=== PATIENT | female | born 1990 | race Caucasian/White ===

== ENCOUNTER 2018-01-25 01:07 | Emergency (ER) | payer OTHER, MEDICAID, SELFPAY ==
[2018-01-25 01:17] VITALS: BP 126/72; PULSE 88; RESP 18; TEMP 36.3; O2SAT 98; BMI 40.7
[2018-01-25] MEDS: CYCLOBENZAPRINE 10 MG PREPACK 1 BOTTLE MISC (01:42)
[2018-01-25] MEDS: KETOROLAC 60 MG/2 ML VIAL IM (01:42)
--- NOTE | 2018-01-25 01:42 | ED.EXTPRO ---
HPI - Extremity Problem General Chief complaint: Extremity Problem,Nontraumatic Stated complaint: SHARP PAIN IN LEFT SHOULDER BLADE Time Seen by Provider: 01/25/18 01:17 Source: patient Mode of arrival: ambulatory Limitations: no limitations History of Present Illness HPI Narrative: Patient is a 27-year-old female who presents with left shoulder pain. It has been ongoing for the last 4 days she was sitting 20 year sleeping in a reclining couch. Since then it has been off and on however tonight it is quite bad. She has some numbness and tingling down her arm hurts every time she moves her arm or her neck. She took ibuprofen about 5 hr ago she gets some relief from it. She denies any trauma or injury. MD Complaint: extremity pain Onset (ago): day(s) (4) Pain Consistency: intermittent Location: left Relieving factors: nothing Exacerbating factors: range of motion Related Data Home Medications Medication Instructions Recorded Confirmed albuterol sulfate [Ventolin HFA] 2 puff INH PRN #0 04/09/17 Previous Rx's Medication Instructions Recorded cyclobenzaprine 5 mg PO TID PRN #10 tab 01/25/18 Allergies Allergy/AdvReac Type Severity Reaction Status Date / Time paroxetine [From PAXIL] Allergy Intermediate PALPITATIONS, Unverified 12/12/17 12:19 LIGHTHEADED Review of Systems Review of Systems All systems reviewed & are unremarkable except as noted in HPI and below Constitutional Denies chills, Denies fever(s), Denies lethargy and Denies weakness Cardiovascular Denies chest pain, Denies irregular heart rhythm, Denies lightheadedness, Denies palpitations, Denies dyspnea, Denies dyspnea on exertion and Denies orthopnea Respiratory Denies cough, Denies dyspnea, Denies dyspnea on exertion and Denies wheezing Musculoskeletal Reports system reviewed and no additional complaints, except as docu Integumentary/Breasts Denies pruritus, Denies erythema, Denies rash and Denies wounds Neurologic Denies weakness Endocrine Denies palpitations Allergic/Immunologic Denies wheezing FOR[facility], LATER [facility] Medical History Anxiety (Acute) Surgical History Status post appendectomy (05/25/12) Status post delivery (09/14/15) Family History Brother Age: 16 ADD (attention deficit disorder) Autism Morbidly obese Grandmother Age: 73 Seizures Hypertension Mother Age: 49 Anxiety Depression PTSD (post-traumatic stress disorder) Sister Age: 27 Anxiety Sister Age: 20 Anxiety Depression PTSD (post-traumatic stress disorder) Social History Smoking Status: Never smoker Exam Initial Vital Signs Initial Vital Signs: Vital Signs Temperature 97.4 F L 01/25/18 01:17 Pulse Rate 88 01/25/18 01:17 Respiratory Rate 18 01/25/18 01:17 Blood Pressure 126/72 H 01/25/18 01:17 Pulse Oximetry 98 01/25/18 01:17 Const General: cooperative and in distress (In pain) Neck Neck: No full ROM (Decreased rotation to the right) Resp Effort & Inspection: normal respiratory effort and able to speak in complete sentences Cardio Pulses: normal peripheral pulses Back/Spine/Pelvis Back: normal to inspection Thoracic/Lumbar Spine: thoracic and lumbar spine normal to inspection Skin General: no rashes or lesions noted, No jaundice and No petechiae Extrem Left upper extremity: shoulder/upper arm (The scapula, trapezius muscle spasm) Details: abnormal ROM Details: pain with passive ROM; ROM limited Course Orders Ordered: Discontinued Medications Cyclobenzaprine HCl (Flexeril 10 Mg Prepack) 1 bottle MISC SEEINSTR ONE Stop: 01/25/18 01:38 Last Admin: 01/25/18 01:42 Dose: 1 bottle Ketorolac Tromethamine (Toradol) 60 mg IM NOW ONE Stop: 01/25/18 01:38 Last Admin: 01/25/18 01:42 Dose: 60 mg Vital Signs - 8 hr 01/25/18 01:17 01/25/18 02:04 Temperature 97.4 F L 97.9 F Pulse Rate 88 76 Respiratory Rate 18 16 Blood Pressure 126/72 H 121/79 H Pulse Oximetry 98 99 Discharge Plan Departure Patient Disposition: Home, Self-Care Clinical Impression: Muscle spasm Discharge Date/Time: 01/25/18 02:06 Interventions: ED Discharge Assessment Last Done: 01/25/18 02:04 Instructions: DI for Muscle Spasm Activity Restrictions/Additional Instructions: *You have been diagnosed with muscle spasm of left shoulder *What to do: Light activity is encouraged, heating pad 30 min at a time, gentle massage *Take medications as directed -Motrin 800 mg every 8 hr with food for 1 week -Flexeril every 8 hr if needed for muscle spasm it does cause drowsiness *Follow up with your primary care provider in 2-3 days *Return to ER if you should have any new, worsening or concerning symptoms Prescriptions: New cyclobenzaprine 5 mg tablet 5 mg PO TID PRN (Reason: muscle spasm) Qty: 10 RF: 0 No Action albuterol sulfate [Ventolin HFA] 90 MCG/PUFF HFA aerosol inhaler 2 puff INH PRN (Reason: Shortness Of Breath) Qty: 0 RF: 0 Referrals: Lyssa Rock DO [Primary Care Provider] -
[2018-01-25 02:04] VITALS: BP 139/88; PULSE 80; RESP 16; TEMP 36.6; O2SAT 99
== END 2018-01-25 02:07 | disposition home or self-care (01) ==
PROVIDERS: Emergency Provider Emergency Medicine; Family Provider Family Medicine; PCP Family Medicine
DX: M62.838 Other muscle spasm (principal)
CPT/HCPCS: 96372; 99282; 99283; J1885

== ENCOUNTER 2018-03-01 00:57 | Emergency (ER) | payer OTHER, MEDICAID, SELFPAY ==
[2018-03-01 01:20] VITALS: BP 116/80; PULSE 109; RESP 18; TEMP 37.6; O2SAT 97; BMI 41.1
--- NOTE | 2018-03-01 01:37 | DI.RAD.S_ITS ---
PROCEDURE: XR CHEST 2V INDICATIONS: 27 year-old female with shortness of breath and cough. TECHNIQUE: 2 views of the chest were acquired. COMPARISON: None. FINDINGS: Surgical changes and devices: None. Lungs and pleura: No pleural effusions or pneumothorax. Lungs are clear. Mediastinum: Mediastinal contours are normal. Heart size is normal. Bones and chest wall: No suspicious bony abnormalities. Soft tissues appear unremarkable. IMPRESSION: No acute cardiopulmonary disease. Dictated by: Hamzah Posadas M.D. on 03/01/2018 at 8:09 Approved by: Hamzah Posadas M.D. on 03/01/2018 at 8:09
--- NOTE | 2018-03-01 01:38 | ED.URI ---
HPI - URI/Sore Throat General Chief Complaint: Upper Respiratory Symptoms Stated Complaint: COUGH, THROWING UP Time Seen by Provider: 03/01/18 01:05 Source: patient and family Mode of arrival: ambulatory Limitations: no limitations History of Present Illness HPI Narrative: Otherwise healthy 27F presents with 5 days of cough, trouble breathing, and now some post tussive emesis. She denies dizziness, weakness. MD Complaint: fever, cough and nasal congestion Onset (ago): day(s) Duration: constant Severity: moderate Relieving factors: nothing Exacerbating factors: nothing Description of mucous: yellow Able to tolerate fluids by mouth: Yes Context: sick contacts Associated symptoms: cough, nausea and vomiting Treatments prior to arrival: cold medicine Related Data Home Medications Medication Instructions Recorded Confirmed albuterol sulfate [Ventolin HFA] 2 puff INH PRN #0 04/09/17 02/27/18 Previous Rx's Medication Instructions Recorded cyclobenzaprine 5 mg PO TID PRN #10 tab 01/25/18 albuterol sulfate 2 puff INHALATION Q4H PRN #1 each 03/01/18 benzonatate [Tessalon Perles] 100 mg PO QID PRN #20 cap 03/01/18 Allergies Allergy/AdvReac Type Severity Reaction Status Date / Time paroxetine [From PAXIL] Allergy Intermediate PALPITATIONS, Verified 03/01/18 01:41 LIGHTHEADED Review of Systems Review of Systems All systems reviewed & are unremarkable except as noted in HPI and below Constitutional Denies chills, Denies fever(s), Denies lethargy and Denies weakness Eyes Denies change in vision, Denies eye discharge, Denies irritation and Denies loss of vision ENT Ears, Nose, Mouth, and Throat: Denies change in voice, Reports nasal congestion, Denies neck pain and Denies sore throat Cardiovascular Denies chest pain, Denies irregular heart rhythm, Denies lightheadedness, Denies palpitations, Denies dyspnea, Denies dyspnea on exertion and Denies orthopnea Respiratory Reports cough, Denies dyspnea, Denies dyspnea on exertion and Denies wheezing Gastrointestinal Gastrointestinal: Denies abdominal pain, Denies change in bowel habits, Denies diarrhea, Reports nausea and Reports vomiting Genitourinary Denies hematuria, Denies flank pain, Denies urinary incontinence and Denies urinary urgency Musculoskeletal Denies neck pain Integumentary/Breasts Denies pruritus, Denies erythema, Denies rash and Denies wounds Neurologic Denies confusion, Denies loss of vision and Denies weakness Psychiatric Denies anxiety, Denies confusion, Denies depression, Denies homicidal ideation and Denies suicidal ideation Endocrine Denies palpitations Hematologic/Lymphatic Denies easy bruising Allergic/Immunologic Denies wheezing PFSH Social History marital status: Smoking Status: Never smoker Exam Narrative Exam Narrative: Pleasant 27-year-old female in no significant distress, wearing a mask resting comfortably. She is admittedly anxious and requests that we start with a checks x-ray and try to let her calm down before getting too concerned about her slightly elevated heart rate Initial Vital Signs Initial Vital Signs: Vital Signs Temperature 99.6 F 03/01/18 01:20 Pulse Rate 109 H 03/01/18 01:20 Respiratory Rate 18 03/01/18 01:20 Blood Pressure 116/80 03/01/18 01:20 Pulse Oximetry 97 03/01/18 01:20 Const General: cooperative, well groomed and anxious Nutritional Appearance: overweight Orientation: alert, awake and oriented x3 HENMT Head: normocephalic and atraumatic Ears: external ears normal and TM's normal bilaterally Nose: No nasal discharge Face and sinus: sinuses nontender, face symmetric, no sinus tenderness and No dry mucous membranes Mouth: oral mucosae normal and moist mucous membranes Teeth and gingiva: dentition normal Throat: tonsils normal and uvula midline Neck Neck: normal visual inspection, trachea midline, No lymphadenopathy, No midline deformity and No JVD Lymphatic: No lymphedema Resp Effort & Inspection: normal respiratory effort, able to speak in complete sentences, no respiratory distress and no use of accessory muscles Auscultation: clear to auscultation bilaterally, no rales, no rhonchi and no wheezes Cardio Rate: tachycardic Rhythm: regular rhythm GI Inspection: non-distended Palpation: soft, no hepatosplenomegaly, No guarding, No pulsatile mass and No tender Auscultation: normal bowel sounds Skin General: no rashes or lesions noted, No jaundice and No petechiae Extrem General: full ROM, no clubbing, cyanosis or edema, no pedal edema and no calf tenderness Course Orders Ordered: ED Orders 03/01/18 01:37 XR chest 2V Stat 03/01/18 02:35 Basic Metabolic Panel Stat Complete Blood Count AUTO DIFF Stat Discontinued Medications Sodium Chloride (Normal Saline 0.9%) 1,000 mls @ 1,000 mls/hr IV BOLUS ONE Stop: 03/01/18 03:16 Last Admin: 03/01/18 02:44 Dose: 1,000 mls/hr Ondansetron HCl (Zofran Odt) 4 mg PO NOW ONE Stop: 03/01/18 01:38 Last Admin: 03/01/18 01:48 Dose: 4 mg Ondansetron HCl (Zofran Odt Prepack) 1 bottle MISC SEEINSTR ONE Stop: 03/01/18 03:38 Reevaluation(s) Reevaluation #1: Patient continues to be a bit tachycardic and is now amenable to the concept of an IV with fluids and blood work Vital Signs - 8 hr 03/01/18 01:20 03/01/18 03:35 Temperature 99.6 F Pulse Rate 109 H 88 Respiratory Rate 18 16 Blood Pressure 116/80 Pulse Oximetry 97 99 MDM - URI/Sore Throat Differential Diagnosis Differential diagnosis: Likely upper respiratory infection, viral infection and bronchitis Medical Records Attestation: I reviewed the patient's medical records. Lab Data Attestation: I reviewed the patient's lab results. Result diagrams: 03/01/18 02:35 03/01/18 02:35 Lab Results 03/01/18 03/01/18 Range/Units 02:35 02:35 WBC 10.7 (4.5-11.0) X10^3/uL RBC 4.40 (4.0-5.2) X10^6/uL Hgb 11.6 L (12.0-16.0) g/dL Hct 34.5 L (36-46) % MCV 78.4 L (80-100) fL MCH 26.4 (26-34) PG MCHC 33.7 (30-36) % RDW 14.0 (11.6-14.8) % Plt Count 307 (150-400) X10^3/uL Neut % (Auto) 60.2 (50-75) % Lymph % (Auto) 29.3 (25-40) % [place] % (Auto) 8.0 (3-14) % Eos % (Auto) 1.7 L (2-4) % Baso % (Auto) 0.8 (0-2) % Neut # (Auto) 6400 H (7318-3936) /uL Sodium 140 (137-145) mmol/L Potassium 4.0 (3.4-5.1) mmol/L Chloride 105 (98-107) mmol/L Carbon Dioxide 25 (22-32) mmol/L BUN 11 (7-17) mg/dL Creatinine 0.70 (0.52-1.04) mg/dL Estimated GFR > 60.0 (>60) mL/min BUN/Creatinine Ratio 15.7 (6-22) Glucose 101 H (70-100) mg/dL Calcium 8.8 (8.4-10.2) mg/dL Imaging Data Chest x-ray: Attestation: I personally reviewed and interpreted this imaging study as follows: My impression: No acute process MDM Narrative Medical decision making narrative: Patient feeling much better after fluids. Labs are unremarkable, no elevated white blood cells and minimally elevated temperature. Chest x-ray shows no pneumonia. Vomiting is posttussive Discharge Plan Departure Patient Disposition: Home, Self-Care Clinical Impression: Bronchitis, Vomiting Discharge Date/Time: 03/01/18 03:51 Instructions: Acute Bronchitis Activity Restrictions/Additional Instructions: 1. Drink plenty of fluids with frequent small sips. 2. For the next 24 hours a clear liquid diet is advised. After that please employ a brat diet which would include bananas, rice, apples, toast. 3. Please take medications as directed. Tessalon Perles have been electronically transmitted to your preferred pharmacy 4. Please follow-up with your doctor in the next 1-2 days. Call the office for an appointment. 5. Please return to the emergency Department for any worsening or persistent symptoms, such as increasing pain or fever. Prescriptions: New benzonatate [Tessalon Perles] 100 mg capsule 100 mg PO QID PRN (Reason: cough) Qty: 20 RF: 0 albuterol sulfate 90 mcg/actuation aerosol powdr breath activated 2 puff INHALATION Q4H PRN (Reason: shortness of breath or wheezing) Qty: 1 RF: 0 No Action albuterol sulfate [Ventolin HFA] 90 MCG/PUFF HFA aerosol inhaler 2 puff INH PRN (Reason: Shortness Of Breath) Qty: 0 RF: 0 cyclobenzaprine 5 mg tablet 5 mg PO TID PRN (Reason: muscle spasm) Qty: 10 RF: 0 Referrals: Lyssa Rock DO [Primary Care Provider] -
[2018-03-01] MEDS: ONDANSETRON 4 MG ODT PO (01:48)
[2018-03-01] MEDS: SODIUM CHLORIDE 0.9% 1,000 ML 1000 ML IV (02:44)
[2018-03-01 02:47] LABS: Add Manual Diff / Slide Review NO; Basophils Percent Auto 0.8 % (0-2); Eosinophils Percent Auto 1.7 % (2-4); Hematocrit 34.5 % (36-46); Hemoglobin 11.6 g/dL (12.0-16.0); Lymphocytes Percent Auto 29.3 % (25-40); Mean Corpuscular HGB Conc 33.7 % (30-36); Mean Corpuscular Hemoglobin 26.4 PG (26-34); Mean Corpuscular Volume 78.4 fL (80-100); Neutrophils Absolute Auto 6400 /uL (3000-5900); Neutrophils Percent Auto 60.2 % (50-75); Platelet Count 307 X10^3/uL (150-400); White Blood Cell Count 10.7 X10^3/uL (4.5-11.0)
[2018-03-01 02:56] LABS: BUN Creatinine Ratio 15.7 (6-22); Blood Urea Nitrogen 11 mg/dL (7-17); Calcium 8.8 mg/dL (8.4-10.2); Carbon Dioxide 25 mmol/L (22-32); Chloride 105 mmol/L (98-107); Estimated Glomerular Filt Rate > 60.0 mL/min (>60); Glucose 101 mg/dL (70-100); HEMOLYSIS 25 (0-50); Sodium 140 mmol/L (137-145)
[2018-03-01 03:35] VITALS: BP 121/68; PULSE 88; RESP 16; O2SAT 99
[2018-03-01 03:51] VITALS: TEMP 37.1
== END 2018-03-01 03:51 | disposition home or self-care (01) ==
PROVIDERS: Emergency Provider Emergency Medicine; Family Provider Family Medicine; PCP Family Medicine
DX: J40 Bronchitis, not specified as acute or chronic (principal); R11.10 Vomiting, unspecified
CPT/HCPCS: 36591; 71046; 80048; 85025; 96360; 99283; 99284

== ENCOUNTER 2018-03-17 22:46 | Emergency (ER) | payer OTHER, MEDICAID, SELFPAY ==
[2018-03-17 22:55] VITALS: BP 132/72; PULSE 101; RESP 18; TEMP 36.6; O2SAT 100; BMI 40.7
--- NOTE | 2018-03-17 23:00 | DI.RAD.S_ITS ---
PROCEDURE: XR HAND LT MIN 3V INDICATIONS: struck by baseball, pain swelling over 5th TECHNIQUE: 3 views of the hand(s) acquired. COMPARISON: None. FINDINGS: Bones: No fractures or dislocations. Carpal bones are normally aligned. No suspicious bony lesions. Soft tissues: No suspicious soft tissue calcifications. IMPRESSION: Negative for fracture Dictated by: Dilip Hernandez M.D. on 03/18/2018 at 7:41 Approved by: Dilip Hernandez M.D. on 03/18/2018 at 7:47
--- NOTE | 2018-03-17 23:21 | ED_ITS ---
HPI - Extremity Injury (Upper) General Chief Complaint: Extremity Injury, Upper Stated Complaint: HIT IN LEFT HAND WITH A BASEBALL PITCH Time Seen by Provider: 03/17/18 22:50 Source: patient Mode of arrival: ambulatory Limitations: no limitations History of Present Illness HPI narrative: 27-year-old female complains of left 5th finger pain after being struck in the hand by a baseball. She complains pain with motion and improvement with rest. She denies any numbness, tingling or weakness. She denies other injuries. She is able to make a fist but with pain MD complaint: injury to: left Onset (ago): minute(s) Other Extremity Injury: Left: fingers Relieving factors: none Exacerbating factors: movement of extremity Context: direct blow Associated symptoms: denies other symptoms Related Data Home Medications Medication Instructions Recorded Confirmed albuterol sulfate [Ventolin HFA] 2 puff INH PRN #0 04/09/17 02/27/18 Previous Rx's Medication Instructions Recorded cyclobenzaprine 5 mg PO TID PRN #10 tab 01/25/18 albuterol sulfate 2 puff INHALATION Q4H PRN #1 each 03/01/18 benzonatate [Tessalon Perles] 100 mg PO QID PRN #20 cap 03/01/18 Allergies Allergy/AdvReac Type Severity Reaction Status Date / Time paroxetine [From PAXIL] Allergy Intermediate PALPITATIONS, Verified 03/17/18 22: 59 LIGHTHEADED Review of Systems Review of Systems All systems reviewed & are unremarkable except as noted in HPI and below Constitutional Denies chills, Denies fever(s), Denies lethargy and Denies weakness Eyes Denies change in vision, Denies eye discharge, Denies irritation and Denies loss of vision ENT Ears, Nose, Mouth, and Throat: Denies change in voice, Denies neck pain and Denies sore throat Cardiovascular Denies chest pain, Denies irregular heart rhythm, Denies lightheadedness, Denies palpitations, Denies dyspnea, Denies dyspnea on exertion and Denies orthopnea Respiratory Denies cough, Denies dyspnea, Denies dyspnea on exertion and Denies wheezing Gastrointestinal Gastrointestinal: Denies abdominal pain, Denies change in bowel habits, Denies diarrhea, Denies nausea and Denies vomiting Genitourinary Denies hematuria, Denies flank pain, Denies urinary incontinence and Denies urinary urgency Musculoskeletal Reports limited range of motion and Denies neck pain Integumentary/Breasts Denies pruritus, Denies erythema, Denies rash and Denies wounds Neurologic Denies confusion, Denies loss of vision and Denies weakness Psychiatric Denies anxiety, Denies confusion, Denies depression, Denies homicidal ideation and Denies suicidal ideation Endocrine Denies palpitations Hematologic/Lymphatic Denies easy bruising Allergic/Immunologic Denies wheezing PFSH Social History marital status: Smoking Status: Never smoker Exam Initial Vital Signs Initial Vital Signs: Vital Signs Temperature 97.8 F 03/17/18 22:55 Pulse Rate 101 H 03/17/18 22:55 Respiratory Rate 18 03/17/18 22:55 Blood Pressure 132/72 H 03/17/18 22:55 Pulse Oximetry 100 03/17/18 22:55 Const General: cooperative and well developed Nutritional Appearance: well nourished Orientation: alert, awake, oriented x3 and not confused Resp Effort & Inspection: normal respiratory effort, able to speak in complete sentences, no respiratory distress and no use of accessory muscles Auscultation: clear to auscultation bilaterally, no rales, no rhonchi and no wheezes GI Inspection: non-distended Palpation: soft, no hepatosplenomegaly, No guarding, No pulsatile mass and No tender Auscultation: normal bowel sounds Extrem Left upper extremity: hand (Left 5th finger is tender to palpation along the proximal phalanx. Minimal swelling no obvious deformity. Cap refill intact. No pain to palpation of metacarpals, carpals, with axial loading of thumb or in snuffbox) Course Orders Ordered: ED Orders 03/17/18 23:00 XR hand LT min 3V Stat Vital Signs - 8 hr 03/17/18 22:55 Temperature 97.8 F Pulse Rate 101 H Respiratory Rate 18 Blood Pressure 132/72 H Pulse Oximetry 100 MDM - Extremity Injury (Upper) Differential Diagnosis Differential diagnosis: Likely finger sprain, dislocation of finger and fracture of hand Medical Records Attestation: I reviewed the patient's medical records. Imaging Data Finger Xray: My impression: No bony abnormality Discharge Plan Departure Patient Disposition: Home, Self-Care Clinical Impression: Contusion of finger of left hand Discharge Date/Time: 03/17/18 23:39 Interventions: ED Discharge Assessment Last Done: 03/17/18 23:39 Instructions: DI for Contusion Activity Restrictions/Additional Instructions: *You have been diagnosed with left 5th finger contusion *What to do: *Take medications as directed *Follow up with your primary care provider in 2-3 days, call for an appointment. Let them know you were seen in the Emergency Department and that we ask that you be seen in follow up *Return to ER if you should have any new, worsening or concerning symptoms , such as [increasing pain, swelling or numbness ] Prescriptions: No Action albuterol sulfate [Ventolin HFA] 90 MCG/PUFF HFA aerosol inhaler 2 puff INH PRN (Reason: Shortness Of Breath) Qty: 0 RF: 0 cyclobenzaprine 5 mg tablet 5 mg PO TID PRN (Reason: muscle spasm) Qty: 10 RF: 0 benzonatate [Tessalon Perles] 100 mg capsule 100 mg PO QID PRN (Reason: cough) Qty: 20 RF: 0 albuterol sulfate 90 mcg/actuation aerosol powdr breath activated 2 puff INHALATION Q4H PRN (Reason: shortness of breath or wheezing) Qty: 1 RF : 0
--- NOTE | 2018-03-17 23:32 | PC.NURSE ---
positive cms. denies other symptoms.
== END 2018-03-17 23:38 | disposition home or self-care (01) ==
PROVIDERS: Emergency Provider Emergency Medicine; Family Provider Family Medicine; PCP Family Medicine
DX: S60.052A Contusion of left little finger without damage to nail, initial encounter (principal); W21.03XA Struck by baseball, initial encounter
CPT/HCPCS: 73130; 99282; 99283

== ENCOUNTER 2018-04-10 21:44 | Emergency (ER) | payer OTHER, MEDICAID, SELFPAY ==
[2018-04-10 21:51] VITALS: BP 156/96; PULSE 114; RESP 20; TEMP 36.3; O2SAT 98; BMI 40.7
--- NOTE | 2018-04-10 21:51 | DI.RAD.S_ITS ---
PROCEDURE: XR KNEE RT 3V INDICATIONS: twisted R Knee TECHNIQUE: 3 views of the knee were acquired. COMPARISON: None. FINDINGS: Bones: No fractures or dislocations. No suspicious bony lesions. Soft tissues: No joint effusion. No suspicious soft tissue calcifications. IMPRESSION: No acute right knee fracture or dislocation. Dictated by: Jet Carias M.D. on 04/10/2018 22:03 Approved by: Jet Carias M.D. on 04/10/2018 at 22:03
--- NOTE | 2018-04-10 21:57 | ED_ITS ---
HPI - Extremity Injury (Lower) General Chief Complaint: Extremity Injury, Lower Stated Complaint: RT KNEE PAIN Time Seen by Provider: 04/10/18 21:50 Source: patient Mode of arrival: ambulatory Limitations: no limitations History of Present Illness HPI Narrative: 27-year-old female here for evaluation of right knee injury. Patient states that earlier today she ?twisted? and her knee ?did not follow ? since then has had pain on the outside of her knee. No prior knee injuries. No other injuries reported from the event. No swelling. Has not tried anything for it prior to arrival. Related Data Home Medications Medication Instructions Recorded Confirmed albuterol sulfate [Ventolin HFA] 2 puff INH PRN #0 04/09/17 02/27/18 Previous Rx's Medication Instructions Recorded cyclobenzaprine 5 mg PO TID PRN #10 tab 01/25/18 albuterol sulfate 2 puff INHALATION Q4H PRN #1 each 03/01/18 benzonatate [Tessalon Perles] 100 mg PO QID PRN #20 cap 03/01/18 Allergies Allergy/AdvReac Type Severity Reaction Status Date / Time paroxetine [From PAXIL] Allergy Intermediate PALPITATIONS, Verified 03/17/18 22: 59 LIGHTHEADED Review of Systems Constitutional Denies chills and Denies fever(s) Musculoskeletal Comments: Right knee pain Integumentary/Breasts Denies lesions and Denies rash Neurologic Comments: No numbness and tingling right lower extremity Hematologic/Lymphatic Denies easy bleeding and Denies easy bruising [facility] Medical History Anxiety (Acute) Surgical History Status post appendectomy (05/25/12) Status post delivery (09/14/15) Family History Brother Age: 16 ADD (attention deficit disorder) Autism Morbidly obese Grandmother Age: 73 Seizures Hypertension Mother Age: 49 Anxiety Depression PTSD (post-traumatic stress disorder) Sister Age: 27 Anxiety Sister Age: 20 Anxiety Depression PTSD (post-traumatic stress disorder) Social History marital status: Smoking Status: Never smoker Exam Initial Vital Signs Initial Vital Signs: Vital Signs Temperature 97.3 F L 04/10/18 21:51 Pulse Rate 114 H 04/10/18 21:51 Respiratory Rate 20 04/10/18 21:51 Blood Pressure 156/96 H 04/10/18 21:51 Pulse Oximetry 98 04/10/18 21:51 Const General: cooperative, healthy appearing, well developed, well groomed and No acute distress HENMT Head: normal to inspection and normocephalic Resp Effort & Inspection: normal respiratory effort Skin Lesions: no lesions Rashes: no rashes Neuro Other: Sensation intact to light touch right lower extremity Extrem Other: Patient with tenderness to palpation over the quadriceps tendon, lateral joint line. No patellar tendon tenderness. No medial joint line tenderness. Cornelia's negative. Anterior drawer negative. Posterior drawer negative. Right hip unremarkable. Right ankle unremarkable. Psych Appearance: grossly normal and well kempt Course Orders Ordered: ED Orders 04/10/18 21:51 XR knee RT 3V Stat Vital Signs - 8 hr 04/10/18 21:51 Temperature 97.3 F L Pulse Rate 114 H Respiratory Rate 20 Blood Pressure 156/96 H Pulse Oximetry 98 MDM - Extremity Injury (Lower) Imaging Data X-ray knee: Radiologist's impression: PROCEDURE: XR KNEE RT 3V INDICATIONS: twisted R Knee TECHNIQUE: 3 views of the knee were acquired. COMPARISON: None. FINDINGS: Bones: No fractures or dislocations. No suspicious bony lesions. Soft tissues: No joint effusion. No suspicious soft tissue calcifications. IMPRESSION: No acute right knee fracture or dislocation. Dictated by: Jet Carias M.D. on 04/10/2018 22:03 Approved by: Jet Carias M.D. on 04/10/2018 at 22:03 [facility] Narrative Medical decision making narrative: No fractures on the x-ray. Patient is neurovascularly intact. Has tenderness to palpation along the lateral joint line. Suspect either a LCL strain or a meniscal disruption. No indication for emergent MRI. Discussed the use of crutches however patient declined. I offered an Terry bandage for her comfort however she declined. She seemed upset that we did not have knee braces here in the emergency department. Informed her that she could purchase a knee brace from 1 of the local stores. Informed her that she could walk on her knee to the point that she was not having any symptoms. We did discuss elevation and icing. We discussed return precautions. Informed her that she needs to call her primary doctor for a follow-up. She expressed understanding and agreement with plan. Discharge Plan Departure Patient Disposition: Home, Self-Care Clinical Impression: Right knee sprain Instructions: How to Use an Elastic Bandage-Knee Sprain, DI for Knee Sprain, How To Perform RICE (Rest, Ice, Compress, Elevate) Activity Restrictions/Additional Instructions: Your only limited in your activity by the discomfort you are having. You can walk on your right knee. Recommend that you purchase a knee brace in use that as needed for comfort. Call your primary care doctor tomorrow for a follow-up. Return to the emergency department for any new symptoms. Prescriptions: No Action albuterol sulfate [Ventolin HFA] 90 MCG/PUFF HFA aerosol inhaler 2 puff INH PRN (Reason: Shortness Of Breath) Qty: 0 RF: 0 cyclobenzaprine 5 mg tablet 5 mg PO TID PRN (Reason: muscle spasm) Qty: 10 RF: 0 benzonatate [Tessalon Perles] 100 mg capsule 100 mg PO QID PRN (Reason: cough) Qty: 20 RF: 0 albuterol sulfate 90 mcg/actuation aerosol powdr breath activated 2 puff INHALATION Q4H PRN (Reason: shortness of breath or wheezing) Qty: 1 RF : 0
== END 2018-04-10 22:58 | disposition home or self-care (01) ==
PROVIDERS: Emergency Provider Emergency Medicine; Family Provider Family Medicine; PCP Family Medicine
DX: S83.91XA Sprain of unspecified site of right knee, initial encounter (principal); T73.3XXA Exhaustion due to excessive exertion, initial encounter
CPT/HCPCS: 73562; 99282; 99283

== ENCOUNTER → 2018-05-14 07:33 | Outpatient (CLI) | payer OTHER, MEDICAID, SELFPAY ==
--- NOTE | 2018-05-14 07:34 | DI.MRI.S_ITS ---
PROCEDURE: MR KNEE RT WO CON INDICATIONS: 27 year-old woman with right knee pain after stepping injury. TECHNIQUE: Noncontrast sagittal PD fast spin echo and T2 fast spin echo with fat saturation, sagittal 3-D FLASH with fat saturation; coronal T1 spin echo and PD fast spin echo with fat saturation, and axial PD fast spin echo with fat saturation through the knee. COMPARISON: [facility], CR, XR KNEE RT 3V, 04/10/2018, 21:34. FINDINGS: Image quality: Excellent. Menisci: There is a small non-displaced vertical tear in the posterior horn of the lateral meniscus peripherally (series 5 image 10). The free edge of posterior horn of the lateral meniscus is blunted, suspicious for tear. The medial meniscus demonstrates normal morphology and internal signal. The meniscal root ligaments appear intact. Cruciate ligaments: The anterior and posterior cruciate ligaments appear intact. Medial structures: The medial collateral ligament appears intact. The posterior oblique ligament, semimembranosus tendon insertions, oblique popliteal ligament, and meniscocapsular junction appear intact. Visualized portions of the pes anserinus tendons appear normal. No abnormal bursal fluid. Lateral structures: The lateral collateral ligament, long and short heads of the biceps femoris tendon appear intact. The popliteus tendon appears normal; the popliteofibular ligament appears intact. The posterosuperior and anteroinferior popliteomeniscal fascicles appear intact. The arcuate and fabellofibular ligaments appear intact, on either side of the lateral inferior geniculate artery. Iliotibial band appears normal. Anterior structures: The quadriceps and patellar tendons appear intact. Patellar alignment is normal. No femoral trochlear dysplasia or ventral trochlear prominence. No edema in the infrapatellar fat pad. Bones and cartilage: No bone marrow contusions or fractures. There is mild cartilage thinning and fibrillation of the patella. Joint space: There is small knee joint fluid. No Posadas's cyst. Normal appearing synovial plicae are incidentally noted. IMPRESSION: 1. There is a small non-displaced vertical tear in the peripheral posterior horn of the lateral meniscus. 2. The free edge of the posterior horn of the lateral meniscus appears truncated, suspicious for tear. 3. Small knee joint effusion. 4. Mild cartilage thinning and fibrillation of the patella. Dictated by: Chris Fitzgerald M.D. on 05/14/2018 at 9:23 Transcribed by: RAY on 05/14/2018 at 9:31 Approved by: Chris Fitzgerald M.D. on 05/14/2018 at 17:44
== END ==
PROVIDERS: Family Provider Family Medicine; PCP Family Medicine; Visit Provider Physician Assistant
DX: S83.91XA Sprain of unspecified site of right knee, initial encounter (principal); S83.261A Peripheral tear of lateral meniscus, current injury, right knee, initial encounter; M25.461 Effusion, right knee
CPT/HCPCS: 73721

== ENCOUNTER 2018-06-08 22:36 | Emergency (ER) | payer OTHER, MEDICAID, SELFPAY ==
--- NOTE | 2018-06-08 22:42 | ED.LOWEXIN ---
HPI - Extremity Injury (Lower) General Chief Complaint: Extremity Problem,Nontraumatic Stated Complaint: RIGHT KNEE PAIN Time Seen by Provider: 06/08/18 22:39 Source: patient Mode of arrival: ambulatory Limitations: no limitations History of Present Illness HPI Narrative: 27-year-old female with a known right lateral meniscal injuries seen on an MRI prior to this ER visit here for evaluation of right knee pain. Patient states she was at work when she twisted wrong and had pain on her knee. She states it is in the same spot that she has had pain with a known meniscal injury. She was not wearing a knee brace at the time. States that she had a lot of pain with standing and had to leave work so she came to the emergency department for evaluation Related Data Home Medications Medication Instructions Recorded Confirmed albuterol sulfate [Ventolin HFA] 2 puff INH PRN #0 04/09/17 04/24/18 Previous Rx's Medication Instructions Recorded cyclobenzaprine 5 mg PO TID PRN #10 tab 01/25/18 albuterol sulfate 2 puff INHALATION Q4H PRN #1 each 03/01/18 benzonatate [Tessalon Perles] 100 mg PO QID PRN #20 cap 03/01/18 methylprednisolone 4 mg tablets in See Label Instructions PO PER PKG 04/19/18 a dose pack DIR #21 each acetaminophen-codeine 1 tab PO Q4-6H PRN #7 tab 06/08/18 [Tylenol-Codeine #3] Allergies Allergy/AdvReac Type Severity Reaction Status Date / Time paroxetine [From PAXIL] Allergy Intermediate PALPITATIONS, Verified 04/24/18 11:07 LIGHTHEADED Review of Systems Constitutional Denies fever(s) Musculoskeletal Denies tingling Comments: right knee pain Integumentary/Breasts Denies lesions and Denies rash Neurologic Denies sensory deficit, Denies tingling and Denies paresthesias [facility] Medical History Anxiety (Chronic 2008) Asthma (Chronic 2006) Chronic back pain (Chronic 2007) Chronic headaches (Chronic 2008) Depression (Chronic 2008) Hayfever (Chronic ~1998) PTSD (post-traumatic stress disorder) (Chronic 2015) Personality disorder (Chronic 2015) Surgical History Anesthesia (Resolved) History of placement of ear tubes (Resolved ~1993) Status post appendectomy (Resolved 05/25/12) Status post delivery (Resolved 09/14/15) Family History Brother Age: 16 ADD (attention deficit disorder) Autism Morbidly obese Developmental disability Grandmother Age: 73 Seizures Hypertension Mother Age: 49 Anxiety Depression PTSD (post-traumatic stress disorder) Sister Age: 27 Anxiety Sister Age: 20 Anxiety Depression PTSD (post-traumatic stress disorder) Father Anxiety Anger Grandfather No problems noted. Sister Anxiety Depression Social History marital status: Smoking Status: Never smoker Exam Initial Vital Signs Initial Vital Signs: Vital Signs Temperature 98.7 F 06/08/18 22:44 Pulse Rate 68 06/08/18 22:44 Respiratory Rate 18 06/08/18 22:44 Blood Pressure 130/59 L 06/08/18 22:44 Pulse Oximetry 100 06/08/18 22:44 Const General: cooperative, healthy appearing, comfortable, well developed, well groomed and No acute distress Orientation: alert, awake and oriented x3 Skin Lesions: no lesions Rashes: no rashes Neuro Motor: muscle tone normal throughout Sensory Exam: no sensory deficits noted Extrem Other: tenderness to palpation along the lateral joint line of the right knee. Psych Appearance: grossly normal and well kempt Course Orders Ordered: Discontinued Medications Acetaminophen/Codeine Phosphate (Tylenol #3) 1 tab PO NOW ONE Stop: 06/08/18 23:07 Last Admin: 06/08/18 23:33 Dose: 1 tab Vital Signs - 8 hr 06/08/18 22:44 06/08/18 23:55 Temperature 98.7 F 98.2 F Pulse Rate 68 93 H Respiratory Rate 18 18 Blood Pressure 130/59 L 115/52 L Pulse Oximetry 100 100 MDM - Extremity Injury (Lower) MDM Narrative Medical decision making narrative: Patient is a known right lateral meniscus injury. Is scheduled for surgery later this month. No new injuries from the event today. I suspect a reaggravation of the meniscal injury to her right knee. No effusion noted on the knee. She is neurovascularly intact. No indication for further radiologic studies this evening. We did discuss the possibility of her using a knee brace for comfort. She is only limited in her activity by her discomfort. She is instructed to contact her orthopedic doctor on Sunday for follow-up. Discharge Plan Departure Patient Disposition: Home Clinical Impression: Knee pain, right Discharge Date/Time: 06/08/18 23:55 Interventions: ED Discharge Assessment Last Done: 06/08/18 23:55 Instructions: DI for Meniscal Tear, How To Perform RICE (Rest, Ice, Compress, Elevate) Activity Restrictions/Additional Instructions: contact your orthopedic surgeon on Sunday morning to discuss her symptoms. Recommend you keep her leg elevated as much as possible. You can ice it as much as possible. Return to the emergency department for any new or worsening symptoms Prescriptions: New acetaminophen-codeine [Tylenol-Codeine #3] 300-30 mg tablet 1 tab PO Q4-6H PRN (Reason: pain) Qty: 7 RF: 0 No Action albuterol sulfate [Ventolin HFA] 90 MCG/PUFF HFA aerosol inhaler 2 puff INH PRN (Reason: Shortness Of Breath) Qty: 0 RF: 0 methylprednisolone [Medrol (Charlie)] 4 mg tablets,dose pack See Label Instructions PO PER PKG DIR Qty: 21 RF: 0 cyclobenzaprine 5 mg tablet 5 mg PO TID PRN (Reason: muscle spasm) Qty: 10 RF: 0 benzonatate [Tessalon Perles] 100 mg capsule 100 mg PO QID PRN (Reason: cough) Qty: 20 RF: 0 albuterol sulfate 90 mcg/actuation aerosol powdr breath activated 2 puff INHALATION Q4H PRN (Reason: shortness of breath or wheezing) Qty: 1 RF: 0
[2018-06-08 22:44] VITALS: BP 130/59; PULSE 68; RESP 18; TEMP 37.1; O2SAT 100; BMI 40.1
[2018-06-08] MEDS: CODEINE/ACETAMINOPHEN 30/300 TABLET 1 TAB PO (23:33)
[2018-06-08 23:55] VITALS: BP 115/52; PULSE 93; RESP 18; TEMP 36.8; O2SAT 100
== END 2018-06-08 23:55 | disposition home or self-care (01) ==
PROVIDERS: Emergency Provider Emergency Medicine; Family Provider Family Medicine; PCP Family Medicine
DX: M25.561 Pain in right knee (principal)
CPT/HCPCS: 99282; 99283

== ENCOUNTER 2018-07-30 23:04 | Emergency (ER) | payer OTHER, MEDICAID, SELFPAY ==
[2018-07-30 23:29] VITALS: BP 130/80; PULSE 80; RESP 18; TEMP 36.6; O2SAT 99; BMI 41.5
--- NOTE | 2018-07-30 23:39 | PC.NURSE ---
approx. 1.5cm v shaped lac on 2nd proximal dorsal phalanx.she cut it at work on [employer].
--- NOTE | 2018-07-30 23:40 | PC.NURSE ---
distal cms intact on cut finger.
--- NOTE | 2018-07-30 23:57 | ED_ITS ---
HPI - Extremity Injury (Upper) General Chief Complaint: Extremity Injury, Upper Stated Complaint: right index finger laceration Time Seen by Provider: 07/30/18 23:36 Source: patient Mode of arrival: ambulatory Limitations: no limitations History of Present Illness HPI narrative: 28-year-old female here for evaluation of a cut on her right index finger. She is up-to-date on her tetanus. She states that it happened at work. Covered with a bandage prior to arrival otherwise no other interventions prior to arrival. Related Data Home Medications Medication Instructions Recorded Confirmed albuterol sulfate [Ventolin HFA] 2 puff INH PRN #0 04/09/17 04/24/18 Previous Rx's Medication Instructions Recorded cyclobenzaprine 5 mg PO TID PRN #10 tab 01/25/18 albuterol sulfate 2 puff INHALATION Q4H PRN #1 each 03/01/18 benzonatate [Tessalon Perles] 100 mg PO QID PRN #20 cap 03/01/18 methylprednisolone 4 mg tablets in See Label Instructions PO PER PKG 04/19/18 a dose pack DIR #21 each acetaminophen-codeine 1 tab PO Q4-6H PRN #7 tab 06/08/18 [Tylenol-Codeine #3] Allergies Allergy/AdvReac Type Severity Reaction Status Date / Time paroxetine [From PAXIL] Allergy Intermediate PALPITATIONS, Verified 04/24/18 11: 07 LIGHTHEADED Review of Systems Musculoskeletal Comments: No pain with movement of the right index finger Integumentary/Breasts Comments: cut to the back of the right index finger Neurologic Comments: no tingling to the right index finger Hematologic/Lymphatic Comments: not on anticoagulation [facility] Social History marital status: Smoking Status: Never smoker Exam Initial Vital Signs Initial Vital Signs: Vital Signs Temperature 97.9 F 07/30/18 23:29 Pulse Rate 80 07/30/18 23:29 Respiratory Rate 18 07/30/18 23:29 Blood Pressure 130/80 07/30/18 23:29 Pulse Oximetry 99 07/30/18 23:29 Const General: cooperative, healthy appearing, comfortable, well developed, well groomed and No acute distress Cardio Pulses: radial pulses present on the right Skin Other: patient with a 2 cm total length U shaped cut on the dorsum of the right index finger just distal to the MCP joint. No active bleeding. Neuro Other: sensation intact to light touch right upper extremity Extrem Other: Full range of motion right MCP joint and the PIP and DIP joint Of the index finger.. Psych Appearance: grossly normal and well kempt Procedures Laceration Repair Laceration 1: Site: hand Side (If applicable): right Size (cm): 2 Description: flap Depth: simple, single layer Skin layer closed with: other ( Dermabond and Steri-Strips) Course Vital Signs - 8 hr 07/30/18 23:29 Temperature 97.9 F Pulse Rate 80 Respiratory Rate 18 Blood Pressure 130/80 Pulse Oximetry 99 MDM - Extremity Injury (Upper) MDM Narrative Medical decision making narrative: Patient is neurovascular intact. He is up- to-date on tetanus. Has a U shaped cut on the back of her right index finger. I discussed with her the options that she has to include suturing versus Steri- Strips and Dermabond. The patient opted for Steri-Strips and Dermabond. Patient was given care instructions. No underlying structures were involved in the cut. She was given return precautions. She expressed understanding and agreement with plan. Discharge Plan Departure Patient Disposition: Home Clinical Impression: Finger laceration Instructions: DI for Laceration Repair With Dermabond Activity Restrictions/Additional Instructions: recommend that you use the splint for the next 24 hr just as a reminder to keep her finger as straight as possible. After that you can take it off especially to wash her hands into work. Return to the emergency department for any new or worsening symptoms Prescriptions: No Action albuterol sulfate [Ventolin HFA] 90 MCG/PUFF HFA aerosol inhaler 2 puff INH PRN (Reason: Shortness Of Breath) Qty: 0 RF: 0 methylprednisolone [Medrol (Charlie)] 4 mg tablets,dose pack See Label Instructions PO PER PKG DIR Qty: 21 RF: 0 cyclobenzaprine 5 mg tablet 5 mg PO TID PRN (Reason: muscle spasm) Qty: 10 RF: 0 benzonatate [Tessalon Perles] 100 mg capsule 100 mg PO QID PRN (Reason: cough) Qty: 20 RF: 0 albuterol sulfate 90 mcg/actuation aerosol powdr breath activated 2 puff INHALATION Q4H PRN (Reason: shortness of breath or wheezing) Qty: 1 RF : 0 acetaminophen-codeine [Tylenol-Codeine #3] 300-30 mg tablet 1 tab PO Q4-6H PRN (Reason: pain) Qty: 7 RF: 0
--- NOTE | 2018-07-31 01:02 | PC.NURSE ---
After dermabond and steri strips applied by DR Jeff,a padded metal splint was applied and held in place by 2incsravanthi pacheco.Site well approximated.no bleeding.distal cms intact.
[2018-07-31 01:04] VITALS: BP 129/78; PULSE 76; RESP 18; O2SAT 99
== END 2018-07-31 00:40 | disposition home or self-care (01) ==
PROVIDERS: Emergency Provider Emergency Medicine; Family Provider Family Medicine; PCP Family Medicine
DX: S61.210A Laceration without foreign body of right index finger without damage to nail, initial encounter (principal); Y99.0 Civilian activity done for income or pay
CPT/HCPCS: 99282

== ENCOUNTER 2018-07-31 21:07 | Emergency (ER) | payer OTHER, MEDICAID, SELFPAY ==
[2018-07-31 21:15] VITALS: BP 150/91; PULSE 96; RESP 20; TEMP 36.2; O2SAT 100; BMI 41.1
--- NOTE | 2018-07-31 22:47 | PC.NURSE ---
right 2nd finger lac noted to be well approximated with glue and steri stips applied here yesterday.slight swelling around site,no drainage.
[2018-07-31 23:05] VITALS: BP 144/88; PULSE 84; RESP 18; TEMP 36.6; O2SAT 98
--- NOTE | 2018-07-31 23:50 | ED_ITS ---
HPI - Extremity Injury (Upper) General Chief Complaint: Extremity Injury, Upper Stated Complaint: PAIN, SWELLING OF CUT FINGER Time Seen by Provider: 07/31/18 23:23 Source: patient Mode of arrival: ambulatory Limitations: no limitations History of Present Illness HPI narrative: Patient is a 28-year-old female who I evaluated here in the emergency department yesterday for a cut to the back of her index finger. This was closed with Dermabond and Steri-Strips. Patient returns today for concerns of a possible infection. Related Data Home Medications Medication Instructions Recorded Confirmed albuterol sulfate [Ventolin HFA] 2 puff INH PRN #0 04/09/17 04/24/18 Previous Rx's Medication Instructions Recorded cyclobenzaprine 5 mg PO TID PRN #10 tab 01/25/18 albuterol sulfate 2 puff INHALATION Q4H PRN #1 each 03/01/18 benzonatate [Tessalon Perles] 100 mg PO QID PRN #20 cap 03/01/18 methylprednisolone 4 mg tablets in See Label Instructions PO PER PKG 04/19/18 a dose pack DIR #21 each acetaminophen-codeine 1 tab PO Q4-6H PRN #7 tab 06/08/18 [Tylenol-Codeine #3] Allergies Allergy/AdvReac Type Severity Reaction Status Date / Time paroxetine [From PAXIL] Allergy Intermediate PALPITATIONS, Verified 04/24/18 11: 07 LIGHTHEADED Review of Systems Constitutional Denies fever(s) Musculoskeletal Comments: No joint pain Integumentary/Breasts Comments: redness around the cut Neurologic Comments: no numbness or tingling to the index finger [facility] Social History marital status: Smoking Status: Never smoker Exam Initial Vital Signs Initial Vital Signs: Vital Signs Temperature 97.1 F L 07/31/18 21:15 Pulse Rate 96 H 07/31/18 21:15 Respiratory Rate 20 07/31/18 21:15 Blood Pressure 150/91 H 07/31/18 21:15 Pulse Oximetry 100 07/31/18 21:15 Const General: cooperative, healthy appearing, comfortable, well developed, well groomed and No acute distress Orientation: alert and awake Resp Effort & Inspection: normal respiratory effort Cardio Pulses: radial pulses present on the right Skin Other: Dermabond and Steri-Strips still in place over the laceration. No redness. No drainage. Neuro Sensory Exam: no sensory deficits noted Extrem General: normal to inspection and capillary refill normal Right upper extremity: hand Details: tenderness Location: of the 2nd digit Location: at the MCP joint; no unusual warmth and no swelling Psych Appearance: grossly normal and well kempt Course Vital Signs - 8 hr 07/31/18 21:15 07/31/18 23:05 Temperature 97.1 F L 97.9 F Pulse Rate 96 H 84 Respiratory Rate 20 18 Blood Pressure 150/91 H Blood Pressure [Left Arm] 144/88 H Pulse Oximetry 100 98 MDM - Extremity Injury (Upper) MDM Narrative Medical decision making narrative: Patient's cut to the back of the right index finger appears well. No redness. No drainage. The Dermabond and Steri- Strips still in place. Physical exam is not consistent with cellulitis. No indication for antibiotics. Patient follow up with her primary care doctor. Discharge Plan Departure Patient Disposition: Home Clinical Impression: Finger laceration Discharge Date/Time: 07/31/18 23:59 Interventions: ED Discharge Assessment Last Done: 07/31/18 23:59 Instructions: DI for Laceration Repair With Dermabond Activity Restrictions/Additional Instructions: there is no signs of infection of the cut today. like we discussed I do recommend you try to keep your finger as straight as possible for the next couple days. You can wash Your hands like normal. call your primary care doctor for a follow-up. Return to the emergency department for any new or worsening symptoms Prescriptions: No Action albuterol sulfate [Ventolin HFA] 90 MCG/PUFF HFA aerosol inhaler 2 puff INH PRN (Reason: Shortness Of Breath) Qty: 0 RF: 0 methylprednisolone [Medrol (Charlie)] 4 mg tablets,dose pack See Label Instructions PO PER PKG DIR Qty: 21 RF: 0 cyclobenzaprine 5 mg tablet 5 mg PO TID PRN (Reason: muscle spasm) Qty: 10 RF: 0 benzonatate [Tessalon Perles] 100 mg capsule 100 mg PO QID PRN (Reason: cough) Qty: 20 RF: 0 albuterol sulfate 90 mcg/actuation aerosol powdr breath activated 2 puff INHALATION Q4H PRN (Reason: shortness of breath or wheezing) Qty: 1 RF : 0 acetaminophen-codeine [Tylenol-Codeine #3] 300-30 mg tablet 1 tab PO Q4-6H PRN (Reason: pain) Qty: 7 RF: 0
== END 2018-07-31 23:59 | disposition home or self-care (01) ==
PROVIDERS: Emergency Provider Emergency Medicine; Family Provider Family Medicine; PCP Family Medicine
DX: S61.211A Laceration without foreign body of left index finger without damage to nail, initial encounter (principal)
CPT/HCPCS: 99282

== ENCOUNTER 2018-08-03 02:26 | Emergency (ER) | payer OTHER, MEDICAID, SELFPAY ==
[2018-08-03 02:32] VITALS: BP 130/87; PULSE 91; RESP 22; TEMP 36.6; O2SAT 100
--- NOTE | 2018-08-03 02:48 | ED_ITS ---
HPI - Wound/Laceration General Chief Complaint: Wound/Laceration Stated Complaint: RIGHT HAND CUT 07/30 UNGLUED Time Seen by Provider: 08/03/18 02:38 Source: patient Mode of arrival: ambulatory Limitations: no limitations History of Present Illness HPI narrative: Patient presents with right index finger laceration. She initially cut on the 30 of July he was repaired with Dermabond and Steri- Strips. She returned of the following day because she thought it was infected. Today she says the Dermabond and Steri-Strips have fallen off and it is not closed. She is worried again for infection. She denies any drainage and she is very minimal erythema. She denies any decreased range of motion Related Data Home Medications Medication Instructions Recorded Confirmed albuterol sulfate [Ventolin HFA] 2 puff INH PRN #0 04/09/17 08/02/18 Previous Rx's Medication Instructions Recorded acetaminophen-codeine 1 tab PO Q4-6H PRN #7 tab 06/08/18 [Tylenol-Codeine #3] nystatin 100,000 unit/gram topical 1 applictn TOP TID #15 gram 08/02/18 cream Allergies Allergy/AdvReac Type Severity Reaction Status Date / Time paroxetine [From PAXIL] Allergy Intermediate PALPITATIONS, Verified 08/02/18 10: 13 LIGHTHEADED Review of Systems Review of Systems GENERAL: Denies chills,fever HEENT: Denies throat pain RESPIRATORY: Denies dyspnea, cough, wheezing CARDIOVASCULAR: Denies chest pain, palpitations GASTROINTESTINAL: Denies nausea, vomiting MUSCULOSKELETAL: Denies extremity pain, injury SKIN: see HPI NEUROLOGIC: Denies weakness, dizziness, headache, numbness 8 point review of systems is negative except for those stated above and HPI PFSH Surgical History Anesthesia (Resolved) History of placement of ear tubes (Resolved ~1993) Status post appendectomy (Resolved 05/25/12) Status post delivery (Resolved 09/14/15) Family History Brother Age: 16 ADD (attention deficit disorder) Autism Morbidly obese Developmental disability Grandmother Age: 73 Seizures Hypertension Mother Age: 49 Anxiety Depression PTSD (post-traumatic stress disorder) Sister Age: 27 Anxiety Sister Age: 20 Anxiety Depression PTSD (post-traumatic stress disorder) Father Anxiety Anger Grandfather No problems noted. Sister Anxiety Depression Social History marital status: Smoking Status: Never smoker Exam Initial Vital Signs Initial Vital Signs: Vital Signs Temperature 97.8 F 08/03/18 02:32 Pulse Rate 91 H 08/03/18 02:32 Respiratory Rate 22 08/03/18 02:32 Blood Pressure 130/87 08/03/18 02:32 Pulse Oximetry 100 08/03/18 02:32 GENERAL: Well-appearing, well-nourished and in no acute distress. CARDIOVASCULAR: peripheral pulses in tact, cap refill <2 sec RESPIRATORY: No respiratory distress, speaks in full sentences without difficulty EXTREMITIES: Normal range of motion, no clubbing or edema. Neurovascularly intact NEUROLOGICAL: Cranial nerves II through XII grossly intact. Normal gait and speech. SKIN: Right index finger laceration good skin approximation of a but no definite scab and Dermabond is off no erythema surrounding it no discharge Course Vital Signs - 8 hr 08/03/18 02:32 Temperature 97.8 F Pulse Rate 91 H Respiratory Rate 22 Blood Pressure [Right Arm] 130/87 Pulse Oximetry 100 MDM - Wound/Laceration MDM Narrative Medical decision making narrative: I discussed with her no infection at this time. Recommended Neosporin and a Band-Aid Discharge Plan Departure Patient Disposition: Home Clinical Impression: Finger laceration Discharge Date/Time: 08/03/18 02:56 Interventions: ED Discharge Assessment Last Done: 08/03/18 02:55 Instructions: DI for Laceration Repair -- Simple Activity Restrictions/Additional Instructions: There is no sign of infection at this time Keep finger clean with soap and water. Cover cut with Neosporin and Band-Aid. Require return to ER if you should have new or worsening symptoms, increasing redness including entire finger, inability to bend finger, gross drainage Follow-up with your primary care doctor next week to ensure proper healing Prescriptions: No Action albuterol sulfate [Ventolin HFA] 90 MCG/PUFF HFA aerosol inhaler 2 puff INH PRN (Reason: Shortness Of Breath) Qty: 0 RF: 0 nystatin 100,000 unit/gram cream 1 applictn TOP TID Qty: 15 RF: 0 acetaminophen-codeine [Tylenol-Codeine #3] 300-30 mg tablet 1 tab PO Q4-6H PRN (Reason: pain) Qty: 7 RF: 0 Referrals: Lyssa Rock DO [Primary Care Provider] -
== END 2018-08-03 02:56 | disposition home or self-care (01) ==
PROVIDERS: Emergency Provider Emergency Medicine; Family Provider Family Medicine; PCP Family Medicine
DX: S61.210A Laceration without foreign body of right index finger without damage to nail, initial encounter (principal)
CPT/HCPCS: 99282

== ENCOUNTER 2018-08-15 23:48 | Emergency (ER) | payer OTHER, MEDICAID, SELFPAY ==
--- NOTE | 2018-08-15 23:49 | ED_ITS ---
HPI - Skin/Abscess/Foreign Bdy General Chief complaint: Skin/Abscess/Foreign Body Stated complaint: bump under left armpit has hole in it Time Seen by Provider: 08/15/18 23:49 Source: patient Mode of arrival: ambulatory Limitations: no limitations History of Present Illness HPI narrative: 28-year-old female here for evaluation of lumps in the bilateral armpits and also redness. Was seen by her primary care doctor. Was placed on an antifungal cream per that note. She patient reports that her symptoms have not improved. She does have bumps under her right arm. She has not shaved since then. His using deodorant. Has had these in the past but she states the bumps go away when she shaves this time they have. Related Data Home Medications Medication Instructions Recorded Confirmed albuterol sulfate [Ventolin HFA] 2 puff INH PRN #0 04/09/17 08/02/18 Previous Rx's Medication Instructions Recorded acetaminophen-codeine 1 tab PO Q4-6H PRN #7 tab 06/08/18 [Tylenol-Codeine #3] nystatin 100,000 unit/gram topical 1 applictn TOP TID #15 gram 08/02/18 cream itraconazole 200 mg PO DAILY 7 Days #14 cap 08/16/18 sulfamethoxazole-trimethoprim 1 tab PO BID 7 Days #14 tab 08/16/18 [Bactrim DS] Allergies Allergy/AdvReac Type Severity Reaction Status Date / Time paroxetine [From PAXIL] Allergy Intermediate PALPITATIONS, Verified 08/15/18 23: 56 LIGHTHEADED Review of Systems Constitutional Denies fever(s) Eyes Denies itchy eyes ENT Ears, Nose, Mouth, and Throat: Denies throat swelling Musculoskeletal Denies myalgias and Denies arthralgias Integumentary/Breasts Reports pruritus, Reports lesions and Reports rash Allergic/Immunologic Denies urticaria, Denies itchy eyes and Denies throat swelling [facility] Social History marital status: Smoking Status: Never smoker Exam Initial Vital Signs Initial Vital Signs: Vital Signs Temperature 98.7 F 08/15/18 23:56 Pulse Rate 99 H 08/15/18 23:56 Respiratory Rate 16 08/15/18 23:56 Blood Pressure 122/65 08/15/18 23:56 Pulse Oximetry 98 08/15/18 23:56 Const General: cooperative, healthy appearing, comfortable, well developed, well groomed and No acute distress Orientation: alert, awake and oriented x3 HENMT Head: normal to inspection and normocephalic Resp Effort & Inspection: normal respiratory effort Cardio Rate: regular rate Skin Other: In the left armpit patient has what appears to be a tinea infection. There is 1 1 cm nodule in the crease of the armpit. Does appear to be draining. In her right armpit has multiple small areas of nodules. Without overlying redness. Are tender to palpation. Not draining in the right armpit. Neuro General: alert, awake and oriented x3 Extrem General: normal to inspection and capillary refill normal Psych Appearance: grossly normal and well kempt Course Vital Signs - 8 hr 08/15/18 23:56 Temperature 98.7 F Pulse Rate 99 H Respiratory Rate 16 Blood Pressure 122/65 Pulse Oximetry 98 MDM - Skin/Abscess/Foreign Bdy MDM Narrative Medical decision making narrative: I do agree that the left armpit appears to be a fungal infection. She states the topical medicines have not been helping this. Will start her on oral medications. I also feel due to the nodules in both armpits that there could potentially be the early stages of abscesses. None of these require incision and drainage today. This could be hidradenitis suppurativa however the patient has not had it prior to this. Also start her on an antibiotic to cover any potential bacterial infection. She was instructed to contact her primary care doctor for follow-up. She was given return precautions she expressed understanding and agreement with plan. Discharge Plan Departure Patient Disposition: Home Clinical Impression: Tinea corporis, Cellulitis Instructions: Hidradenitis Suppurativa, DI for Tinea Corporis Activity Restrictions/Additional Instructions: I do recommend that you start the antifungal medication and also the antibiotic like we discussed. I gave you discharge instructions for condition called Hidradenitis suppurativa. I am not given you this specific diagnosis this evening however which he was experiencing today could be this condition. If things do not improve with the antifungal antibiotics that you were given this evening I would talk with your primary doctor regarding this. Return to the emergency department for any new or worsening symptoms Prescriptions: New sulfamethoxazole-trimethoprim [Bactrim DS] 800-160 mg tablet 1 tab PO BID 7 Days Qty: 14 RF: 0 itraconazole 100 mg capsule 200 mg PO DAILY 7 Days Qty: 14 RF: 0 No Action albuterol sulfate [Ventolin HFA] 90 MCG/PUFF HFA aerosol inhaler 2 puff INH PRN (Reason: Shortness Of Breath) Qty: 0 RF: 0 nystatin 100,000 unit/gram cream 1 applictn TOP TID Qty: 15 RF: 0 acetaminophen-codeine [Tylenol-Codeine #3] 300-30 mg tablet 1 tab PO Q4-6H PRN (Reason: pain) Qty: 7 RF: 0
[2018-08-15 23:56] VITALS: BP 122/65; PULSE 99; RESP 16; TEMP 37.1; O2SAT 98; BMI 40.7
== END 2018-08-16 00:41 | disposition home or self-care (01) ==
PROVIDERS: Emergency Provider Emergency Medicine; Family Provider Family Medicine; PCP Family Medicine
DX: B35.4 Tinea corporis (principal); L03.112 Cellulitis of left axilla
CPT/HCPCS: 99282

== ENCOUNTER 2018-08-30 23:57 | Emergency (ER) | payer OTHER, MEDICAID, SELFPAY ==
[2018-08-31 00:31] VITALS: BP 119/76; PULSE 93; RESP 18; TEMP 36.3; O2SAT 100; BMI 40.7
--- NOTE | 2018-08-31 03:26 | ED_ITS ---
HPI - Skin/Abscess/Foreign Bdy General Chief complaint: Skin/Abscess/Foreign Body Stated complaint: LEFT ARMPIT FUNGAL INFECTION Time Seen by Provider: 08/31/18 00:13 Source: patient Mode of arrival: ambulatory Limitations: no limitations History of Present Illness HPI narrative: Patient is a 28-year-old female presents with left axilla redness and drainage. She was seen evaluated here 08/16/2018 diagnosed tinea corporis, started on antibiotics and itraconazole. He feels like she has noted a drastic difference since taking the medication however it was only for 1 week and she has noted return of symptoms. She is still using deodorant. She reports recurrent drainage from 1 of the bumps under her arm. Her right axilla also has bones. She has denied any fever or chills, no streaking of redness. MD complaint: rash Related Data Home Medications Medication Instructions Recorded Confirmed albuterol sulfate [Ventolin HFA] 2 puff INH PRN #0 04/09/17 08/21/18 Previous Rx's Medication Instructions Recorded acetaminophen-codeine 1 tab PO Q4-6H PRN #7 tab 06/08/18 [Tylenol-Codeine #3] fluconazole 200 mg tablet 200 mg PO DAILY #14 tab 08/23/18 itraconazole 200 mg PO DAILY #14 cap 08/31/18 sulfamethoxazole-trimethoprim 1 tab PO BID #14 tab 08/31/18 Allergies Allergy/AdvReac Type Severity Reaction Status Date / Time paroxetine [From PAXIL] Allergy Intermediate PALPITATIONS, Verified 08/21/18 10: 35 LIGHTHEADED Review of Systems Review of Systems GENERAL: Denies chills,fever HEENT: Denies throat pain RESPIRATORY: Denies dyspnea, cough, wheezing CARDIOVASCULAR: Denies chest pain, palpitations GASTROINTESTINAL: Denies nausea, vomiting MUSCULOSKELETAL: Denies extremity pain, injury SKIN: See HPI NEUROLOGIC: Denies weakness, dizziness, headache, numbness 8 point review of systems is negative except for those stated above and HPI PFSH Social History marital status: Smoking Status: Never smoker Exam Initial Vital Signs Initial Vital Signs: Vital Signs Temperature 97.4 F L 08/31/18 00:31 Pulse Rate 93 H 08/31/18 00:31 Respiratory Rate 18 08/31/18 00:31 Blood Pressure 119/76 08/31/18 00:31 Pulse Oximetry 100 08/31/18 00:31 GENERAL: Well-appearing, well-nourished and in no acute distress. CARDIOVASCULAR: peripheral pulses in tact, cap refill <2 sec RESPIRATORY: No respiratory distress, speaks in full sentences without difficulty EXTREMITIES: Normal range of motion, no clubbing or edema. Neurovascularly intact NEUROLOGICAL: Cranial nerves II through XII grossly intact. Normal gait and speech. SKIN: Left axilla does have some surrounding erythema, at the centrally located she has gross drainage but no surrounding fluctuation or induration. Course Orders Ordered: ED Orders 08/31/18 00:13 Wound Culture and Gram Stain Stat Vital Signs - 8 hr 08/31/18 00:31 Temperature 97.4 F L Pulse Rate 93 H Respiratory Rate 18 Blood Pressure 119/76 Pulse Oximetry 100 MDM - Skin/Abscess/Foreign Bdy MDM Narrative Medical decision making narrative: Wound cultures pending. Patient reports resolution of symptoms with medication refill medications. Follow up with PCP. May also consider contact dermatitis she is still using some deodorant just not previous brand she was using before. Discharge Plan Departure Patient Disposition: Home Clinical Impression: Tinea corporis Discharge Date/Time: 08/31/18 01:18 Interventions: ED Discharge Assessment Last Done: 08/31/18 01:18 Instructions: DI for Tinea Corporis Activity Restrictions/Additional Instructions: *You have been diagnosed with cellulitis, fungal infection *What to do: Do not put deodorant on, do not shave *Continue to take medications as directed: Faxed to your preferred pharmacy Itraconazole 100 mg once a day Bactrim 1 tablet twice a day for 7 days *Follow up with your primary care provider in 2-3 days *Return to ER if you should have increasing redness, pus, swelling, pain or any new, worsening or concerning symptoms Prescriptions: New sulfamethoxazole-trimethoprim 800-160 mg tablet 1 tab PO BID Qty: 14 RF: 0 itraconazole 100 mg capsule 200 mg PO DAILY Qty: 14 RF: 0 No Action albuterol sulfate [Ventolin HFA] 90 MCG/PUFF HFA aerosol inhaler 2 puff INH PRN (Reason: Shortness Of Breath) Qty: 0 RF: 0 fluconazole 200 mg tablet 200 mg PO DAILY Qty: 14 RF: 0 acetaminophen-codeine [Tylenol-Codeine #3] 300-30 mg tablet 1 tab PO Q4-6H PRN (Reason: pain) Qty: 7 RF: 0
== END 2018-08-31 01:18 | disposition home or self-care (01) ==
PROVIDERS: Emergency Provider Emergency Medicine; Family Provider Family Medicine; PCP Family Medicine
DX: B35.4 Tinea corporis (principal)
CPT/HCPCS: 87070; 87205; 99282; 99283

== ENCOUNTER 2019-03-21 13:23 | Outpatient (CLI) | payer SELFPAY ==
[2019-03-21 13:50] VITALS: BP 142/88; PULSE 102; RESP 16; TEMP 36.3; O2SAT 99; BMI 41.5
--- NOTE | 2019-03-21 16:19 | ED.NAVMDI ---
HPI - Nausea/Vomiting/Diarrhea <[facility] - Last Filed: 03/21/19 16:57> General Chief complaint: Nausea/Vomiting/Diarrhea Stated complaint: Thinks , severe nausea Time Seen by Provider: 03/21/19 15:41 Source: patient Mode of arrival: ambulatory Limitations: no limitations History of Present Illness HPI Narrative: The patient is a 28-year-old female nonsmoker with history of depression who presents for chief concern of possible . She states she had 2 positive tests home. She states her last menstrual period was earlier this month. She states she is having some nausea. She states she does not have financial ability to follow up with primary care provider or OBGYN. She denies dysuria urgency or frequency. She denies any vaginal discharge. She states that she needs paperwork filled out for WIC. She states she presents requesting test. She states that she feels exactly like she did prior to her previous . Related Data Home Medications Medication Instructions Recorded Confirmed albuterol sulfate [Ventolin HFA] 2 puff INH PRN #0 04/09/17 11/28/18 Previous Rx's Medication Instructions Recorded ondansetron 4 mg PO Q6H PRN #10 tab 03/21/19 Allergies Allergy/AdvReac Type Severity Reaction Status Date / Time paroxetine [From PAXIL] Allergy Intermediate PALPITATIONS, Verified 11/28/18 12:05 LIGHTHEADED Review of Systems <[facility] - Last Filed: 03/21/19 16:57> Review of Systems GENERAL: Denies chills, fatigue, malaise, fever, sweats. HEENT: Denies sinus pain, ear pain, sore throat, difficulty swallowing, dizziness. RESPIRATORY: Denies dyspnea, cough, wheezing, hemoptysis, sputum. CARDIOVASCULAR: Denies chest pain, palpitations, orthopnea, edema, GASTROINTESTINAL: See HPI : See HPI MUSCULOSKELETAL: denies weakness, joint pain, or bony pain SKIN: Denies rash, skin lesions, or other NEUROLOGIC: Denies weakness, headache, numbness, change in speech, confusion, seizures, incoordination. PSYCHIATRIC: No concerning psychosocial issues. 12 point review of systems is negative except for those stated above PFSH <[facility] - Last Filed: 03/21/19 16:57> Medical History Anxiety (Chronic 2008) Asthma (Chronic 2006) Chronic back pain (Chronic 2007) Chronic headaches (Chronic 2008) Depression (Chronic 2008) Hayfever (Chronic ~1998) PTSD (post-traumatic stress disorder) (Chronic 2015) Personality disorder (Chronic 2015) Surgical History Anesthesia (Resolved) History of placement of ear tubes (Resolved ~1993) Status post appendectomy (Resolved 05/25/12) Status post delivery (Resolved 09/14/15) Family History Brother Age: 17 ADD (attention deficit disorder) Autism Morbidly obese Developmental disability Grandmother Age: 74 Seizures Hypertension Mother Age: 50 Anxiety Depression PTSD (post-traumatic stress disorder) Sister Age: 28 Anxiety Sister Age: 21 Anxiety Depression PTSD (post-traumatic stress disorder) Father Anxiety Anger Grandfather No problems noted. Sister Anxiety Depression Social History marital status: Smoking Status: Never smoker Family History Brother Age: 17 ADD (attention deficit disorder) Autism Morbidly obese Developmental disability Grandmother Age: 74 Seizures Hypertension Mother Age: 50 Anxiety Depression PTSD (post-traumatic stress disorder) Sister Age: 28 Anxiety Sister Age: 21 Anxiety Depression PTSD (post-traumatic stress disorder) Father Anxiety Anger Grandfather No problems noted. Sister Anxiety Depression Social History marital status: Smoking Status: Never smoker Exam <RINA Hernández - Last Filed: 03/21/19 16:57> Narrative Exam Narrative: GENERAL: Obese female in no acute distress HEAD: Atraumatic. Normocephalic. No temporal or scalp tenderness. EYES: Pupils equal round and reactive. Extraocular motions intact. No scleral icterus. No injection or drainage. ENT: Nose without bleeding, purulent drainage or septal hematoma. Throat without erythema, tonsillar hypertrophy or exudate. Uvula midline. Airway patent. Poor dentition. NECK: Trachea midline. No JVD or lymphadenopathy. Supple, nontender, no meningeal signs. CARDIOVASCULAR: Regular rate and rhythm without murmurs, gallops, or rubs. RESPIRATORY: Clear to auscultation. Breath sounds equal bilaterally. No wheezes, rales, or rhonchi. No cough. No increased respiratory effort. No accessory muscle use. GASTROINTESTINAL: Abdomen soft, non-tender, nondistended. No hepato-splenomegaly, or palpable masses. No guarding. Active bowel sounds all 4 quadrants. Soft to palpation. EXTREMITIES: No clubbing, cyanosis, or edema. No joint tenderness, effusion, or edema noted. BACK: Nontender without deformity or crepitance. No flank tenderness. NEURO: AOx3. SKIN: No rash or erythema. Initial Vital Signs Initial Vital Signs: Vital Signs Temperature 97.3 F L 03/21/19 13:50 Pulse Rate 102 H 03/21/19 13:50 Respiratory Rate 16 03/21/19 13:50 Blood Pressure 142/88 H 03/21/19 13:50 Pulse Oximetry 99 03/21/19 13:50 <Delia Laguerre DO - Last Filed: 03/22/19 06:15> Initial Vital Signs Initial Vital Signs: Vital Signs Temperature 97.3 F L 03/21/19 13:50 Pulse Rate 102 H 03/21/19 13:50 Respiratory Rate 16 03/21/19 13:50 Blood Pressure 142/88 H 03/21/19 13:50 Pulse Oximetry 99 03/21/19 13:50 Course <RINA Hernández - Last Filed: 03/21/19 16:57> Orders Ordered: Discontinued Medications Ondansetron HCl (Zofran Odt) 4 mg SL NOW ONE Stop: 03/21/19 15:53 Last Admin: 03/21/19 16:26 Dose: 4 mg Vital Signs - 8 hr 03/21/19 13:50 Temperature 97.3 F L Pulse Rate 102 H Respiratory Rate 16 Blood Pressure 142/88 H Pulse Oximetry 99 <Delia Laguerre DO - Last Filed: 03/22/19 06:15> Orders Ordered: Discontinued Medications Ondansetron HCl (Zofran Odt) 4 mg SL NOW ONE Stop: 03/21/19 15:53 Last Admin: 03/21/19 16:26 Dose: 4 mg Vital Signs - 8 hr 03/21/19 13:50 Temperature 97.3 F L Pulse Rate 102 H Respiratory Rate 16 Blood Pressure 142/88 H Pulse Oximetry 99 MDM - Nausea/Vomiting/Diarrhea <PIETER Hernández-BC - Last Filed: 03/21/19 16:57> Lab Data Lab Results 03/21/19 Range/Units 17:02 HCG, Quant < 2.39 mIU/mL Point of Care Testing Test Results Negative Urine Dip Bedside Urine Glucose Negative Bedside Urine Bilirubin - Negative Bedside Urine Ketone - Negative Urine Specific [place] 1.030 Bedside Urine Occult Blood - Negative Bedside Urine pH 6.0 Bedside Urine Protein +/- 15 Bedside Urine Urobilinogen - Negative Bedside Urine Nitrite - Negative Bedside Urine Leukocytes - Negative Esterase MDM Narrative Medical decision making narrative: The patient is a 28-year-old female who presents with a chief complaint of concern of . She tested negative for a urine here. She was very upset when I discussed that her test here was negative. She states that she believe she is as she shows me pictures of her tests at home. I did not see a positive test on the pictures of her home test. Otherwise she does not have an acute abdomen, has a normal urinalysis. I discussed that her urine does not demonstrate in the emergency department encouraged her to follow up with her PCP. She states she does not have money for a PCP, so I discussed resources such as [facility], [facility], health chief resource officer etc. I also discussed that she could be having irregular cycles due to the recent removal of her IUD. She does not believe that this is the case. She states she feels as though her hormones are ?out of whack? I discussed that she needs to follow up with primary care provider in offered to give her contact information. Patient has no questions or concerns upon discharge. Discussed going back to the ER for any acute concerns such as chest pain, shortness of breath etc <Delia Laguerre DO - Last Filed: 03/22/19 06:15> Lab Data Lab Results 03/21/19 Range/Units 17:02 HCG, Quant < 2.39 mIU/mL Point of Care Testing Test Results Negative Urine Dip Bedside Urine Glucose Negative Bedside Urine Bilirubin - Negative Bedside Urine Ketone - Negative Urine Specific [place] 1.030 Bedside Urine Occult Blood - Negative Bedside Urine pH 6.0 Bedside Urine Protein +/- 15 Bedside Urine Urobilinogen - Negative Bedside Urine Nitrite - Negative Bedside Urine Leukocytes - Negative Esterase Discharge Plan Departure Patient Disposition: Home Clinical Impression: Negative test Discharge Date/Time: 03/21/19 17:07 Interventions: ED Discharge Assessment Last Done: 03/21/19 17:06 <Delia Laguerre DO - Last Filed: 03/22/19 06:15> Cosign ED Attending Cosignature Attestation: I was immediately available in the department for consultation. This documentation has been reviewed and I agree with assessment and plan. Supervised by Delia Laguerre DO
--- NOTE | 2019-03-21 16:25 | ED_ITS ---
HPI - Nausea/Vomiting/Diarrhea <[facility] - Last Filed: 03/21/19 16:57> General Chief complaint: Nausea/Vomiting/Diarrhea Stated complaint: Thinks , severe nausea Time Seen by Provider: 03/21/19 15:41 Source: patient Mode of arrival: ambulatory Limitations: no limitations History of Present Illness HPI Narrative: The patient is a 28-year-old female nonsmoker with history of depression who presents for chief concern of possible . She states she had 2 positive tests home. She states her last menstrual period was earlier this month. She states she is having some nausea. She states she does not have financial ability to follow up with primary care provider or OBGYN. She denies dysuria urgency or frequency. She denies any vaginal discharge. She states that she needs paperwork filled out for WIC. She states she presents requesting test. She states that she feels exactly like she did prior to her previous . Related Data Home Medications Medication Instructions Recorded Confirmed albuterol sulfate [Ventolin HFA] 2 puff INH PRN #0 04/09/17 11/28/18 Previous Rx's Medication Instructions Recorded ondansetron 4 mg PO Q6H PRN #10 tab 03/21/19 Allergies Allergy/AdvReac Type Severity Reaction Status Date / Time paroxetine [From PAXIL] Allergy Intermediate PALPITATIONS, Verified 11/28/18 12:05 LIGHTHEADED Review of Systems <[facility] - Last Filed: 03/21/19 16:57> Review of Systems GENERAL: Denies chills, fatigue, malaise, fever, sweats. HEENT: Denies sinus pain, ear pain, sore throat, difficulty swallowing, dizziness. RESPIRATORY: Denies dyspnea, cough, wheezing, hemoptysis, sputum. CARDIOVASCULAR: Denies chest pain, palpitations, orthopnea, edema, GASTROINTESTINAL: See HPI : See HPI MUSCULOSKELETAL: denies weakness, joint pain, or bony pain SKIN: Denies rash, skin lesions, or other NEUROLOGIC: Denies weakness, headache, numbness, change in speech, confusion, seizures, incoordination. PSYCHIATRIC: No concerning psychosocial issues. 12 point review of systems is negative except for those stated above PFSH <[facility] - Last Filed: 03/21/19 16:57> Medical History Anxiety (Chronic 2008) Asthma (Chronic 2006) Chronic back pain (Chronic 2007) Chronic headaches (Chronic 2008) Depression (Chronic 2008) Hayfever (Chronic ~1998) PTSD (post-traumatic stress disorder) (Chronic 2015) Personality disorder (Chronic 2015) Surgical History Anesthesia (Resolved) History of placement of ear tubes (Resolved ~1993) Status post appendectomy (Resolved 05/25/12) Status post delivery (Resolved 09/14/15) Family History Brother Age: 17 ADD (attention deficit disorder) Autism Morbidly obese Developmental disability Grandmother Age: 74 Seizures Hypertension Mother Age: 50 Anxiety Depression PTSD (post-traumatic stress disorder) Sister Age: 28 Anxiety Sister Age: 21 Anxiety Depression PTSD (post-traumatic stress disorder) Father Anxiety Anger Grandfather No problems noted. Sister Anxiety Depression Social History marital status: Smoking Status: Never smoker Family History Brother Age: 17 ADD (attention deficit disorder) Autism Morbidly obese Developmental disability Grandmother Age: 74 Seizures Hypertension Mother Age: 50 Anxiety Depression PTSD (post-traumatic stress disorder) Sister Age: 28 Anxiety Sister Age: 21 Anxiety Depression PTSD (post-traumatic stress disorder) Father Anxiety Anger Grandfather No problems noted. Sister Anxiety Depression Social History marital status: Smoking Status: Never smoker Exam <RINA Hernández - Last Filed: 03/21/19 16:57> Narrative Exam Narrative: GENERAL: Obese female in no acute distress HEAD: Atraumatic. Normocephalic. No temporal or scalp tenderness. EYES: Pupils equal round and reactive. Extraocular motions intact. No scleral icterus. No injection or drainage. ENT: Nose without bleeding, purulent drainage or septal hematoma. Throat without erythema, tonsillar hypertrophy or exudate. Uvula midline. Airway patent. Poor dentition. NECK: Trachea midline. No JVD or lymphadenopathy. Supple, nontender, no meningeal signs. CARDIOVASCULAR: Regular rate and rhythm without murmurs, gallops, or rubs. RESPIRATORY: Clear to auscultation. Breath sounds equal bilaterally. No wheezes, rales, or rhonchi. No cough. No increased respiratory effort. No accessory muscle use. GASTROINTESTINAL: Abdomen soft, non-tender, nondistended. No hepato- splenomegaly, or palpable masses. No guarding. Active bowel sounds all 4 quadrants. Soft to palpation. EXTREMITIES: No clubbing, cyanosis, or edema. No joint tenderness, effusion, or edema noted. BACK: Nontender without deformity or crepitance. No flank tenderness. NEURO: AOx3. SKIN: No rash or erythema. Initial Vital Signs Initial Vital Signs: Vital Signs Temperature 97.3 F L 03/21/19 13:50 Pulse Rate 102 H 03/21/19 13:50 Respiratory Rate 16 03/21/19 13:50 Blood Pressure 142/88 H 03/21/19 13:50 Pulse Oximetry 99 03/21/19 13:50 <Delia Laguerre DO - Last Filed: 03/22/19 06:15> Initial Vital Signs Initial Vital Signs: Vital Signs Temperature 97.3 F L 03/21/19 13:50 Pulse Rate 102 H 03/21/19 13:50 Respiratory Rate 16 03/21/19 13:50 Blood Pressure 142/88 H 03/21/19 13:50 Pulse Oximetry 99 03/21/19 13:50 Course <RINA Hernández - Last Filed: 03/21/19 16:57> Orders Ordered: Discontinued Medications Ondansetron HCl (Zofran Odt) 4 mg SL NOW ONE Stop: 03/21/19 15:53 Last Admin: 03/21/19 16:26 Dose: 4 mg Vital Signs - 8 hr 03/21/19 13:50 Temperature 97.3 F L Pulse Rate 102 H Respiratory Rate 16 Blood Pressure 142/88 H Pulse Oximetry 99 <Delia Laguerre DO - Last Filed: 03/22/19 06:15> Orders Ordered: Discontinued Medications Ondansetron HCl (Zofran Odt) 4 mg SL NOW ONE Stop: 03/21/19 15:53 Last Admin: 03/21/19 16:26 Dose: 4 mg Vital Signs - 8 hr 03/21/19 13:50 Temperature 97.3 F L Pulse Rate 102 H Respiratory Rate 16 Blood Pressure 142/88 H Pulse Oximetry 99 MDM - Nausea/Vomiting/Diarrhea <PIETER Hernández-BC - Last Filed: 03/21/19 16:57> Lab Data Lab Results 03/21/19 Range/Units 17:02 HCG, Quant < 2.39 mIU/mL Point of Care Testing Test Results Negative Urine Dip Bedside Urine Glucose Negative Bedside Urine Bilirubin - Negative Bedside Urine Ketone - Negative Urine Specific [place] 1.030 Bedside Urine Occult Blood - Negative Bedside Urine pH 6.0 Bedside Urine Protein +/- 15 Bedside Urine Urobilinogen - Negative Bedside Urine Nitrite - Negative Bedside Urine Leukocytes - Negative Esterase MDM Narrative Medical decision making narrative: The patient is a 28-year-old female who presents with a chief complaint of concern of . She tested negative for a urine here. She was very upset when I discussed that her test here was negative. She states that she believe she is as she shows me pictures of her tests at home. I did not see a positive test on the pictures of her home test. Otherwise she does not have an acute abdomen, has a normal urinalysis. I discussed that her urine does not demonstrate in the emergency department encouraged her to follow up with her PCP. She states she does not have money for a PCP, so I discussed resources such as [facility], [facility], health mineral resources inspector etc. I also discussed that she could be having irregular cycles due to the recent removal of her IUD. She does not believe that this is the case. She states she feels as though her hormones are ?out of whack? I discussed that she needs to follow up with primary care provider in offered to give her contact information. Patient has no questions or concerns upon discharge. Discussed going back to the ER for any acute concerns such as chest pain, shortness of breath etc <Delia Laguerre DO - Last Filed: 03/22/19 06:15> Lab Data Lab Results 03/21/19 Range/Units 17:02 HCG, Quant < 2.39 mIU/mL Point of Care Testing Test Results Negative Urine Dip Bedside Urine Glucose Negative Bedside Urine Bilirubin - Negative Bedside Urine Ketone - Negative Urine Specific [place] 1.030 Bedside Urine Occult Blood - Negative Bedside Urine pH 6.0 Bedside Urine Protein +/- 15 Bedside Urine Urobilinogen - Negative Bedside Urine Nitrite - Negative Bedside Urine Leukocytes - Negative Esterase Discharge Plan Departure Patient Disposition: Home Clinical Impression: Negative test Discharge Date/Time: 03/21/19 17:07 Interventions: ED Discharge Assessment Last Done: 03/21/19 17:06 <Delia Laguerre DO - Last Filed: 03/22/19 06:15> Cosign ED Attending Cosignature Attestation: I was immediately available in the department for consultation. This documentation has been reviewed and I agree with assessment and plan. Supervised by Delia Laguerre DO
[2019-03-21] MEDS: ONDANSETRON 4 MG ODT SL (16:26)
[2019-03-21 17:51] LABS: HCG Quantitative /Beta subunit < 2.39 mIU/mL
== END 2019-03-21 16:53 ==
LOC: ED 16:25 → LAB 16:54
PROVIDERS: Emergency Provider Nurse Practitioner Family; PCP Family Medicine; Visit Provider Family Medicine
DX: N91.2 Amenorrhea, unspecified (principal)
CPT/HCPCS: 36415; 81003; 81025; 84702; 99282

== ENCOUNTER 2019-07-05 23:41 | Emergency (ER) | payer SELFPAY ==
[2019-07-05 23:52] VITALS: BP 145/97; PULSE 99; RESP 15; TEMP 36.8; O2SAT 98; BMI 41.5
--- NOTE | 2019-07-05 23:54 | DI.RAD.S_ITS ---
PROCEDURE: XR CHEST 1V INDICATIONS: Cough for 1 week TECHNIQUE: One view of the chest was acquired. COMPARISON: [facility], , XR CHEST 2V, 03/01/2018, 1:23. FINDINGS: Surgical changes and devices: None. Lungs and pleura: Lungs are clear. No pleural effusions or pneumothorax. Mediastinum: Mediastinal contours appear normal. Heart size is normal. Bones and chest wall: No suspicious bony lesions. Overlying soft tissues appear unremarkable. IMPRESSION: No acute cardiopulmonary process is evident. Note: The preliminary ED physician interpretation and the final report are concordant. Dictated by: Ed Hobson M.D. on 07/06/2019 at 7:50 Approved by: Ed Hobson M.D. on 07/06/2019 at 7:50
--- NOTE | 2019-07-06 01:16 | ED.URI ---
HPI - URI/Sore Throat General Chief Complaint: Upper Respiratory Symptoms Stated Complaint: felling sick/poss bronchitis/bowden when cough Time Seen by Provider: 07/05/19 23:53 Source: patient Mode of arrival: Ambulatory Limitations: no limitations History of Present Illness HPI Narrative: 29-year-old female here for evaluation approximately 1 week of a cough. She has tried [id number] decongestants and other cough and cold preparations without any improvement. She states she is getting somewhat short of breath with exerting herself. Does have a history of exercise-induced asthma. No chest pain. No fevers. Related Data Home Medications Medication Instructions Recorded Confirmed albuterol sulfate [Ventolin HFA] 2 puff INH PRN #0 04/09/17 11/28/18 Previous Rx's Medication Instructions Recorded ondansetron 4 mg PO Q6H PRN #10 tab 03/21/19 benzonatate [Tessalon Perles] 100 mg PO TID PRN #14 cap 07/06/19 Allergies Allergy/AdvReac Type Severity Reaction Status Date / Time paroxetine [From PAXIL] Allergy Intermediate PALPITATIONS, Verified 07/05/19 23:52 LIGHTHEADED Review of Systems Constitutional Constitutional: Denies fever(s) ENT Ears, Nose, Mouth, and Throat: Denies vertigo and Denies dizziness Cardiovascular Cardiovascular: Denies chest pain and Reports dyspnea on exertion Respiratory Respiratory: Reports cough and Reports dyspnea on exertion Gastrointestinal Gastrointestinal: Denies abdominal pain Musculoskeletal Musculoskeletal: Denies myalgias and Denies arthralgias Integumentary/Breasts Skin/Breast: Denies rash Neurologic Neurologic: Denies vertigo and Denies dizziness Hematologic/Lymphatic Hematologic/Lymphatic: Denies easy bleeding and Denies easy bruising Patient History Medical History (Reviewed 07/06/19 @ 01:26 PST by Lalo Jeff DO) Anxiety (Chronic 2008) Asthma (Chronic 2006) Chronic back pain (Chronic 2007) Chronic headaches (Chronic 2008) Depression (Chronic 2008) Hayfever (Chronic ~1998) Personality disorder (Chronic 2015) PTSD (post-traumatic stress disorder) (Chronic 2015) Social History (Reviewed 07/06/19 @ 01:26 PST by Lalo Jeff DO) marital status: Smoking Status: Never smoker alcohol intake frequency: 0-2 drinks per day Substance Use Type: does not use Exam Initial Vital Signs Initial Vital Signs: Vital Signs Temperature 98.2 F 07/05/19 23:52 Pulse Rate 99 H 07/05/19 23:52 Respiratory Rate 15 07/05/19 23:52 Blood Pressure 145/97 H 07/05/19 23:52 Pulse Oximetry 98 07/05/19 23:52 Const General: cooperative, healthy appearing, comfortable, well developed and well groomed Orientation: alert, awake and oriented x3 HENMT Head: normal to inspection and normocephalic Ears: TM's normal bilaterally Mouth: oral mucosae normal Resp Effort & Inspection: normal respiratory effort Auscultation: clear to auscultation bilaterally Cardio Rate: regular rate Rhythm: regular rhythm Pulses: radial pulses present Skin Lesions: no lesions Rashes: no rashes Neuro General: alert and awake Cognition: normal cognition Speech: speech normal Gait: normal gait Extrem General: normal to inspection and capillary refill normal Psych Appearance: grossly normal and well kempt Course Orders Ordered: ED Orders 07/05/19 23:54 XR chest 1V Stat Vital Signs Vital signs: Vital Signs - 8 hr 07/05/19 23:52 07/06/19 01:41 PDT Temperature 98.2 F Pulse Rate 99 H 89 Respiratory Rate 15 17 Blood Pressure 145/97 H 121/66 Pulse Oximetry 98 98 MDM - URI/Sore Throat Imaging Data Chest x-ray: Attestation: I personally reviewed and interpreted this imaging study as follows: My impression: No pneumonia, normal size heart, no focal consolidation MDM Narrative Medical decision making narrative: Not any respiratory distress. Afebrile, lungs are clear. Clinically does not have pneumonia. Chest x-ray shows no signs of pneumonia. Was coughing in the emergency department. Oropharynx and ears are unremarkable. No indication for antibiotics. Did discuss the use of cough and cold preparations. Former that there is no specific medication that will take the cough completely wave we could try to help the symptoms. Will send home with a prescription for Stephen Trevino. Expressed understanding agreement plan. Discharge Plan Departure Patient Disposition: Home Clinical Impression: Cough Discharge Date/Time: 07/06/19 01:30 PDT Instructions: Cough (Alternative Therapy), Cough Activity Restrictions/Additional Instructions: Recommend that you take a antihistamine such as Claritin or Wendy. You can buy these [id number]. Also recommend that you take either Flonase or Wendy. Should increase her fluid intake. Contact her primary doctor for follow-up. Prescriptions: New benzonatate [Tessalon Perles] 100 mg capsule 100 mg PO TID PRN (Reason: cough) Qty: 14 RF: 0 No Action albuterol sulfate [Ventolin HFA] 90 MCG/PUFF HFA aerosol inhaler 2 puff INH PRN (Reason: Shortness Of Breath) Qty: 0 RF: 0 ondansetron 4 mg tablet,disintegrating 4 mg PO Q6H PRN (Reason: nausea and vomiting) Qty: 10 RF: 0 Referrals: Lyssa Rock DO [Primary Care Provider] -
[2019-07-06 01:41] VITALS: BP 121/66; PULSE 89; RESP 17; O2SAT 98
== END 2019-07-06 01:30 | disposition home or self-care (01) ==
PROVIDERS: Emergency Provider Emergency Medicine; PCP Family Medicine
DX: R05 Cough (principal)
CPT/HCPCS: 71045; 99282; 99283

== ENCOUNTER 2019-08-08 22:30 | Emergency (ER) | payer SELFPAY ==
[2019-08-08 22:30] VITALS: BP 137/72; PULSE 92; RESP 16; TEMP 36.7; O2SAT 100; BMI 41.5
[2019-08-08 23:04] LABS: Add Manual Diff / Slide Review NO; Basophils Absolute Auto 0 /uL (0-100); Basophils Percent Auto 0.4 % (0-2); Eosinophils Absolute Auto 200 /uL (0-450); Eosinophils Percent Auto 1.5 % (2-4); Hematocrit 36.2 % (36-46); Hemoglobin 11.8 g/dL (12.0-16.0); Lymphocytes Absolute Auto 3300 /uL (1100-4500); Lymphocytes Percent Auto 28.8 % (25-40); Mean Corpuscular HGB Conc 32.4 % (30-36); Mean Corpuscular Hemoglobin 25.8 PG (26-34); Mean Corpuscular Volume 79.6 fL (80-100); Monocytes Absolute Auto 800 /uL (0-900); Monocytes Percent Auto 6.7 % (3-14); Neutrophils Absolute Auto 7100 /uL (1500-7000); Neutrophils Percent Auto 62.6 % (50-75); Platelet Count 308 X10^3/uL (150-400); Red Blood Cell Count 4.55 X10^6/uL (4.0-5.2); Red Cell Distribution Width 14.1 % (11.6-14.8); White Blood Cell Count 11.4 X10^3/uL (4.5-11.0)
[2019-08-08 23:07] VITALS: BP 111/68; PULSE 94; RESP 18; O2SAT 100
[2019-08-08 23:13] LABS: Alanine Aminotransferase 30 IU/L (<35); Albumin 4.4 g/dL (3.5-5.0); Albumin Globulin Ratio 1.3 (1.0-2.8); Alkaline Phosphatase 86 U/L (38-126); Aspartate Aminotransferase 26 IU/L (14-36); BUN Creatinine Ratio 16.3 (6-22); Bilirubin Total 0.3 mg/dL (0.2-1.3); Blood Urea Nitrogen 13 mg/dL (7-17); Calcium 9.2 mg/dL (8.4-10.2); Carbon Dioxide 28 mmol/L (22-32); Chloride 100 mmol/L (98-107); Estimated Glomerular Filt Rate > 60.0 mL/min (>60); Globulin 3.3 g/dL (1.7-4.1); Glucose 100 mg/dL (70-100); HEMOLYSIS < 15 (0-50); Lipase 104 U/L (23-300); Potassium 3.8 mmol/L (3.4-5.1); Sodium 136 mmol/L (137-145); Total Protein 7.7 g/dL (6.3-8.2)
--- NOTE | 2019-08-09 00:32 | ED.ABDPAIN ---
HPI - Abdominal Pain General Chief Complaint: Abdominal Pain Stated Complaint: R sided abd pain Time Seen by Provider: 08/09/19 00:27 Source: patient Mode of arrival: Ambulatory Limitations: no limitations History of Present Illness HPI narrative: This is a 29-year-old female comes to the emergency department who comes in with right-sided abdominal pain. Patient states the pain started last 12 hours. She states that it has been increasing and intermittent. Patient has not any fevers. He has had a little nausea no vomiting. She has had normal bowel movements, no dysuria urgency or frequency. She is on her. She is about day 4 of her menses. She states that she has been having some cramping but this seems worse. Patient has not had any flank pain. She states that she has had her appendix out. She denies any other intra-abdominal surgeries. Patient states that standing for long periods does seem to bother her more. Related Data Home Medications Medication Instructions Recorded Confirmed albuterol sulfate [Ventolin HFA] 2 puff INH PRN #0 04/09/17 11/28/18 Previous Rx's Medication Instructions Recorded ondansetron 4 mg PO Q6H PRN #10 tab 03/21/19 benzonatate [Tessalon Perles] 100 mg PO TID PRN #14 cap 07/06/19 Allergies Allergy/AdvReac Type Severity Reaction Status Date / Time paroxetine [From PAXIL] Allergy Intermediate PALPITATIONS, Verified 07/05/19 23:52 LIGHTHEADED Review of Systems Review of Systems ROS Unobtainable: All systems reviewed & are unremarkable except as noted in HPI and below Patient History Medical History Anxiety (Chronic 2008) Asthma (Chronic 2006) Chronic back pain (Chronic 2007) Chronic headaches (Chronic 2008) Depression (Chronic 2008) Hayfever (Chronic ~1998) Personality disorder (Chronic 2015) PTSD (post-traumatic stress disorder) (Chronic 2015) Surgical History Anesthesia (Resolved) History of placement of ear tubes (Resolved ~1993) Status post appendectomy (Resolved 05/25/12) Status post delivery (Resolved 09/14/15) Family History Brother Age: 17 ADD (attention deficit disorder) Autism Morbidly obese Developmental disability Grandmother Age: 74 Seizures Hypertension Mother Age: 50 Anxiety Depression PTSD (post-traumatic stress disorder) Sister Age: 28 Anxiety Sister Age: 21 Anxiety Depression PTSD (post-traumatic stress disorder) Father Anxiety Anger Grandfather No problems noted. Sister Anxiety Depression Social History marital status: Smoking Status: Never smoker Smoking Status: Never smoker alcohol intake frequency: 0-2 drinks per day Substance Use Type: does not use Exam Narrative Exam Narrative: GENERAL: Alert and oriented x three, obese female in mild distress. HEENT: Head normocephalic, atraumatic, EOMI, pupils reactive, face symmetric, moist mucous membranes NECK: Supple, full range of motion CARDIOVASCULAR: Regular rate and rhythm without murmurs, rubs or gallops. RESPIRATORY: Breath sounds equal bilaterally, no wheezes rales or rhonchi. ABDOMEN: Soft, positive for suprapubic and right lower quadrant tenderness. Normoactive bowel sounds all 4 quadrants. No guarding or rebound, rigidity, no mass : No CVA tenderness EXTREMITIES: Normal range of motion, no clubbing or edema. Neurovascularly intact NEUROLOGICAL: Cranial nerves II through XII grossly intact. Moving all extremities SKIN: Warm, dry, no petechiae, no rashes or lesions. Initial Vital Signs Initial Vital Signs: Vital Signs Temperature 98.1 F 08/08/19 22:30 Pulse Rate 92 H 08/08/19 22:30 Respiratory Rate 16 08/08/19 22:30 Blood Pressure 137/72 08/08/19 22:30 Pulse Oximetry 100 08/08/19 22:30 Course Orders Ordered: ED Orders 08/08/19 22:55 Complete Blood Count AUTO DIFF Stat Comprehensive Metabolic Panel Stat Lipase Stat Discontinued Medications Ketorolac Tromethamine (Toradol) 30 mg IM NOW ONE Stop: 08/09/19 00:43 Last Admin: 08/09/19 00:59 Dose: 30 mg Documented by: GUS Oxycodone/Acetaminophen (Percocet 5/325) 1 tab PO NOW ONE Stop: 08/09/19 01:45 Last Admin: 08/09/19 01:52 Dose: 1 tab Documented by: MMERKEL Tramadol HCl (Ultram 50mg Prepack) 1 bottle MISC SEEINSTR ONE Stop: 08/09/19 00:47 Last Admin: 08/09/19 00:59 Dose: 1 bottle Documented by: GUS Vital Signs Vital signs: Vital Signs - 8 hr 08/08/19 22:30 08/08/19 23:07 08/09/19 01:21 Temperature 98.1 F Pulse Rate 92 H 94 H 85 Respiratory Rate 16 18 19 Blood Pressure 137/72 Blood Pressure [Left Arm] 111/68 139/79 Pulse Oximetry 100 100 100 08/09/19 01:53 Temperature Pulse Rate 85 Respiratory Rate 19 Blood Pressure Blood Pressure [Left Arm] 133/69 Pulse Oximetry 100 MDM - Abdominal Pain Lab Data Attestation: I reviewed the patient's lab results. Result diagrams: 08/08/19 22:55 08/08/19 22:55 Labs: Lab Results 08/08/19 08/08/19 Range/Units 22:55 22:55 WBC 11.4 H (4.5-11.0) X10^3/uL RBC 4.55 (4.0-5.2) X10^6/uL Hgb 11.8 L (12.0-16.0) g/dL Hct 36.2 (36-46) % MCV 79.6 L (80-100) fL MCH 25.8 L (26-34) PG MCHC 32.4 (30-36) % RDW 14.1 (11.6-14.8) % Plt Count 308 (150-400) X10^3/uL Neut % (Auto) 62.6 (50-75) % Lymph % (Auto) 28.8 (25-40) % [place] % (Auto) 6.7 (3-14) % Eos % (Auto) 1.5 L (2-4) % Baso % (Auto) 0.4 (0-2) % Neut # (Auto) 7100 H (3219-5179) /uL Lymph # (Auto) 3300 (4614-5543) /uL [place] # (Auto) 800 (0-900) /uL Eos # (Auto) 200 (0-450) /uL Baso # (Auto) 0 (0-100) /uL Sodium 136 L (137-145) mmol/L Potassium 3.8 (3.4-5.1) mmol/L Chloride 100 (98-107) mmol/L Carbon Dioxide 28 (22-32) mmol/L BUN 13 (7-17) mg/dL Creatinine 0.80 (0.52-1.04) mg/dL Estimated GFR > 60.0 (>60) mL/min BUN/Creatinine Ratio 16.3 (6-22) Glucose 100 (70-100) mg/dL Calcium 9.2 (8.4-10.2) mg/dL Total Bilirubin 0.3 (0.2-1.3) mg/dL AST 26 (14-36) IU/L ALT 30 (<35) IU/L Alkaline Phosphatase 86 (38-126) U/L Total Protein 7.7 (6.3-8.2) g/dL Albumin 4.4 (3.5-5.0) g/dL Globulin 3.3 (1.7-4.1) g/dL Albumin/Globulin Ratio 1.3 (1.0-2.8) Lipase 104 (23-300) U/L Point of care testing: Point of Care Testing Test Results Negative Urine Dip Bedside Urine Glucose Negative Bedside Urine Bilirubin - Negative Bedside Urine Ketone - Negative Urine Specific [place] 1.015 Bedside Urine Occult Blood +++ Bedside Urine pH 6.0 Bedside Urine Protein +/- 15 Bedside Urine Urobilinogen - Negative Bedside Urine Nitrite - Negative Bedside Urine Leukocytes - Negative Esterase MDM Narrative Medical decision making narrative: 29-year-old female comes in with right lower quadrant pain as well as suprapubic. Patient is on her menses. She had any fevers, no nausea or vomiting no other GI or urinary symptoms. Discussed trying a dose of Toradol for pain. Patient's moderately tender on exam. She has had appendectomy and states this does not feel similar. She does not have any toxic appear symptoms or fever. My suspicion for infectious process or emergent process are unlikely. Patient was given 1 dose of pain medication with moderate improvement, was given a dose of oral pain medication and patient was requesting a work note for later today and discharge. Discharge Plan Departure Patient Disposition: Home Clinical Impression: Abdominal pain Discharge Date/Time: 08/09/19 02:04 Instructions: DI for Abdominal Pain-Adult Activity Restrictions/Additional Instructions: Follow-up with your primary care physician in the next 2-3 days for recheck. Call for an appointment. Take pain medication as prescribed, this medication can make you sleepy do not drive, perform hazardous activities or make any major decisions while taking it. Return to the ER for fevers greater 100.4 F persistent vomiting, new or worsening pain, back or flank pain, black or bloody stools, inability urinate or other new or concerning symptoms. Prescriptions: No Action albuterol sulfate [Ventolin HFA] 90 MCG/PUFF HFA aerosol inhaler 2 puff INH PRN (Reason: Shortness Of Breath) Qty: 0 RF: 0 ondansetron 4 mg tablet,disintegrating 4 mg PO Q6H PRN (Reason: nausea and vomiting) Qty: 10 RF: 0 benzonatate [Tessalon Perles] 100 mg capsule 100 mg PO TID PRN (Reason: cough) Qty: 14 RF: 0 Referrals: Lyssa Rock DO [Primary Care Provider] - Stand Alone Forms: Work Release Note
[2019-08-09] MEDS: TRAMADOL 50 MG PREPACK 1 BOTTLE MISC (00:59)
[2019-08-09] MEDS: KETOROLAC 60 MG/2 ML VIAL 30 MG IM (00:59)
[2019-08-09 01:21] VITALS: BP 139/79; PULSE 85; RESP 19; O2SAT 100
[2019-08-09] MEDS: OXYCODONE/ACETAMINOPHEN 5/325 TABLET 1 TAB PO (01:52)
[2019-08-09 01:53] VITALS: BP 133/69; PULSE 85; RESP 19; O2SAT 100
== END 2019-08-09 02:04 | disposition home or self-care (01) ==
PROVIDERS: Emergency Provider Emergency Medicine; PCP Family Medicine
DX: R10.31 Right lower quadrant pain (principal)
CPT/HCPCS: 36415; 80053; 81003; 81025; 83690; 85025; 96372; 99283; J1885

== ENCOUNTER 2019-10-18 23:44 | Emergency (ER) | payer OTHER, SELFPAY ==
[2019-10-18 23:49] VITALS: BP 147/95; PULSE 88; RESP 18; TEMP 36.4; O2SAT 100; BMI 42.4
--- NOTE | 2019-10-19 03:01 | ED_ITS ---
HPI - Head Injury General Chief complaint: Head Injury Stated complaint: states has concussion hit head at work, nausea salazar Time Seen by Provider: 10/19/19 00:38 Source: patient Mode of arrival: Ambulatory Limitations: no limitations History of Present Illness HPI Narrative: 29-year-old female nonsmoker with noncontributory medical history presents with her in the chief complaint of a head injury suffered at work yesterday. She states that she stood up too quickly and hit her head on the underside of a shelf and now has a vague headache and some nausea. She denies loss of consciousness, vomiting, focal neurologic findings. She takes no blood thinners and is not on alcohol or street drugs. Complaint: head injury Onset (ago): day(s) Mechanism of Injury: other Place: work Loss of Consciousness: no Location of injury: occipital Severity: moderate Quality: aching Radiation: none Related Data Home Medications Medication Instructions Recorded Confirmed albuterol sulfate [Ventolin HFA] 2 puff INH PRN #0 04/09/17 11/28/18 Previous Rx's Medication Instructions Recorded ondansetron 4 mg PO Q6H PRN #10 tab 03/21/19 benzonatate [Tessalon Perles] 100 mg PO TID PRN #14 cap 07/06/19 Allergies Allergy/AdvReac Type Severity Reaction Status Date / Time paroxetine [From PAXIL] Allergy Intermediate PALPITATIONS, Verified 07/05/19 23:52 LIGHTHEADED Review of Systems Constitutional Constitutional: Denies chills, Denies fatigue, Denies fever(s), Denies frequent falls, Denies lethargy and Denies weakness Eyes Eyes: Denies change in vision, Denies eye discharge, Denies irritation and Denies loss of vision ENT Ears, Nose, Mouth, and Throat: Denies change in voice, Denies dizziness, Denies neck pain, Denies sore throat and Denies throat swelling Cardiovascular Cardiovascular: Denies chest pain, Denies irregular heart rhythm, Denies lightheadedness, Denies palpitations, Denies dyspnea, Denies dyspnea on exertion and Denies orthopnea Respiratory Respiratory: Denies cough, Denies dyspnea, Denies dyspnea on exertion and Denies wheezing Gastrointestinal Gastrointestinal: Denies abdominal pain, Denies change in bowel habits, Denies diarrhea, Denies nausea and Denies vomiting Genitourinary Genitourinary: Denies hematuria, Denies flank pain, Denies urinary incontinence and Denies urinary urgency Musculoskeletal Musculoskeletal: Denies back pain, Denies muscle weakness, Denies neck pain, Denies numbness and Denies tingling Integumentary/Breasts Skin/Breast: Denies pruritus, Denies erythema, Denies rash and Denies wounds Neurologic Neurologic: Denies behavioral changes, Denies confusion, Denies dizziness, Denies frequent falls, Denies loss of vision, Denies numbness, Denies tingling a nd Denies weakness Psychiatric Psychiatric: Denies anxiety, Denies behavioral changes, Denies confusion, Denies depression, Denies homicidal ideation and Denies suicidal ideation Endocrine Endocrine: Denies fatigue, Denies flushing and Denies palpitations Hematologic/Lymphatic Hematologic/Lymphatic: Denies easy bruising Allergic/Immunologic Allergic/Immunologic: Denies urticaria, Denies throat swelling and Denies wheezing Patient History Social History marital status: Smoking Status: Never smoker Smoking Status: Never smoker alcohol intake frequency: 0-2 drinks per day Substance Use Type: does not use Exam Narrative Exam Narrative: GEN: AOx3 and in mild distress HEAD: No bruising, swelling, depressed skull fracture EYES: Pupils are equal, round, and reactive to light and accommodation. Extraoccular muscles are intact bilaterally. There is no subconjunctival hemorrhage or exudate. CHEST: Lungs are clear to auscultation bilaterally and free of wheezes, rales, or rhonchi. Heart rate is regular rhythm, there are no murmurs, clicks, rubs, or gallops. There is no chest wall tenderness. ABD: Abdomen is soft and nontender. There is no guarding or rebound. Bowel sounds are normal in all 4 quadrants. There is no mass or organomegaly. EXT: Full painless ROM of all extremities with no loss of sensation or strength. SKIN: Warm, pink, and dry. No erythema or rash Initial Vital Signs Initial Vital Signs: Vital Signs Temperature 97.6 F 10/18/19 23:49 Pulse Rate 88 10/18/19 23:49 Respiratory Rate 18 10/18/19 23:49 Blood Pressure 147/95 H 10/18/19 23:49 Pulse Oximetry 100 10/18/19 23:49 Course Vital Signs Vital signs: Vital Signs - 8 hr 10/18/19 23:49 Temperature 97.6 F Pulse Rate 88 Respiratory Rate 18 Blood Pressure 147/95 H Pulse Oximetry 100 Discharge Plan Departure Patient Disposition: Home Clinical Impression: Concussion without loss of consciousness Qualifiers: Encounter type: initial encounter Qualified Code(s): S06.0X0A - Concussion without loss of consciousness, initial encounter Instructions: Concussion Activity Restrictions/Additional Instructions: *You have been diagnosed with [mild concussion] *What to do: *Take medications as directed, such as Tylenol or Motrin for pain. *Follow up with your primary care provider in 2-3 days, call for an a ppointment. Let them know you were seen in the Emergency Department and that we ask that you be seen in follow up *Return to ER if you should have any new, worsening or concerning symptoms Prescriptions: No Action albuterol sulfate [Ventolin HFA] 90 MCG/PUFF HFA aerosol inhaler 2 puff INH PRN (Reason: Shortness Of Breath) Qty: 0 RF: 0 ondansetron 4 mg tablet,disintegrating 4 mg PO Q6H PRN (Reason: nausea and vomiting) Qty: 10 RF: 0 benzonatate [Tessalon Perles] 100 mg capsule 100 mg PO TID PRN (Reason: cough) Qty: 14 RF: 0 Referrals: Lyssa Rock DO [Primary Care Provider] - Stand Alone Forms: Work Release Note
== END 2019-10-19 03:15 | disposition home or self-care (01) ==
PROVIDERS: Emergency Provider Emergency Medicine; PCP Family Medicine
DX: S06.0X0A Concussion without loss of consciousness, initial encounter (principal); W22.8XXA Striking against or struck by other objects, initial encounter; Y99.0 Civilian activity done for income or pay
CPT/HCPCS: 99281; 99283

== ENCOUNTER → 2020-01-05 10:33 | Outpatient (CLI) | payer OTHER, MEDICAID, SELFPAY ==
[2020-01-05 11:56] LABS: HCG Quantitative /Beta subunit < 2.4 mIU/mL
== END ==
PROVIDERS: PCP Family Medicine; Referring Provider Family Medicine; Visit Provider Family Medicine
DX: N91.2 Amenorrhea, unspecified (principal)
CPT/HCPCS: 36415; 84702

== ENCOUNTER 2020-03-25 03:46 | Emergency (ER) | payer OTHER, MEDICAID, SELFPAY ==
--- NOTE | 2020-03-25 03:51 | ED_ITS ---
HPI - Skin/Abscess/Foreign Bdy General Chief complaint: Environmental Exposure Stated complaint: has sunburn blisters on back chills Time Seen by Provider: 03/25/20 03:51 Source: patient and family Mode of arrival: Ambulatory Limitations: no limitations History of Present Illness HPI narrative: 29F nonsmoker with noncontributory medical history presents with his significant other and a chief complaint of a sunburn over the past 2 days. She was out on a boat fishing for a few hours a couple days ago and likely did not use sunscreen. Today she started developing some small, and then slightly larger blisters on her upper arms. The largest of which is about the size of a dime, and there about 2-3 of them total at this point time. She has pain in the distribution of her [place] is having trouble sleeping. She is also having some minor chills. She denies any headache or sore throat. She denies any difficulty in breathing. She has had no nausea, vomiting or diarrhea. MD complaint: other Onset (ago): hour(s) Tetanus up to date: yes Location: chest, back, LUE and RUE Severity: moderate Quality: burning Pain Consistency: constant Relieving factors: cold therapy Exacerbating factors: movement Associated symptoms: chills Related Data Previous Rx's Medication Instructions Recorded sertraline 50 mg tablet 50 mg PO DAILY #30 tab 02/11/20 mupirocin 2 % topical ointment 1 applictn TOP TID #30 gram 03/09/20 naproxen 500 mg tablet 500 mg PO BID #30 tab 03/09/20 bacitracin 1 applictn TOP Q12H #14 gram 03/25/20 Allergies Allergy/AdvReac Type Severity Reaction Status Date / Time paroxetine [From PAXIL] Allergy Intermediate PALPITATIONS, Verified 03/09/20 13:30 LIGHTHEADED Review of Systems Constitutional Constitutional: Denies chills, Denies fatigue, Denies fever(s), Denies frequent falls, Denies lethargy and Denies weakness Eyes Eyes: Denies change in vision, Denies eye discharge, Denies irritation and Denies loss of vision ENT Ears, Nose, Mouth, and Throat: Denies change in voice, Denies dizziness, Denies neck pain, Denies sore throat and Denies throat swelling Cardiovascular Cardiovascular: Denies chest pain, Denies irregular heart rhythm, Denies lightheadedness, Denies palpitations, Denies dyspnea, Denies dyspnea on exertion and Denies orthopnea Respiratory Respiratory: Denies cough, Denies dyspnea, Denies dyspnea on exertion and Denies wheezing Gastrointestinal Gastrointestinal: Denies abdominal pain, Denies change in bowel habits, Denies diarrhea, Denies nausea and Denies vomiting Musculoskeletal Musculoskeletal: Denies neck pain and Denies numbness Integumentary/Breasts Skin/Breast: Denies pruritus, Reports erythema, Denies rash, Reports skin swelling and Denies wounds Neurologic Neurologic: Denies behavioral changes, Denies confusion, Denies dizziness, Denies frequent falls, Denies loss of vision, Denies numbness and Denies weakness Psychiatric Psychiatric: Denies anxiety, Denies behavioral changes, Denies confusion, Denies depression, Denies homicidal ideation and Denies suicidal ideation Endocrine Endocrine: Denies fatigue, Denies flushing and Denies palpitations Hematologic/Lymphatic Hematologic/Lymphatic: Denies easy bruising Allergic/Immunologic Allergic/Immunologic: Denies urticaria, Denies throat swelling and Denies wheezing Patient History Medical History Anxiety (Chronic 2008) Asthma (Chronic 2006) Chronic back pain (Chronic 2007) Chronic headaches (Chronic 2008) Depression (Chronic 2008) Folliculitis (Acute) Hayfever (Chronic ~1998) Personality disorder (Chronic 2015) PTSD (post-traumatic stress disorder) (Chronic 2015) Sciatica (Acute) Surgical History Anesthesia (Resolved) History of placement of ear tubes (Resolved ~1993) Status post appendectomy (Resolved 05/25/12) Status post delivery (Resolved 09/14/15) Family History Brother Age: 18 ADD (attention deficit disorder) Autism Morbidly obese Developmental disability Grandmother Age: 75 Seizures Hypertension Mother Age: 51 Anxiety Depression PTSD (post-traumatic stress disorder) Sister Age: 29 Anxiety Sister Age: 22 Anxiety Depression PTSD (post-traumatic stress disorder) Father Anxiety Anger Grandfather No problems noted. Sister Anxiety Depression Social History marital status: Smoking Status: Never smoker Smoking Status: Never smoker alcohol intake frequency: 0-2 drinks per day Substance Use Type: does not use Exam Narrative Exam Narrative: GEN: AOx3 and in mild distress EYES: Pupils are equal, round, and reactive to light and accommodation. Extraoccular muscles are intact bilaterally. There is no subconjunctival hem orrhage or exudate. CHEST: Lungs are clear to auscultation bilaterally and free of wheezes, rales, or rhonchi. Heart rate is regular rhythm, there are no murmurs, clicks, rubs, or gallops. There is no chest wall tenderness. ABD: Abdomen is soft and nontender. There is no guarding or rebound. Bowel sounds are normal in all 4 quadrants. There is no mass or organomegaly. EXT: Full painless ROM of all extremities with no loss of sensation or strength. SKIN: Erythema and warmth of upper back, shoulders, and upper arms. Few small intact blisters with clear fluid on upper arms. Initial Vital Signs Initial Vital Signs: Vital Signs Temperature 97.4 F L 03/25/20 04:13 Pulse Rate 95 H 03/25/20 04:13 Respiratory Rate 18 03/25/20 04:13 Blood Pressure 134/67 03/25/20 04:13 Pulse Oximetry 100 03/25/20 04:13 Course Orders Ordered: Discontinued Medications Ondansetron HCl (Zofran Odt Prepack) [facility] Stop: 03/25/20 04:11 Vital Signs Vital signs: Vital Signs - 8 hr 03/25/20 04:13 Temperature 97.4 F L Pulse Rate 95 H Respiratory Rate 18 Blood Pressure 134/67 Pulse Oximetry 100 Discharge Plan Departure Patient Disposition: Home Clinical Impression: Sunburn of second degree Instructions: How to Avoid Sunburn, DI for Sunburn Activity Restrictions/Additional Instructions: *You have been diagnosed with [sunburn with some blisters, nausea] *What to do: *Take medications as directed: Prescription sent to [facility] in [place] *Follow up with your primary care provider in 2-3 days, call for an appointment. Let them know you were seen in the Emergency Department and that we ask that you be seen in follow up *Return to ER if you should have any new, worsening or concerning symptoms Prescriptions: New bacitracin 500 unit/gram ointment 1 applictn TOP Q12H Qty: 14 RF: 0 No Action sertraline 50 mg tablet 50 mg PO DAILY Qty: 30 RF: 1 mupirocin 2 % ointment 1 applictn TOP TID Qty: 30 RF: 0 naproxen 500 mg tablet 500 mg PO BID Qty: 30 RF: 0 Referrals: Lyssa Rock DO [Primary Care Provider] -
[2020-03-25 04:13] VITALS: BP 134/67; PULSE 95; RESP 18; TEMP 36.3; O2SAT 100; BMI 41.5
[2020-03-25] MEDS: ONDANSETRON 4 MG ODT PREPACK 1 BOTTLE MISC (04:41)
== END 2020-03-25 04:20 | disposition home or self-care (01) ==
PROVIDERS: Emergency Provider Emergency Medicine; PCP Family Medicine
DX: L55.1 Sunburn of second degree (principal)
CPT/HCPCS: 99281

== ENCOUNTER → 2020-06-05 11:43 | Outpatient (CLI) | payer OTHER, MEDICAID, SELFPAY ==
[2020-06-05 13:19] LABS: Alanine Aminotransferase 21 IU/L (<35); Albumin 4.2 g/dL (3.5-5.0); Albumin Globulin Ratio 1.2 (1.0-2.8); Alkaline Phosphatase 87 U/L (38-126); Aspartate Aminotransferase 20 IU/L (14-36); BUN Creatinine Ratio 17.4 (6-22); Bilirubin Total 0.7 mg/dL (0.2-1.3); Blood Urea Nitrogen 12 mg/dL (7-17); Calcium 9.1 mg/dL (8.4-10.2); Carbon Dioxide 27 mmol/L (22-32); Chloride 104 mmol/L (98-107); Estimated Glomerular Filt Rate > 60.0 mL/min (>60); Globulin 3.4 g/dL (1.7-4.1); Glucose 93 mg/dL (70-100); HEMOLYSIS < 15 (0-50); Potassium 3.6 mmol/L (3.4-5.1); Sodium 137 mmol/L (137-145); Total Protein 7.6 g/dL (6.3-8.2)
[2020-06-05 13:21] LABS: Add Manual Diff / Slide Review NO; Basophils Absolute Auto 0 /uL (0-100); Basophils Percent Auto 0.5 % (0-2); Eosinophils Absolute Auto 100 /uL (0-450); Eosinophils Percent Auto 1.3 % (2-4); Hematocrit 39.3 % (36-46); Lymphocytes Absolute Auto 2400 /uL (1100-4500); Lymphocytes Percent Auto 29.8 % (25-40); Mean Corpuscular Hemoglobin 26.5 PG (26-34); Mean Corpuscular Volume 80.3 fL (80-100); Monocytes Absolute Auto 500 /uL (0-900); Monocytes Percent Auto 6.3 % (3-14); Neutrophils Absolute Auto 5000 /uL (1500-7000); Neutrophils Percent Auto 62.1 % (50-75); Platelet Count 276 X10^3/uL (150-400); Red Cell Distribution Width 13.6 % (11.6-14.8)
[2020-06-05 13:51] LABS: Thyroid Stimulating Hormone 1.15 uIU/mL (0.47-4.68)
== END ==
PROVIDERS: PCP Family Medicine; Referring Provider Family Medicine; Visit Provider Family Medicine
DX: E66.9 Obesity, unspecified (principal)
CPT/HCPCS: 36415; 80053; 84443; 85025

== ENCOUNTER → 2020-08-31 11:43 | Outpatient (CLI) | payer OTHER, MEDICAID, SELFPAY ==
--- NOTE | 2020-08-31 11:45 | DI.RAD.S_ITS ---
PROCEDURE: XR THORACIC SPINE 3V INDICATIONS: tender at T6 and L SI joint, r/o bony abnormality TECHNIQUE: 3 views of the thoracic spine were acquired. COMPARISON: None. FINDINGS: Bones: No fractures or dislocations. No suspicious bony lesions. Twelve pairs of ribs are noted, and appear intact where visualized. Soft tissues: No paravertebral stripe thickening. IMPRESSION: Source of spine pain is not found. Dictated by: Qasim Salter M.D. on 08/31/2020 at 12:22 Approved by: Qasim Salter M.D. on 08/31/2020 at 12:23
--- NOTE | 2020-08-31 11:45 | DI.RAD.S_ITS ---
PROCEDURE: XR LUMBAR SPINE 2-3V INDICATIONS: tender at T6 and L SI joint, r/o bony abnormality TECHNIQUE: 3 views of the lumbar spine were acquired. COMPARISON: None. FINDINGS: Bones: 5 [id number] vertebrae are present. There is normal bony alignment. No vertebral body compression fractures. No suspicious bony lesions. Soft tissues: Overlying bowel gas pattern is normal. No suspicious soft tissue calcifications. IMPRESSION: Source of spine tenderness is not found. Dictated by: Qasim Salter M.D. on 08/31/2020 at 12:21 Approved by: Qasim Salter M.D. on 08/31/2020 at 12:22
== END ==
PROVIDERS: PCP Family Medicine; Referring Provider Family Medicine; Visit Provider Family Medicine
DX: M54.5 Low back pain (principal); M54.6 Pain in thoracic spine
CPT/HCPCS: 72072; 72100

== ENCOUNTER → 2020-09-15 11:40 | Outpatient (CLI) | payer OTHER, MEDICAID, SELFPAY ==
--- NOTE | 2020-09-15 11:41 | DI.MRI.S_ITS ---
PROCEDURE: MR KNEE RT WO CON INDICATIONS: Unstable knee, knee pain TECHNIQUE: Noncontrast sagittal PD fast spin echo and T2 fast spin echo with fat saturation, sagittal 3-D FLASH with fat saturation; coronal T1 spin echo and PD fast spin echo with fat saturation, and axial PD fast spin echo with fat saturation through the knee. COMPARISON: [facility], MR, MR KNEE RT WO CON, 05/14/2018, 7:52. [facility], CR, XR KNEE RT 3V, 04/10/2018, 21:34. FINDINGS: Image quality: Excellent. Menisci: Medial extrusion of the medial meniscus is present. There is linear oblique high signal intensity traversing the medial meniscal body, demonstrating inferior articular surface extension, new since the prior examination. There is new partial absence of the posterior horn medial meniscus, compatible with postsurgical sequelae. Previously seen vertically oriented linear high signal intensity traversing the posterior aspect of the posterior horn lateral meniscus is less apparent, and no longer demonstrates inferior articular surface extension. Cruciate ligaments: The anterior and posterior cruciate ligaments appear intact. Medial structures: The medial collateral ligament appears intact. Visualized portions of the pes anserinus tendons appear normal. No abnormal bursal fluid. Lateral structures: The lateral collateral ligament, long and short heads of the biceps femoris tendon appear intact. The popliteus tendon appears normal. Iliotibial band appears normal. Anterior structures: The quadriceps and patellar tendons appear intact. Mild T2 signal elevation within the patellar tendon at the patellar insertion site. Patellar alignment is normal. No femoral trochlear dysplasia or ventral trochlear prominence. No edema in the infrapatellar fat pad. Bones and cartilage: No bone marrow contusions or fractures. Red marrow reconversion within the distal femur and proximal tibia. There is minimal subchondral ill-defined T2 signal elevation within the mid weight-bearing aspects of the medial femoral condyle and medial tibial plateau. Mild tricompartmental periarticular osteophyte formation is present. Mild diffuse articular cartilage loss overlies the weight-bearing aspects of the medial femoral condyle and medial tibial plateau. Moderate to severe articular cartilage loss overlies the lateral patellar facet and lateral apex. Moderate articular cartilage loss overlies the medial patellar apex. Joint space: There is a small knee joint effusion and a trace Posadas's cyst. Normal appearing synovial plicae are incidentally noted. IMPRESSION: 1. Possible postsurgical sequelae involving the medial meniscus. 2. Tearing of the medial meniscal body. 3. Previously seen tear of the posterior horn lateral meniscus is less apparent. 4. Tricompartmental osteoarthritis with associated articular cartilage loss. 5. Small knee joint effusion and trace Posadas's cyst. 6. Mild patellar tendinitis. Dictated by: Vasu Velazquez M.D. on 09/15/2020 at 12:50 Approved by: Vasu Velazquez M.D. on 09/15/2020 at 12:55
== END ==
PROVIDERS: PCP Family Medicine; Referring Provider Registered Nurse; Visit Provider Registered Nurse
DX: M25.361 Other instability, right knee (principal); M25.561 Pain in right knee; S83.241A Other tear of medial meniscus, current injury, right knee, initial encounter; M25.461 Effusion, right knee; M71.21 Synovial cyst of popliteal space [Baker], right knee
CPT/HCPCS: 73721

== ENCOUNTER → 2020-10-11 19:05 | Outpatient (CLI) | payer OTHER, MEDICAID, SELFPAY ==
[2020-10-11 20:41] LABS: COVID19 -Nasal RAPID Negative (Negative)
== END ==
PROVIDERS: PCP Family Medicine; Visit Provider Physician Assistant
DX: Z20.822 Contact with and (suspected) exposure to COVID-19 (principal); J02.9 Acute pharyngitis, unspecified
CPT/HCPCS: 87070; 87635

== ENCOUNTER → 2021-03-04 10:13 | Outpatient (CLI) | payer OTHER, MEDICAID, SELFPAY ==
--- NOTE | 2021-03-04 10:15 | DI.RAD.S_ITS ---
PROCEDURE: XR FOOT RT MIN 3V INDICATIONS: r heel pain TECHNIQUE: 3 views of the foot were acquired. COMPARISON: None. FINDINGS: Bones: No fractures or dislocations. No suspicious bony lesions. Tiny plantar calcaneal bone spur. Soft tissues: No tibiotalar joint effusion. Achilles tendon appears normal. IMPRESSION: 1. No fracture. No acute osseous lesion. If symptoms and/or clinical suspicion for pathology persists, further assessment with repeat radiographs (7-10 days) or advanced imaging (e.g. CT, MRI or bone scan) should be considered. Two tiny calcaneal bone spur. Dictated by: Dilcia Paredes MD, PhD on 03/04/2021 at 11:04 Approved by: Dilcia Paredes MD, PhD on 03/04/2021 at 11:05
== END ==
PROVIDERS: PCP Family Medicine; Referring Provider Physician Assistant; Visit Provider Physician Assistant
DX: M79.671 Pain in right foot (principal)
CPT/HCPCS: 73630

== ENCOUNTER 2021-03-09 23:23 | Emergency (ER) | payer OTHER, MEDICAID, SELFPAY ==
[2021-03-09 23:40] VITALS: BP 143/89; PULSE 96; RESP 18; TEMP 36.6; O2SAT 98
[2021-03-10 00:53] LABS: WBC Urine None Seen (0-5/HPF)
[2021-03-10 01:09] LABS: Bacteria Urine Few (2-10); RBC Urine 1-5/HPF (0-5/HPF); Squamous Epithelial Cell Urine 10-30 /HPF (0-5/HPF)
[2021-03-10 01:10] LABS: Culture Indicated Urine Cult Not Indicated
--- NOTE | 2021-03-10 01:16 | ED_ITS ---
HPI - General Adult General Chief complaint: OB/Uterine Contractions Stated complaint: nausea sharp stomach pain positive test Time Seen by Provider: 03/09/21 23:49 Source: patient Mode of arrival: Ambulatory Limitations: no limitations History of Present Illness HPI narrative: Patient is a 30-year-old female who is here asking for a blood test to evaluate if she is . She states that she had a normal in stool cycle 1 month ago. At the end of last week she stated that she started to have vaginal bleeding. She states she only bled for 2 days and then it stopped. States this was 8 days prior to her normal cycle. She took a home test approximately 4 days ago and she states that it was ?faintly positive ?. She states she contacted her primary doctor and was scheduled to have a blood test performed tomorrow to see if she was however she wanted to get that done tonight so that she could surprise her . Related Data Home Medications Medication Instructions Recorded Confirmed No Known Home Medications 03/04/21 03/04/21 Allergies Allergy/AdvReac Type Severity Reaction Status Date / Time paroxetine [From PAXIL] Allergy Intermediate PALPITATIONS, Verified 03/04/21 11:10 LIGHTHEADED Review of Systems Constitutional Constitutional: Reports system reviewed and no additional complaints, except as documented Cardiovascular Cardiovascular: Reports system reviewed and no additional complaints, except as documented Respiratory Respiratory: Reports system reviewed and no additional complaints, except as documented Gastrointestinal Gastrointestinal: Reports as per HPI Genitourinary Genitourinary: Reports as per HPI Integumentary/Breasts Skin/Breast: Reports system reviewed and no additional complaints, except as documented Hematologic/Lymphatic On Anticoagulants: No Patient History Medical History Anxiety (2009) Asthma (2006) Chronic back pain (2008) Chronic headaches (2009) Depression (2008) Hayfever (~1998) Personality disorder (2015) PTSD (post-traumatic stress disorder) (2016) Sciatica Surgical History Anesthesia History of placement of ear tubes (~1993) Status post appendectomy (05/25/12) Status post delivery (09/14/15) Family History Brother Age: 19 ADD (attention deficit disorder) Autism Morbidly obese Developmental disability Grandmother Age: 76 Seizures Hypertension Mother Age: 52 Anxiety Depression PTSD (post-traumatic stress disorder) Sister Age: 30 Anxiety Sister Age: 23 Anxiety Depression PTSD (post-traumatic stress disorder) Father Anxiety Anger Grandfather No problems noted. Sister Anxiety Depression Social History marital status: Smoking Status: Never smoker Smoking Status: Never smoker alcohol intake frequency: 0-2 drinks per day Substance Use Type: does not use Exam Initial Vital Signs Initial Vital Signs: Vital Signs Temperature 97.9 F 03/09/21 23:40 Pulse Rate 96 H 03/09/21 23:40 Respiratory Rate 18 03/09/21 23:40 Blood Pressure 143/89 H 03/09/21 23:40 Pulse Oximetry 98 03/09/21 23:40 Course Orders Ordered: ED Orders 03/10/21 00:52 Urine Microscopic Stat 03/10/21 01:30 ABO RH Type Stat HCG Quantitative /Beta subunit Stat Vital Signs Vital signs: Vital Signs - 8 hr 03/09/21 23:40 03/10/21 02:55 Temperature 97.9 F Pulse Rate 96 H 88 Respiratory Rate 18 98 H Blood Pressure 143/89 H 140/79 Pulse Oximetry 98 Medical Decision Making Lab Data Lab results reviewed: Yes I reviewed the patient's lab results. Labs: Lab Results 03/10/21 03/10/21 03/10/21 Range/Units 00:52 01:30 01:30 HCG, Quant < 2.4 mIU/mL Urine RBC 1-5/hpf (0-5/HPF) Urine WBC None seen (0-5/HPF) Ur Squamous Epith Cells 10-30 /hpf H (0-5/HPF) Urine Bacteria Few (2-10) H (None) Ur Culture Indicated? Cult not indicated Blood Type A Positive Point of Care Testing Test Results Negative Urine Dip Bedside Urine Glucose Negative Bedside Urine Bilirubin - Negative Bedside Urine Ketone - Negative Urine Specific [place] 1.030 Bedside Urine Occult Blood + Bedside Urine pH 6.0 Bedside Urine Protein - Negative Bedside Urine Urobilinogen - Negative Bedside Urine Nitrite - Negative Bedside Urine Leukocytes - Negative Esterase Point of care testing: Point of Care Testing Test Results Negative Urine Dip Bedside Urine Glucose Negative Bedside Urine Bilirubin - Negative Bedside Urine Ketone - Negative Urine Specific [place] 1.030 Bedside Urine Occult Blood + Bedside Urine pH 6.0 Bedside Urine Protein - Negative Bedside Urine Urobilinogen - Negative Bedside Urine Nitrite - Negative Bedside Urine Leukocytes - Negative Esterase MDM Narrative Medical decision making narrative: Her urine test was negative. Given the fact that she stated she had a positive test earlier this week an hCG quant was ordered and this also was negative. She is Rh positive. No indication for RhoGAM. Informed her that it is most likely that she you was given her positive test at home and that she has sustained a miscarriage given her negative test today. I feel that we can hold on any ultrasound for now. Informed her that she should contact her primary doctor for follow-up. She expressed understanding and agreement. Discharge Plan Departure Patient Disposition: Home Clinical Impression: Nausea Instructions: DI for Nausea -- Adult Activity Restrictions/Additional Instructions: The test here in the emergency department were negative. I recommend tomorrow you talk with your primary doctor if you feel that you are having issues becoming . You potentially could need a referral to see a billiard table mechanic provider or fertility specialist. Return to the emergency department for any new or worsening symptoms Prescriptions: No Action No Known Home Medications RF: 0 Referrals: Lyssa Rock DO [Primary Care Provider] -
[2021-03-10 02:03] LABS: HCG Quantitative /Beta subunit < 2.4 mIU/mL
[2021-03-10 02:55] VITALS: BP 140/79; PULSE 88; RESP 98
== END 2021-03-10 02:55 | disposition home or self-care (01) ==
PROVIDERS: Emergency Provider Emergency Medicine; PCP Family Medicine
DX: R11.0 Nausea (principal); Z32.02 Encounter for pregnancy test, result negative
CPT/HCPCS: 36415; 81003; 81015; 81025; 84702; 86900; 86901; 99282

== ENCOUNTER 2021-04-25 18:14 | Emergency (ER) | payer OTHER, MEDICAID, SELFPAY ==
[2021-04-25 18:21] VITALS: BP 131/71; PULSE 87; RESP 17; TEMP 36.6; O2SAT 100; BMI 41.5
--- NOTE | 2021-04-25 18:28 | DI.RAD.S_ITS ---
PROCEDURE: XR CHEST 2V INDICATIONS: cough TECHNIQUE: 2 views of the chest were acquired. COMPARISON: [facility], , XR CHEST 1V, 07/06/2019, 0:14. FINDINGS: Surgical changes and devices: None. Lungs and pleura: Lungs are clear. No pleural effusions or pneumothorax. Low lung volumes accentuate pulmonary interstitium and heart size. Mediastinum: Mediastinal contours are normal. Heart size is normal. Bones and chest wall: No suspicious bony abnormalities. Soft tissues appear unremarkable. IMPRESSION: No acute cardiopulmonary findings Approved by: Jesse Muñoz M.D. on 04/25/2021 at 18:16
[2021-04-25 18:51] LABS: COVID19 -Nasal RAPID Negative (Negative)
[2021-04-25] MEDS: BENZONATATE 100 MG CAPSULE PO (22:16)
--- NOTE | 2021-04-25 22:22 | ED.URI ---
HPI - URI/Sore Throat General Chief Complaint: Upper Respiratory Symptoms Stated Complaint: Cough,Hoarse,Mucus Time Seen by Provider: 04/25/21 22:02 Source: patient Mode of arrival: Ambulatory History of Present Illness HPI Narrative: Patient drove here. Complaints 3 weeks of dry cough. History asthma. Seen by urgent care earlier in the month but no prescriptions given other and Tessalon Perles. No inhaler or steroids. Patient denies any seasonal allergies. No fever. No dyspnea. Related Data Previous Rx's Medication Instructions Recorded albuterol sulfate 90 mcg/actuation 2 inhalation INHALATION QID PRN 04/25/21 aerosol inhaler (Ventolin HFA) #6.7 gram methylprednisolone 4 mg tablets in See Rx Instructions .ROUTE 04/25/21 a dose pack (Medrol (Charlie)) .COMPLEX #21 each Allergies Allergy/AdvReac Type Severity Reaction Status Date / Time paroxetine [From PAXIL] Allergy Intermediate PALPITATIONS, Verified 04/25/21 18:26 LIGHTHEADED Review of Systems Review of Systems Narrative: GENERAL: Denies chills, fatigue, malaise, fever, sweats. HEENT: Denies sinus pain, ear pain, sore throat RESPIRATORY: Denies dyspnea, complains dry cough CARDIOVASCULAR: Denies chest pain, palpitations GASTROINTESTINAL: Denies nausea, vomiting, abdominal pain : Denies dysuria, frequency, hematuria MUSCULOSKELETAL: denies muscle or bony pain SKIN: Denies rash, skin lesions NEUROLOGIC: Denies weakness, numbness ROS Unobtainable: All systems reviewed & are unremarkable except as noted in HPI and below Patient History Medical History Anxiety (2008) Asthma (2006) Chronic back pain (2007) Chronic headaches (2009) Depression (2008) Hayfever (~1998) Personality disorder (2016) PTSD (post-traumatic stress disorder) (2016) Sciatica Surgical History Anesthesia History of placement of ear tubes (~1993) Status post appendectomy (05/25/12) Status post delivery (09/14/15) Family History Brother Age: 19 ADD (attention deficit disorder) Autism Morbidly obese Developmental disability Grandmother Age: 76 Seizures Hypertension Mother Age: 52 Anxiety Depression PTSD (post-traumatic stress disorder) Sister Age: 30 Anxiety Sister Age: 23 Anxiety Depression PTSD (post-traumatic stress disorder) Father Anxiety Anger Grandfather No problems noted. Sister Anxiety Depression Social History marital status: Smoking Status: Never smoker Smoking Status: Never smoker alcohol intake frequency: 0-2 drinks per day Substance Use Type: does not use Exam Narrative Exam Narrative: GENERAL: in no distress, not toxic not dyspneic HEAD: Normocephalic. EYES: Pupils equal round No scleral icterus. No injection no discharge ENT: Mucous membranes moist. NECK: Trachea midline. CARDIOVASCULAR: Regular rate and rhythm without murmurs RESPIRATORY: Clear to auscultation. Breath sounds equal bilaterally. No wheezes, rales, or rhonchi. Has dry cough. Speaks full sentences. BACK: No flank tenderness. NEURO: AOx4. SKIN: Warm and dry PSYCH: Not anxious, is cooperative Initial Vital Signs Initial Vital Signs: Vital Signs Temperature 98 F 04/25/21 18:21 Pulse Rate 87 04/25/21 18:21 Respiratory Rate 17 04/25/21 18:21 Blood Pressure 131/71 04/25/21 18:21 Pulse Oximetry 100 04/25/21 18:21 Course Course Course Narrative: No new issues during course of stay Orders Ordered: ED Orders 04/25/21 18:28 XR chest 2V Stat 04/25/21 18:30 COVID19 -Nasal swab/Pre-Proc Stat Discontinued Medications Albuterol (Albuterol Hfa Mdi 60 Puff/8 Gm Inhaler) 2 puff INH NOW ONE Stop: 04/25/21 22:22 Last Admin: 04/25/21 22:30 Dose: 2 puff Documented by: JAY Benzonatate (Benzonatate 100 Mg Capsule) 100 mg PO NOW ONE Stop: 04/25/21 22:13 Last Admin: 04/25/21 22:16 Dose: 100 mg Documented by: BREANNA Prednisone (Prednisone 20 Mg Tablet) 60 mg PO NOW ONE Stop: 04/25/21 22:22 Last Admin: 04/25/21 22:29 Dose: 60 mg Documented by: BREANNA Reevaluation(s) Reevaluation #1: Reviewed results with patient. Agrees with treatment plan. Agrees with inhaler and steroids. She appreciates that. Already has Stephen Trevino at home Time: 22:24 Vital Signs Vital signs: Vital Signs - 8 hr 04/25/21 22:30 04/25/21 22:33 Pulse Rate 77 Respiratory Rate 17 Blood Pressure 136/66 Pulse Oximetry 97 100 MDM - URI/Sore Throat Differential Diagnosis Differential diagnosis: Likely upper respiratory infection, bronchitis and other Lab Data Labs: Lab Results 04/25/21 Range/Units 18:30 SARS-CoV-2 (PCR) Negative (Negative) Imaging Data Chest x-ray: Radiologist's Impression: [address] [id number] ReportSigned Patient: Natalie Slade [facility]#: [id number]: 1990Acct:[id number]/Sex: 30 / FDate of Service: 04/25/21Loc: EDAccession Number: [id number] Procedure: XR chest 2V Ordering Provider: Lalo Jeff D.O. PROCEDURE: XR CHEST 2V INDICATIONS: cough TECHNIQUE: 2 views of the chest were acquired. COMPARISON: [facility], , XR CHEST 1V, 07/06/2019, 0:14. FINDINGS: Surgical changes and devices: None. Lungs and pleura: Lungs are clear. No pleural effusions or pneumothorax. Low lung volumes accentuate pulmonary interstitium and heart size. Mediastinum: Mediastinal contours are normal. Heart size is normal. Bones and chest wall: No suspicious bony abnormalities. Soft tissues appear unremarkable. IMPRESSION: No acute cardiopulmonary findings Approved by: Jesse Muñoz M.D. on 04/25/2021 at 18:16 MDM Narrative Medical decision making narrative: Appropriate for discharge home. Not toxic. Not dyspneic. Vital signs and exam and imaging and laboratory results reassuring. Patient agrees with treatment plan. Return precautions reviewed with her. She does have a family doctor to follow up with. Discharge Plan Departure Patient Disposition: Home Clinical Impression: Bronchitis Instructions: DI for Acute Bronchitis Activity Restrictions/Additional Instructions: Return if worse or any questions concerns or trouble breathing. Use inhaler 2 puffs every 4 hours as needed for coughing. Continues to her back tomorrow. See family doctor in a week for recheck. Prescriptions: New methylprednisolone [Medrol (Charlie)] 4 mg tablets,dose pack See Rx Instructions .ROUTE .COMPLEX Qty: 21 RF: 0 albuterol sulfate [Ventolin HFA] 90 mcg/actuation HFA aerosol inhaler 2 inhalation INHALATION QID PRN (Reason: shortness of breath or wheezing) Qty: 6.7 RF: 0 Referrals: Lyssa Rock DO [Primary Care Provider] -
[2021-04-25] MEDS: predniSONE 20 MG TABLET 60 MG PO (22:29)
[2021-04-25 22:30] VITALS: O2SAT 97
[2021-04-25] MEDS: ALBUTEROL HFA MDI 60 PUFF/8 GM INHALER INH (22:30)
[2021-04-25 22:33] VITALS: BP 136/66; PULSE 77; RESP 17; O2SAT 100
== END 2021-04-25 22:43 | disposition home or self-care (01) ==
PROVIDERS: Emergency Medicine; Emergency Provider Emergency Medicine; PCP Family Medicine
DX: J40 Bronchitis, not specified as acute or chronic (principal); Z20.822 Contact with and (suspected) exposure to COVID-19
CPT/HCPCS: 71046; 87635; 94640; 99283; C9803; A9270

== ENCOUNTER 2021-05-02 22:10 | Emergency (ER) | payer OTHER, MEDICAID, SELFPAY ==
[2021-05-02 22:53] VITALS: BP 128/78; PULSE 99; RESP 17; TEMP 36.2; O2SAT 99; BMI 41.5
--- NOTE | 2021-05-02 23:57 | ED.SKABFB ---
HPI - Skin/Abscess/Foreign Bdy General Chief complaint: Skin/Abscess/Foreign Body Stated complaint: RED AND WARM CYST LEFT BREAST Time Seen by Provider: 05/02/21 23:57 Source: patient Mode of arrival: Ambulatory Limitations: no limitations History of Present Illness HPI narrative: 30-year-old woman presents with 3 days of increasing skin tenderness on the undersurface of her left breast. She has had multiple superficial skin abscesses in and around her axilla. She describes no specific breast pain or nipple discharge. She has had no fevers cough for chills. No palpitations, chest pain, orthopnea, dyspnea, abdominal pain, vomiting or diarrhea Related Data Previous Rx's Medication Instructions Recorded albuterol sulfate 90 mcg/actuation 2 inhalation INHALATION QID PRN 04/25/21 aerosol inhaler (Ventolin HFA) #6.7 gram methylprednisolone 4 mg tablets in See Rx Instructions .ROUTE 04/25/21 a dose pack (Medrol (Charlie)) .COMPLEX #21 each cephalexin 500 mg capsule 500 mg PO TID #21 cap 05/03/21 Allergies Allergy/AdvReac Type Severity Reaction Status Date / Time paroxetine [From PAXIL] Allergy Intermediate PALPITATIONS, Verified 04/25/21 18:26 LIGHTHEADED Review of Systems Review of Systems Narrative: Remainder of complete review of systems is otherwise unremarkable except for that included in the HPI. Patient History Medical History Anxiety (2009) Asthma (2006) Chronic back pain (2007) Chronic headaches (2008) Depression (2008) Hayfever (~1998) Personality disorder (2015) PTSD (post-traumatic stress disorder) (2015) Sciatica Surgical History Anesthesia History of placement of ear tubes (~1993) Status post appendectomy (05/25/12) Status post delivery (09/14/15) Family History Brother Age: 19 ADD (attention deficit disorder) Autism Morbidly obese Developmental disability Grandmother Age: 76 Seizures Hypertension Mother Age: 52 Anxiety Depression PTSD (post-traumatic stress disorder) Sister Age: 30 Anxiety Sister Age: 23 Anxiety Depression PTSD (post-traumatic stress disorder) Father Anxiety Anger Grandfather No problems noted. Sister Anxiety Depression Social History marital status: Smoking Status: Never smoker Smoking Status: Never smoker alcohol intake frequency: 0-2 drinks per day Substance Use Type: does not use Exam Narrative Exam Narrative: General: Alert appropriate in no acute distress Respiratory: Able to speak in full sentences, no obvious respiratory distress Skin: No obvious rashes, warm and dry Neurologic: Grossly intact no obvious asymmetries or abnormalities Psych: appropriate insight and affect, cooperative Breasts: There is a half a cm area of redness surrounding of follicle on the underside of the left breast. Relieve this is a simple folliculitis without abscess development in does not appear to be related to breast tissue nor is there any underlying breast abnormalities or mass. Initial Vital Signs Initial Vital Signs: Vital Signs Temperature 97.1 F L 05/02/21 22:53 Pulse Rate 99 H 05/02/21 22:53 Respiratory Rate 17 05/02/21 22:53 Blood Pressure 128/78 05/02/21 22:53 Pulse Oximetry 99 05/02/21 22:53 Course Orders Ordered: Discontinued Medications Cephalexin HCl (Cephalexin 250 Mg Capsule) 500 mg PO NOW ONE Stop: 05/03/21 00:47 Last Admin: 05/03/21 01:02 Dose: 500 mg Documented by: JOVON Vital Signs Vital signs: Vital Signs - 8 hr 05/02/21 22:53 Temperature 97.1 F L Pulse Rate 99 H Respiratory Rate 17 Blood Pressure 128/78 Pulse Oximetry 99 MDM - Skin/Abscess/Foreign Bdy Medical Records Medical records narrative: 30-year-old woman with superficial folliculitis under her left breast without abscess but mildly expanding cellulitis. She is treated with Keflex. No evidence for breast mass or deeper tissue involvement. She is safe for home discharge Discharge Plan Departure Patient Disposition: Home Clinical Impression: Cellulitis Qualifiers: Site of cellulitis: trunk Site of cellulitis of trunk: unspecified site Qualified Code(s): L03.319 - Cellulitis of trunk, unspecified Instructions: DI for Cellulitis -- Adult Activity Restrictions/Additional Instructions: Thank you for coming in tonight You do have a small area of cellulitis on the underside of your left breast. I believe this is all from skin and skin structures and not involving breast or breast tissue specifically. It has not yet developed into an abscess that needs to be opened but it may do this. I am going to give you a prescription for cephalexin. This antibiotic needs to be taken 3 times a day for the next 7 days. Using warm compresses to the area may help bring blood to the area and resolve the infection more quickly. Prescription was electronically sent to [facility] in [place] Using 400 mg of ibuprofen (2 [id number] pills) and 1 Tylenol every 6 hours can be very helpful in controlling pain. If you have worsening symptoms, increasing redness, increasing size or swelling to the area or drainage you do need to return to the ER for further evaluation Prescriptions: New cephalexin 500 mg capsule 500 mg PO TID Qty: 21 RF: 0 No Action methylprednisolone [Medrol (Charlie)] 4 mg tablets,dose pack See Rx Instructions .ROUTE .COMPLEX Qty: 21 RF: 0 albuterol sulfate [Ventolin HFA] 90 mcg/actuation HFA aerosol inhaler 2 inhalation INHALATION QID PRN (Reason: shortness of breath or wheezing) Qty: 6.7 RF: 0 Referrals: Lyssa Rock DO [Primary Care Provider] -
[2021-05-03] MEDS: cephALEXin 250 MG CAPSULE 500 MG PO (01:02)
--- NOTE | 2021-05-03 01:07 | PC.NURSE ---
Pt stated she prefers [facility] for her pharmacy, was upset that prescription was sent to [facility]. Pharmacy preference updated in chart.
== END 2021-05-03 01:09 | disposition home or self-care (01) ==
PROVIDERS: Emergency Provider Emergency Medicine; PCP Family Medicine
DX: L03.319 Cellulitis of trunk, unspecified (principal)
CPT/HCPCS: 99283

== ENCOUNTER 2021-05-16 22:41 | Emergency (ER) | payer OTHER, MEDICAID, SELFPAY ==
[2021-05-16 22:49] VITALS: BP 153/89; PULSE 106; RESP 18; TEMP 37.4; O2SAT 97; BMI 41.5
[2021-05-16 23:18] LABS: COVID19 -Nasal RAPID POSITIVE (Negative)
[2021-05-17 02:29] VITALS: BP 131/73; PULSE 82; TEMP 36.7; O2SAT 99
--- NOTE | 2021-05-17 02:41 | ED_ITS ---
HPI - URI/Sore Throat General Chief Complaint: Upper Respiratory Symptoms Stated Complaint: COUGH SORE THROAT HEAD COLD Time Seen by Provider: 05/17/21 02:28 Source: patient Mode of arrival: Ambulatory Limitations: no limitations History of Present Illness HPI Narrative: 30-year-old woman with a history of mild intermittent asthma presents with 3 days of increasing upper respiratory symptoms. She describes initially thinking was seasonal allergies with sneezing and cough. She then began having nausea, mild diarrhea, mild headache with occipital tenderness on the right, significant decreased energy and decreased appetite. She is COVID vaccinated. Her good friend, with whom she went [employer] last week, was recently diagnosed with COVID. She is having no chest pain or palpitations. No neurologic changes aside from the mild headache. Related Data Previous Rx's Medication Instructions Recorded albuterol sulfate 90 mcg/actuation 2 inhalation INHALATION QID PRN 04/25/21 aerosol inhaler (Ventolin HFA) #6.7 gram methylprednisolone 4 mg tablets in See Rx Instructions .ROUTE 04/25/21 a dose pack (Medrol (Charlie)) .COMPLEX #21 each cephalexin 500 mg capsule 500 mg PO TID #21 cap 05/03/21 Allergies Allergy/AdvReac Type Severity Reaction Status Date / Time paroxetine [From PAXIL] Allergy Intermediate PALPITATIONS, Verified 04/25/21 18:26 LIGHTHEADED Review of Systems Review of Systems Narrative: Remainder of complete review of systems is otherwise unremarkable except for that included in the HPI. Patient History Medical History Anxiety (2008) Asthma (2006) Chronic back pain (2007) Chronic headaches (2008) COVID-19 Depression (2008) Hayfever (~1998) Personality disorder (2015) PTSD (post-traumatic stress disorder) (2015) Sciatica Surgical History Anesthesia History of placement of ear tubes (~1993) Status post appendectomy (05/25/12) Status post delivery (09/14/15) Family History Brother Age: 19 ADD (attention deficit disorder) Autism Morbidly obese Developmental disability Grandmother Age: 76 Seizures Hypertension Mother Age: 52 Anxiety Depression PTSD (post-traumatic stress disorder) Sister Age: 30 Anxiety Sister Age: 23 Anxiety Depression PTSD (post-traumatic stress disorder) Father Anxiety Anger Grandfather No problems noted. Sister Anxiety Depression Social History marital status: Smoking Status: Never smoker Smoking Status: Never smoker alcohol intake frequency: 0-2 drinks per day Substance Use Type: does not use Exam Narrative Exam Narrative: General: Healthy appearing, in no acute distress. Able to give a complete and coherent history. Well-nourished well-developed HEENT: Moist mucous membranes, normal sclera with reactive pupils, Neck: No cervical adenopathy, supple Respiratory: Lungs are clear to auscultation, no wheezing no rales no rhonchi. Full and symmetrical air movement Cardiac: Regular rate and rhythm no murmurs no bruits Abdomen: Soft, nontender, good bowel tones, no flank pain Skin: Warm and dry, no rashes Neurologic: Grossly neurologically intact with no obvious asymmetries or abnormalities Extremities: No trauma, well perfused Psych: Cooperative, slightly pressured speech, appropriate insight and affect Initial Vital Signs Initial Vital Signs: Vital Signs Temperature 99.3 F 05/16/21 22:49 Pulse Rate 106 H 05/16/21 22:49 Respiratory Rate 18 05/16/21 22:49 Blood Pressure 153/89 H 05/16/21 22:49 Pulse Oximetry 97 05/16/21 22:49 Course Orders Ordered: ED Orders 05/16/21 22:54 COVID19 -Nasal swab/Pre-Proc Stat Vital Signs Vital signs: Vital Signs - 8 hr 05/16/21 22:49 05/17/21 02:29 Temperature 99.3 F 98.1 F Pulse Rate 106 H 82 Respiratory Rate 18 Blood Pressure 153/89 H 131/73 Pulse Oximetry 97 99 MDM - URI/Sore Throat Lab Data Labs: Lab Results 05/16/21 Range/Units 22:54 SARS-CoV-2 (PCR) Positive H (Negative) Point of Care Testing Test Results Negative Urine Dip Bedside Urine Glucose Negative Bedside Urine Bilirubin - Negative Bedside Urine Ketone - Negative Urine Specific Hye 1.015 Bedside Urine Occult Blood - Negative Bedside Urine pH 7.0 Bedside Urine Protein - Negative Bedside Urine Urobilinogen - Negative Bedside Urine Nitrite - Negative Bedside Urine Leukocytes - Negative Esterase MDM Narrative Medical decision making narrative: 30-year-old fully vaccinated woman with recent COVID exposure now COVID positive. Oxygen saturations are in the 99% and she is minimally symptomatic. She is having no wheezing at all. Did encourage her to use her inhalers she is having more difficulty. Went over anticipated course of disease and recovery in light of her vaccinated status. Questions are answered. She is safe for home discharge Discharge Plan Departure Patient Disposition: Home Clinical Impression: COVID-19 Instructions: DI for COVID-19 (Suspected or Confirmed ) Activity Restrictions/Additional Instructions: Thank you for coming in today You do have COVID Fortunately, you are also vaccinated and will likely have a very mild course. If you do notice that you seem to wheeze more, please feel free to use your inhaler more Using 400 mg of ibuprofen (2 [id number]-[id number] pills) and 1 Tylenol every 6 hours can be very helpful in controlling pain. I hope you heal quickly Prescriptions: No Action methylprednisolone [Medrol (Charlie)] 4 mg tablets,dose pack See Rx Instructions .ROUTE .COMPLEX Qty: 21 RF: 0 albuterol sulfate [Ventolin HFA] 90 mcg/actuation HFA aerosol inhaler 2 inhalation INHALATION QID PRN (Reason: shortness of breath or wheezing) Qty: 6.7 RF: 0 cephalexin 500 mg capsule 500 mg PO TID Qty: 21 RF: 0 Referrals: Lyssa Rock DO [Primary Care Provider] -
[2021-05-17] MEDS: ONDANSETRON 4 MG ODT PREPACK 1 BOTTLE MISC (03:02)
== END 2021-05-17 03:05 | disposition home or self-care (01) ==
PROVIDERS: Emergency Provider Emergency Medicine; PCP Family Medicine
DX: U07.1 COVID-19 (principal); R05 Cough; R19.7 Diarrhea, unspecified; R51.9 Headache, unspecified
CPT/HCPCS: 81003; 81025; 87635; 99282; C9803

== ENCOUNTER → 2021-07-13 10:11 | Outpatient (CLI) | payer OTHER, MEDICAID, SELFPAY ==
--- NOTE | 2021-07-13 10:12 | DI.RAD.S_ITS ---
PROCEDURE: XR HAND RT MIN 3V INDICATIONS: ER f/u for possible fx and right thumb pain TECHNIQUE: 3 views of the hand(s) acquired. COMPARISON: [facility], CR, XR FINGER(S) RIGHT, 06/28/2021, 1:50. [facility], CR, XR HAND 3+ VIEWS RIGHT, 06/28/2021, 1:50. [facility], CR, XR HAND LT MIN 3V, 03/17/2018, 22:49. FINDINGS: Bones: No fractures or dislocations. Carpal bones are normally aligned. No suspicious bony lesions. Soft tissues: No suspicious soft tissue calcifications. IMPRESSION: No acute fracture. No osseous lesion. If clinical suspicion and/orsymptoms persist, further assessment with repeat plainfilms, or advanced imaging (e.g., CT, MRI, or bone scan) may be helpful for further assessment. Dictated by: Artie WRIGHT Interpreted: Ron Leigh MD on 07/13/2021 at 10:19 Approved by: Ron Leigh M.D. on 07/13/2021 at 14:35
== END ==
PROVIDERS: PCP Family Medicine; Referring Provider Family Medicine; Visit Provider Family Medicine
DX: M79.644 Pain in right finger(s) (principal)
CPT/HCPCS: 73130

== ENCOUNTER 2021-10-02 01:07 | Emergency (ER) | payer OTHER, MEDICAID, SELFPAY ==
[2021-10-02 01:14] VITALS: BP 121/86; PULSE 110; RESP 16; TEMP 36.6; O2SAT 98; BMI 40.7
--- NOTE | 2021-10-02 01:29 | DI.CT.S_ITS ---
PROCEDURE: CT ABDOMEN PELVIS W CON INDICATIONS: LLQ pain TECHNIQUE: After the administration of intravenous contrast, axial sections acquired from the lung bases to the pubic symphysis. Coronal and sagittal reformats were performed. For radiation dose reduction, the following was used: automated exposure control, adjustment of mA and/or kV according to patient size. COMPARISON: [facility], CT, ABDOMEN/PELVIS WITH CONTRAST, 12/10/2017, 23:17. FINDINGS: Image quality: Excellent. Lung bases: Unremarkable. Heart: No significant findings. ABDOMEN: Liver: Unremarkable. Gallbladder: Unremarkable. Biliary ducts: Unremarkable. Pancreas: Unremarkable. Spleen: Enlarged, 15.3 cm Adrenal Glands: Unremarkable. Kidneys and Ureters: Unremarkable. Stomach and Bowel: Stomach, small bowel loops, and colon are unremarkable. Appendectomy. Moderate fecal debris throughout the colon. Peritoneum: No abnormal intraperitoneal fluid. No free air. Ventral Wall: No hernias. Abdominal Nodes: No retroperitoneal or mesenteric adenopathy by size criteria. Vessels: Aorta and inferior vena cava are normal in size. PELVIS: Pelvic Organs: Unremarkable. Bladder: Unremarkable. Pelvic Nodes: No enlarged lymph nodes. Miscellaneous: No hernias are seen. Bones: Unremarkable. IMPRESSION: 1. No acute CT findings in the abdomen or pelvis. 2. Splenomegaly, 15 cm Note: Final report is concordant with preliminary interpretation by [employer] Approved by: Jesse Muñoz M.D. on 10/02/2021 at 6:41
[2021-10-02 01:31] LABS: Appearance Urine UA CLEAR; Bilirubin Urine UA NEGATIVE (NEGATIVE); Color Urine UA YELLOW; Glucose Urine UA NEGATIVE (Negative); Ketones Urine UA TRACE (NEGATIVE); Leukocyte Esterase Urine UA NEGATIVE (NEGATIVE); Nitrite Urine UA NEGATIVE (Negative); Occult Blood Urine UA TRACE-INTACT (Negative); Protein Urine UA TRACE (Negative); Specific Gravity Urine UA >=1.030 (1.000-1.035); Urobilinogen Urine UA 0.2 E.U./dL (0.2)
[2021-10-02] MEDS: KETOROLAC 30 MG/ML VIAL IV (01:35)
[2021-10-02 01:43] LABS: Bacteria Urine Many (>30); Culture Indicated Urine Specimen Cultured; RBC Urine 0-1/HPF (0-5/HPF); Squamous Epithelial Cell Urine 1-5 /HPF (0-5/HPF); WBC Urine 0-1/HPF (0-5/HPF)
[2021-10-02 01:52] LABS: Hematocrit 39.1 % (36-46); Mean Corpuscular HGB Conc 33.3 % (30-36); Mean Corpuscular Hemoglobin 26.9 PG (26-34); Mean Corpuscular Volume 80.8 fL (80-100); Platelet Count 316 X10^3/uL (150-400); Red Blood Cell Count 4.84 X10^6/uL (4.0-5.2); Red Cell Distribution Width 13.6 % (11.6-14.8)
[2021-10-02 01:53] LABS: Add Manual Diff / Slide Review YES; Alanine Aminotransferase 18 IU/L (<35); Albumin 4.4 g/dL (3.5-5.0); Albumin Globulin Ratio 1.2 (1.0-2.8); Alkaline Phosphatase 87 U/L (38-126); Aspartate Aminotransferase 19 IU/L (14-36); BUN Creatinine Ratio 24.3 (6-22); Bilirubin Total 0.4 mg/dL (0.2-1.3); Blood Urea Nitrogen 18 mg/dL (7-17); Calcium 9.2 mg/dL (8.4-10.2); Carbon Dioxide 31 mmol/L (22-32); Chloride 102 mmol/L (98-107); Estimated Glomerular Filt Rate > 60.0 mL/min (>60); Globulin 3.8 g/dL (1.7-4.1); Glucose 94 mg/dL (70-100); HEMOLYSIS < 15 (0-50); Lipase 82 U/L (23-300); Potassium 3.5 mmol/L (3.4-5.1); Sodium 139 mmol/L (137-145); Total Protein 8.2 g/dL (6.3-8.2)
--- NOTE | 2021-10-02 02:22 | ED.ABDPAIN ---
HPI - Abdominal Pain General Chief Complaint: Abdominal Pain Stated Complaint: lower abdominal pain Time Seen by Provider: 10/02/21 01:23 Source: patient Mode of arrival: Ambulatory History of Present Illness HPI narrative: 31-year-old female history of asthma presenting today with lower abdominal pain ongoing for about 1 week. She says that it has been all across her lower abdomen however the last couple of days it is now more in her left lower quadrant. She denies fever or chills. No painful or frequent urination. It is not radiating. She does any flank pain. Related Data Previous Rx's Medication Instructions Recorded albuterol sulfate 90 mcg/actuation 2 inhalation INHALATION QID PRN 04/25/21 aerosol inhaler (Ventolin HFA) #6.7 gram methylprednisolone 4 mg tablets in See Rx Instructions .ROUTE 04/25/21 a dose pack (Medrol (Charlie)) .COMPLEX #21 each cephalexin 500 mg capsule 500 mg PO TID #21 cap 05/03/21 Allergies Allergy/AdvReac Type Severity Reaction Status Date / Time paroxetine [From PAXIL] Allergy Intermediate PALPITATIONS, Verified 04/25/21 18:26 LIGHTHEADED Review of Systems Review of Systems Narrative: GENERAL: Denies chills, fatigue, malaise, fever, sweats, travel HEENT: Denies sinus pain, ear pain, sore throat, difficulty swallowing, neck pain RESPIRATORY: Denies dyspnea, cough, wheezing, hemoptysis, sputum. CARDIOVASCULAR: Denies chest pain, palpitations, orthopnea, edema GASTROINTESTINAL: See HPI : Denies dysuria, frequency, incontinence, hematuria, urinary retention, flank pain. MUSCULOSKELETAL: Denies weakness, joint pain, or bony pain SKIN: No rash, no erythema, no pruritus NEUROLOGIC: Denies weakness, dizziness, headache, numbness, change in speech, confusion PSYCHIATRIC: No concerning psychosocial issues. 12 point review of systems is negative except for those stated above and HPI Patient History Medical History Anxiety (2009) Asthma (2007) Chronic back pain (2007) Chronic headaches (2008) COVID-19 Depression (2008) Hayfever (~1998) Personality disorder (2016) PTSD (post-traumatic stress disorder) (2016) Sciatica Surgical History Anesthesia History of placement of ear tubes (~1993) Status post appendectomy (05/25/12) Status post delivery (09/14/15) Family History Brother Age: 20 ADD (attention deficit disorder) Autism Morbidly obese Developmental disability Grandmother Age: 77 Seizures Hypertension Mother Age: 53 Anxiety Depression PTSD (post-traumatic stress disorder) Sister Age: 31 Anxiety Sister Age: 24 Anxiety Depression PTSD (post-traumatic stress disorder) Father Anxiety Anger Grandfather No problems noted. Sister Anxiety Depression Social History marital status: Smoking Status: Never smoker Smoking Status: Never smoker alcohol intake frequency: 0-2 drinks per day Substance Use Type: marijuana Exam Initial Vital Signs Initial Vital Signs: Vital Signs Temperature 97.8 F 10/02/21 01:14 Pulse Rate 110 H 10/02/21 01:14 Respiratory Rate 16 10/02/21 01:14 Blood Pressure 121/86 10/02/21 01:14 Pulse Oximetry 98 10/02/21 01:14 GENERAL: Alert pleasant 31-year-old femaleand in no acute distress. HEENT: Head atraumatic,EOMI, pupils reactive, face symmetric, moist mucous membranes CARDIOVASCULAR: Regular rate and rhythm without murmurs, rubs or gallops. RESPIRATORY: Breath sounds equal bilaterally, no wheezes rales or rhonchi. ABDOMEN: Soft, tender left lower quadrant without guarding or rebound : No CVA tenderness EXTREMITIES: Normal range of motion, no clubbing or edema. Neurovascularly intact NEUROLOGICAL: Alert and oriented x4.Normal gait and speech. SKIN: Warm, dry, no laceration, no petechiae, no rashes or lesions. Course Orders Ordered: ED Orders 10/02/21 01:15 UA dip and micro [Urinalysis and Microscopic] Stat Urine Culture Stat 10/02/21 01:29 CT abdomen pelvis w con Stat 10/02/21 01:38 Complete Blood Count AUTO DIFF Stat Comprehensive Metabolic Panel Stat Lipase Stat Discontinued Medications Ketorolac Tromethamine (Ketorolac 30 Mg/Ml Vial) 30 mg IV NOW ONE Stop: 10/02/21 01:30 Last Admin: 10/02/21 01:35 Dose: 30 mg Documented by: KEATON Vital Signs Vital signs: Vital Signs - 8 hr 10/02/21 01:14 Temperature 97.8 F Pulse Rate 110 H Respiratory Rate 16 Blood Pressure 121/86 Pulse Oximetry 98 MDM - Abdominal Pain Lab Data Result diagrams: 10/02/21 01:38 10/02/21 01:38 Labs: Lab Results 10/02/21 10/02/21 10/02/21 Range/Units 01:15 01:38 01:38 WBC 18.0 H (4.5-11.0) X10^3/uL RBC 4.84 (4.0-5.2) X10^6/uL Hgb 13.0 (12.0-16.0) g/dL Hct 39.1 (36-46) % MCV 80.8 (80-100) fL MCH 26.9 (26-34) PG MCHC 33.3 (30-36) % RDW 13.6 (11.6-14.8) % Plt Count 316 (150-400) X10^3/uL Neut % (Auto) Not Reportable Lymph % (Auto) Not Reportable [place] % (Auto) Not Reportable Eos % (Auto) Not Reportable Baso % (Auto) Not Reportable Lymph # (Auto) Not Reportable [place] # (Auto) Not Reportable Baso # (Auto) Not Reportable Total Counted 100 Seg Neutrophils % 62.0 (38-70) % Band Neutrophils % 4.0 (3-7) % Lymphocytes % (Manual) 28.0 (25-45) % Monocytes % (Manual) 6.0 (2-11) % Neutrophils # (Manual) 54333 H (3832-7069) /uL RBC Morphology Normal morphology Sodium 139 (137-145) mmol/L Potassium 3.5 (3.4-5.1) mmol/L Chloride 102 (98-107) mmol/L Carbon Dioxide 31 (22-32) mmol/L BUN 18 H (7-17) mg/dL Creatinine 0.74 (0.52-1.04) mg/dL Estimated GFR > 60.0 (>60) mL/min BUN/Creatinine Ratio 24.3 H (6-22) Glucose 94 (70-100) mg/dL Calcium 9.2 (8.4-10.2) mg/dL Total Bilirubin 0.4 (0.2-1.3) mg/dL AST 19 (14-36) IU/L ALT 18 (<35) IU/L Alkaline Phosphatase 87 (38-126) U/L Total Protein 8.2 (6.3-8.2) g/dL Albumin 4.4 (3.5-5.0) g/dL Globulin 3.8 (1.7-4.1) g/dL Albumin/Globulin Ratio 1.2 (1.0-2.8) Lipase 82 (23-300) U/L Urine Color Yellow Urine Appearance Clear Urine pH 5.0 (4.5-8.0) Ur Specific [place] >=1.030 H (1.000-1.035) Urine Protein Trace H (Negative) Urine Glucose (UA) Negative (Negative) g/dL Urine Ketones Trace H (NEGATIVE) Urine Occult Blood Trace-intact (Negative) Urine Nitrate Negative (Negative) Urine Bilirubin Negative (NEGATIVE) Urine Urobilinogen 0.2 (0.2) E.U./dL Ur Leukocyte Esterase Negative (NEGATIVE) Urine RBC 0-1/hpf (0-5/HPF) Urine WBC 0-1/hpf (0-5/HPF) Ur Squamous Epith Cells 1-5 /hpf D (0-5/HPF) Urine Bacteria Many (>30) H (None) Ur Culture Indicated? Specimen cultured Point of care testing: Point of Care Testing Test Results Negative Urine Dip Bedside Urine Glucose Negative Bedside Urine Bilirubin - Negative Bedside Urine Ketone - Negative Urine Specific [place] 1.03 Bedside Urine Occult Blood - Negative Bedside Urine pH 6 Bedside Urine Protein + 30 Bedside Urine Urobilinogen - Negative Bedside Urine Nitrite - Negative Bedside Urine Leukocytes - Negative Esterase Imaging Data CT scan - abdomen/pelvis: Radiologist's Impression: Preliminary report: No acute abnormality. Stool filled colon without obstruction colitis diverticulitis. There are scattered diverticula of the colon. MDM Narrative Medical decision making narrative: The patient is having ongoing left lower quadrant pain she is found have leukocytosis of [address] is negative. Urine does have bacteria have however she has no urinary frequency or urgency or sign of infection. She is feeling better after Toradol. Discussion with her diet changes and to return. Discharge Plan Departure Patient Disposition: Home Clinical Impression: Constipation Instructions: DI for Constipation Activity Restrictions/Additional Instructions: *You have been diagnosed with constipation *What to do: CT shows that your constipated. I recommend increasing high fiber such as vegetables and fruits along with water. No evidence of infection at this time. *Continue to take medications as directed *Follow up with your primary care provider in 2-3 days or call [phone] *Return to ER if you should have increasing abdominal pain persistent vomiting fever or any new, worsening or concerning symptoms Prescriptions: No Action methylprednisolone [Medrol (Charlie)] 4 mg tablets,dose pack See Rx Instructions .ROUTE .COMPLEX Qty: 21 0RF Rx Instructions: orally per package directions albuterol sulfate [Ventolin HFA] 90 mcg/actuation HFA aerosol inhaler 2 inhalation INHALATION QID PRN (Reason: shortness of breath or wheezing) Qty: 6.7 0RF cephalexin 500 mg capsule 500 mg PO TID Qty: 21 0RF Referrals: Lyssa Rock DO [Primary Care Provider] -
[2021-10-02 02:28] LABS: Neutrophils Absolute Manual 11880 /uL (3000-5900); RBC Morphology Normal Morphology; Total Cells Counted 100
[2021-10-02 03:03] VITALS: BP 108/64; PULSE 95; RESP 16; O2SAT 98
== END 2021-10-02 03:04 | disposition home or self-care (01) ==
PROVIDERS: Emergency Provider Emergency Medicine; PCP Family Medicine
DX: K59.00 Constipation, unspecified (principal)
CPT/HCPCS: 36415; 74177; 80053; 81001; 81003; 81025; 83690; 85007; 85025; 87086; 96374; 99284; J1885; Q9967

== ENCOUNTER 2021-10-06 22:32 | Emergency (ER) | payer OTHER, MEDICAID, SELFPAY ==
[2021-10-06 22:40] VITALS: BP 135/78; PULSE 100; RESP 18; TEMP 36.4; O2SAT 100
[2021-10-06 23:54] LABS: COVID19 -Nasal RAPID Negative (Negative)
--- NOTE | 2021-10-07 00:40 | ED.URI ---
HPI - URI/Sore Throat General Chief Complaint: Upper Respiratory Symptoms Stated Complaint: feels bad, thinks covid Time Seen by Provider: 10/07/21 00:35 Source: patient Mode of arrival: Ambulatory History of Present Illness HPI Narrative: 31-year-old healthy female fully vaccinated and prior infection with COVID presenting today with sore throat headache. She was exposed 3 days ago, nephew tested positive today. Related Data Previous Rx's Medication Instructions Recorded albuterol sulfate 90 mcg/actuation 2 inhalation INHALATION QID PRN 04/25/21 aerosol inhaler (Ventolin HFA) #6.7 gram methylprednisolone 4 mg tablets in See Rx Instructions .ROUTE 04/25/21 a dose pack (Medrol (Charlie)) .COMPLEX #21 each cephalexin 500 mg capsule 500 mg PO TID #21 cap 05/03/21 Allergies Allergy/AdvReac Type Severity Reaction Status Date / Time paroxetine [From PAXIL] Allergy Intermediate PALPITATIONS, Verified 04/25/21 18:26 LIGHTHEADED Review of Systems Review of Systems Narrative: GENERAL: Denies chills,fever HEENT: See HPI RESPIRATORY: Denies dyspnea, cough, wheezing CARDIOVASCULAR: Denies chest pain, palpitations GASTROINTESTINAL: Denies nausea, vomiting MUSCULOSKELETAL: Denies extremity pain, injury SKIN: No rash, no laceration, no pruritus NEUROLOGIC: Denies weakness, dizziness, headache, numbness 8 point review of systems is negative except for those stated above and HPI Patient History Medical History Anxiety (2009) Asthma (2006) Chronic back pain (2007) Chronic headaches (2008) COVID-19 Depression (2008) Hayfever (~1998) Personality disorder (2015) PTSD (post-traumatic stress disorder) (2015) Sciatica Surgical History Anesthesia History of placement of ear tubes (~1993) Status post appendectomy (05/25/12) Status post delivery (09/14/15) Family History Brother Age: 20 ADD (attention deficit disorder) Autism Morbidly obese Developmental disability Grandmother Age: 77 Seizures Hypertension Mother Age: 53 Anxiety Depression PTSD (post-traumatic stress disorder) Sister Age: 31 Anxiety Sister Age: 24 Anxiety Depression PTSD (post-traumatic stress disorder) Father Anxiety Anger Grandfather No problems noted. Sister Anxiety Depression Social History marital status: Smoking Status: Never smoker Smoking Status: Never smoker alcohol intake frequency: 0-2 drinks per day Substance Use Type: marijuana Exam Initial Vital Signs Initial Vital Signs: Vital Signs Temperature 97.5 F L 10/06/21 22:40 Pulse Rate 100 H 10/06/21 22:40 Respiratory Rate 18 10/06/21 22:40 Blood Pressure 135/78 10/06/21 22:40 Pulse Oximetry 100 10/06/21 22:40 GENERAL: Well-appearing, well-nourished and in no acute distress. CARDIOVASCULAR: peripheral pulses in tact, cap refill <2 sec RESPIRATORY: No respiratory distress, speaks in full sentences without difficulty EXTREMITIES: Normal range of motion, no clubbing or edema. Neurovascularly intact NEUROLOGICAL: Cranial nerves II through XII grossly intact. Normal gait and speech. SKIN: Warm, dry, no petechiae, no rashes or lesions. Course Orders Ordered: ED Orders 10/06/21 22:40 COVID19 -Nasal swab/Pre-Proc Stat Vital Signs Vital signs: Vital Signs - 8 hr 10/06/21 22:40 Temperature 97.5 F L Pulse Rate 100 H Respiratory Rate 18 Blood Pressure 135/78 Pulse Oximetry 100 [facility] - URI/Sore Throat Lab Data Labs: Lab Results 10/06/21 Range/Units 22:40 SARS-CoV-2 (PCR) Negative (Negative) [facility] Narrative Medical decision making narrative: The COVID test is negative today. However symptoms are concerning recommend repeat testing in 2-3 days. Overall they appear well Discharge Plan Departure Patient Disposition: Home Clinical Impression: COVID-19 Instructions: DI for COVID-19 (Suspected or Confirmed ) Activity Restrictions/Additional Instructions: *You have been diagnosed with presumed COVID *What to do: At this time I recommend getting retested in 2-3 days *Continue to take medications as directed *Follow up with your primary care provider in 2-3 days or call [phone] *Return to ER if you should have increasing shortness of breath, worsening headache or any new, worsening or concerning symptoms Prescriptions: No Action methylprednisolone [Medrol (Charlie)] 4 mg tablets,dose pack See Rx Instructions .ROUTE .COMPLEX Qty: 21 0RF Rx Instructions: orally per package directions albuterol sulfate [Ventolin HFA] 90 mcg/actuation HFA aerosol inhaler 2 inhalation INHALATION QID PRN (Reason: shortness of breath or wheezing) Qty: 6.7 0RF cephalexin 500 mg capsule 500 mg PO TID Qty: 21 0RF Referrals: Lyssa Rock DO [Primary Care Provider] -
--- NOTE | 2021-10-07 00:50 | PC.NURSE ---
exposed to covid positive family member 3 days ago. denies symptoms at this time. wanting covid test.
== END 2021-10-07 00:53 | disposition home or self-care (01) ==
PROVIDERS: Emergency Provider Emergency Medicine; PCP Family Medicine
DX: R51.9 Headache, unspecified (principal); J02.9 Acute pharyngitis, unspecified; Z20.822 Contact with and (suspected) exposure to COVID-19
CPT/HCPCS: 87635; 99281; 99282; C9803

== ENCOUNTER 2021-11-09 06:54 | Emergency (ER) | payer OTHER, MEDICAID, SELFPAY ==
[2021-11-09 07:10] VITALS: BP 139/60; PULSE 100; RESP 18; TEMP 36.8; O2SAT 99; BMI 39.9
[2021-11-09 07:49] VITALS: BP 139/60; PULSE 100; RESP 18; O2SAT 100
--- NOTE | 2021-11-09 07:51 | ED.URI ---
HPI - URI/Sore Throat General Chief Complaint: Upper Respiratory Symptoms Stated Complaint: Swollen throat, congestion, headaches, tiredness Time Seen by Provider: 11/09/21 07:35 Source: patient Mode of arrival: Ambulatory History of Present Illness HPI Narrative: Patient is a 31-year-old female history of asthma presenting with 2 days of upper respiratory like symptoms. She has had sore throat cough nasal congestion. She was seen evaluated Gael Chanel 2 days ago she had a negative COVID strep she continues to not feel well. She was prescribed Tessalon Perles, she just started those. He says the doctor previously did not even look in her throat. She still does not feel well. She denies any shortness of breath or chest pain. She has not had any fever. 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 Related Data Previous Rx's Medication Instructions Recorded albuterol sulfate 90 mcg/actuation 2 inhalation INHALATION QID PRN 04/25/21 aerosol inhaler (Ventolin HFA) #6.7 gram methylprednisolone 4 mg tablets in See Rx Instructions .ROUTE 04/25/21 a dose pack (Medrol (Charlie)) .COMPLEX #21 each cephalexin 500 mg capsule 500 mg PO TID #21 cap 05/03/21 Allergies Allergy/AdvReac Type Severity Reaction Status Date / Time paroxetine [From PAXIL] Allergy Intermediate PALPITATIONS, Verified 04/25/21 18:26 LIGHTHEADED Review of Systems Review of Systems Narrative: GENERAL: Denies chills,fever HEENT: See HPI RESPIRATORY: Denies dyspnea, cough, wheezing CARDIOVASCULAR: Denies chest pain, palpitations GASTROINTESTINAL: Denies nausea, vomiting MUSCULOSKELETAL: Denies extremity pain, injury SKIN: No rash, no laceration, no pruritus NEUROLOGIC: Denies weakness, dizziness, headache, numbness 8 point review of systems is negative except for those stated above and HPI Patient History Medical History Anxiety (2008) Asthma (2006) Chronic back pain (2007) Chronic headaches (2008) COVID-19 Depression (2008) Hayfever (~1998) Personality disorder (2015) PTSD (post-traumatic stress disorder) (2015) Sciatica Surgical History Anesthesia History of placement of ear tubes (~1993) Status post appendectomy (05/25/12) Status post delivery (09/14/15) Family History Brother Age: 20 ADD (attention deficit disorder) Autism Morbidly obese Developmental disability Grandmother Age: 77 Seizures Hypertension Mother Age: 53 Anxiety Depression PTSD (post-traumatic stress disorder) Sister Age: 31 Anxiety Sister Age: 24 Anxiety Depression PTSD (post-traumatic stress disorder) Father Anxiety Anger Grandfather No problems noted. Sister Anxiety Depression Social History marital status: Smoking Status: Never smoker Smoking Status: Never smoker alcohol intake frequency: 0-2 drinks per day Substance Use Type: marijuana Exam Initial Vital Signs Initial Vital Signs: Vital Signs Temperature 98.3 F 11/09/21 07:10 Pulse Rate 100 H 11/09/21 07:10 Respiratory Rate 18 11/09/21 07:10 Blood Pressure 139/60 11/09/21 07:10 Pulse Oximetry 99 11/09/21 07:10 GENERAL: Alert well-appearing 31-year-old female in no acute distress. HEENT: Head atraumatic,EOMI, pupils reactive, face symmetric, moist mucous membranes PHARYNX: No erythema, no tonsillar exudate, no cervical lymphadenopathy CARDIOVASCULAR: Regular rate and rhythm without murmurs, rubs or gallops. RESPIRATORY: Breath sounds equal bilaterally, no wheezes rales or rhonchi. EXTREMITIES: Normal range of motion, no clubbing or edema. Neurovascularly intact NEUROLOGICAL: Alert and oriented x4. SKIN: Warm, dry, no laceration, no petechiae, no rashes or lesions. Course Orders Ordered: ED Orders 11/09/21 07:30 COVID19 -Nasal swab/Pre-Proc Stat Vital Signs Vital signs: Vital Signs - 8 hr 11/09/21 07:10 11/09/21 07:49 Temperature 98.3 F Pulse Rate 100 H 100 H Respiratory Rate 18 18 Blood Pressure 139/60 139/60 Pulse Oximetry 99 100 MDM - URI/Sore Throat Lab Data Labs: Lab Results 11/09/21 Range/Units 07:30 SARS-CoV-2 (PCR) Negative (Negative) Point of Care Testing Rapid Strep A Negative Discharge Plan Departure Patient Disposition: Home Clinical Impression: Upper respiratory infection Instructions: Common Cold Activity Restrictions/Additional Instructions: *You have been diagnosed with upper respiratory infection *What to do: At this time strep is negative COVID is negative. He likely have another virus. Please continue supportive care drink fluids such as Gatorade or Gatorade like product. Eat as you feel better. *Continue to take medications as directed Tylenol 650 mg every 4-6 hours if needed Motrin 600 mg every 6-8 hours if needed *Follow up with your primary care provider in 2-3 days or call [phone] *Return to ER if you should have increasing shortness of breath chest pain, or any new, worsening or concerning symptoms Prescriptions: No Action methylprednisolone [Medrol (Charlie)] 4 mg tablets,dose pack See Rx Instructions .ROUTE .COMPLEX Qty: 21 0RF Rx Instructions: orally per package directions albuterol sulfate [Ventolin HFA] 90 mcg/actuation HFA aerosol inhaler 2 inhalation INHALATION QID PRN (Reason: shortness of breath or wheezing) Qty: 6.7 0RF cephalexin 500 mg capsule 500 mg PO TID Qty: 21 0RF Referrals: Lyssa Rock DO [Primary Care Provider] -
[2021-11-09 07:55] LABS: COVID19 -Nasal RAPID Negative (Negative)
== END 2021-11-09 08:10 | disposition home or self-care (01) ==
PROVIDERS: Emergency Provider Emergency Medicine; PCP Family Medicine
DX: J06.9 Acute upper respiratory infection, unspecified (principal); Z20.822 Contact with and (suspected) exposure to COVID-19
CPT/HCPCS: 87635; 87880; 99282; C9803

== ENCOUNTER 2022-02-04 19:23 | Emergency (ER) | payer OTHER, MEDICAID, SELFPAY ==
[2022-02-04 19:33] VITALS: BP 138/91; PULSE 114; RESP 18; TEMP 37.2; O2SAT 99; BMI 42.4
[2022-02-04 20:21] LABS: COVID-19 CEPHEID PCR (VTM/NP) Negative (Negative); Influenza A - CEPHEID Flu A NEGATIVE (NEGATIVE); Influenza B - CEPHEID Flu B NEGATIVE (NEGATIVE)
--- NOTE | 2022-02-04 20:29 | PC.NURSE ---
pt has had a cough for several months and has been told it was allergies, today the cough is worse has been taking otc meds without relief
--- NOTE | 2022-02-04 20:47 | ED_ITS ---
HPI - Chest Pain General Chief Complaint: Upper Respiratory Symptoms Stated Complaint: possbily dehydrated-chest tightness today Time Seen by Provider: 02/04/22 20:34 Source: patient Mode of arrival: Ambulatory Limitations: no limitations History of Present Illness HPI narrative: 31-year-old female nonsmoker with history of asthma, COVID, anxiety, depression, borderline personality presents with a chief complaint of typical upper respiratory complaints such as runny nose, nasal congestion and hacking cough for the past few days. She also complains of some anterior chest pain that at times feels like pressure and other times sharp and stabbing. She denies any exertional symptoms but states that deep breath makes her feel like she will cough. Sometimes her chest pain is worse when she lays flat and improves when she sits up, it also seems to worsen with cough and also deep breath. She has not dizzy but does feel lightheaded and is worried that she might be dehydrated as she has had a poor appetite and little to eat or drink over the past day or 2., vomiting or diarrhea. She denies dysuria, frequency or urgency. She denies any recent travel, history of blood clot, known cancer. Related Data Previous Rx's Medication Instructions Recorded albuterol sulfate 90 mcg/actuation 2 inhalation INHALATION QID PRN 04/25/21 aerosol inhaler (Ventolin HFA) #6.7 gram methylprednisolone 4 mg tablets in See Rx Instructions .ROUTE 04/25/21 a dose pack (Medrol (Charlie)) .COMPLEX #21 each cephalexin 500 mg capsule 500 mg PO TID #21 cap 05/03/21 albuterol sulfate 90 mcg/actuation 2 puff INHALATION Q4-6H PRN #6.7 g 11/12/21 aerosol inhaler codeine 10 mg-guaifenesin 100 mg/5 5 ml PO Q4-6H PRN #118 ml 11/12/21 mL oral liquid hydroxyzine HCl 10 mg tablet 10 mg PO TID PRN #14 tab 11/12/21 methylprednisolone 4 mg tablets in See Rx Instructions PO PER PKG DIR 11/12/21 a dose pack (Medrol (Charlie)) #21 ea colchicine 0.6 mg tablet 0.6 mg PO BID #60 tab 02/04/22 ibuprofen 800 mg tablet 800 mg PO Q8H PRN #60 tab 02/04/22 Allergies Allergy/AdvReac Type Severity Reaction Status Date / Time paroxetine [From PAXIL] Allergy Intermediate PALPITATIONS, Verified 11/12/21 10:57 LIGHTHEADED Review of Systems Review of Systems Narrative: GENERAL: See HPI HEENT: See HPI RESPIRATORY: See HPI CARDIOVASCULAR: See HPI GASTROINTESTINAL: See HPI : Denies dysuria, frequency, incontinence, hematuria, urinary retention. MUSCULOSKELETAL: denies weakness, joint pain, or bony pain SKIN: Denies rash, skin lesions, or other NEUROLOGIC: Denies weakness, headache, numbness, change in speech, confusion, seizures, incoordination. PSYCHIATRIC: No concerning psychosocial issues. 12 point review of systems is negative except for those stated above Patient History Medical History Anxiety (2008) Asthma (2006) Chronic back pain (2007) Chronic headaches (2008) COVID-19 Depression (2008) Hayfever (~1998) Personality disorder (2015) PTSD (post-traumatic stress disorder) (2015) Sciatica Surgical History Anesthesia History of placement of ear tubes (~1993) Status post appendectomy (05/25/12) Status post delivery (09/14/15) Family History Brother Age: 20 ADD (attention deficit disorder) Autism Morbidly obese Developmental disability Grandmother Age: 77 Seizures Hypertension Mother Age: 53 Anxiety Depression PTSD (post-traumatic stress disorder) Sister Age: 31 Anxiety Sister Age: 24 Anxiety Depression PTSD (post-traumatic stress disorder) Father Anxiety Anger Grandfather No problems noted. Sister Anxiety Depression Social History marital status: Smoking Status: Never smoker Smoking Status: Never smoker alcohol intake frequency: 0-2 drinks per day Substance Use Type: marijuana Exam Narrative Exam Narrative: GENERAL: [31] year old patient appears stated age. Well-developed patient, in mild distress. HEAD: Atraumatic. Normocephalic. EYES: Pupils equal round and reactive. Extraocular motions intact. No scleral icterus. No injection or drainage. ENT: Nose without bleeding, purulent drainage. Throat without erythema, tonsi llar hypertrophy or exudate. Airway patent. NECK: Trachea midline. Non tender CARDIOVASCULAR: Tachycardic but regular rhythm without murmurs, gallops, or rubs. RESPIRATORY: Clear to auscultation. Breath sounds equal bilaterally. No wheezes, rales, or rhonchi. Deep breath illicits dry cough GASTROINTESTINAL: Abdomen soft, non-tender, nondistended. EXTREMITIES: No edema or joint tenderness. BACK: Nontender without deformity or crepitance. No flank tenderness. NEURO: AOx3. SKIN: No rash or erythema of visible areas Initial Vital Signs Initial Vital Signs: Vital Signs Temperature 99 F 02/04/22 19:33 Pulse Rate 114 H 02/04/22 19:33 Respiratory Rate 18 02/04/22 19:33 Blood Pressure 138/91 H 02/04/22 19:33 Pulse Oximetry 99 02/04/22 19:33 Scores HEART Score Heart Score history: Slightly Suspicious Heart Score EKG: Normal Heart Score Age: < 45 years old Heart Score risk factors: No known risk factors Heart Score troponin: < or = to normal limit Heart Score Total: 0 PERC Score Age greater than or equal to 50 years: No Heart rate greater than or equal to 100 bpm: No Room Air O2 Sat less than 95%: No Unilateral leg swelling: No Recent trauma or surgery: No Hemoptysis: No Prior PE or DVT: No Hormone Use: No Total PERC Score: 0 Wells' Criteria for PE Clinical signs and symptoms of DVT: No PE is #1 Dx or equally likely: No Heart rate > 100: No (improved after fluids) Immobilization at least 3 days or surg in previous 4 weeks: No History of PE or DVT: No Hemoptysis: No Malignancy w/Treatment within 6 months or palliative: No Wells' PE Score total: 0 Course Course Course Narrative: Patient initially tachycardic, this resolves after fluids, patient no longer dizzy or lightheaded upon standing and no longer tachycardic Orders Ordered: Discontinued Medications Sodium Chloride (Normal Saline 0.9%) 1,000 mls @ 1,000 mls/hr IV BOLUS ONE Stop: 02/04/22 21:45 Last Infusion: 02/04/22 23:32 Dose: 0 mls/hr Documented by: Admin: 02/04/22 21:18 Dose: 1,000 mls/hr Documented by: CLAUDIA Vital Signs Vital signs: Vital Signs - 8 hr 02/04/22 19:33 02/04/22 21:47 Temperature 99 F Pulse Rate 114 H 100 H Respiratory Rate 18 18 Blood Pressure 138/91 H Pulse Oximetry 99 98 MDM - Chest Pain Lab Data Result diagrams: 02/04/22 21:12 02/04/22 21:12 Labs: Lab Results 02/04/22 02/04/22 02/04/22 Range/Units 19:39 21:12 21:12 WBC 8.2 (4.5-11.0) X10^3/uL RBC 4.39 (4.0-5.2) X10^6/uL Hgb 11.9 L (12.0-16.0) g/dL Hct 34.9 L (36-46) % MCV 79.4 L (80-100) fL MCH 27.0 (26-34) PG MCHC 34.0 (30-36) % RDW 13.5 (11.6-14.8) % Plt Count 264 (150-400) X10^3/uL Neut % (Auto) 70.2 (50-75) % Lymph % (Auto) 18.4 L (25-40) % [place] % (Auto) 9.2 (3-14) % Eos % (Auto) 1.8 L (2-4) % Baso % (Auto) 0.4 (0-2) % Neut # (Auto) 5800 (1891-6359) /uL Lymph # (Auto) 1500 (4373-8442) /uL [place] # (Auto) 800 (0-900) /uL Eos # (Auto) 100 (0-450) /uL Baso # (Auto) 0 (0-100) /uL ESR 34 H (0-20) MM/HR Sodium 138 (137-145) mmol/L Potassium 3.8 (3.4-5.1) mmol/L Chloride 103 (98-107) mmol/L Carbon Dioxide 26 (22-32) mmol/L BUN 13 (7-17) mg/dL Creatinine 0.82 (0.52-1.04) mg/dL Estimated GFR > 60 (>60) mL/min BUN/Creatinine Ratio 15.9 (6-22) Glucose 98 (70-100) mg/dL Calcium 8.4 (8.4-10.2) mg/dL Magnesium (1.6-2.3) mg/dL Total Bilirubin 0.2 (0.2-1.3) mg/dL AST 27 (14-36) IU/L ALT 20 (<35) IU/L Alkaline Phosphatase 81 (38-126) U/L Total Creatine Kinase (30-135) U/L CK-MB (CK-2) CK-MB (CK-2) Rel Index Troponin I (0.01-0.034) ng/mL C-Reactive Protein 3.3 H (<1.0) mg/dL Total Protein 7.5 (6.3-8.2) g/dL Albumin 4.0 (3.5-5.0) g/dL Globulin 3.5 (1.7-4.1) g/dL Albumin/Globulin Ratio 1.1 (1.0-2.8) Lipase (23-300) U/L Urine RBC (0-5/HPF) Urine WBC (0-5/HPF) Ur Squamous Epith Cells (0-5/HPF) Urine Bacteria (None) Ur Culture Indicated? Micro UA Comment SARS-CoV-2 (PCR) Negative (Negative) Influenza A (RT-PCR) Flu a negative (NEGATIVE) Influenza B (RT-PCR) Flu b negative (NEGATIVE) 02/04/22 02/04/22 Range/Units 21:12 21:20 WBC (4.5-11.0) X10^3/uL RBC (4.0-5.2) X10^6/uL Hgb (12.0-16.0) g/dL Hct (36-46) % MCV (80-100) fL MCH (26-34) PG MCHC (30-36) % RDW (11.6-14.8) % Plt Count (150-400) X10^3/uL Neut % (Auto) (50-75) % Lymph % (Auto) (25-40) % [place] % (Auto) (3-14) % Eos % (Auto) (2-4) % Baso % (Auto) (0-2) % Neut # (Auto) (9375-4463) /uL Lymph # (Auto) (8195-8785) /uL [place] # (Auto) (0-900) /uL Eos # (Auto) (0-450) /uL Baso # (Auto) (0-100) /uL ESR (0-20) MM/HR Sodium (137-145) mmol/L Potassium (3.4-5.1) mmol/L Chloride (98-107) mmol/L Carbon Dioxide (22-32) mmol/L BUN (7-17) mg/dL Creatinine (0.52-1.04) mg/dL Estimated GFR (>60) mL/min BUN/Creatinine Ratio (6-22) Glucose (70-100) mg/dL Calcium (8.4-10.2) mg/dL Magnesium 1.8 (1.6-2.3) mg/dL Total Bilirubin (0.2-1.3) mg/dL AST (14-36) IU/L ALT (<35) IU/L Alkaline Phosphatase (38-126) U/L Total Creatine Kinase 70 (30-135) U/L CK-MB (CK-2) TNP CK-MB (CK-2) Rel Index TNP Troponin I < 0.012 (0.01-0.034) ng/mL C-Reactive Protein (<1.0) mg/dL Total Protein (6.3-8.2) g/dL Albumin (3.5-5.0) g/dL Globulin (1.7-4.1) g/dL Albumin/Globulin Ratio (1.0-2.8) Lipase 97 (23-300) U/L Urine RBC 0-1/hpf (0-5/HPF) Urine WBC 0-1/hpf (0-5/HPF) Ur Squamous Epith Cells 1-5 /hpf (0-5/HPF) Urine Bacteria Many (>30) H (None) Ur Culture Indicated? Culture not indicate Micro UA Comment * SARS-CoV-2 (PCR) (Negative) Influenza A (RT-PCR) (NEGATIVE) Influenza B (RT-PCR) (NEGATIVE) Point of Care Testing Test Results Negative Urine Dip Bedside Urine Glucose Negative Bedside Urine Bilirubin - Negative Bedside Urine Ketone - Negative Urine Specific [place] 1.010 Bedside Urine Occult Blood ++ Bedside Urine pH 7.0 Bedside Urine Protein - Negative Bedside Urine Urobilinogen - Negative Bedside Urine Nitrite - Negative Bedside Urine Leukocytes - Negative Esterase Imaging Data Chest x-ray: Radiologist's Impression: Chart Viewer Diagnostics Subcategory All Activity ??:?? All Time ??:?? All Subcategories Filter Laboratory Imaging Microbiology Pathology Blood Bank Tests Cardiovascular Other Specialty DATE TYPE STATUS REF RANGE/AUTHOR Hx 02/04/22 20:47 Chest X-Ray Signed Qasim Salter 11/07/21 09:54 DI Result CC XR Chest 10/12/21 09:57 DI Result CC Rt. Fingers 10/02/21 01:29 Abdomen/Pelvis CT Signed Jesse Muñoz 07/13/21 10:12 Hand X-Ray Signed Ron Leigh 04/25/21 18:28 Chest X-Ray Signed Jesse Muñoz 03/04/21 10:15 Foot X-Ray Signed Dilcia Paredes 02/05/21 14:56 DI Result CC [facility], xray knee 4 view RT 09/15/20 11:41 Knee MRI Signed Vasu Velazquez 08/31/20 11:45 Thoracic Spine X-Ray Signed Qasim Salter 08/31/20 11:45 Lumbar Spine X-Ray Signed Qasim Salter 08/31/20 11:45 Lumbar Spine X-Ray Cancelled 08/23/20 15:36 DI Result CC XR Thoracic spine 08/23/20 15:35 DI Result CC XR lumbar spine 06/16/20 12:00 DI Result CC XR Ankle 06/16/20 12:00 DI Result CC XR foot 07/05/19 23:54 Chest X-Ray Signed Ed Hobson 06/29/19 08:55 DI Result CC XR left ankle 05/14/18 07:34 Knee MRI Signed Alfredo Fitzgerald 04/10/18 21:51 Knee X-Ray Signed Jet Carias 03/17/18 23:00 Hand X-Ray Signed Dilip Hernandez 03/01/18 01:37 Chest X-Ray Signed Hamzah Posadas 12/10/17 23:15 Radiology - Historical ? Natalie Slade N ED 31, F?1990 MRN#? [id number] DEP ER,?Main ED??? 165.1cm 115.666kg BMI: 42.4kg/m? Upper Respiratory Symptoms Acc#? [id number] Resus Status Not Ordered No Hx Avail Special Indicators No Data to Display Home Meds Not Confirmed Prescription Monitoring Program Total 9 MME/Day Pending Discharge MEDICATIONS (INSTRUCTIONS) LAST TAKEN Active ??albuterol sulfate 90 mcg/actuation aerosol inhaler ??2 puffINHALATIONQ4-6HPRN#6.7 g ??albuterol sulfate [Ventolin HFA] ??2 inhalationINHALATIONQIDPRN#6.7 gram ??cephalexin ??500 mgPOTID#21 cap ??codeine 10 mg-guaifenesin 100 mg/5 mL oral liquid ??5 mlPOQ4-6HPRN#118 ml 9 MME/Day colchicine 0.6 mgPOBID#60 tab ??hydroxyzine HCl 10 mg tablet ??10 mgPOTIDPRN#14 tab ibuprofen 800 rgESY5DRNW#60 tab ??methylprednisolone 4 mg tablets in a dose pack ??See Rx InstructionsPOPER PKG DIR#21 ea ??methylprednisolone [Medrol (Charlie)] ??See Rx Instructions.ROUTE.COMPLEX#21 each Allergies paroxetine (From PAXIL) PALPITATIONS, LIGHTHEADED Problems ? ONSET Acute dyspnea Acute dehydration Pericarditis COVID-19 Pain of right heel Sciatica Anxiety and depression 09/29/16 Borderline personality disorder 09/29/16 Posttraumatic stress disorder 09/29/16 Body mass index (BMI) of 40.0 to 44.9 in adult 04/09/17 Vital Signs 02/04/22 23:00 BP 128/84? Pulse 94?H Resp 18? O2 Sat 97? Diagnostics Reports Sublet,Natalie N??31??F??1990 ? Allergy/Adv: paroxetine Close Chest X-Ray (Signed) Qasim Salter - 02/04/22 DI Result CC 11/07/21 DI Result CC 10/12/21 Abdomen/Pelvis CT (Signed) Jesse Muñoz - 10/02/21 Hand X-Ray (Signed) Ron Leigh - 07/13/21 Chest X-Ray (Signed) Jesse Muñoz - 04/25/21 Foot X-Ray (Signed) Dilcia Paredes - 03/04/21 DI Result CC 02/05/21 Knee MRI (Signed) Vasu Velazquez - 09/15/20 Thoracic Spine X-Ray (Signed) Qasim Salter - 08/31/20 Lumbar Spine X-Ray (Signed) Qasim Salter - 08/31/20 Lumbar Spine X-Ray (Cancelled) 08/31/20 DI Result CC 08/23/20 DI Result CC 08/23/20 DI Result CC 06/16/20 DI Result CC 06/16/20 Chest X-Ray (Signed) Ed Hobson - 07/05/19 DI Result CC 06/29/19 Knee MRI (Signed) LiaAlfredo - 05/14/18 Knee X-Ray (Signed) Jet Carias - 04/10/18 Hand X-Ray (Signed) Dilip Hernandez - 03/17/18 Chest X-Ray (Signed) Hamzah Posadas - 03/01/18 Radiology - Historical 12/10/17 Launch?Image [address] [address] XRay Report Signed Patient: Natalie Slade MR#: [id number] : 1990 Acct:[id number] Age/Sex: 31 / F Date of Service: 02/04/22 Loc: ED Accession Number: [id number] ?? Procedure: XR chest 2V Ordering Provider: Yvon Mcdermott D.O. PROCEDURE:? XR CHEST 2V ? INDICATIONS:? SHORT OF BREATH(TM) ? TECHNIQUE:? 2 views of the chest were acquired.? ? COMPARISON:? [facility], , XR CHEST 2V, 04/25/2021, 18:27.? [facility], , XR CHEST 1V, 07/06/2019, 0:14. ? FINDINGS:? ? Surgical changes and devices:? None.? ? Lungs and pleura:? Lungs are clear.? No pleural effusions or pneumothorax.? ? Mediastinum:? Mediastinal contours are normal.? Heart size is normal.? ? Bones and chest wall:? No suspicious bony abnormalities.? Soft tissues appear unremarkable.? ? IMPRESSION:? Large body habitus which reduces the quality of visualization but no definite acute disease or chronic CHF is found. ? ? Dictated by: Qasim Salter M.D. on 02/04/2022 at 21:20 ? ? Approved by: Qasim Salter M.D. on 02/04/2022 at 21:20 ? MDM Narrative Medical decision making narrative: Multiple etiologies for patient's symptoms considered including: [Costochondritis versus atypical pneumonia versus pericarditis versus pulmonary embolism versus cardiac ischemia versus other Multiple causes of chest pain considered including [place], PE, pneumothorax, pneumonia, aortic dissection, and pleurisy. Patient reports no radiation, no diaphoresis, no provocation with exertion, and no vomiting. Troponin is negative. HEART score suggests low risk. EKG withouit occlusive findings. PE considered, but history and physical exam would suggest this is unlikely. HR above 100 initially but improved with fluids (likely dehydration) and when Savage's PE Algorithm is employed, Well's is extremely low risk and PERC Negative suggests no Dimer needed, let alone advanced imaging. Pericarditis considered given pleuritic nature of pain and elevated inflammatory markers. Patient's symptoms improved over duration of stay with above-stated therapies. Findings and discharge diagnosis discussed with patient/family followed by verbalization of understanding Return precautions discussed with patient/family whom verbalize understanding. Discharge Plan Departure Patient Disposition: Home Clinical Impression: Acute dyspnea, Acute dehydration, Pericarditis Instructions: DI for Pericarditis, DI for Atypical Chest Pain Activity Restrictions/Additional Instructions: *You have been diagnosed with [chest pain and mild dehydration, with possible mild pericarditis. Your history, physical exam, EKG and labs are otherwise very reassuring. *What to do: *Please continue to take your regular medications as directed. *Prescription sent to [facility] *Please follow up with your primary care provider in 2-3 days, call for an appointment. Let them know you were seen in the Emergency Department and that we ask that you be seen in follow up. We will electronically transmit a record of today's note if your PCP is in our system *If you do not have a primary care provider please contact the [facility] Resource line at [phone]. They will ask some questions about your medical history and help get you set up with a doctor in the community. *Return to Emergency Department if you should have any new, worsening or concerning symptoms, such as [fever greater than 101 F, shaking chills, worsening pain, persistent vomiting or other bothersome symptoms] Prescriptions: New ibuprofen 800 mg tablet 800 mg PO Q8H PRN (Reason: pain) Qty: 60 0RF colchicine 0.6 mg tablet 0.6 mg PO BID Qty: 60 0RF No Action methylprednisolone [Medrol (Charlie)] 4 mg tablets,dose pack See Rx Instructions PO PER PKG DIR Qty: 21 0RF Rx Instructions: PO PER PKG DIR codeine-guaifenesin 10-100 mg/5 mL liquid 5 ml PO Q4-6H PRN (Reason: cough) Qty: 118 0RF albuterol sulfate 90 mcg/actuation HFA aerosol inhaler 2 puff inhalation Q4-6H PRN (Reason: shortness of breath or wheezing) Qty: 6.7 0RF hydroxyzine HCl 10 mg tablet 10 mg PO TID PRN (Reason: anxiety, nausea) Qty: 14 0RF methylprednisolone [Medrol (Charlie)] 4 mg tablets,dose pack See Rx Instructions .ROUTE .COMPLEX Qty: 21 0RF Rx Instructions: orally per package directions albuterol sulfate [Ventolin HFA] 90 mcg/actuation HFA aerosol inhaler 2 inhalation INHALATION QID PRN (Reason: shortness of breath or wheezing) Qty: 6.7 0RF cephalexin 500 mg capsule 500 mg PO TID Qty: 21 0RF Referrals: Lyssa Rock DO [Primary Care Provider] - Visit Report Forms: Patient Portal/API
--- NOTE | 2022-02-04 20:47 | DI.RAD.S_ITS ---
PROCEDURE: XR CHEST 2V INDICATIONS: SHORT OF BREATH(TM) TECHNIQUE: 2 views of the chest were acquired. COMPARISON: [facility], CR, XR CHEST 2V, 04/25/2021, 18:27. [facility], CR, XR CHEST 1V, 07/06/2019, 0:14. FINDINGS: Surgical changes and devices: None. Lungs and pleura: Lungs are clear. No pleural effusions or pneumothorax. Mediastinum: Mediastinal contours are normal. Heart size is normal. Bones and chest wall: No suspicious bony abnormalities. Soft tissues appear unremarkable. IMPRESSION: Large body habitus which reduces the quality of visualization but no definite acute disease or chronic CHF is found. Dictated by: Qasim Salter M.D. on 02/04/2022 at 21:20 Approved by: Qasim Salter M.D. on 02/04/2022 at 21:20
[2022-02-04] MEDS: SODIUM CHLORIDE 0.9% 1,000 ML 1000 ML IV (21:18)
[2022-02-04 21:31] LABS: Add Manual Diff / Slide Review NO; Basophils Absolute Auto 0 /uL (0-100); Basophils Percent Auto 0.4 % (0-2); Eosinophils Absolute Auto 100 /uL (0-450); Eosinophils Percent Auto 1.8 % (2-4); Hematocrit 34.9 % (36-46); Hemoglobin 11.9 g/dL (12.0-16.0); Lymphocytes Absolute Auto 1500 /uL (1100-4500); Lymphocytes Percent Auto 18.4 % (25-40); Mean Corpuscular Volume 79.4 fL (80-100); Monocytes Absolute Auto 800 /uL (0-900); Monocytes Percent Auto 9.2 % (3-14); Neutrophils Absolute Auto 5800 /uL (1500-7000); Neutrophils Percent Auto 70.2 % (50-75); Platelet Count 264 X10^3/uL (150-400); Red Blood Cell Count 4.39 X10^6/uL (4.0-5.2); Red Cell Distribution Width 13.5 % (11.6-14.8); White Blood Cell Count 8.2 X10^3/uL (4.5-11.0)
[2022-02-04 21:43] LABS: Creatine Kinase 70 U/L (30-135); Lipase 97 U/L (23-300); Magnesium 1.8 mg/dL (1.6-2.3)
[2022-02-04 21:47] VITALS: PULSE 100; RESP 18; O2SAT 98
[2022-02-04 21:47] LABS: Alanine Aminotransferase 20 IU/L (<35); Albumin Globulin Ratio 1.1 (1.0-2.8); Alkaline Phosphatase 81 U/L (38-126); Aspartate Aminotransferase 27 IU/L (14-36); BUN Creatinine Ratio 15.9 (6-22); Bilirubin Total 0.2 mg/dL (0.2-1.3); Blood Urea Nitrogen 13 mg/dL (7-17); C-Reactive Protein Quant 3.3 mg/dL (<1.0); Calcium 8.4 mg/dL (8.4-10.2); Carbon Dioxide 26 mmol/L (22-32); Chloride 103 mmol/L (98-107); Estimated Glomerular Filt Rate > 60 mL/min (>60); Globulin 3.5 g/dL (1.7-4.1); Glucose 98 mg/dL (70-100); HEMOLYSIS < 15 (0-50); Potassium 3.8 mmol/L (3.4-5.1); Sodium 138 mmol/L (137-145); Total Protein 7.5 g/dL (6.3-8.2)
[2022-02-04 21:55] LABS: Troponin I < 0.012 ng/mL (0.01-0.034)
[2022-02-04 22:00] VITALS: PULSE 103; O2SAT 98
[2022-02-04 22:15] LABS: Erythrocyte Sedimentation Rate 34 MM/HR (0-20)
[2022-02-04 22:22] LABS: RBC Urine 0-1/HPF (0-5/HPF); Squamous Epithelial Cell Urine 1-5 /HPF (0-5/HPF); WBC Urine 0-1/HPF (0-5/HPF)
[2022-02-04 22:23] LABS: Bacteria Urine Many (>30)
[2022-02-04 22:30] VITALS: PULSE 95; O2SAT 94
[2022-02-04 23:00] VITALS: BP 128/84; PULSE 94; RESP 18; O2SAT 97
== END 2022-02-04 23:33 | disposition home or self-care (01) ==
PROVIDERS: Emergency Provider Emergency Medicine; PCP Family Medicine
DX: R06.00 Dyspnea, unspecified (principal); E86.0 Dehydration; I31.9 Disease of pericardium, unspecified; R07.9 Chest pain, unspecified; Z20.822 Contact with and (suspected) exposure to COVID-19
CPT/HCPCS: 36415; 71046; 80053; 81003; 81015; 81025; 82550; 83690; 83735; 84484; 85025; 85651; 86140; 87086; 87635; 93005; 93010; 96360; 96361; 99284; C9803

== ENCOUNTER 2022-04-10 20:14 | Emergency (ER) | payer OTHER, MEDICAID, SELFPAY ==
[2022-04-10 20:21] VITALS: BP 130/71; PULSE 94; RESP 22; TEMP 36.6; O2SAT 100
[2022-04-10 20:39] LABS: Add Manual Diff / Slide Review NO; Basophils Absolute Auto 100 /uL (0-100); Basophils Percent Auto 0.5 % (0-2); Eosinophils Absolute Auto 200 /uL (0-450); Eosinophils Percent Auto 1.7 % (2-4); Hematocrit 36.5 % (36-46); Hemoglobin 12.5 g/dL (12.0-16.0); Lymphocytes Absolute Auto 2700 /uL (1100-4500); Mean Corpuscular HGB Conc 34.1 % (30-36); Mean Corpuscular Volume 79.2 fL (80-100); Monocytes Absolute Auto 700 /uL (0-900); Monocytes Percent Auto 6.3 % (3-14); Neutrophils Absolute Auto 7200 /uL (1500-7000); Neutrophils Percent Auto 66.5 % (50-75); Platelet Count 310 X10^3/uL (150-400); Red Blood Cell Count 4.61 X10^6/uL (4.0-5.2); Red Cell Distribution Width 13.9 % (11.6-14.8); White Blood Cell Count 10.8 X10^3/uL (4.5-11.0)
[2022-04-10 20:51] LABS: Alanine Aminotransferase 22 IU/L (<35); Albumin 4.1 g/dL (3.5-5.0); Albumin Globulin Ratio 1.1 (1.0-2.8); Alkaline Phosphatase 86 U/L (38-126); Aspartate Aminotransferase 22 IU/L (14-36); Bilirubin Total 0.3 mg/dL (0.2-1.3); Blood Urea Nitrogen 16 mg/dL (7-17); Calcium 8.7 mg/dL (8.4-10.2); Carbon Dioxide 26 mmol/L (22-32); Chloride 103 mmol/L (98-107); Estimated Glomerular Filt Rate > 60 mL/min (>60); Globulin 3.7 g/dL (1.7-4.1); Glucose 100 mg/dL (70-100); HEMOLYSIS < 15 (0-50); Potassium 4.1 mmol/L (3.4-5.1); Sodium 136 mmol/L (137-145); Total Protein 7.8 g/dL (6.3-8.2)
[2022-04-10 21:01] LABS: COVID19 -Nasal RAPID Negative (Negative)
[2022-04-11 04:28] VITALS: BP 135/71; PULSE 89; RESP 16; O2SAT 98
--- NOTE | 2022-04-11 04:37 | ED_ITS ---
HPI - Headache General Chief Complaint: Headache Stated Complaint: DIZZY RIGHT EYE AND HEAD PAIN Time Seen by Provider: 04/11/22 04:29 Mode of arrival: Ambulatory History of Present Illness HPI Narrative: Patient in no distress. Complains 1 week dizziness and mostly right-sided headache. History of headache in the past/migraines used to be on medications for it. But this does not feel like the same headache. Although it is not worst of life. Is sound and light sensitive. No numbness tingling or weakness no slurred speech or facial droop. Denies does not want a test. No tearing of the eye. Related Data Previous Rx's Medication Instructions Recorded albuterol sulfate 90 mcg/actuation 2 inhalation inhalation QID PRN 04/25/21 aerosol inhaler (Ventolin HFA) shortness of breath or wheezing #6.7 grams albuterol sulfate 90 mcg/actuation 2 puff inhalation Q4-6H PRN 11/12/21 aerosol inhaler shortness of breath or wheezing #6.7 grams colchicine 0.6 mg tablet 0.6 mg PO BID #60 tabs 02/04/22 Allergies Allergy/AdvReac Type Severity Reaction Status Date / Time paroxetine [From PAXIL] Allergy Intermediate PALPITATIONS, Verified 11/12/21 10:57 LIGHTHEADED Review of Systems Review of Systems Narrative: GENERAL: Denies chills, fatigue, malaise, fever, sweats. HEENT: Denies sinus pain, ear pain, sore throat RESPIRATORY: Denies dyspnea, cough CARDIOVASCULAR: Denies chest pain, palpitations GASTROINTESTINAL: Denies nausea, vomiting, abdominal pain : Denies dysuria, frequency, hematuria MUSCULOSKELETAL: denies muscle or bony pain SKIN: Denies rash, skin lesions NEUROLOGIC: Denies weakness, numbness, positive headache ROS Unobtainable: All systems reviewed & are unremarkable except as noted in HPI and below Patient History Medical History Anxiety (2008) Asthma (2006) Chronic back pain (2007) Chronic headaches (2008) COVID-19 Depression (2008) Hayfever (~1998) Personality disorder (2015) PTSD (post-traumatic stress disorder) (2016) Sciatica Surgical History Anesthesia History of placement of ear tubes (~1993) Status post appendectomy (05/25/12) Status post delivery (09/14/15) Family History Brother Age: 20 ADD (attention deficit disorder) Autism Morbidly obese Developmental disability Grandmother Age: 77 Seizures Hypertension Mother Age: 53 Anxiety Depression PTSD (post-traumatic stress disorder) Sister Age: 31 Anxiety Sister Age: 24 Anxiety Depression PTSD (post-traumatic stress disorder) Father Anxiety Anger Grandfather No problems noted. Sister Anxiety Depression Social History marital status: Smoking Status: Never smoker Smoking Status: Never smoker alcohol intake frequency: 0-2 drinks per day Substance Use Type: marijuana Exam Narrative Exam Narrative: GENERAL: in no distress, not toxic not dyspneic HEAD: Normocephalic. EYES: Pupils equal round No scleral icterus. ENT: Mucous membranes moist. NECK: Trachea midline. Full active range of motion flexion extension without any pain. No meningeal signs. CARDIOVASCULAR: Regular rate and rhythm without murmurs RESPIRATORY: Clear to auscultation. Breath sounds equal bilaterally. No wheezes, rales, or rhonchi. GASTROINTESTINAL: Abdomen soft, non-tender EXTREMITIES: No gross deformities. BACK: No flank tenderness. NEURO: AOx4. Clear speech light touch intact bilateral hands with strong equal grinder watch parts. SKIN: Warm and dry PSYCH: Not anxious, is cooperative Initial Vital Signs Initial Vital Signs: Vital Signs Temperature 97.9 F 04/10/22 20:21 Pulse Rate 94 H 04/10/22 20:21 Respiratory Rate 22 04/10/22 20:21 Blood Pressure 130/71 04/10/22 20:21 Pulse Oximetry 100 04/10/22 20:21 Oxygen Delivery Method 04/10/22 20:21 Course Course Course Narrative: No new issues during course of stay Orders Ordered: Discontinued Medications Diphenhydramine HCl (Diphenhydramine 50 Mg/Ml Vial) 25 mg IV NOW ONE Stop: 04/11/22 05:43 Last Admin: 04/11/22 05:53 Dose: 25 mg Documented By: EB Sodium Chloride (Normal Saline 0.9%) 1,000 mls @ 1,000 mls/hr IV BOLUS ONE Stop: 04/11/22 06:41 Last Infusion: 04/11/22 07:03 Dose: 0 mls/hr Documented By: Admin: 04/11/22 05:53 Dose: 1,000 mls/hr Documented By: SHERIE Ketorolac Tromethamine (Ketorolac 30 Mg/Ml Vial) 30 mg IM NOW ONE Stop: 04/11/22 04:37 Last Admin: 04/11/22 04:45 Dose: 30 mg Documented By: NOEMY Metoclopramide HCl (Metoclopramide 10 Mg/2 Ml Inj) 10 mg IV NOW ONE Stop: 04/11/22 05:43 Last Admin: 04/11/22 05:53 Dose: 10 mg Documented By: SHERIE Reevaluation(s) Reevaluation #1: No improvement with Toradol. Normal saline Reglan Benadryl ordered. Time: 05:43 Reevaluation #2: Patient sleeping soundly. Awoke her to check up on her. She states she feels much better. She will call for a ride. Time: 06:45 Vital Signs Vital signs: Vital Signs - 8 hr 04/11/22 04:28 04/11/22 06:56 04/11/22 07:04 Pulse Rate 89 80 77 Respiratory Rate 16 20 Blood Pressure 135/71 135/71 119/71 Pulse Oximetry 98 100 99 Oxygen Delivery Method Room Air Room Air Room Air MDM - Headache Differential Diagnosis Differential diagnosis: Likely migraine, tension headache, subarachnoid hemorrhage and other (Tension or cluster headache) Lab Data Result diagrams: 04/10/22 20:35 04/10/22 20:35 Labs: Lab Results 04/10/22 04/10/22 04/10/22 Range/Units 20:35 20:35 20:35 WBC 10.8 (4.5-11.0) X10^3/uL RBC 4.61 (4.0-5.2) X10^6/uL Hgb 12.5 (12.0-16.0) g/dL Hct 36.5 (36-46) % MCV 79.2 L (80-100) fL MCH 27.0 (26-34) PG MCHC 34.1 (30-36) % RDW 13.9 (11.6-14.8) % Plt Count 310 (150-400) X10^3/uL Neut % (Auto) 66.5 (50-75) % Lymph % (Auto) 25.0 (25-40) % Ponce % (Auto) 6.3 (3-14) % Eos % (Auto) 1.7 L (2-4) % Baso % (Auto) 0.5 (0-2) % Neut # (Auto) 7200 H (3425-9026) /uL Lymph # (Auto) 2700 (3455-8208) /uL Ponce # (Auto) 700 (0-900) /uL Eos # (Auto) 200 (0-450) /uL Baso # (Auto) 100 (0-100) /uL Sodium 136 L (137-145) mmol/L Potassium 4.1 (3.4-5.1) mmol/L Chloride 103 (98-107) mmol/L Carbon Dioxide 26 (22-32) mmol/L BUN 16 (7-17) mg/dL Creatinine 0.80 (0.52-1.04) mg/dL Estimated GFR > 60 (>60) mL/min BUN/Creatinine Ratio 20.0 (6-22) Glucose 100 (70-100) mg/dL Calcium 8.7 (8.4-10.2) mg/dL Total Bilirubin 0.3 (0.2-1.3) mg/dL AST 22 (14-36) IU/L ALT 22 (<35) IU/L Alkaline Phosphatase 86 (38-126) U/L Total Protein 7.8 (6.3-8.2) g/dL Albumin 4.1 (3.5-5.0) g/dL Globulin 3.7 (1.7-4.1) g/dL Albumin/Globulin Ratio 1.1 (1.0-2.8) SARS-CoV-2 (PCR) Negative (Negative) MDM Narrative Medical decision making narrative: Appropriate for discharge home. Exam and laboratory studies are reassuring. No imaging indicated this time. Patient improved with conservative treatment. Re turn precautions reviewed with patient. Work note provided. She desires discharge home. Discharge Plan Departure Patient Disposition: Home Clinical Impression: Tension headache Instructions: DI for Headache Activity Restrictions/Additional Instructions: See family doctor this week for re-evaluation. Return if worse if any questions or concerns. You may need maintenance migraine medications to your family doctor. Call provided primary care referral phone number to establish family doctor. Call [phone] no driving or operating machinery today. Return if worse if any questions or concerns. Prescriptions: No Action albuterol sulfate 90 mcg/actuation HFA aerosol inhaler 2 puff inhalation Q4-6H PRN (Reason: shortness of breath or wheezing) Qty: 6.7 0RF albuterol sulfate [Ventolin HFA] 90 mcg/actuation HFA aerosol inhaler 2 inhalation INHALATION QID PRN (Reason: shortness of breath or wheezing) Qty: 6.7 0RF colchicine 0.6 mg tablet 0.6 mg PO BID Qty: 60 0RF Referrals: Lyssa Rock DO [Primary Care Provider] - Stand Alone Forms: Work Release Note Visit Report Forms: Patient Portal/API
[2022-04-11] MEDS: KETOROLAC 30 MG/ML VIAL IM (04:45)
[2022-04-11] MEDS: METOCLOPRAMIDE 10 MG/2 ML INJ IV (05:53)
[2022-04-11] MEDS: SODIUM CHLORIDE 0.9% 1,000 ML 1000 ML IV (05:53)
[2022-04-11] MEDS: diphenhydrAMINE 50 MG/ML VIAL 25 MG IV (05:53)
[2022-04-11 06:56] VITALS: BP 135/71; PULSE 80; RESP 20; O2SAT 100
[2022-04-11 07:04] VITALS: BP 119/71; PULSE 77; O2SAT 99
== END 2022-04-11 07:04 | disposition home or self-care (01) ==
PROVIDERS: Emergency Medicine; Emergency Provider Emergency Medicine; PCP Family Medicine
DX: G44.209 Tension-type headache, unspecified, not intractable (principal); Z20.822 Contact with and (suspected) exposure to COVID-19
CPT/HCPCS: 80053; 85025; 87635; 96361; 96372; 96374; 96375; 99284; C9803; J1200; J1885; J2765

== ENCOUNTER 2022-04-15 01:14 | Emergency (ER) | payer OTHER, MEDICAID, SELFPAY ==
[2022-04-15 01:39] VITALS: BP 120/59; PULSE 88; RESP 18; TEMP 36.6; O2SAT 100; BMI 42.4
--- NOTE | 2022-04-15 02:11 | ED.HEATRA ---
HPI - Head Injury General Chief complaint: Head Injury Stated complaint: hit head on corner of table Time Seen by Provider: 04/15/22 01:44 Source: patient Mode of arrival: Ambulatory History of Present Illness HPI Narrative: 31-year-old woman with a history of asthma who was in her garage this evening stood up quickly and hit the right temporal area of her head on the corner of a sharp table. Describes significant pain at the time with no loss of consciousness. Over the next 12 hours she has continued to have pain at the site, low-grade headache, increasing irritability, significant nausea with a single episode of emesis she is not complaining of numbness or weakness. She does not have laceration there is a minor contusion without significant hematoma over the area. She is not complaining of neck pain. She reports no recent fevers, cough, chest pain, palpitations, abdominal pain, diarrhea, lower extremity edema. Related Data Previous Rx's Medication Instructions Recorded albuterol sulfate 90 mcg/actuation 2 inhalation inhalation QID PRN 04/25/21 aerosol inhaler (Ventolin HFA) shortness of breath or wheezing #6.7 grams albuterol sulfate 90 mcg/actuation 2 puff inhalation Q4-6H PRN 11/12/21 aerosol inhaler shortness of breath or wheezing #6.7 grams colchicine 0.6 mg tablet 0.6 mg PO BID #60 tabs 02/04/22 ondansetron 4 mg disintegrating 4 mg PO Q8H PRN nausea and 04/15/22 tablet vomiting #14 tabs Allergies Allergy/AdvReac Type Severity Reaction Status Date / Time paroxetine [From PAXIL] Allergy Intermediate PALPITATIONS, Verified 11/12/21 10:57 LIGHTHEADED Review of Systems Review of Systems Narrative: Remainder of complete review of systems is otherwise unremarkable except for that included in the HPI. Patient History Medical History Anxiety (2009) Asthma (2006) Chronic back pain (2007) Chronic headaches (2008) COVID-19 Depression (2008) Hayfever (~1998) Personality disorder (2015) PTSD (post-traumatic stress disorder) (2015) Sciatica Surgical History Anesthesia History of placement of ear tubes (~1993) Status post appendectomy (05/25/12) Status post delivery (09/14/15) Family History Brother Age: 20 ADD (attention deficit disorder) Autism Morbidly obese Developmental disability Grandmother Age: 77 Seizures Hypertension Mother Age: 53 Anxiety Depression PTSD (post-traumatic stress disorder) Sister Age: 31 Anxiety Sister Age: 24 Anxiety Depression PTSD (post-traumatic stress disorder) Father Anxiety Anger Grandfather No problems noted. Sister Anxiety Depression Social History marital status: Smoking Status: Never smoker Smoking Status: Never smoker alcohol intake frequency: 0-2 drinks per day Substance Use Type: marijuana Exam Initial Vital Signs Initial Vital Signs: Vital Signs Temperature 97.8 F 04/15/22 01:39 Pulse Rate 88 04/15/22 01:39 Respiratory Rate 18 04/15/22 01:39 Blood Pressure 120/59 L 04/15/22 01:39 Pulse Oximetry 100 04/15/22 01:39 Oxygen Delivery Method 04/15/22 01:39 General: Mild distress complaining of headache and nausea but Able to give a complete and coherent history. Well-nourished well-developed HEENT: Moist mucous membranes, normal sclera with reactive pupils, minor contusion to the right congregational without hematoma or abrasion. No evidence of clinical basilar skull fracture. Tympanic membranes unremarkable. Neck: supple Respiratory: Lungs are clear to auscultation, no wheezing no rales no rhonchi. Full and symmetrical air movement Cardiac: Regular rate and rhythm no murmurs no bruits Abdomen: Soft, nontender, good bowel tones, no flank pain Skin: Warm and dry, no rashes Neurologic: Grossly neurologically intact with no obvious asymmetries or abnormalities Extremities: No trauma, well perfused Psych: Cooperative, appropriate insight and affect Course Orders Ordered: Ibuprofen (Ibuprofen 400 Mg Tablet) 400 mg PO NOW ONE Stop: 04/15/22 02:12 Vital Signs Vital signs: Vital Signs - 8 hr 04/15/22 01:39 Temperature 97.8 F Pulse Rate 88 Respiratory Rate 18 Blood Pressure 120/59 L Pulse Oximetry 100 Oxygen Delivery Method Room Air MDM - Head Injury MDM Narrative Medical decision making narrative: 31-year-old woman advanced imaging and no evidence of intracranial hemorrhage. She is showing signs of minor concussion and postconcussion syndrome. Reviewed anticipated course of recovery. No reason for additional workup for imaging at this time. Questions are answered and she is safe for home discharge Discharge Plan Departure Patient Disposition: Home Clinical Impression: Post-concussion syndrome Concussion Qualifiers: Encounter type: initial encounter Loss of consciousness presence/duration: without LOC Qualified Code(s): S06.0X0A - Concussion without loss of consciousness, initial encounter Instructions: Concussion, DI for Postconcussion Syndrome Activity Restrictions/Additional Instructions: Thank you for coming in today You definitely have a concussion and you were going to feel a bit off for the next couple of days. Fortunately, under clinical exam was no evidence of bleeding inside your head and no indication to do advanced imaging such as CT scans this evening. Using 400 mg of ibuprofen (2 [id number] pills) and 1 Tylenol every 6 hours can be very helpful in controlling pain. Using Zofran can be helpful with the nausea. Allow yourself some time to relax. You likely will find that avoiding TV and phone screen time will actually be helpful in getting you feeling back to normal after. If you find that you are getting worse or develop any new symptoms, please feel free to return to the emergency department for further evaluation. Prescriptions: New ondansetron 4 mg tablet,disintegrating 4 mg PO Q8H PRN (Reason: nausea and vomiting) Qty: 14 0RF No Action albuterol sulfate 90 mcg/actuation HFA aerosol inhaler 2 puff inhalation Q4-6H PRN (Reason: shortness of breath or wheezing) Qty: 6.7 0RF albuterol sulfate [Ventolin HFA] 90 mcg/actuation HFA aerosol inhaler 2 inhalation INHALATION QID PRN (Reason: shortness of breath or wheezing) Qty: 6.7 0RF colchicine 0.6 mg tablet 0.6 mg PO BID Qty: 60 0RF Referrals: Lyssa Rock DO [Primary Care Provider] -
[2022-04-15] MEDS: IBUPROFEN 400 MG TABLET PO (02:29)
[2022-04-15] MEDS: ONDANSETRON 4 MG ODT PREPACK 1 BOTTLE MISC (02:29)
[2022-04-15] MEDS: ONDANSETRON 4 MG ODT SL (02:30)
[2022-04-15] MEDS: ACETAMINOPHEN 325 MG TABLET PO (02:30)
== END 2022-04-15 02:36 | disposition home or self-care (01) ==
PROVIDERS: Emergency Provider Emergency Medicine; PCP Family Medicine
DX: S06.0X0A Concussion without loss of consciousness, initial encounter (principal)
CPT/HCPCS: 99283

== ENCOUNTER 2022-07-08 20:40 | Emergency (ER) | payer OTHER, MEDICAID, SELFPAY ==
[2022-07-08 20:48] VITALS: BP 142/78; PULSE 102; RESP 16; TEMP 36.2; O2SAT 97; BMI 43.2
[2022-07-08 20:51] VITALS: PULSE 110; O2SAT 98
--- NOTE | 2022-07-08 20:52 | DI.RAD.S_ITS ---
PROCEDURE: XR CHEST 2V INDICATIONS: cough TECHNIQUE: 2 views of the chest were acquired. COMPARISON: [facility], CR, XR CHEST 2V, 02/04/2022, 20:48. [facility], CR, XR CHEST 2V, 04/25/2021, 18:27. FINDINGS: Surgical changes and devices: None. Lungs and pleura: Lungs are clear considering reduced inspiratory volume and large body habitus. No pleural effusions or pneumothorax. Mediastinum: Mediastinal contours are normal. Heart size is normal. Bones and chest wall: No suspicious bony abnormalities. Soft tissues appear unremarkable. IMPRESSION: No acute disease, source of cough is not seen. Dictated by: Qasim Salter M.D. on 07/08/2022 at 21:40 Approved by: Qasim Salter M.D. on 07/08/2022 at 21:41
--- NOTE | 2022-07-08 20:55 | ED.URI ---
HPI - URI/Sore Throat General Chief Complaint: Upper Respiratory Symptoms Stated Complaint: Cough Time Seen by Provider: 07/08/22 20:42 History of Present Illness HPI Narrative: 32-year-old female nonsmoker with history of asthma presents with significant other and a chief complaint of runny nose, nasal congestion and increased dry and hacking cough for the past few days. She states that she is been exposed to multiple people with known RSV but she is not yet been tested. She denies any chest pain nor nausea or vomiting but has had a few episodes of diarrhea. Related Data Previous Rx's Medication Instructions Recorded albuterol sulfate 90 mcg/actuation 2 inhalation inhalation QID PRN 04/25/21 aerosol inhaler (Ventolin HFA) shortness of breath or wheezing #6.7 grams albuterol sulfate 90 mcg/actuation 2 puff inhalation Q4-6H PRN 11/12/21 aerosol inhaler shortness of breath or wheezing #6.7 grams colchicine 0.6 mg tablet 0.6 mg PO BID #60 tabs 02/04/22 ondansetron 4 mg disintegrating 4 mg PO Q8H PRN nausea and 04/15/22 tablet vomiting #14 tabs Allergies Allergy/AdvReac Type Severity Reaction Status Date / Time paroxetine [From PAXIL] Allergy Intermediate PALPITATIONS, Verified 06/02/22 10:28 LIGHTHEADED Review of Systems Review of Systems Narrative: GENERAL: See HPI HEENT: See HPI RESPIRATORY: See HPI CARDIOVASCULAR: Denies chest pain, palpitations, orthopnea, edema, GASTROINTESTINAL: See HPI : Denies dysuria, frequency, incontinence, hematuria, urinary retention. MUSCULOSKELETAL: denies weakness, joint pain, or bony pain SKIN: Denies rash, skin lesions, or other NEUROLOGIC: Denies weakness, headache, numbness, change in speech, confusion, seizures, incoordination. PSYCHIATRIC: No concerning psychosocial issues. 12 point review of systems is negative except for those stated above Patient History Medical History Anxiety (2009) Asthma (2006) Chronic back pain (2007) Chronic headaches (2008) COVID-19 Depression (2008) Hayfever (~1998) Personality disorder (2015) PTSD (post-traumatic stress disorder) (2016) Sciatica Surgical History Anesthesia History of placement of ear tubes (~1993) Status post appendectomy (05/25/12) Status post delivery (09/14/15) Family History Brother Age: 20 ADD (attention deficit disorder) Autism Morbidly obese Developmental disability Grandmother Age: 77 Seizures Hypertension Mother Age: 53 Anxiety Depression PTSD (post-traumatic stress disorder) Sister Age: 31 Anxiety Sister Age: 24 Anxiety Depression PTSD (post-traumatic stress disorder) Father Anxiety Anger Grandfather No problems noted. Sister Anxiety Depression Social History marital status: Smoking Status: Never smoker Smoking Status: Never smoker alcohol intake frequency: 0-2 drinks per day Substance Use Type: marijuana Exam Narrative Exam Narrative: GENERAL: [32] year old patient appears stated age. Well-developed patient, in mild distress. HEAD: Atraumatic. Normocephalic. EYES: Pupils equal round and reactive. Extraocular motions intact. No scleral icterus. No injection or drainage. ENT: Nose without bleeding, purulent drainage. Throat without erythema, tonsillar hypertrophy or exudate. Airway patent. NECK: Trachea midline. Non tender CARDIOVASCULAR: Regular rate and rhythm without murmurs, gallops, or rubs. RESPIRATORY: Clear to auscultation. Breath sounds equal bilaterally. No wheezes, rales, or rhonchi. GASTROINTESTINAL: Abdomen soft, non-tender, nondistended. EXTREMITIES: No edema or joint tenderness. BACK: Nontender without deformity or crepitance. No flank tenderness. NEURO: AOx3. SKIN: No rash or erythema of visible areas Initial Vital Signs Initial Vital Signs: Vital Signs Temperature 97.2 F L 07/08/22 20:48 Pulse Rate 102 H 07/08/22 20:48 Respiratory Rate 16 07/08/22 20:48 Blood Pressure 142/78 H 07/08/22 20:48 Pulse Oximetry 97 07/08/22 20:48 Oxygen Delivery Method 07/08/22 20:48 Course Orders Ordered: ED Orders 07/08/22 20:52 Chest [XR chest 2V] Stat 07/08/22 20:56 Covid-19 + FLU A/B + RSV - PCR Stat Discontinued Medications Albuterol/Ipratropium (Albuterol/Ipratropium 3 Ml Ampul) 3 ml INH NOW ONE Stop: 07/08/22 20:53 Last Admin: 07/08/22 20:56 Dose: 3 ml Documented By: GRECIA Vital Signs Vital signs: Vital Signs - 8 hr 07/08/22 20:48 07/08/22 21:02 07/08/22 20:51 Temperature 97.2 F L Pulse Rate 102 H 103 H 110 H Respiratory Rate 16 16 Blood Pressure 142/78 H Pulse Oximetry 97 99 98 Oxygen Delivery Method Room Air Aerosol Mask Room Air 07/08/22 21:00 07/08/22 21:59 Temperature Pulse Rate 102 H 97 H Respiratory Rate 18 Blood Pressure 106/57 L Pulse Oximetry 99 99 Oxygen Delivery Method Room Air Room Air MDM - URI/Sore Throat Lab Data Labs: Lab Results 07/08/22 Range/Units 20:56 SARS-CoV-2 (PCR) Negative (Negative) Influenza A (RT-PCR) Flu a negative (NEGATIVE) Influenza B (RT-PCR) Flu b negative (NEGATIVE) RSV (PCR) Positive A (Negative) MDM Narrative Medical decision making narrative: Patient has reassuring history and physical exam, she is tolerating orals and in no significant work of breathing or respiratory distress, no hypoxemia noted. Return precautions discussed and questions answered to their apparent satisfaction Discharge Plan Departure Patient Disposition: Home Clinical Impression: Respiratory syncytial virus (RSV) Instructions: DI for Respiratory Syncytial Virus -- Adults Activity Restrictions/Additional Instructions: *You have been diagnosed with [upper respiratory symptoms due to RSV] *What to do: *Please continue to take your regular medications as directed. *Please follow up with your primary care provider in 2-3 days, call for an appointment. Let them know you were seen in the Emergency Department and that we ask that you be seen in follow up. We will electronically transmit a record of today's note if your PCP is in our system *Return to Emergency Department if you should have any new, worsening or concerning symptoms Prescriptions: No Action albuterol sulfate 90 mcg/actuation HFA aerosol inhaler 2 puff inhalation Q4-6H PRN (Reason: shortness of breath or wheezing) Qty: 6.7 0RF albuterol sulfate [Ventolin HFA] 90 mcg/actuation HFA aerosol inhaler 2 inhalation INHALATION QID PRN (Reason: shortness of breath or wheezing) Qty: 6.7 0RF colchicine 0.6 mg tablet 0.6 mg PO BID Qty: 60 0RF ondansetron 4 mg tablet,disintegrating 4 mg PO Q8H PRN (Reason: nausea and vomiting) Qty: 14 0RF Referrals: Lyssa Rock DO [Primary Care Provider] - Stand Alone Forms: Work Release Note Visit Report Forms: Patient Portal/API
[2022-07-08] MEDS: ALBUTEROL/IPRATROPIUM 3 ML AMPUL INH (20:56)
[2022-07-08 21:00] VITALS: PULSE 102; O2SAT 99
[2022-07-08 21:02] VITALS: PULSE 103; RESP 16; O2SAT 99
[2022-07-08 21:53] LABS: Influenza A - CEPHEID Flu A NEGATIVE (NEGATIVE); Influenza B - CEPHEID Flu B NEGATIVE (NEGATIVE); Respiratory Syncytial Virus POSITIVE (Negative)
[2022-07-08 21:59] VITALS: BP 106/57; PULSE 97; RESP 18; O2SAT 99
[2022-07-08 21:59] LABS: COVID-19 CEPHEID 4-PLEX PCR Negative (Negative)
== END 2022-07-08 22:11 | disposition home or self-care (01) ==
PROVIDERS: Emergency Provider Emergency Medicine; PCP Family Medicine
DX: J06.9 Acute upper respiratory infection, unspecified (principal); B97.4 Respiratory syncytial virus as the cause of diseases classified elsewhere; Z20.822 Contact with and (suspected) exposure to COVID-19
CPT/HCPCS: 0241U; 71046; 94640; 99283

== ENCOUNTER 2022-07-14 14:02 | Emergency (ER) | payer OTHER, MEDICAID, SELFPAY ==
[2022-07-14 14:13] VITALS: BP 138/85; PULSE 93; RESP 18; TEMP 37.1; O2SAT 98
--- NOTE | 2022-07-14 14:19 | ED_ITS ---
HPI - Extremity Injury (Lower) <HOLLY Weaver - Last Filed: 07/14/22 15:34> General Chief Complaint: Extremity Injury, Lower Stated Complaint: RT foot outside severe pain 2days no weight bearin Time Seen by Provider: 07/14/22 14:10 Source: patient Mode of arrival: Wheelchair History of Present Illness HPI Narrative: This is a 32-year-old female who presents to the emergency department complaining of right ankle tenderness which started a few days ago and has gradually gotten worse on the lateral aspect. She states 1 week ago she accidentally stepped down hard on a metal transition between nicole and felt pain in the lateral aspect of her right ankle, states it has gotten worse over the last 2 days and she is no longer able to walk on it. She tested positive for RSV on 07/08/22 in the emergency department. She is still coughing, states her has not now 2 and states that she isn't having any trouble breathing, fever, chills, nausea vomiting or other symptoms from this. She states that she is taken Tylenol a few times, has not done anything else for this ankle pain. She states that she is concerned about going back to work on her feet in 2 days. She denies any rash, weakness, knee pain, wound or other. Related Data Previous Rx's Medication Instructions Recorded albuterol sulfate 90 mcg/actuation 2 inhalation inhalation QID PRN 04/25/21 aerosol inhaler (Ventolin HFA) shortness of breath or wheezing #6.7 grams albuterol sulfate 90 mcg/actuation 2 puff inhalation Q4-6H PRN 11/12/21 aerosol inhaler shortness of breath or wheezing #6.7 grams colchicine 0.6 mg tablet 0.6 mg PO BID #60 tabs 02/04/22 ondansetron 4 mg disintegrating 4 mg PO Q8H PRN nausea and 04/15/22 tablet vomiting #14 tabs Allergies Allergy/AdvReac Type Severity Reaction Status Date / Time paroxetine [From PAXIL] Allergy Intermediate PALPITATIONS, Verified 07/14/22 14:18 LIGHTHEADED Review of Systems <HOLLY Weaver - Last Filed: 07/14/22 15:34> Review of Systems Narrative: Review of systems is negative for acute abnormalities unless otherwise noted in HPI Patient History <HOLLY Weaver - Last Filed: 07/14/22 15:34> Medical History Anxiety (2009) Asthma (2007) Chronic back pain (2008) Chronic headaches (2009) COVID-19 Depression (2009) Hayfever (~1998) Personality disorder (2015) PTSD (post-traumatic stress disorder) (2015) Sciatica Surgical History Anesthesia History of placement of ear tubes (~1993) Status post appendectomy (05/25/12) Status post delivery (09/14/15) Family History Brother Age: 20 ADD (attention deficit disorder) Autism Morbidly obese Developmental disability Grandmother Age: 77 Seizures Hypertension Mother Age: 53 Anxiety Depression PTSD (post-traumatic stress disorder) Sister Age: 31 Anxiety Sister Age: 24 Anxiety Depression PTSD (post-traumatic stress disorder) Father Anxiety Anger Grandfather No problems noted. Sister Anxiety Depression Social History marital status: Smoking Status: Never smoker Smoking Status: Never smoker alcohol intake frequency: 0-2 drinks per day Substance Use Type: marijuana Exam <HOLLY Weaver - Last Filed: 07/14/22 15:34> Narrative Exam Narrative: Reviewed vitals signs and nursing notes. General: cooperative, comfortable, in no acute distress, well groomed HEENT: symmetrical facial expressions, moist mucous membranes, frequently coughing, congestion present MSK: moves all extremities, neurovascularly intact, no weakness, normal tone, patient is obese, right lower extremity and ankle with tenderness the ATFL and posterior to the malleolus the CFL and dorsiflexion is most tender. She denies tenderness over the bilateral malleoli, Achilles tendon, she does not have plantar ecchymosis or ecchymosis anywhere on her lower extremity, there is no rash or erythema, she is tender on the lateral aspect up her lower extremity below the gastrocnemius, flexion and extension of her ankle and toes are only limited due to pain, no significant extremity edema bilaterally, PT and DP pulses are 2+, foot is warm and well perfused without erythema Skin: brisk capillary refill, without pallor or erythema Neuro: normal speech and cognition, A&O x3, clear speech Psych: mental status is grossly normal, congruent mood, normal affect, pleasant and cooperative Initial Vital Signs Initial Vital Signs: Vital Signs Temperature 98.7 F 07/14/22 14:13 Pulse Rate 93 H 07/14/22 14:13 Respiratory Rate 18 07/14/22 14:13 Blood Pressure 138/85 07/14/22 14:13 Pulse Oximetry 98 07/14/22 14:13 Oxygen Delivery Method 07/14/22 14:13 <Adriana Rosario MD - Last Filed: 07/15/22 07:50> Initial Vital Signs Initial Vital Signs: Vital Signs Temperature 98.7 F 07/14/22 14:13 Pulse Rate 93 H 07/14/22 14:13 Respiratory Rate 18 07/14/22 14:13 Blood Pressure 138/85 07/14/22 14:13 Pulse Oximetry 98 07/14/22 14:13 Oxygen Delivery Method 07/14/22 14:13 Course <HOLLY Weaver - Last Filed: 07/14/22 15:34> Orders Ordered: Discontinued Medications Hydrocodone Bitart/Acetaminophen (Hydrocodone/Acet 5/325 Tablet) 1 tab PO NOW ONE Stop: 07/14/22 14:19 Last Admin: 07/14/22 14:35 Dose: 1 tab Documented By: OMID Ketorolac Tromethamine (Ketorolac 30 Mg/Ml Vial) 15 mg IM NOW ONE Stop: 07/14/22 14:19 Last Admin: 07/14/22 14:35 Dose: 15 mg Documented By: OMID Lidocaine (Lidocaine Patch 1 Each Adh..Patch) 1 each TOP NOW ONE Stop: 07/14/22 14:19 Last Admin: 07/14/22 14:34 Dose: 1 each Documented By: OMID Lidocaine (Remove Lidocaine Patch) 1 each TOP BEDTIME ANDER Vital Signs Vital signs: Vital Signs - 8 hr 07/14/22 14:13 Temperature 98.7 F Pulse Rate 93 H Respiratory Rate 18 Blood Pressure 138/85 Pulse Oximetry 98 Oxygen Delivery Method Room Air <Adriana Rosario MD - Last Filed: 07/15/22 07:50> Orders Ordered: Discontinued Medications Hydrocodone Bitart/Acetaminophen (Hydrocodone/Acet 5/325 Tablet) 1 tab PO NOW ONE Stop: 07/14/22 14:19 Last Admin: 07/14/22 14:35 Dose: 1 tab Documented By: OMID Ketorolac Tromethamine (Ketorolac 30 Mg/Ml Vial) 15 mg IM NOW ONE Stop: 07/14/22 14:19 Last Admin: 07/14/22 14:35 Dose: 15 mg Documented By: OMID Lidocaine (Lidocaine Patch 1 Each Adh..Patch) 1 each TOP NOW ONE Stop: 07/14/22 14:19 Last Admin: 07/14/22 14:34 Dose: 1 each Documented By: OMID Lidocaine (Remove Lidocaine Patch) 1 each TOP BEDTIME ANDER Vital Signs Vital signs: Vital Signs - 8 hr 07/14/22 14:13 Temperature 98.7 F Pulse Rate 93 H Respiratory Rate 18 Blood Pressure 138/85 Pulse Oximetry 98 Oxygen Delivery Method Room Air [facility] - Extremity Injury (Lower) <HOLLY Weaver - Last Filed: 07/14/22 15:34> Imaging Data Extremity x-ray #1: Radiologist's Impression: PROCEDURE:? XR ANKLE RT MIN 3V ? INDICATIONS:? lateral ankle pain and plantar pain near 5th metarsal trauma ? TECHNIQUE:? 3 views of the ankle were acquired.? ? COMPARISON:? None. ? FINDINGS:? ? Bones:? No acute fractures or dislocations.? Ankle mortise is normally aligned.? No suspicious bony lesions.? Small plantar calcaneal enthesophyte.? ? Soft tissues:? No tibiotalar joint effusion.? Achilles tendon appears normal.? Mild soft tissue swelling overlying the lateral malleolus. ? ? IMPRESSION:? Soft tissue swelling of the lateral malleolus.? No underlying fracture or dislocation.? Small plantar calcaneal enthesophyte. ? If there is persistent clinical concern for occult fracture given adequate mechanism of injury, consider repeat imaging in 10-14 days. ? ? ? Dictated by: Edgardo Reed M.D. on 07/14/2022 at 15:21 ? ? Approved by: Edgardo Reed M.D. on 07/14/2022 at 15:22 ? [facility] Narrative Medical decision making narrative: This is a 32-year-old female with recent history of RSV on 07/08/2022 who has been off work for illness and presents to the emergency department for lateral right ankle pain that has been getting worse over the last 2 days after she stepped on a transition of a door way too hard she is had pain on the lateral aspect. She has tenderness to palpation over her right CFL, ATFL, no tenderness over bilateral malleoli, dorsiflexion exacerbates her pain, plantar extension is within normal limits, without any plantar ecchymosis or other ecchymosis, erythema, rash, wound, her PT and DP pulses are 2+. States she is supposed to go back to work in 2 days and can not stand on it currently with this pain. She has not taken pain medication for this yet. She was given Toradol, hydrocodone, and was fitted in a walking boot. Her right ankle x-ray was negative for acute abnormality, fracture, or other osseous abnormality, there is soft tissue edema over the lateral aspect. She has a history of gout, states it does not feel like gout, I considered DVT but patient has reproducible tenderness along the lateral aspect and over her CFL, ATFL, and with dorsiflexion not plantar extension. I also considered tendinitis, ankle sprain, gout. Patient was given Toradol and hydrocodone for her pain, was fitted in a walking boot and encouraged to use ibuprofen and Tylenol at home for her pain, elevate, rest, and to wear her walking boot for as long as she needs to. She was given a work note if she needs this so that she can ambulate at work. Patient is appropriate and amenable to discharge home. Vital signs are stable on repeat examination is unremarkable. Patient has been informed of results. Patient has been given strict return to ER precautions for any new or worsening symptoms. Patient understands to follow up closely with outpatient providers as instructed. Patient understands plan and agrees to discharge home. All questions and concerns answered at this time. Discharge Plan Departure Patient Disposition: Home Clinical Impression: Sprain and strain of ankle Instructions: Ankle Sprain Activity Restrictions/Additional Instructions: *You have been diagnosed with a right ankle sprain, and likely still with RSV. Please use the ankle boot if you are able to ambulate with it when you go back to work. Please elevate this frequently, use ice, ibuprofen 800 mg every 8 hours, and Tylenol 975 mg every 6 hours. Please take them both with food and water. Please consider that this may be gout, you have a history of it so please avoid any triggers for gout. Please follow-up with Dr. Rock if you need to or if this is ongoing. Please follow-up at [facility] if your ankle gets worse. Thank you for your patience today, there was no fracture or other obvious abnormality on your x-ray. Please use ibuprofen and Tylenol, elevation, and I hope that you feel better soon. *What to do: *Please continue to take your regular medications as directed. [ ] New medication prescriptions sent to your pharmacy: [ ] [ ] New medication written as a paper prescription [x ] No new medications given *Please follow up with your primary care provider in 2-3 days, call for an appointment. Let them know you were seen in the Emergency Department and that we asked that you be seen for follow-up. We will electronically transmit a record of today's note if your PCP is in our system *If you do not have a primary care provider please contact [phone] to establish care with one of [facility] primary care providers. *Return to Emergency Department if you should have any new, worsening, or concerning symptoms, such as [fever greater than 101F, chills, worsening pain, persistent vomiting or other bothersome symptoms]. Prescriptions: No Action albuterol sulfate 90 mcg/actuation HFA aerosol inhaler 2 puff inhalation Q4-6H PRN (Reason: shortness of breath or wheezing) Qty: 6.7 0RF albuterol sulfate [Ventolin HFA] 90 mcg/actuation HFA aerosol inhaler 2 inhalation INHALATION QID PRN (Reason: shortness of breath or wheezing) Qty: 6.7 0RF colchicine 0.6 mg tablet 0.6 mg PO BID Qty: 60 0RF ondansetron 4 mg tablet,disintegrating 4 mg PO Q8H PRN (Reason: nausea and vomiting) Qty: 14 0RF Referrals: Lyssa Rock DO [Primary Care Provider] - Stand Alone Forms: Work Release Note Visit Report Forms: Patient Portal/API <Adriana Rosario MD - Last Filed: 07/15/22 07:50> [facility]: I was immediately available in the department for consultation throughout this patient's visit. I agree with documentation as above. Adriana Rosario MD
--- NOTE | 2022-07-14 14:32 | DI.RAD.S_ITS ---
PROCEDURE: XR ANKLE RT MIN 3V INDICATIONS: lateral ankle pain and plantar pain near 5th metarsal trauma TECHNIQUE: 3 views of the ankle were acquired. COMPARISON: None. FINDINGS: Bones: No acute fractures or dislocations. Ankle mortise is normally aligned. No suspicious bony lesions. Small plantar calcaneal enthesophyte. Soft tissues: No tibiotalar joint effusion. Achilles tendon appears normal. Mild soft tissue swelling overlying the lateral malleolus. IMPRESSION: Soft tissue swelling of the lateral malleolus. No underlying fracture or dislocation. Small plantar calcaneal enthesophyte. If there is persistent clinical concern for occult fracture given adequate mechanism of injury, consider repeat imaging in 10-14 days. Dictated by: Edgardo Reed M.D. on 07/14/2022 at 15:21 Approved by: Edgardo Reed M.D. on 07/14/2022 at 15:22
[2022-07-14] MEDS: LIDOCAINE PATCH 1 EACH ADH..PATCH TOP (14:34)
[2022-07-14] MEDS: KETOROLAC 30 MG/ML VIAL 15 MG IM (14:35)
[2022-07-14] MEDS: HYDROCODONE/ACET 5/325 TABLET 1 TAB PO (14:35)
[2022-07-14 15:28] VITALS: BP 124/64; PULSE 92; RESP 18; O2SAT 99
== END 2022-07-14 15:32 | disposition home or self-care (01) ==
PROVIDERS: Emergency Provider Nurse Practitioner Critical Care Medicine; PCP Family Medicine
DX: S93.401A Sprain of unspecified ligament of right ankle, initial encounter (principal); S96.911A Strain of unspecified muscle and tendon at ankle and foot level, right foot, initial encounter; X50.1XXA Overexertion from prolonged static or awkward postures, initial encounter
CPT/HCPCS: 73610; 96372; 99283; 99284; J1885

== ENCOUNTER → 2022-08-15 16:47 | Outpatient (CLI) | payer OTHER, MEDICAID, SELFPAY ==
--- NOTE | 2022-08-15 16:51 | DI.MRI.S_ITS ---
PROCEDURE: MR FOOT RT WO CON INDICATIONS: Persistent pain/swelling R lateral foot since injury 07/14 TECHNIQUE: Noncontrast sagittal T1 spin echo and T2 fast spin echo with fat saturation, long-axis T1 spin echo and T2 fast spin echo with fat saturation, short-axis T1 spin echo and T2 fast spin echo with fat saturation through the forefoot. COMPARISON: None. FINDINGS: Image quality: Excellent. Bones and joints: There is subtle marrow edema involving 4th metatarsal base without discrete fracture line. Mild edema is also noted over plantar aspect of 4th metatarsal head without discrete fracture line. Nonspecific subcortical cystic areas are noted at 3rd and 4th metatarsal bases. No acute fracture or dislocation. No definite metatarsal stress fractures. No suspicious bony lesions. Soft tissues: The visualized plantar foot muscles demonstrate normal signal and bulk. Visualized flexor and extensor tendons appear intact, without tenosynovitis. The distal insertions of the peroneus brevis and longus tendons appear thickened with intrasubstance T2 hyperintense signals. The principal Lisfranc ligament appears intact. No soft tissue ganglion cysts or bursal fluid collections. Sagittal images demonstrate no evidence for plantar plate tears. IMPRESSION: 1. Suggestion of mild contusion versus stress related changes involving 4th metatarsal base and plantar aspect of 4th metatarsal head. Nonspecific subcortical cystic areas in 3rd and 4th metatarsal bases. No definite fracture or dislocation. No suspicious bony lesions. 2. Distal peroneus brevis and longus tendinosis and low-grade partial-thickness tear at distal insertions. No full-thickness tendon rupture. Principal Lisfranc ligament and joint is intact. Dictated by: Jet Carias M.D. on 08/16/2022 at 8:45 Approved by: Jet Carias M.D. on 08/16/2022 at 8:59
== END ==
PROVIDERS: PCP Family Medicine; Referring Provider Physician Assistant; Visit Provider Physician Assistant
DX: S96.811A Strain of other specified muscles and tendons at ankle and foot level, right foot, initial encounter (principal); S99.921A Unspecified injury of right foot, initial encounter; M79.671 Pain in right foot; X58.XXXA Exposure to other specified factors, initial encounter
CPT/HCPCS: 73718

== ENCOUNTER → 2022-09-13 08:54 | Outpatient (CLI) | payer OTHER, MEDICAID, SELFPAY ==
[2022-09-13 11:09] LABS: Influenza A - CEPHEID Flu A NEGATIVE (NEGATIVE); Influenza B - CEPHEID Flu B NEGATIVE (NEGATIVE); Respiratory Syncytial Virus Negative (Negative)
[2022-09-13 11:48] LABS: COVID-19 CEPHEID 4-PLEX PCR Negative (Negative)
== END ==
PROVIDERS: PCP Family Medicine; Visit Provider Registered Nurse
DX: R50.9 Fever, unspecified (principal); J02.9 Acute pharyngitis, unspecified; Z20.822 Contact with and (suspected) exposure to COVID-19
CPT/HCPCS: 0241U; 87070; 87147; 87880

== ENCOUNTER 2023-01-01 10:39 | Emergency (ER) | payer OTHER, MEDICAID, SELFPAY ==
[2023-01-01 10:48] VITALS: BP 154/75; PULSE 86; RESP 17; TEMP 36.6; O2SAT 98; BMI 44.1
--- NOTE | 2023-01-01 10:48 | DI.RAD.S_ITS ---
PROCEDURE: XR ANKLE LT MIN 3V INDICATIONS: ankle pain TECHNIQUE: 3 views of the ankle were acquired. COMPARISON: [facility], CR, XR FOOT LT MIN 3V, 01/01/2023, 10:57. [facility], CR, XR ANKLE 3+ VIEWS RIGHT, 07/27/2022, 4:18. FINDINGS: Bones: No fractures or dislocations. Ankle mortise is normally aligned. No suspicious bony lesions. Calcaneal spurring. Soft tissues: No tibiotalar joint effusion. Achilles tendon appears normal. Soft tissue swelling over the lateral malleolus. IMPRESSION: 1. No acute osseous abnormality. Soft tissue swelling over the lateral malleolus. If clinical symptoms persist or there is clinical suspicion for internal derangement, advanced imaging such as CT or MRI is suggested for further evaluation. Dictated by: Chris Fitzgerald M.D. on 01/01/2023 at 12:34 Approved by: Chris Fitzgerald M.D. on 01/01/2023 at 12:35
--- NOTE | 2023-01-01 10:48 | DI.RAD.S_ITS ---
PROCEDURE: XR FOOT LT MIN 3V INDICATIONS: foot pain TECHNIQUE: 3 views of the foot were acquired. COMPARISON: None. FINDINGS: Bones: No fractures or dislocations. No suspicious bony lesions. Soft tissues: No tibiotalar joint effusion. Achilles tendon appears normal. IMPRESSION: No acute osseous abnormalities. Dictated by: Chris Fitzgerald M.D. on 01/01/2023 at 12:36 Approved by: Chris Fitzgerald M.D. on 01/01/2023 at 12:36
--- NOTE | 2023-01-01 12:40 | ED_ITS ---
HPI - Extremity Injury (Lower) <Leonard Herman PA-C - Last Filed: 01/01/23 13:00> General Chief Complaint: Extremity Injury, Lower Stated Complaint: LT foot T-4 pain while walking or stretching Time Seen by Provider: 01/01/23 12:11 Source: patient Mode of arrival: Ambulatory History of Present Illness HPI Narrative: 32-year-old female presents to the ED with left foot and ankle pain for 4 days. Patient states that she was on a mission project building a house in [place], thinks she might have rolled her ankle a bit due to the uneven surfaces which is causing her symptoms. Patient denies numbness, tingling, weakness. Patient is able to bear weight and walk, however it is painful to bear weight. Related Data Allergies Allergy/AdvReac Type Severity Reaction Status Date / Time paroxetine [From PAXIL] Allergy Intermediate PALPITATIONS, Verified 01/01/23 10:51 LIGHTHEADED Review of Systems <Leonard Herman PA-C - Last Filed: 01/01/23 13:00> Review of Systems ROS Unobtainable: All systems reviewed & are unremarkable except as noted in HPI and below Constitutional Constitutional: Denies chills, Denies fatigue, Denies fever(s), Denies frequent falls, Denies lethargy and Denies weakness Eyes Eyes: Denies change in vision, Denies eye discharge, Denies irritation and Denies loss of vision ENT Ears, Nose, Mouth, and Throat: Denies change in voice, Denies dizziness, Denies neck pain, Denies sore throat and Denies throat swelling Cardiovascular Cardiovascular: Denies chest pain, Denies irregular heart rhythm, Denies lightheadedness, Denies palpitations, Denies dyspnea, Denies dyspnea on exertion and Denies orthopnea Respiratory Respiratory: Denies cough, Denies dyspnea, Denies dyspnea on exertion and Denies wheezing Gastrointestinal Gastrointestinal: Denies abdominal pain, Denies change in bowel habits, Denies diarrhea, Denies nausea and Denies vomiting Genitourinary Genitourinary: Denies hematuria, Denies flank pain, Denies urinary incontinence and Denies urinary urgency Musculoskeletal Musculoskeletal: Denies back pain, Denies muscle weakness, Denies neck pain, Denies numbness and Denies tingling Comments: Left foot, ankle pain Integumentary/Breasts Skin/Breast: Denies pruritus, Denies erythema, Denies rash and Denies wounds Neurologic Neurologic: Denies behavioral changes, Denies confusion, Denies dizziness, Denies frequent falls, Denies loss of vision, Denies numbness, Denies tingling and Denies weakness Psychiatric Psychiatric: Denies anxiety, Denies behavioral changes, Denies confusion, Denies depression, Denies homicidal ideation and Denies suicidal ideation Endocrine Endocrine: Denies fatigue, Denies flushing and Denies palpitations Hematologic/Lymphatic Hematologic/Lymphatic: Denies easy bruising Allergic/Immunologic Allergic/Immunologic: Denies urticaria, Denies throat swelling and Denies wheezing Patient History <Leonard Herman PA-C - Last Filed: 01/01/23 13:00> Medical History Anxiety (2008) Asthma (2006) Chronic back pain (2007) Chronic headaches (2008) COVID-19 Depression (2008) Hayfever (~1998) Personality disorder (2015) PTSD (post-traumatic stress disorder) (2015) Sciatica Surgical History Anesthesia History of placement of ear tubes (~1993) Status post appendectomy (05/25/12) Status post delivery (09/14/15) Family History Brother Age: 21 ADD (attention deficit disorder) Autism Morbidly obese Developmental disability Grandmother Age: 78 Seizures Hypertension Mother Age: 54 Anxiety Depression PTSD (post-traumatic stress disorder) Sister Age: 32 Anxiety Sister Age: 25 Anxiety Depression PTSD (post-traumatic stress disorder) Father Anxiety Anger Grandfather No problems noted. Sister Anxiety Depression Social History marital status: Smoking Status: Never smoker Smoking Status: Never smoker alcohol intake frequency: 0-2 drinks per day Substance Use Type: marijuana Exam <Leonard Herman PA-C - Last Filed: 01/01/23 13:00> Narrative Exam Narrative: Const General:?cooperative, healthy appearing and comfortable HENMT Head:?normal to inspection Ears:?hearing grossly normal bilaterally Nose:?external nose normal Face and sinus:?normal facial exam and sinuses nontender Mouth:?oral mucosae normal Throat:?posterior oropharynx normal Eyes General:?appearance normal, both eyes and all related structures Neck Neck:?normal visual inspection and no lymphadenopathy noted Resp Effort & Inspection:?normal respiratory effort Auscultation:?clear to auscultation bilaterally Cardio Rate:?regular rate Rhythm:?regular rhythm Musculoskeletal There is some swelling of the lateral malleolus. Mild tenderness to palpation of lateral malleolus and dorsal aspect of proximal foot. There is full range of motion. Strength and sensation is intact. No erythema. Patient able to bear weight and walk. Patient is neurovascularly intact. Neuro General:?patient alert, patient awake and patient oriented x3 Initial Vital Signs Initial Vital Signs: Vital Signs Temperature 98 F 01/01/23 10:48 Pulse Rate 86 01/01/23 10:48 Respiratory Rate 17 01/01/23 10:48 Blood Pressure 154/75 H 01/01/23 10:48 Pulse Oximetry 98 01/01/23 10:48 Oxygen Delivery Method Room Air 01/01/23 10:48 <DO Girish Marion Last Filed: 01/01/23 13:55> Initial Vital Signs Initial Vital Signs: Vital Signs Temperature 98 F 01/01/23 10:48 Pulse Rate 86 01/01/23 10:48 Respiratory Rate 17 01/01/23 10:48 Blood Pressure 154/75 H 01/01/23 10:48 Pulse Oximetry 98 01/01/23 10:48 Oxygen Delivery Method Room Air 01/01/23 10:48 Course <Leonard Herman PA-C - Last Filed: 01/01/23 13:00> Orders Ordered: ED Orders 01/01/23 10:48 XR ankle LT min 3V Stat XR foot LT min 3V Stat Vital Signs Vital signs: Vital Signs - 8 hr 01/01/23 10:48 01/01/23 13:02 Temperature 98 F Pulse Rate 86 84 Respiratory Rate 17 19 Blood Pressure 154/75 H 148/69 H Pulse Oximetry 98 97 Oxygen Delivery Method Room Air <DO Girish Marion Last Filed: 01/01/23 13:55> Orders Ordered: ED Orders 01/01/23 10:48 XR ankle LT min 3V Stat XR foot LT min 3V Stat Vital Signs Vital signs: Vital Signs - 8 hr 01/01/23 10:48 01/01/23 13:02 Temperature 98 F Pulse Rate 86 84 Respiratory Rate 17 19 Blood Pressure 154/75 H 148/69 H Pulse Oximetry 98 97 Oxygen Delivery Method Room Air MDM - Extremity Injury (Lower) <Leonard Herman PA-C - Last Filed: 01/01/23 13:00> MDM Narrative Medical decision making narrative: 32-year-old female presents to the ED with left foot and ankle pain for 4 days. Ankle and foot x-rays were obtained with no acute findings. Patient's symptoms likely due to a ankle and foot sprain. Recommend heat, rest, elevation, compression, ibuprofen. ED return precautions were discussed with patient. Patient verbalized understanding. Agrees to follow-up with PCP. Discharge Plan Departure Patient Disposition: Home Clinical Impression: Ankle sprain and strain, Foot sprain Instructions: DI for Ankle Sprain, DI for Foot Sprain Activity Restrictions/Additional Instructions: You were evaluated in the ED today for left foot and ankle pain. Your x-rays did not show evidence of fractures or dislocations. Your symptoms are likely due to a foot and ankle sprain. A figure of 8 bandage was applied for comfort and healing. You may continue to take ibuprofen, apply heat packs to reduce pain and inflammation. Please elevate foot above heart level when resting. Return to the ED if you experience any weakness, numbness, tingling. Please follow-up with your PCP soon as possible. Referrals: Lyssa Rock DO [Primary Care Provider] - Stand Alone Forms: Patient Portal/API <Lalo Jeff DO - Last Filed: 01/01/23 13:55> Cosign ED Attending Cosdaveature Attestation: Dr Jeff Co-Sign Statement: I was available for consultation during this patient's emergency department visit. This chart is signed by myself for admi nistrative purposes only. I did not have direct contact with this patient during this visit. They were seen independently by the APC.
[2023-01-01 13:02] VITALS: BP 148/69; PULSE 84; RESP 19; O2SAT 97
== END 2023-01-01 13:03 | disposition home or self-care (01) ==
PROVIDERS: Emergency Provider Student in an Organized Health Care Education/Training Program; PCP Family Medicine
DX: S93.402A Sprain of unspecified ligament of left ankle, initial encounter (principal); S93.602A Unspecified sprain of left foot, initial encounter; X50.1XXA Overexertion from prolonged static or awkward postures, initial encounter
CPT/HCPCS: 73610; 73630; 99281; 99283

== ENCOUNTER 2023-01-16 18:56 | Emergency (ER) | payer OTHER, MEDICAID, SELFPAY ==
[2023-01-16 19:05] VITALS: BP 139/79; PULSE 104; RESP 22; TEMP 36.9; O2SAT 97; BMI 44.1
--- NOTE | 2023-01-16 19:18 | DI.RAD.S_ITS ---
PROCEDURE: XR CHEST 1V INDICATIONS: cough/chest tight TECHNIQUE: One view of the chest was acquired. COMPARISON: [facility], CR, XR CHEST 2V, 07/08/2022, 20:57. FINDINGS: Surgical changes and devices: None. Lungs and pleura: Lungs are clear. No pleural effusions or pneumothorax. Mediastinum: Mediastinal contours appear normal. Heart size is normal. Bones and chest wall: No suspicious bony lesions. Overlying soft tissues appear unremarkable. IMPRESSION: No acute cardiopulmonary abnormality. Dictated by: Lupillo Mckenzie M.D. on 01/16/2023 at 19:47 Approved by: Lupillo Mckenzie M.D. on 01/16/2023 at 19:48
[2023-01-16 19:32] VITALS: BP 126/63; PULSE 92; RESP 20; O2SAT 98
--- NOTE | 2023-01-16 19:32 | ED_ITS ---
HPI - General Adult <Leonard Herman PA-C - Last Filed: 01/16/23 20:38> General Chief complaint: Chest Pain Stated complaint: SOB/Chest pain Time Seen by Provider: 01/16/23 19:08 Source: EMS Mode of arrival: Ambulatory History of Present Illness HPI narrative: 32-year-old female with a history of asthma presents to the ED with 1 week of cough, chest tightness. Patient denies fever, chills, chest pain, shortness of breath, nausea, vomiting, lightheadedness, dizziness, syncope. Patient endorses a mild sore throat and headache. Patient states that her coughing has been wearing on her and has been painful. Related Data Previous Rx's Medication Instructions Recorded benzonatate 200 mg capsule 200 mg PO TID PRN cough #30 caps 01/16/23 Allergies Allergy/AdvReac Type Severity Reaction Status Date / Time paroxetine [From PAXIL] Allergy Intermediate PALPITATIONS, Verified 01/01/23 10:51 LIGHTHEADED Review of Systems <Leonard Herman PA-C - Last Filed: 01/16/23 20:38> Review of Systems ROS Unobtainable: All systems reviewed & are unremarkable except as noted in HPI and below Constitutional Constitutional: Denies chills, Denies fatigue, Denies fever(s), Denies frequent falls, Denies lethargy and Denies weakness Eyes Eyes: Denies change in vision, Denies eye discharge, Denies irritation and Denies loss of vision ENT Ears, Nose, Mouth, and Throat: Denies change in voice, Denies dizziness, Denies neck pain, Reports sore throat and Denies throat swelling Cardiovascular Cardiovascular: Denies chest pain, Denies irregular heart rhythm, Denies lightheadedness, Denies palpitations, Denies dyspnea, Denies dyspnea on exertion and Denies orthopnea Respiratory Respiratory: Reports cough, Denies dyspnea, Denies dyspnea on exertion and Denies wheezing Gastrointestinal Gastrointestinal: Denies abdominal pain, Denies change in bowel habits, Denies diarrhea, Denies nausea and Denies vomiting Genitourinary Genitourinary: Denies hematuria, Denies flank pain, Denies urinary incontinence and Denies urinary urgency Musculoskeletal Musculoskeletal: Denies back pain, Denies muscle weakness, Denies neck pain, Denies numbness and Denies tingling Integumentary/Breasts Skin/Breast: Denies pruritus, Denies erythema, Denies rash and Denies wounds Neurologic Neurologic: Denies behavioral changes, Denies confusion, Denies dizziness, Denies frequent falls, Denies loss of vision, Denies numbness, Denies tingling and Denies weakness Psychiatric Psychiatric: Denies anxiety, Denies behavioral changes, Denies confusion, Denies depression, Denies homicidal ideation and Denies suicidal ideation Endocrine Endocrine: Denies fatigue, Denies flushing and Denies palpitations Hematologic/Lymphatic Hematologic/Lymphatic: Denies easy bruising Allergic/Immunologic Allergic/Immunologic: Denies urticaria, Denies throat swelling and Denies wheezing Patient History <Leonard Herman PA-C - Last Filed: 01/16/23 20:38> Medical History Anxiety (2008) Asthma (2006) Chronic back pain (2007) Chronic headaches (2008) COVID-19 Depression (2008) Hayfever (~1998) Personality disorder (2015) PTSD (post-traumatic stress disorder) (2015) Sciatica Surgical History Anesthesia History of placement of ear tubes (~1993) Status post appendectomy (05/25/12) Status post delivery (09/14/15) Family History Brother Age: 21 ADD (attention deficit disorder) Autism Morbidly obese Developmental disability Grandmother Age: 78 Seizures Hypertension Mother Age: 54 Anxiety Depression PTSD (post-traumatic stress disorder) Sister Age: 32 Anxiety Sister Age: 25 Anxiety Depression PTSD (post-traumatic stress disorder) Father Anxiety Anger Grandfather No problems noted. Sister Anxiety Depression Social History marital status: Smoking Status: Never smoker Smoking Status: Never smoker alcohol intake frequency: 0-2 drinks per day Substance Use Type: marijuana Exam <Leonard Herman PA-C - Last Filed: 01/16/23 20:38> Narrative Exam Narrative: Const General:?cooperative, healthy appearing and comfortable HENTX Head:?normal to inspection Ears:?hearing grossly normal bilaterally Nose:?external nose normal Face and sinus:?normal facial exam and sinuses nontender Mouth:?oral mucosae normal Throat:?posterior oropharynx normal Eyes General:?appearance normal, both eyes and all related structures Neck Neck:?normal visual inspection and no lymphadenopathy noted Resp Effort & Inspection:?normal respiratory effort Auscultation:?clear to auscultation bilaterally Cardio Rate:?regular rate Rhythm:?regular rhythm Neuro General:?patient alert, patient awake and patient oriented x3 Initial Vital Signs Initial Vital Signs: Vital Signs Temperature 98.5 F 01/16/23 19:05 Pulse Rate 104 H 01/16/23 19:05 Respiratory Rate 22 01/16/23 19:05 Blood Pressure 139/79 01/16/23 19:05 Pulse Oximetry 97 01/16/23 19:05 Oxygen Delivery Method Room Air 01/16/23 19:05 <Yvon Mcdermott DO - Last Filed: 01/17/23 04:24> Initial Vital Signs Initial Vital Signs: Vital Signs Temperature 98.5 F 01/16/23 19:05 Pulse Rate 104 H 01/16/23 19:05 Respiratory Rate 22 01/16/23 19:05 Blood Pressure 139/79 01/16/23 19:05 Pulse Oximetry 97 01/16/23 19:05 Oxygen Delivery Method Room Air 01/16/23 19:05 Course <Leonard Herman PA-C - Last Filed: 01/16/23 20:38> Orders Ordered: Discontinued Medications Benzonatate (Benzonatate 100 Mg Capsule) 200 mg PO NOW ONE Stop: 01/16/23 19:32 Last Admin: 01/16/23 19:35 Dose: 200 mg Documented By: PLACIDO Ibuprofen (Ibuprofen 400 Mg Tablet) 800 mg PO NOW ONE Stop: 01/16/23 19:32 Last Admin: 01/16/23 19:35 Dose: 800 mg Documented By: PLACIDO Vital Signs Vital signs: Vital Signs - 8 hr 01/16/23 19:05 01/16/23 19:32 01/16/23 20:10 Temperature 98.5 F Pulse Rate 104 H 92 H 95 H Respiratory Rate 22 20 18 Blood Pressure 139/79 126/63 135/73 Pulse Oximetry 97 98 98 Oxygen Delivery Method Room Air Room Air Room Air <DO Girish Yap Last Filed: 01/17/23 04:24> Orders Ordered: Discontinued Medications Benzonatate (Benzonatate 100 Mg Capsule) 200 mg PO NOW ONE Stop: 01/16/23 19:32 Last Admin: 01/16/23 19:35 Dose: 200 mg Documented By: PLACIDO Ibuprofen (Ibuprofen 400 Mg Tablet) 800 mg PO NOW ONE Stop: 01/16/23 19:32 Last Admin: 01/16/23 19:35 Dose: 800 mg Documented By: PLACIDO Vital Signs Vital signs: Vital Signs - 8 hr 01/16/23 19:05 01/16/23 19:32 01/16/23 20:10 Temperature 98.5 F Pulse Rate 104 H 92 H 95 H Respiratory Rate 22 20 18 Blood Pressure 139/79 126/63 135/73 Pulse Oximetry 97 98 98 Oxygen Delivery Method Room Air Room Air Room Air Medical Decision Making <Leonard Herman PA-C - Last Filed: 01/16/23 20:38> Lab Data Labs: Lab Results 01/16/23 Range/Units 19:20 Chlamy pneumoniae PCR Not detected (Not Detect) Adenovirus (PCR) Not detected (Not Detect) B. pertussis DNA (PCR) Not detected (Not Detecte) B.parapertussis DNA PCR Not detected (Not Detecte) Coronavirus OC43 (PCR) Not detected (Not Detect) Coronavirus HKU1 (PCR) Not detected (Not Detect) Coronavirus 229E (PCR) Not detected (Not Detect) SARS-CoV-2 (PCR) Not detected (Not Detecte) Coronavirus NL63 (PCR) Not detected (Not Detect) Human Metapneumovir PCR Not detected (Not Detect) Influenza Type A (PCR) Not detected (Not Detect) Influenza Type B (PCR) Not detected (Not Detect) M. pneumoniae (PCR) Not detected (Not Detect) Parainfluenza 1 (PCR) Not detected (Not Detect) Parainfluenza 2 (PCR) Not detected (Not Detect) Parainfluenza 3 (PCR) Not detected (Not Detect) Parainfluenza 4 (PCR) Not detected (Not Detect) RSV (PCR) Not detected (Not Detect) Entero/Rhino (PCR) Not detected (Not Detect) MDM Narrative Medical decision making narrative: 32-year-old female with a history of asthma presents to the ED with 1 week of cough, chest tightness. For URI versus acute bronchitis. Physical exam is reassuring, lungs bilaterally clear to auscultation, normal oral pharynx. Will give Tessalon Perles and ibuprofen for symptoms. Will obtain a respiratory panel, chest x-ray. Will reassess. Chest x-ray negative for acute findings. Patient's symptoms improved with Tessalon Perles and ibuprofen. Will discharge patient home with prescription for Tessalon Perles. Recommend supportive care. Patient agrees to check her patient portal for her respiratory panel results and understands that her treatment and care will not change based on those results, but will simply give her some information on what type of viral infection she may have. ED return precautions were discussed with patient. Patient verbalized understanding. Medical records reviewed: Yes <Yvon Mcdermott DO - Last Filed: 01/17/23 04:24> Lab Data Labs: Lab Results 01/16/23 Range/Units 19:20 Chlamy pneumoniae PCR Not detected (Not Detect) Adenovirus (PCR) Not detected (Not Detect) B. pertussis DNA (PCR) Not detected (Not Detecte) B.parapertussis DNA PCR Not detected (Not Detecte) Coronavirus OC43 (PCR) Not detected (Not Detect) Coronavirus HKU1 (PCR) Not detected (Not Detect) Coronavirus 229E (PCR) Not detected (Not Detect) SARS-CoV-2 (PCR) Not detected (Not Detecte) Coronavirus NL63 (PCR) Not detected (Not Detect) Human Metapneumovir PCR Not detected (Not Detect) Influenza Type A (PCR) Not detected (Not Detect) Influenza Type B (PCR) Not detected (Not Detect) M. pneumoniae (PCR) Not detected (Not Detect) Parainfluenza 1 (PCR) Not detected (Not Detect) Parainfluenza 2 (PCR) Not detected (Not Detect) Parainfluenza 3 (PCR) Not detected (Not Detect) Parainfluenza 4 (PCR) Not detected (Not Detect) RSV (PCR) Not detected (Not Detect) Entero/Rhino (PCR) Not detected (Not Detect) Discharge Plan Departure Patient Disposition: Home Clinical Impression: Upper respiratory infection Instructions: DI for Viral Upper Respiratory Infection -- Adult Activity Restrictions/Additional Instructions: You were evaluated in the ED today for a cough and sore throat. Your chest x- ray was normal. Your physical exam was reassuring for normal sounding lungs. Your symptoms are likely due to a viral upper respiratory infection. Your symptoms improved with Tessalon Perles and ibuprofen. You may continue ibuprofen and Tylenol at home. You are also being prescribed Tessalon Perles for the cough. Please follow-up with your PCP as soon as possible. Please return to the ED if you experience any chest pain or shortness of breath. Prescriptions: New benzonatate 200 mg capsule 200 mg PO TID PRN (Reason: cough) Qty: 30 0RF Referrals: Lyssa Rock DO [Primary Care Provider] - Stand Alone Forms: Patient Portal/API, Work Release Note <Yvon Mcdermott DO - Last Filed: 01/17/23 04:24> Cosign ED Attending Rondaature Attestation: I was immediately available in the department for consultation. Documentation has been reviewed. I agree with assessment and plan.
[2023-01-16] MEDS: IBUPROFEN 400 MG TABLET 800 MG PO (19:35)
[2023-01-16] MEDS: BENZONATATE 100 MG CAPSULE 200 MG PO (19:35)
[2023-01-16 20:10] VITALS: BP 135/73; PULSE 95; RESP 18; O2SAT 98
[2023-01-16 20:42] LABS: Adenovirus Not Detected (Not Detect); B. parapertussis Not Detected (Not Detecte); Bordetella pertussis Not Detected (Not Detecte); Chlamydophila pneumoniae Not Detected (Not Detect); Coronavirus 229E Not Detected (Not Detect); Coronavirus HKU1 Not Detected (Not Detect); Coronavirus NL 63 Not Detected (Not Detect); Coronavirus OC43 Not Detected (Not Detect); Human Metapneumovirus Not Detected (Not Detect); Human Rhinovirus/Enterovirus Not Detected (Not Detect); Influenza A Not Detected (Not Detect); Influenza B Not Detected (Not Detect); Mycoplasma pneumoniae Not Detected (Not Detect); Parainfluenza Virus 1 Not Detected (Not Detect); Parainfluenza Virus 2 Not Detected (Not Detect); Parainfluenza Virus 3 Not Detected (Not Detect); Parainfluenza Virus 4 Not Detected (Not Detect); Respiratory Syncytial Virus Not Detected (Not Detect); SARS- CoV-2 Not Detected (Not Detecte)
== END 2023-01-16 20:54 | disposition home or self-care (01) ==
PROVIDERS: Emergency Provider Student in an Organized Health Care Education/Training Program; PCP Family Medicine
DX: J06.9 Acute upper respiratory infection, unspecified (principal); J02.9 Acute pharyngitis, unspecified; R07.89 Other chest pain; Z20.822 Contact with and (suspected) exposure to COVID-19
CPT/HCPCS: 36415; 71045; 87633; 93005; 99283; 99284

== ENCOUNTER 2023-02-09 11:12 | Emergency (ER) | payer OTHER, MEDICAID, SELFPAY ==
[2023-02-09 11:14] VITALS: BP 136/80; PULSE 99; RESP 15; TEMP 35.9; O2SAT 98; BMI 45.7
--- NOTE | 2023-02-09 11:16 | DI.RAD.S_ITS ---
PROCEDURE: XR FOOT RT MIN 3V INDICATIONS: foot pain after injury yesterday TECHNIQUE: 3 views of the foot were acquired. COMPARISON: [facility], CR, XR FOOT 3+ VIEWS RIGHT, 07/27/2022, 4:18. FINDINGS: Bones: No acute fractures or dislocations. No suspicious bony lesions. Small plantar calcaneal enthesophyte. Soft tissues: No suspicious soft tissue calcifications. IMPRESSION: No acute osseous abnormality. If clinical suspicion and/or symptoms persist, additional imaging with repeat plain films, or advanced imaging (e.g. CT, MRI) may be helpful for further assessment. Approved by: Sen Michael M.D. on 02/09/2023 at 11:43
--- NOTE | 2023-02-09 11:28 | ED.LOWEXIN ---
HPI - Extremity Injury (Lower) <HOLLY Weaver - Last Filed: 02/09/23 12:29> General Chief Complaint: Extremity Injury, Lower Stated Complaint: RT foot on the inside pain Time Seen by Provider: 02/09/23 11:27 Source: patient Mode of arrival: Ambulatory History of Present Illness HPI Narrative: This is a 32-year-old female presents to the emergency department complaining of right medial ankle pain after she stepped up onto uneven surface causing her ankle to roll and her foot to rule outwards.?Patient denies numbness, tingling, weakness.? Patient is able to bear weight and walk, however it is painful to bear weight and with movement of her ankle. She denies any foot pain. She denies any wound, states that she was at physical therapy today for her hand after this injury yesterday and talked about her ankle, there was an evaluation and she was sent here for evaluation of her right ankle for injury. She is sitting in wheelchair, states that she is been hopping mostly and not putting full weight on it at all. States that dorsiflexion causes the most pain, plantar extension is not painful. Related Data Previous Rx's Medication Instructions Recorded benzonatate 200 mg capsule 200 mg PO TID PRN cough #30 caps 01/16/23 Allergies Allergy/AdvReac Type Severity Reaction Status Date / Time paroxetine [From PAXIL] Allergy Intermediate PALPITATIONS, Verified 02/09/23 11:14 LIGHTHEADED Review of Systems <HOLLY Weaver - Last Filed: 02/09/23 12:29> Review of Systems ROS Unobtainable: All systems reviewed & are unremarkable except as noted in HPI and below Patient History <HOLLY Weaver - Last Filed: 02/09/23 12:29> Medical History Anxiety (2008) Asthma (2006) Chronic back pain (2007) Chronic headaches (2008) COVID-19 Depression (2008) Hayfever (~1998) Personality disorder (2015) PTSD (post-traumatic stress disorder) (2015) Sciatica Surgical History Anesthesia History of placement of ear tubes (~1993) Status post appendectomy (05/25/12) Status post delivery (09/14/15) Family History Brother Age: 21 ADD (attention deficit disorder) Autism Morbidly obese Developmental disability Grandmother Age: 78 Seizures Hypertension Mother Age: 54 Anxiety Depression PTSD (post-traumatic stress disorder) Sister Age: 32 Anxiety Sister Age: 25 Anxiety Depression PTSD (post-traumatic stress disorder) Father Anxiety Anger Grandfather No problems noted. Sister Anxiety Depression Social History marital status: Smoking Status: Never smoker Smoking Status: Never smoker alcohol intake frequency: holidays/special occasions only Substance Use Type: marijuana Exam <HOLLY Weaver - Last Filed: 02/09/23 12:29> Narrative Exam Narrative: Const General:?cooperative, healthy appearing and comfortable HENMT Head:?normal to inspection Resp Effort & Inspection:?normal respiratory effort ?Auscultation:?clear to auscultation bilaterally Cardio Rate:?regular rate ?Rhythm:?regular rhythm Musculoskeletal There is some swelling of the medial malleolus.? Mild tenderness to palpation of medial malleolus and over ATFL and proximal medial foot tenderness to palpation. There is edema, mild ecchymosis.? There is full range of motion.? Strength and sensation is intact.? No erythema.? Patient able to bear weight although not full weight. PT and DP pulses are 2+, brisk cap refill. Patient is neurovascularly intact. Neuro General:?patient alert, patient awake and patient oriented x3 Initial Vital Signs Initial Vital Signs: Vital Signs Temperature 96.7 F L 02/09/23 11:14 Pulse Rate 99 H 02/09/23 11:14 Respiratory Rate 15 02/09/23 11:14 Blood Pressure 136/80 02/09/23 11:14 Pulse Oximetry 98 02/09/23 11:14 Oxygen Delivery Method Room Air 02/09/23 11:14 <Yvno Mcdermott DO - Last Filed: 02/10/23 09:42> Initial Vital Signs Initial Vital Signs: Vital Signs Temperature 96.7 F L 02/09/23 11:14 Pulse Rate 99 H 02/09/23 11:14 Respiratory Rate 15 02/09/23 11:14 Blood Pressure 136/80 02/09/23 11:14 Pulse Oximetry 98 02/09/23 11:14 Oxygen Delivery Method Room Air 02/09/23 11:14 Course <HOLLY Weaver - Last Filed: 02/09/23 12:29> Orders Ordered: Discontinued Medications Acetaminophen (Acetaminophen 325 Mg Tablet) 975 mg PO NOW ONE Stop: 02/09/23 11:58 Last Admin: 02/09/23 12:18 Dose: 975 mg Documented By: PATRICK Ketorolac Tromethamine (Ketorolac 30 Mg/Ml Vial) 30 mg IM NOW ONE Stop: 02/09/23 11:58 Last Admin: 02/09/23 12:18 Dose: 30 mg Documented By: PATRICK Vital Signs Vital signs: Vital Signs - 8 hr 02/09/23 11:14 Temperature 96.7 F L Pulse Rate 99 H Respiratory Rate 15 Blood Pressure 136/80 Pulse Oximetry 98 Oxygen Delivery Method Room Air <Yvon Mcdermott DO - Last Filed: 02/10/23 09:42> Orders Ordered: Discontinued Medications Acetaminophen (Acetaminophen 325 Mg Tablet) 975 mg PO NOW ONE Stop: 02/09/23 11:58 Last Admin: 02/09/23 12:18 Dose: 975 mg Documented By: PATRICK Ketorolac Tromethamine (Ketorolac 30 Mg/Ml Vial) 30 mg IM NOW ONE Stop: 02/09/23 11:58 Last Admin: 02/09/23 12:18 Dose: 30 mg Documented By: PATRICK Vital Signs Vital signs: Vital Signs - 8 hr 02/09/23 11:14 Temperature 96.7 F L Pulse Rate 99 H Respiratory Rate 15 Blood Pressure 136/80 Pulse Oximetry 98 Oxygen Delivery Method Room Air MDM - Extremity Injury (Lower) <HOLLY Weaver - Last Filed: 02/09/23 12:29> MDM Narrative Medical decision making narrative: Chief Complaint: right ankle injury Primary historian: patient Multiple etiologies for patient's complaint considered including, but not limited to: Ankle sprain, foot sprain, ankle fracture, foot fracture, tendon rupture, stress fracture, subluxation I have independently reviewed the patient's vital signs and nursing notes as well as prior records if available. My interpretation of imaging: rt foot XR ordered by nursing is negative for acute abnormality, x-ray of the ankle is negative for acute abnormality as well. No evidence of bony tenderness to the lateral malleolus, although there is some tenderness over the medial malleolus, and no tenderness over the base of the 5th metatarsal, the navicular bone, Achilles tendon, plantar aspect of her foot, and she does have tenderness over the ATFL medially.. Patient has been been hopping due to pain and not bearing weight. Using the [place] [facility] Rules, there is indication for right ankle x-ray, negative squeeze test. Course of care: Pain treated with Toradol and Tylenol as patient is driving today. Patient was fitted in a walking boot, states it if it and was able to bear weight without difficulty. Understands to follow-up with prolonged orthopedics if she does not have improvement or if she can not bear weight after 1 week, encouraged Tylenol and ibuprofen, icing, elevation and rest Social considerations that may affect disposition: none Questions are addressed and there is agreement with the plan and for follow-up. I consulted with the ED attending physician Dr. Mcdermott as needed for higher level of care considerations and they were available for discussion and recommendations regarding plan of care and diagnostic testing. Patient is appropriate for outpatient management. Discharge Plan Departure Patient Disposition: Home Clinical Impression: Ankle sprain Qualifiers: Encounter type: initial encounter Involved ligament of ankle: anterior talofibular ligament Laterality: right Qualified Code(s): S93.491A - Sprain of other ligament of right ankle, initial encounter Instructions: Ankle Sprain Activity Restrictions/Additional Instructions: *You have been diagnosed with an ankle sprain, the x-rays of your foot and your ankle do not show fracture. For pain, please try Tylenol 650 mg with ibuprofen 600mg every 6 hours with food and water, ice it, elevate it, use the boot to prevent worsening injury. Gradually get back to activity but did not push beyond your pain. I hope you start feeling better soon, ankle sprains can hurt for 1-2 weeks even with doing everything right. Follow-up at [facility] if you have any worsening symptoms or if you are unable to bear weight after 1 week. *What to do: *Please continue to take your regular medications as directed. [ ] New medication prescriptions sent to your pharmacy: [ ] [ ] New medication written as a paper prescription [x ] No new medications given *Please call and schedule follow up with your primary care provider in 2-3 days, at least for an update. Let them know you were seen in the Emergency Department for the above problem. We will electronically transmit a record of today's note if your PCP or specialist is in our system. *If you do not have a primary care provider please contact [phone] to establish care with one of the [facility] primary care providers. *Return to the Emergency Department for worsening symptoms, inability to keep liquids down, fever greater than 101F, chills, or other concerning symptom. Prescriptions: No Action benzonatate 200 mg capsule 200 mg PO TID PRN (Reason: cough) Qty: 30 0RF Referrals: [facility] [Provider Group] Lyssa Rock DO [Primary Care Provider] - Stand Alone Forms: Patient Portal/API, Work Release Note <Yvon Mcdermott DO - Last Filed: 02/10/23 09:42> Cosign ED Attending Rondaature Attestation: I was immediately available in the department for consultation. Documentation has been reviewed. I agree with assessment and plan.
--- NOTE | 2023-02-09 11:57 | DI.RAD.S_ITS ---
PROCEDURE: XR ANKLE RT MIN 3V INDICATIONS: medial ankle pain after rolling yesterday TECHNIQUE: 3 views of the ankle were acquired. COMPARISON: [facility], CR, XR ANKLE 3+ VIEWS RIGHT, 07/27/2022, 4:18. FINDINGS: Bones: No acute fractures or dislocations. Ankle mortise is normally aligned. No suspicious bony lesions. Small plantar calcaneal enthesophyte. Soft tissues: No suspicious soft tissue calcification. IMPRESSION: No acute osseous abnormality. If clinical suspicion and/or symptoms persist, additional imaging with repeat plain films, or advanced imaging (e.g. CT, MRI) may be helpful for further assessment. Approved by: Sen Michael M.D. on 02/09/2023 at 12:23
[2023-02-09] MEDS: ACETAMINOPHEN 325 MG TABLET 975 MG PO (12:18)
[2023-02-09] MEDS: KETOROLAC 30 MG/ML VIAL IM (12:18)
[2023-02-09 12:27] VITALS: BP 125/63; PULSE 87; RESP 18
== END 2023-02-09 12:35 | disposition home or self-care (01) ==
PROVIDERS: Emergency Provider Nurse Practitioner Critical Care Medicine; PCP Family Medicine
DX: S93.491A Sprain of other ligament of right ankle, initial encounter (principal); X50.1XXA Overexertion from prolonged static or awkward postures, initial encounter
CPT/HCPCS: 73610; 73630; 96372; 99283; J1885

== ENCOUNTER → 2023-05-17 08:07 | Outpatient (CLI) | payer OTHER, MEDICAID, SELFPAY ==
[2023-05-17 09:13] LABS: Add Manual Diff / Slide Review NO; Basophils Absolute Auto 0 /uL (0-100); Basophils Percent Auto 0.3 % (0-2); Eosinophils Absolute Auto 200 /uL (0-450); Eosinophils Percent Auto 1.9 % (2-4); Hematocrit 36.1 % (36-46); Hemoglobin 12.2 g/dL (12.0-16.0); Lymphocytes Absolute Auto 2500 /uL (1100-4500); Lymphocytes Percent Auto 27.3 % (25-40); Mean Corpuscular HGB Conc 33.8 % (30-36); Mean Corpuscular Hemoglobin 26.7 PG (26-34); Mean Corpuscular Volume 79.2 fL (80-100); Monocytes Absolute Auto 700 /uL (0-900); Monocytes Percent Auto 7.8 % (3-14); Neutrophils Absolute Auto 5700 /uL (1500-7000); Neutrophils Percent Auto 62.7 % (50-75); Platelet Count 270 X10^3/uL (150-400); Red Blood Cell Count 4.56 X10^6/uL (4.0-5.2); Red Cell Distribution Width 14.1 % (11.6-14.8); White Blood Cell Count 9.1 X10^3/uL (4.5-11.0)
[2023-05-17 09:43] LABS: Alanine Aminotransferase 31 IU/L (<35); Albumin 3.8 g/dL (3.5-5.0); Albumin Globulin Ratio 1.2 (1.0-2.8); Alkaline Phosphatase 83 U/L (38-126); Aspartate Aminotransferase 26 IU/L (14-36); BUN Creatinine Ratio 12.2 (6-22); Bilirubin Total 0.7 mg/dL (0.2-1.3); Blood Urea Nitrogen 9 mg/dL (7-17); Calcium 8.9 mg/dL (8.4-10.2); Carbon Dioxide 25 mmol/L (22-32); Chloride 103 mmol/L (98-107); Cholesterol 150 mg/dL (140-199); Estimated Glomerular Filt Rate > 60 mL/min (>60); Globulin 3.1 g/dL (1.7-4.1); Glucose 99 mg/dL (70-100); HDL Cholesterol 46 mg/dL (40-60); HEMOLYSIS < 15 (0-50); LDL Cholesterol Calculated 83 mg/dL (<100); Sodium 136 mmol/L (137-145); Total Protein 6.9 g/dL (6.3-8.2); Triglycerides 104 mg/dL (35-150)
[2023-05-17 10:12] LABS: TSH w/ Reflex to FT4 1.98 uIU/mL (0.47-4.68)
== END ==
PROVIDERS: PCP Family Medicine; Referring Provider Family Medicine; Visit Provider Family Medicine
DX: Z68.41 Body mass index [BMI] 40.0-44.9, adult (principal); Z13.29 Encounter for screening for other suspected endocrine disorder; Z13.220 Encounter for screening for lipoid disorders
CPT/HCPCS: 36415; 80053; 80061; 83036; 84443; 85025

== ENCOUNTER 2023-06-22 17:54 | Emergency (ER) | payer OTHER, MEDICAID, SELFPAY ==
[2023-06-22 18:03] VITALS: BP 137/77; PULSE 94; RESP 18; TEMP 36.9; O2SAT 100; BMI 44.1
--- NOTE | 2023-06-22 18:24 | ED_ITS ---
HPI - URI/Sore Throat <Nyla Guo PA-C - Last Filed: 06/22/23 18:33> General Chief Complaint: Upper Respiratory Symptoms Stated Complaint: lump behind lt ear/headache/SOB Time Seen by Provider: 06/22/23 18:05 Source: patient Mode of arrival: Family Vehicle History of Present Illness HPI Narrative: 33-year-old female here in the ED for a lump behind her left ear. States she has had on and off URI symptoms for the last couple of months and a few weeks ago she noticed tenderness behind her left ear. A couple of weeks ago she noticed a small lump there and it has not gone away since. States the area is tender. She has no ear pain, sore throat, cough, fever, or any other symptoms at this time but states she has just got over a cold. She denies any other lumps. She has not taken any medication for this so far. Related Data Home Medications Medication Instructions Recorded Confirmed inhaler,assist devices,access 05/15/23 05/15/23 Previous Rx's Medication Instructions Recorded fluoxetine 10 mg capsule 10 mg PO DAILY #90 caps 05/15/23 sertraline 50 mg tablet 50 mg PO DAILY #30 tabs 06/05/23 amoxicillin 500 mg tablet 500 mg PO BID #14 tabs 06/22/23 ibuprofen 600 mg tablet 600 mg PO Q8H PRN pain #20 tabs 06/22/23 Allergies Allergy/AdvReac Type Severity Reaction Status Date / Time paroxetine [From PAXIL] Allergy Intermediate PALPITATIONS, Verified 06/22/23 18:07 LIGHTHEADED fluoxetine AdvReac Headache Verified 06/22/23 18:09 Review of Systems <Nyla Guo PA-C - Last Filed: 06/22/23 18:33> Review of Systems ROS Unobtainable: All systems reviewed & are unremarkable except as noted in HPI and below Patient History <Nyla Guo PA-C - Last Filed: 06/22/23 18:33> Medical History Anxiety (2008) Asthma (2006) Chronic back pain (2007) Chronic headaches (2008) COVID-19 Depression (2008) Hayfever (~1998) Personality disorder (2015) PTSD (post-traumatic stress disorder) (2016) Sciatica Surgical History Anesthesia History of placement of ear tubes (~1993) Status post appendectomy (05/25/12) Status post delivery (09/14/15) Family History Brother Age: 21 ADD (attention deficit disorder) Autism Morbidly obese Developmental disability Grandmother Age: 78 Seizures Hypertension Mother Age: 54 Anxiety Depression PTSD (post-traumatic stress disorder) Sister Age: 32 Anxiety Sister Age: 25 Anxiety Depression PTSD (post-traumatic stress disorder) Father Anxiety Anger Grandfather No problems noted. Sister Anxiety Depression Social History marital status: Smoking Status: Never smoker Smoking Status: Never smoker alcohol intake frequency: holidays/special occasions only Substance Use Type: marijuana Exam <Nyla Guo PA-C - Last Filed: 06/22/23 18:33> Narrative Exam Narrative: GENERAL: [33] year old patient appears stated age. Well-developed patient, in no acute distress. HEAD: Atraumatic. Normocephalic. EYES: Pupils equal round and reactive. Extraocular motions intact. No scleral icterus. No injection or drainage. ENT: Nose without bleeding, purulent drainage. Throat without erythema, tonsillar hypertrophy or exudate. Airway patent. Bilateral TMs and ear canals clear. Left ear with 1 cm mobile subcutaneous lump in the postauricular region with mild surrounding erythema. No notable warmth or other signs of cellulitis or infection. No mastoid tenderness NECK: Trachea midline. Non tender CARDIOVASCULAR: Regular rate and rhythm without murmurs, gallops, or rubs. RESPIRATORY: Clear to auscultation. Breath sounds equal bilaterally. No wheezes, rales, or rhonchi. EXTREMITIES: No edema or joint tenderness. BACK: Nontender without deformity or crepitance. No flank tenderness. NEURO: AOx3. SKIN: No rash or erythema of visible areas Initial Vital Signs Initial Vital Signs: Vital Signs Temperature 98.5 F 06/22/23 18:03 Pulse Rate 94 H 06/22/23 18:03 Respiratory Rate 18 06/22/23 18:03 Blood Pressure 137/77 10/20/23 18:03 Pulse Oximetry 100 06/22/23 18:03 Oxygen Delivery Method Room Air 06/22/23 18:03 <DO Girish Brambila Last Filed: 06/23/23 09:40> Initial Vital Signs Initial Vital Signs: Vital Signs Temperature 98.5 F 06/22/23 18:03 Pulse Rate 94 H 06/22/23 18:03 Respiratory Rate 18 06/22/23 18:03 Blood Pressure 137/77 06/22/23 18:03 Pulse Oximetry 100 06/22/23 18:03 Oxygen Delivery Method Room Air 06/22/23 18:03 Course <Nyla Guo PA-C - Last Filed: 06/22/23 18:33> Vital Signs Vital signs: Vital Signs - 8 hr 06/22/23 18:03 Temperature 98.5 F Pulse Rate 94 H Respiratory Rate 18 Blood Pressure 137/77 Pulse Oximetry 100 Oxygen Delivery Method Room Air <DO Girish Brambila Last Filed: 06/23/23 09:40> Vital Signs Vital signs: Vital Signs - 8 hr 06/22/23 18:03 Temperature 98.5 F Pulse Rate 94 H Respiratory Rate 18 Blood Pressure 137/77 Pulse Oximetry 100 Oxygen Delivery Method Room Air MDM - URI/Sore Throat <RAY Evangelista Last Filed: 06/22/23 18:33> MDM Narrative Medical decision making narrative: Patient has had a small lump and tenderness behind her left ear for several weeks. On exam there is a 1 cm mobile subcutaneous mass with tenderness in the postauricular region. This is consistent with postauricular lymphadenopathy. Her ear canals and tympanic membranes are unremarkable without infection. She has no other lymphadenopathy. She has no concerning symptoms for mastoiditis or cellulitis. We will prescribe amoxicillin and ibuprofen and patient instructed if the lymphadenopathy persists for more than a few more weeks she should follow up with her primary care provider to have it re-evaluated. Multiple etiologies for patient's symptoms considered including, but not limited to: Otitis media, otitis externa, URI, mastoiditis, lymphadenopathy, cellulitis Prior Charts reviewed: None Labs reviewed and interpreted by myself: None Imaging reviewed: None Consultations: None Findings and discharge diagnosis discussed with patient/family followed by verbalization of understanding Return precautions discussed with patient/family whom verbalize understanding of diagnosis and plan Discharge Plan Departure Patient Disposition: Home Clinical Impression: Lymphadenopathy, postauricular Instructions: DI for Lymphadenopathy Activity Restrictions/Additional Instructions: Thank you for being seen at the [facility] Emergency Department today. You were seen for lymphadenopathy behind your left ear which is very common after a viral infection. Due to the tenderness of the area and the length of time it has been present you are being prescribed an antibiotic. Please take until it is finished. Please also take ibuprofen 600 mg every 6-8 hours for 3-5 days which will help with swelling and pain. Please avoid touching the area frequently as this can make it swell more and be more painful. If the pain and swelling persists or worsens after another few weeks please follow up with your primary care provider. Hope you feel better soon. Prescriptions: New amoxicillin 500 mg tablet 500 mg PO BID Qty: 14 0RF ibuprofen 600 mg tablet 600 mg PO Q8H PRN (Reason: pain) Qty: 20 0RF No Action sertraline 50 mg tablet 50 mg PO DAILY Qty: 30 1RF (DME) inhaler,assist devices,access .ROUTE fluoxetine 10 mg capsule 10 mg PO DAILY Qty: 90 1RF Referrals: Simone Sneed DO [Primary Care Provider] - Stand Alone Forms: Patient Portal/API ED Sign-out <Kaleigh Perez DO - Last Filed: 06/23/23 09:40> Cosign ED Attending Kim Attestation: I was immediately available in the department for consultation. Documentation has been reviewed.
== END 2023-06-22 18:45 | disposition home or self-care (01) ==
PROVIDERS: Emergency Provider Physician Assistant; PCP Family Medicine
DX: R59.0 Localized enlarged lymph nodes (principal)
CPT/HCPCS: 99281

== ENCOUNTER 2023-07-30 15:37 | Emergency (ER) | payer OTHER, MEDICAID, SELFPAY ==
[2023-07-30 15:39] VITALS: BP 143/90; PULSE 87; RESP 20; TEMP 36.6; O2SAT 100; BMI 43.9
--- NOTE | 2023-07-30 16:17 | ED.DENTAL ---
HPI - Dental/Oral <Leonard Herman PA-C - Last Filed: 07/30/23 16:25> General Chief complaint: Dental/Oral Stated complaint: Lower jaw pain into left ear Time Seen by Provider: 07/30/23 15:46 Source: patient Mode of arrival: Ambulatory History of Present Illness HPI Narrative: 33-year-old female with past medical history anxiety and depression, borderline personality disorder, PTSD, GERD presents to the ED with 4 days of left-sided lower dental pain. Patient has poor dentition at baseline. Patient endorses that the pain from the lower left jaw is radiating to her left ear. Patient denies fever, chills, nausea, vomiting. Patient was recently treated with antibiotics for a right-sided upper dental extraction. Related Data Home Medications Medication Instructions Recorded Confirmed inhaler,assist devices,access 05/15/23 07/17/23 Previous Rx's Medication Instructions Recorded ibuprofen 600 mg tablet 600 mg PO Q8H PRN pain #20 tabs 06/22/23 sertraline 100 mg tablet 50 mg (1/2 x 100 mg) PO DAILY #90 07/17/23 tabs Allergies Allergy/AdvReac Type Severity Reaction Status Date / Time paroxetine [From PAXIL] Allergy Intermediate PALPITATIONS, Verified 07/17/23 10:14 LIGHTHEADED fluoxetine AdvReac Headache Verified 07/17/23 10:14 Review of Systems <Leonard Herman PA-C - Last Filed: 07/30/23 16:25> Constitutional Constitutional: Denies chills, Denies fatigue, Denies fever(s), Denies frequent falls, Denies lethargy and Denies weakness Eyes Eyes: Denies change in vision, Denies eye discharge, Denies irritation and Denies loss of vision ENT Ears, Nose, Mouth, and Throat: Denies change in voice, Reports dental pain, Denies dizziness, Denies neck pain, Denies sore throat and Denies throat swelling Cardiovascular Cardiovascular: Denies chest pain, Denies irregular heart rhythm, Denies lightheadedness, Denies palpitations, Denies dyspnea, Denies dyspnea on exertion and Denies orthopnea Respiratory Respiratory: Denies cough, Denies dyspnea, Denies dyspnea on exertion and Denies wheezing Gastrointestinal Gastrointestinal: Denies abdominal pain, Denies change in bowel habits, Denies diarrhea, Denies nausea and Denies vomiting Musculoskeletal Musculoskeletal: Denies neck pain and Denies numbness Integumentary/Breasts Skin/Breast: Denies pruritus, Denies erythema, Denies rash and Denies wounds Neurologic Neurologic: Denies behavioral changes, Denies confusion, Denies dizziness, Denies frequent falls, Denies loss of vision, Denies numbness and Denies weakness Psychiatric Psychiatric: Denies anxiety, Denies behavioral changes, Denies confusion, Denies depression, Denies homicidal ideation and Denies suicidal ideation Endocrine Endocrine: Denies fatigue, Denies flushing and Denies palpitations Hematologic/Lymphatic Hematologic/Lymphatic: Denies easy bruising Allergic/Immunologic Allergic/Immunologic: Denies urticaria, Denies throat swelling and Denies wheezing Patient History <Leonard Herman PA-C - Last Filed: 07/30/23 16:25> Medical History COVID-19 Sciatica Chronic back pain (2007) Chronic headaches (2008) Depression (2008) PTSD (post-traumatic stress disorder) (2015) Hayfever (~1998) Asthma (2006) Personality disorder (2015) Anxiety (2009) Surgical History Anesthesia History of placement of ear tubes (~1993) Status post delivery (09/14/15) Status post appendectomy (05/25/12) Family History Brother Age: 21 ADD (attention deficit disorder) Autism Morbidly obese Developmental disability Grandmother Age: 78 Seizures Hypertension Mother Age: 54 Anxiety Depression PTSD (post-traumatic stress disorder) Sister Age: 32 Anxiety Sister Age: 25 Anxiety Depression PTSD (post-traumatic stress disorder) Father Anxiety Anger Grandfather No problems noted. Sister Anxiety Depression Social History marital status: Smoking Status: Never smoker Smoking Status: Never smoker alcohol intake frequency: holidays/special occasions only Substance Use Type: marijuana Exam <Leonard Herman PA-C - Last Filed: 07/30/23 16:25> Narrative Exam Narrative: Const General:?cooperative, healthy appearing and comfortable HENCT Head:?normal to inspection Ears:?hearing grossly normal bilaterally Nose:?external nose normal Face and sinus:?normal facial exam and sinuses nontender Mouth:?oral mucosae normal; poor dentition; left lower teeth all appear to have caries or cracks. There is tenderness to palpation of the left lower gums, consistent with possible periapical abscess. Throat:?posterior oropharynx normal Eyes General:?appearance normal, both eyes and all related structures Neck Neck:?normal visual inspection and no lymphadenopathy noted Resp Effort & Inspection:?normal respiratory effort Auscultation:?clear to auscultation bilaterally Cardio Rate:?regular rate Rhythm:?regular rhythm Neuro General:?patient alert, patient awake and patient oriented x3 Initial Vital Signs Initial Vital Signs: Vital Signs Temperature 98 F 07/30/23 15:39 Pulse Rate 87 07/30/23 15:39 Respiratory Rate 20 07/30/23 15:39 Blood Pressure 143/90 H 07/30/23 15:39 Pulse Oximetry 100 07/30/23 15:39 Oxygen Delivery Method Room Air 07/30/23 15:39 <Delia Mart MD - Last Filed: 07/30/23 18:19> Initial Vital Signs Initial Vital Signs: Vital Signs Temperature 98 F 07/30/23 15:39 Pulse Rate 87 07/30/23 15:39 Respiratory Rate 20 07/30/23 15:39 Blood Pressure 143/90 H 07/30/23 15:39 Pulse Oximetry 100 07/30/23 15:39 Oxygen Delivery Method Room Air 07/30/23 15:39 Course <Leonard Herman PA-C - Last Filed: 07/30/23 16:25> Vital Signs Vital signs: Vital Signs - 8 hr 07/30/23 15:39 Temperature 98 F Pulse Rate 87 Respiratory Rate 20 Blood Pressure 143/90 H Pulse Oximetry 100 Oxygen Delivery Method Room Air <Delia Mart MD - Last Filed: 07/30/23 18:19> Vital Signs Vital signs: Vital Signs - 8 hr 07/30/23 15:39 Temperature 98 F Pulse Rate 87 Respiratory Rate 20 Blood Pressure 143/90 H Pulse Oximetry 100 Oxygen Delivery Method Room Air MDM - Dental/Oral <Leonard Herman PA-C - Last Filed: 07/30/23 16:25> MDM Narrative Medical decision making narrative: 33-year-old female with past medical history anxiety and depression, borderline personality disorder, PTSD, GERD presents to the ED with 4 days of left-sided lower dental pain. Physical exam is most consistent with a periapical abscess versus cracked tooth versus dental caries versus other. Recommend patient start antibiotics and follow-up with a dentist. Discussed with patient, she declined antibiotics. Counseled patient on the risks of not starting antibiotics including multiple complications including sepsis, . Recommend patient follow-up with a dentist as soon as possible. Patient states that she has no dental insurance. Recommended [facility] and a couple other free resources. Patient refuses to be seen at [facility] due to prior bad experiences. ED return precautions discussed with patient. Patient verbalized understanding. Medical records reviewed: Yes Discharge Plan Departure Patient Disposition: Home Clinical Impression: Pain, dental Instructions: DI for Dental Pain Activity Restrictions/Additional Instructions: You were evaluated in the ED today for dental pain. It is likely that you either have an abscess or a cracked tooth or dental caries that is causing your symptoms. Please follow-up with a dentist as soon as possible for further evaluation. You may go to [facility] dental clinic in [place] on , or the state website. You have been provided information leaflets for these resources. You declined antibiotics today. Please be aware that if you have an infection that goes untreated, it can spread to the blood and eventually result in several complications including . Return to the ED if you have worsening symptoms, fever, chills, persistent vomiting. Prescriptions: No Action sertraline 100 mg tablet 50 mg PO DAILY Qty: 90 3RF (DME) inhaler,assist devices,access .Route ibuprofen 600 mg tablet 600 mg PO Q8H PRN (Reason: pain) Qty: 20 0RF Referrals: Simone Sneed DO [Primary Care Provider] - Stand Alone Forms: Patient Portal/API ED Sign-out <Delia Mart MD - Last Filed: 07/30/23 18:19> Cosign ED Attending Rondaature Attestation: I did not see this patient. I was available all times for consultation.
== END 2023-07-30 16:21 | disposition home or self-care (01) ==
PROVIDERS: Emergency Provider Student in an Organized Health Care Education/Training Program; PCP Family Medicine
DX: K08.89 Other specified disorders of teeth and supporting structures (principal)
CPT/HCPCS: 99281; 99282

== ENCOUNTER 2023-11-22 19:58 | Emergency (ER) | payer OTHER, SELFPAY ==
[2023-11-22 20:05] VITALS: BP 131/74; PULSE 106; RESP 16; TEMP 37.3; O2SAT 100; BMI 43.2
--- NOTE | 2023-11-22 20:51 | DI.RAD.S_ITS ---
PROCEDURE: XR KNEE LT 3V INDICATIONS: pain injury TECHNIQUE: 3 views of the knee were acquired. COMPARISON: [facility], CR, XR KNEE RT 3V, 04/10/2018, 21:34. FINDINGS: Bones: No fractures or dislocations. No suspicious bony lesions. Soft tissues: No joint effusion. No suspicious soft tissue calcifications. IMPRESSION: No acute bony abnormality or significant effusion. Agree with preliminary emergency room report. Dictated by: Lavonne Barnes M.D. on 11/22/2023 at 22:23 Approved by: Lavonne Barnes M.D. on 11/22/2023 at 22:24
--- NOTE | 2023-11-22 20:54 | ED.LOWEXIN ---
HPI - Extremity Injury (Lower) General Chief Complaint: Extremity Injury, Lower Stated Complaint: lt knee injury Time Seen by Provider: 11/22/23 20:51 Source: patient Mode of arrival: Ambulatory History of Present Illness HPI Narrative: Patient is a healthy 33-year-old female who presents today with left knee pain. She reports that she was at work going up stairs when she felt something in her knee. She was able to continue to walk on it throughout the day but it progressively got worse. She now states that she is limping and it is difficult for her to ambulate. No numbness or tingling. Denies any sort of back pain after limping all day she does report some hip pain but did not initially have any hip pain. Related Data Home Medications Medication Instructions Recorded Confirmed inhaler,assist devices,access 05/15/23 08/16/23 Previous Rx's Medication Instructions Recorded ibuprofen 600 mg tablet 600 mg PO Q8H PRN pain #20 tabs 06/22/23 sertraline 100 mg tablet 50 mg (1/2 x 100 mg) PO DAILY #90 07/17/23 tabs Allergies Allergy/AdvReac Type Severity Reaction Status Date / Time paroxetine [From PAXIL] Allergy Intermediate PALPITATIONS, Verified 08/16/23 10:18 LIGHTHEADED fluoxetine AdvReac Headache Verified 08/16/23 10:18 Patient History Medical History Ulnar nerve entrapment at elbow COVID-19 Sciatica Chronic back pain (2008) Chronic headaches (2009) Depression (2009) PTSD (post-traumatic stress disorder) (2015) Hayfever (~1998) Asthma (2007) Personality disorder (2016) Anxiety (2009) Surgical History Anesthesia History of placement of ear tubes (~1993) Status post delivery (09/14/15) Status post appendectomy (05/25/12) Family History Brother Age: 22 ADD (attention deficit disorder) Autism Morbidly obese Developmental disability Grandmother Age: 79 Seizures Hypertension Mother Age: 55 Anxiety Depression PTSD (post-traumatic stress disorder) Sister Age: 33 Anxiety Sister Age: 26 Anxiety Depression PTSD (post-traumatic stress disorder) Father Anxiety Anger Grandfather No problems noted. Sister Anxiety Depression Social History marital status: Smoking Status: Never smoker Smoking Status: Never smoker alcohol intake frequency: holidays/special occasions only Substance Use Type: does not use Exam Initial Vital Signs Initial Vital Signs: Vital Signs Temperature 99.1 F 11/22/23 20:05 Pulse Rate 106 H 11/22/23 20:05 Respiratory Rate 16 11/22/23 20:05 Blood Pressure 131/74 11/22/23 20:05 Pulse Oximetry 100 11/22/23 20:05 Oxygen Delivery Method Room Air 11/22/23 20:05 GENERAL: Alert well-appearing 33-year-old female sitting in wheelchair CARDIOVASCULAR: peripheral pulses in tact, cap refill <2 sec RESPIRATORY: No respiratory distress, speaks in full sentences without difficulty EXTREMITIES: Normal range of motion, no clubbing or edema. Neurovascularly intact Left knee mild tenderness lateral side able to flex and extend although decreased range of motion no erythema NEUROLOGICAL: Cranial nerves II through XII grossly intact. Normal gait and speech. SKIN: Warm, dry, no petechiae, no rashes or lesions. Course Orders Ordered: ED Orders 11/22/23 20:51 XR knee LT 3V Stat Discontinued Medications Ibuprofen (Ibuprofen 400 Mg Tablet) 800 mg PO NOW ONE Stop: 11/22/23 20:59 Last Admin: 11/22/23 21:17 Dose: 800 mg Documented By: AB Vital Signs Vital signs: Vital Signs - 8 hr 11/22/23 20:05 11/22/23 22:03 Temperature 99.1 F Pulse Rate 106 H 97 H Respiratory Rate 16 18 Blood Pressure 131/74 130/76 Pulse Oximetry 100 98 Oxygen Delivery Method Room Air Room Air MDM - Extremity Injury (Lower) Imaging Data Extremity x-ray #1: My Impression: no fracture Radiologist's Impression: PROCEDURE: XR KNEE LT 3V INDICATIONS: pain injury TECHNIQUE: 3 views of the knee were acquired. [facility] 21[facility]. FINDINGS: Bones: No fractures or dislocations. No suspicious bony lesions. Soft tissues: No joint effusion. No suspicious soft tissue calcifications. IMPRESSION: No acute bony abnormality or significant effusion. Agree with preliminary emergency room report. Dictated by: Lavonne Barnes M.D. on 11/22/2023 at 22:23 MDM Narrative Medical decision making narrative: Patient is a healthy 33-year-old female who presents today with left knee pain. She did not fall but it sounds so injured it while going up stairs progressively getting worse. Difficult to weightbear. X-ray has been reviewed by myself and is negative for fracture. Symptoms are most consistent with a knee sprain. She has given a knee immobilizer and crutches. She reports that she has a prescription of ibuprofen at home and does not need anymore. Paperwork has been filled out. Discharge Plan Departure Patient Disposition: Home Clinical Impression: Left knee sprain Instructions: DI for Knee Sprain Activity Restrictions/Additional Instructions: *You have been diagnosed with left knee sprain *What to do: At this time use knee immobilizer while active. Use crutches as needed. Avoid stairs if possible fit hurts. Recommend not standing for long periods of time if it is hurting. *Continue to take medications as directed Motrin 600 mg every 8 hours if needed for [id number] pain *Follow up with your primary care provider in 2-3 days or call [phone] *Return to ER if you should have increasing pain swelling redness or any new, worsening or concerning symptoms Prescriptions: No Action sertraline 100 mg tablet 50 mg PO DAILY Qty: 90 3RF (DME) inhaler,assist devices,access .Route ibuprofen 600 mg tablet 600 mg PO Q8H PRN (Reason: pain) Qty: 20 0RF Referrals: Simone Sneed DO [Primary Care Provider] - Stand Alone Forms: Patient Portal/API, Work Release Note
[2023-11-22 21:10] VITALS: BMI 43.2
[2023-11-22] MEDS: IBUPROFEN 400 MG TABLET 800 MG PO (21:17)
[2023-11-22 22:03] VITALS: BP 130/76; PULSE 97; RESP 18; O2SAT 98
== END 2023-11-22 22:04 | disposition home or self-care (01) ==
PROVIDERS: Emergency Provider Emergency Medicine; PCP Family Medicine
DX: S83.92XA Sprain of unspecified site of left knee, initial encounter (principal); X58.XXXA Exposure to other specified factors, initial encounter
CPT/HCPCS: 73562; 99283

== ENCOUNTER 2023-12-01 21:07 | Emergency (ER) | payer SELFPAY ==
[2023-12-01 21:13] VITALS: BP 120/77; PULSE 87; O2SAT 99
[2023-12-01 21:17] VITALS: BP 120/77; PULSE 92; RESP 19; TEMP 36.9; O2SAT 99; BMI 42.6
[2023-12-01 21:30] VITALS: BP 120/63; PULSE 82; O2SAT 99
--- NOTE | 2023-12-01 21:45 | ED_ITS ---
HPI - General Adult General Chief complaint: Upper Respiratory Symptoms Stated complaint: cough, chills, sob Time Seen by Provider: 12/01/23 21:44 Source: patient Mode of arrival: Ambulatory Limitations: no limitations History of Present Illness HPI narrative: This is a 33-year-old female with history of asthma who presents with complaint of nasal congestion, hoarseness, cough, chest tightness for the past 6 days. Patient states she was exposed to RSV about a week and a half ago with her nephew. She states she has felt hot and cold at night. She had a sore throat initially that has resolved. She states the tightness in her chest has increased. She has used her albuterol she states it has not made much change accept today. Patient states she does not feel short of breath. She has had a little bit of a cough that has had occasional clear yellow sputum but not consistently. She is also noticed a lot of postnasal drainage. She has been taking Mucinex which he is found mildly helpful. Patient uses albuterol PRN, does not use a steroid inhaler. States she had an admission when she was a small child no hospital admission does not adult. She has had prior , knee surgery and appendectomy. States allergic to paroxetine and fluoxetine. No tobacco, occasional alcohol, no recreational drugs. Patient does specifically wish to be tested for RSV. Related Data Home Medications Medication Instructions Recorded Confirmed inhaler,assist devices,access 05/15/23 11/28/23 Previous Rx's Medication Instructions Recorded ibuprofen 600 mg tablet 600 mg PO Q8H PRN pain #20 tabs 06/22/23 sertraline 100 mg tablet 50 mg (1/2 x 100 mg) PO DAILY #90 07/17/23 tabs Allergies Allergy/AdvReac Type Severity Reaction Status Date / Time paroxetine [From PAXIL] Allergy Intermediate PALPITATIONS, Verified 11/28/23 13:01 LIGHTHEADED fluoxetine AdvReac Headache Verified 11/28/23 13:01 Review of Systems Review of Systems ROS Unobtainable: All systems reviewed & are unremarkable except as noted in HPI and below Patient History Medical History Ulnar nerve entrapment at elbow COVID-19 Sciatica Chronic back pain (2007) Chronic headaches (2008) Depression (2009) PTSD (post-traumatic stress disorder) (2016) Hayfever (~1998) Asthma (2007) Personality disorder (2016) Anxiety (2009) Surgical History Anesthesia History of placement of ear tubes (~1993) Status post delivery (09/14/15) Status post appendectomy (05/25/12) Family History Brother Age: 22 ADD (attention deficit disorder) Autism Morbidly obese Developmental disability Grandmother Age: 79 Seizures Hypertension Mother Age: 55 Anxiety Depression PTSD (post-traumatic stress disorder) Sister Age: 33 Anxiety Sister Age: 26 Anxiety Depression PTSD (post-traumatic stress disorder) Father Anxiety Anger Grandfather No problems noted. Sister Anxiety Depression Social History marital status: Smoking Status: Never smoker Smoking Status: Never smoker alcohol intake frequency: holidays/special occasions only Substance Use Type: does not use Exam Narrative Exam Narrative: GEN: well nourished, well appearing female, alert and oriented x 3, patient appears to be in while distress. HEENT: Atraumatic, pupils are equal round reactive to light, extraocular movements are intact, nares show bilateral clear rhinorrhea, TMs show bilateral fluid, light reflexes present, slightly retracted with no erythema, there is no conjunctival pallor. Throat is without any exudates, erythema, tonsillar enlargement or uvular deviation, patient does have some cobblestoning and pos tnasal drip. HEART: Regular rate and rhythm without murmur, clicks, rubs. LUNGS:Lungs clear to auscultation, no wheezes, rales, crackles, chest moves symmetrically, no tachypnea or accessory muscle use. Patient does have a dry cough while in the room occasionally. ABD:bowel sounds normal, soft, non-tender, no guarding, rebound, rigidity, no masses noted, no hepatosplenomegaly MSCL: Non-tender, no muscle atrophy, muscles strength 5/5 upper and lower extremities, full range of motion, normal gait NEURO:CN 2-12 intact, sensation normal Initial Vital Signs Initial Vital Signs: Vital Signs Pulse Rate 87 12/01/23 21:13 Blood Pressure 120/77 12/01/23 21:13 Pulse Oximetry 99 12/01/23 21:13 Oxygen Delivery Method Room Air 12/01/23 21:13 Course Orders Ordered: ED Orders 12/01/23 22:00 Covid-19 + FLU A/B + RSV - PCR Stat Discontinued Medications Dexamethasone (Dexamethasone 10 Mg/Ml Vial) 10 mg PO NOW ONE Stop: 12/01/23 21:56 Last Admin: 12/01/23 22:03 Dose: 10 mg Documented By: AB Vital Signs Vital signs: Vital Signs - 8 hr 12/01/23 21:13 12/01/23 21:13 12/01/23 21:17 Temperature 98.4 F Pulse Rate 87 92 H Respiratory Rate 19 Blood Pressure 120/77 120/77 Pulse Oximetry 99 99 Oxygen Delivery Method Room Air Room Air 12/01/23 21:30 12/01/23 21:30 12/01/23 22:00 Temperature Pulse Rate 82 Respiratory Rate Blood Pressure 120/63 122/62 Pulse Oximetry 99 Oxygen Delivery Method Room Air 12/01/23 22:00 12/01/23 22:30 12/01/23 22:30 Temperature Pulse Rate 82 86 Respiratory Rate Blood Pressure 123/68 Pulse Oximetry 99 98 Oxygen Delivery Method Room Air Room Air Medical Decision Making Lab Data Labs: Lab Results 12/01/23 Range/Units 22:00 SARS-CoV-2 (PCR) Positive H (Negative) Influenza A (RT-PCR) Flu a negative (NEGATIVE) Influenza B (RT-PCR) Flu b negative (NEGATIVE) RSV (PCR) Negative (Negative) MDM Narrative Medical decision making narrative: 33-year-old female with complaint of upper respiratory symptoms and some chest tightness with a history of asthma. Lungs are clear on examination patient has occasional cough but not persistent. Vitals overall are fairly appropriate hea rt rates in the 90s blood pressure is 120/77 she is afebrile with no tachypnea accessory muscle use and 99% on room air. Patient's exam is consistent with upper respiratory infection. Patient would specifically like to have RSV testing so sent COVID/influenza/RSV. We will give a single dose of dexamethasone as she has not wheezy currently but does have a history of asthma and states that she felt like her inhaler was helpful this afternoon. Patient is positive for covid. Discharge Plan Departure Patient Disposition: Home Clinical Impression: COVID-19 virus infection Instructions: DI for COVID-19 (Suspected or Confirmed ) Activity Restrictions/Additional Instructions: Please follow up with your physician in the next week for recheck if you are not improving. You have tested positive for COVID. This typically takes 7-10 days to resolve. You can continue with [id number] medications such as Mucinex. Usual inhaler as needed. Please return for new or worsening symptoms, new chest pain or shortness of breath, increasing meter use your inhaler, passing out, persistent vomiting, or other new or concerning changes. Prescriptions: No Action sertraline 100 mg tablet 50 mg PO DAILY Qty: 90 3RF (DME) inhaler,assist devices,access .Route ibuprofen 600 mg tablet 600 mg PO Q8H PRN (Reason: pain) Qty: 20 0RF Referrals: Simone Sneed DO [Primary Care Provider] - Stand Alone Forms: Patient Portal/API, Work Release Note
[2023-12-01 22:00] VITALS: BP 122/62; PULSE 82; O2SAT 99
[2023-12-01] MEDS: DEXAMETHASONE 10 MG/ML VIAL PO (22:03)
[2023-12-01 22:30] VITALS: BP 123/68; PULSE 86; O2SAT 98
[2023-12-01 22:42] LABS: Influenza A - CEPHEID Flu A NEGATIVE (NEGATIVE); Influenza B - CEPHEID Flu B NEGATIVE (NEGATIVE); Respiratory Syncytial Virus Negative (Negative)
[2023-12-01 22:46] LABS: COVID-19 CEPHEID 4-PLEX PCR POSITIVE (Negative)
== END 2023-12-01 22:55 | disposition home or self-care (01) ==
PROVIDERS: Emergency Provider Emergency Medicine; PCP Family Medicine
DX: U07.1 COVID-19 (principal)
CPT/HCPCS: 0241U; 99283; J1100

== ENCOUNTER 2023-12-10 13:32 | Emergency (ER) | payer OTHER, SELFPAY ==
[2023-12-10 13:49] VITALS: BP 124/72; PULSE 97; RESP 18; TEMP 36.4; O2SAT 100; BMI 43.2
--- NOTE | 2023-12-10 18:01 | PC.NURSE ---
1749 patient called on red phone states she is in severe pain. Requesting tylenol/ibuprofen. Verbal order obtained from Dr Jeff.
[2023-12-10] MEDS: ACETAMINOPHEN 325 MG TABLET 975 MG PO (18:11)
--- NOTE | 2023-12-10 18:12 | PC.NURSE ---
Went to lobby to medicate patient, patient was walking out of ER doors. I was just putting this in my car, I am not leaving
--- NOTE | 2023-12-10 19:43 | ED_ITS ---
HPI - Fall General Chief Complaint: Fall Stated Complaint: fell at work, R side of body pain Time Seen by Provider: 12/10/23 18:07 Source: patient Mode of arrival: Ambulatory History of Present Illness HPI Narrative: 33-year-old female. Not on anticoagulation. Was at work last evening when she states she tripped and fell and landed on her right side. Unsure if she hit her head. Was able to get up and walk afterwards. Has been ambulatory but does have right shoulder discomfort. Also states she is pain over the right side of her body. Took Tylenol ibuprofen and cyclobenzaprine with minimal relief. Related Data Home Medications Medication Instructions Recorded Confirmed inhaler,assist devices,access 05/15/23 11/28/23 Previous Rx's Medication Instructions Recorded ibuprofen 600 mg tablet 600 mg PO Q8H PRN pain #20 tabs 06/22/23 sertraline 100 mg tablet 50 mg (1/2 x 100 mg) PO DAILY #90 07/17/23 tabs Allergies Allergy/AdvReac Type Severity Reaction Status Date / Time paroxetine [From PAXIL] Allergy Intermediate PALPITATIONS, Verified 11/28/23 13:01 LIGHTHEADED fluoxetine AdvReac Headache Verified 11/28/23 13:01 Review of Systems Constitutional Constitutional: Reports system reviewed and no additional complaints, except as documented Musculoskeletal Musculoskeletal: Reports system reviewed and no additional complaints, except as documented Integumentary/Breasts Skin/Breast: Reports system reviewed and no additional complaints, except as documented Patient History Medical History Ulnar nerve entrapment at elbow COVID-19 Sciatica Chronic back pain (2007) Chronic headaches (2008) Depression (2009) PTSD (post-traumatic stress disorder) (2015) Hayfever (~1998) Asthma (2006) Personality disorder (2015) Anxiety (2009) Surgical History Anesthesia History of placement of ear tubes (~1993) Status post delivery (09/14/15) Status post appendectomy (05/25/12) Family History Brother Age: 22 ADD (attention deficit disorder) Autism Morbidly obese Developmental disability Grandmother Age: 79 Seizures Hypertension Mother Age: 55 Anxiety Depression PTSD (post-traumatic stress disorder) Sister Age: 33 Anxiety Sister Age: 26 Anxiety Depression PTSD (post-traumatic stress disorder) Father Anxiety Anger Grandfather No problems noted. Sister Anxiety Depression Social History marital status: Smoking Status: Never smoker Smoking Status: Never smoker alcohol intake frequency: holidays/special occasions only Substance Use Type: does not use Exam Initial Vital Signs Initial Vital Signs: Vital Signs Temperature 97.5 F L 12/10/23 13:49 Pulse Rate 97 H 12/10/23 13:49 Respiratory Rate 18 12/10/23 13:49 Blood Pressure 124/72 12/10/23 13:49 Pulse Oximetry 100 12/10/23 13:49 Oxygen Delivery Method Room Air 12/10/23 13:49 Const General: cooperative and No ill appearing HENMT Head: normal to inspection and normocephalic Resp Effort & Inspection: normal respiratory effort Cardio Rate: regular rate Pulses: radial pulses present on the right Skin General: no rashes or lesions noted Neuro General: patient alert and patient awake Extrem Other: Discomfort with palpation of the superior and posterior aspect of the right shoulder and limited range of motion of the right shoulder. Her right elbow and right wrist are unremarkable. Right lower extremity unremarkable. She is ambulatory. Course Orders Ordered: ED Orders 12/10/23 19:44 XR shoulder RT min 2V Stat Discontinued Medications Acetaminophen (Acetaminophen 325 Mg Tablet) 975 mg PO NOW ONE Stop: 12/10/23 18:04 Last Admin: 12/10/23 18:11 Dose: 975 mg Documented By: [facility] Ketorolac Tromethamine (Ketorolac 30 Mg/Ml Vial) 30 mg IM NOW ONE Stop: 12/10/23 20:56 Last Admin: 12/10/23 21:03 Dose: 30 mg Documented By: GREGORIO Vital Signs Vital signs: Vital Signs - 8 hr 12/10/23 20:54 Pulse Rate 72 Respiratory Rate 18 Blood Pressure 137/80 Pulse Oximetry 94 Oxygen Delivery Method Room Air MDM - Fall Lab Data Attestation: I reviewed the patient's lab results. Labs: Point of Care Testing Test Results Negative Urine Dip Bedside Urine Glucose Negative Bedside Urine Bilirubin - Negative Bedside Urine Ketone - Negative Urine Specific [place] 1.015 Bedside Urine Occult Blood - Negative Bedside Urine pH 7.5 Bedside Urine Protein - Negative Bedside Urine Urobilinogen - Negative Bedside Urine Nitrite - Negative Bedside Urine Leukocytes - Negative Esterase Imaging Data Extremity x-ray #1: Radiologist's Impression: PROCEDURE: XR SHOULDER RT MIN 2V INDICATIONS: R shoulder pain after fall TECHNIQUE: 3 views of the shoulder were acquired. COMPARISON: None. FINDINGS: Bones: No fractures or dislocations. No suspicious bony lesions. Visualized ribs appear intact. Soft tissues: No suspicious soft tissue calcifications. IMPRESSION: No acute bony abnormality. If clinical symptoms persist or clinical suspicion for pathology is high, a repeat examination in 7-10 days, or advanced imaging such as CT or MRI is suggested for further evaluation. MDM Narrative Medical decision making narrative: Patient has been ambulatory since the event. Her right elbow and right wrist are unremarkable. X-ray of the right shoulder shows no acute fractures. The fall was last evening. No indication for head or cervical spine CT. Discussed the use of Tylenol and ibuprofen another conservative measures. Patient declined the need for a note for work. Discharged home with return precautions. Discharge Plan Departure Patient Disposition: Home Clinical Impression: Right shoulder pain Instructions: How To Perform RICE (Rest, Ice, Compress, Elevate) Activity Restrictions/Additional Instructions: You can continue to take your Tylenol/ibuprofen at home for any discomfort. Your muscle relaxers can be helpful as well. Ice can also be helpful. I fl[place] pect that your symptoms will improve over the next couple days. Prescriptions: No Action sertraline 100 mg tablet 50 mg PO DAILY Qty: 90 3RF (DME) inhaler,assist devices,access .Route ibuprofen 600 mg tablet 600 mg PO Q8H PRN (Reason: pain) Qty: 20 0RF Referrals: Simone Sneed DO [Primary Care Provider] - Stand Alone Forms: Patient Portal/API
[2023-12-10 20:54] VITALS: BP 137/80; PULSE 72; RESP 18; O2SAT 94
[2023-12-10] MEDS: KETOROLAC 30 MG/ML VIAL IM (21:03)
== END 2023-12-10 21:06 | disposition home or self-care (01) ==
PROVIDERS: Emergency Provider Emergency Medicine; PCP Family Medicine
DX: M25.511 Pain in right shoulder (principal); W01.0XXA Fall on same level from slipping, tripping and stumbling without subsequent striking against object, initial encounter
CPT/HCPCS: 73030; 81003; 81025; 96372; 99283; J1885

== ENCOUNTER → 2023-12-19 11:39 | Outpatient (CLI) | payer OTHER, SELFPAY ==
--- NOTE | 2023-12-19 11:42 | DI.RAD.S_ITS ---
PROCEDURE: XR KNEE RT 3V INDICATIONS: fell on knee 12/09 TECHNIQUE: 3 views of the knee were acquired. COMPARISON: [facility], CR, XR KNEE 3 VIEWS RIGHT, 06/11/2021, 4:07. [facility], CR, XR KNEE LT 3V, 11/22/2023, 21:02. FINDINGS: Bones: Vertical lucency traversing the proximal tibia persistent although less prominent when compared to prior exam.. No suspicious bony lesions. Soft tissues: Mild joint effusion. No suspicious soft tissue calcifications. IMPRESSION: Proximal tibial lucency suspected to be artifactual. However, given its persistence, recommend correlation point tenderness as subtle fracture cannot be definitively excluded. If concern persists, CT is recommended. Dictated by: Chelle Law M.D. on 12/19/2023 at 21:13 Approved by: Chelle Law M.D. on 12/19/2023 at 21:15
== END ==
LOC: RAD 11:41
PROVIDERS: PCP Family Medicine; Referring Provider Physician Assistant; Visit Provider Physician Assistant
DX: M25.561 Pain in right knee (principal)
CPT/HCPCS: 73562

== ENCOUNTER → 2023-12-26 07:32 | Outpatient (CLI) | payer OTHER, SELFPAY ==
--- NOTE | 2023-12-26 07:33 | DI.RAD.S_ITS ---
PROCEDURE: XR KNEE RT 3V INDICATIONS: interval f/u on prior TECHNIQUE: 3 views of the knee were acquired. COMPARISON: [facility], CR, XR KNEE ARTHRITIC SERIES RT, 02/06/2023, 14:14. [facility], CR, XR KNEE LT 3V, 11/22/2023, 21:02. [facility], CR, XR KNEE RT 3V, 12/19/2023, 11:44. FINDINGS: Bones: No fractures identified. No periosteal reaction. No dislocations. Tricompartmental osteophytic lipping. No suspicious bony lesions. Soft tissues: No joint effusion. No suspicious soft tissue calcifications. IMPRESSION: No fracture demonstrated. No joint effusion. Mild right knee DJD. Dictated by: Tuan Ibrahim M.D. on 12/26/2023 at 9:04 Approved by: Tuan Ibrahim M.D. on 12/26/2023 at 9:08
== END ==
LOC: RAD 07:32
PROVIDERS: PCP Family Medicine; Referring Provider Physician Assistant; Visit Provider Physician Assistant
DX: S89.91XA Unspecified injury of right lower leg, initial encounter (principal); M17.11 Unilateral primary osteoarthritis, right knee; M25.561 Pain in right knee; X58.XXXA Exposure to other specified factors, initial encounter
CPT/HCPCS: 73562

== ENCOUNTER 2024-01-24 17:16 | Emergency (ER) | payer OTHER, SELFPAY ==
[2024-01-24 17:36] VITALS: BP 140/80; PULSE 102; RESP 16; TEMP 37; O2SAT 99; BMI 42.4
[2024-01-24] MEDS: ONDANSETRON 4 MG ODT SL (17:45)
--- NOTE | 2024-01-24 18:36 | PC.NURSE ---
Pt reports taking home test due to nausea, she has been very nauseated for 2-3 days, was nauseated throughout entire first , has not vomited this time. Denies diarrhea or ABD pain. Pt wants conformation of her on paper.
[2024-01-24 18:45] VITALS: BP 115/56; PULSE 88; RESP 20; O2SAT 99
--- NOTE | 2024-01-24 18:46 | ED_ITS ---
HPI - Nausea/Vomiting/Diarrhea <Lesa Dunn PA-C - Last Filed: 01/24/24 18:51> General Chief complaint: Nausea/Vomiting/Diarrhea Stated complaint: nausea, just found out she is Time Seen by Provider: 01/24/24 18:27 History of Present Illness HPI Narrative: 33-year-old female presents with concern for wanting a test to confirm her status and medicine for nausea. Patient states her LMP was December 27 days ago and she has had nausea for a few weeks she has had 2 home tests that were positive with urine. States that she had a normal with a previously and then a few years ago had what s he believes was a miscarriage as she had a positive test and then had bleeding after 4 weeks. She does state that she has a PCP and and is in a happy relationship this is a desired . She states she does not drink alcohol or use recreational drugs. She denies any other complaints or concerns today Related Data Home Medications Medication Instructions Recorded Confirmed inhaler,assist devices,access 05/15/23 01/01/24 Previous Rx's Medication Instructions Recorded ibuprofen 600 mg tablet 600 mg PO Q8H PRN pain #20 tabs 06/22/23 sertraline 100 mg tablet 50 mg (1/2 x 100 mg) PO DAILY #90 07/17/23 tabs ondansetron 4 mg disintegrating 4 mg PO Q8H PRN nausea and 01/24/24 tablet vomiting 10 days #30 tabs pyridoxine (vitamin B6) 10 mg 10 mg PO TID PRN nausea and 01/24/24 tablet vomiting 20 days #60 tabs Allergies Allergy/AdvReac Type Severity Reaction Status Date / Time paroxetine [From PAXIL] Allergy Intermediate PALPITATIONS, Verified 01/01/24 15:43 LIGHTHEADED fluoxetine AdvReac Headache Verified 01/01/24 15:43 Review of Systems <Lesa Dunn PA-C - Last Filed: 01/24/24 18:51> Review of Systems Narrative: See HPI Patient History <Lesa Dunn PA-C - Last Filed: 01/24/24 18:51> Medical History Ulnar nerve entrapment at elbow COVID-19 Sciatica Chronic back pain (2008) Chronic headaches (2009) Depression (2009) PTSD (post-traumatic stress disorder) (2016) Hayfever (~1998) Asthma (2007) Personality disorder (2016) Anxiety (2009) Surgical History Anesthesia History of placement of ear tubes (~1993) Status post delivery (09/14/15) Status post appendectomy (05/25/12) Family History Brother Age: 22 ADD (attention deficit disorder) Autism Morbidly obese Developmental disability Grandmother Age: 79 Seizures Hypertension Mother Age: 55 Anxiety Depression PTSD (post-traumatic stress disorder) Sister Age: 33 Anxiety Sister Age: 26 Anxiety Depression PTSD (post-traumatic stress disorder) Father Anxiety Anger Grandfather No problems noted. Sister Anxiety Depression Social History marital status: Smoking Status: Never smoker Smoking Status: Never smoker alcohol intake frequency: holidays/special occasions only Substance Use Type: does not use Exam <Lesa Dunn PA-C - Last Filed: 01/24/24 18:51> Narrative Exam Narrative: GENERAL: 33 year old patient appears stated age. Obese patient, in mild distress. HEAD: Atraumatic. Normocephalic. EYES: Pupils equal round and reactive. Extraocular motions intact. No scleral icterus. No injection or drainage. ENT: Nose without bleeding, purulent drainage. Airway patent. NECK: Trachea midline. CARDIOVASCULAR: Regular rate and rhythm without murmurs, gallops, or rubs. RESPIRATORY: Clear to auscultation. Breath sounds equal bilaterally. No wheezes, rales, or rhonchi. GASTROINTESTINAL: Abdomen nondistended. EXTREMITIES: No edema or joint tenderness. BACK: Nontender without deformity or crepitance. No flank tenderness. NEURO: AOx3. SKIN: No rash or erythema of visible areas Initial Vital Signs Initial Vital Signs: Vital Signs Temperature 98.6 F 01/24/24 17:36 Pulse Rate 102 H 01/24/24 17:36 Respiratory Rate 16 01/24/24 17:36 Blood Pressure 140/80 01/24/24 17:36 Pulse Oximetry 99 01/24/24 17:36 Oxygen Delivery Method Room Air 01/24/24 17:36 <DO Girish Marion Last Filed: 01/24/24 19:31> Initial Vital Signs Initial Vital Signs: Vital Signs Temperature 98.6 F 01/24/24 17:36 Pulse Rate 102 H 01/24/24 17:36 Respiratory Rate 16 01/24/24 17:36 Blood Pressure 140/80 01/24/24 17:36 Pulse Oximetry 99 01/24/24 17:36 Oxygen Delivery Method Room Air 01/24/24 17:36 Course <Lesa Dunn PA-C - Last Filed: 01/24/24 18:51> Orders Ordered: ED Orders 01/24/24 17:45 Urine Microscopic Stat Discontinued Medications Ondansetron HCl (Ondansetron 4 Mg Odt) 4 mg SL NOW PRN PRN Reason: Nausea And Vomiting Last Admin: 01/24/24 17:45 Dose: 4 mg Documented By: PATRICK Ondansetron HCl (Ondansetron 4 Mg/2 Ml Inj) 4 mg IV NOW PRN PRN Reason: Nausea And Vomiting Vital Signs Vital signs: Vital Signs - 8 hr 01/24/24 17:36 01/24/24 18:45 Temperature 98.6 F Pulse Rate 102 H 88 Respiratory Rate 16 20 Blood Pressure 140/80 115/56 L Pulse Oximetry 99 99 Oxygen Delivery Method Room Air Room Air <DO Girish Marion Last Filed: 01/24/24 19:31> Orders Ordered: ED Orders 01/24/24 17:45 Urine Microscopic Stat Discontinued Medications Ondansetron HCl (Ondansetron 4 Mg Odt) 4 mg SL NOW PRN PRN Reason: Nausea And Vomiting Last Admin: 01/24/24 17:45 Dose: 4 mg Documented By: PATRICK Ondansetron HCl (Ondansetron 4 Mg/2 Ml Inj) 4 mg IV NOW PRN PRN Reason: Nausea And Vomiting Vital Signs Vital signs: Vital Signs - 8 hr 01/24/24 17:36 01/24/24 18:45 Temperature 98.6 F Pulse Rate 102 H 88 Respiratory Rate 16 20 Blood Pressure 140/80 115/56 L Pulse Oximetry 99 99 Oxygen Delivery Method Room Air Room Air MDM - Nausea/Vomiting/Diarrhea <Lesa Dunn PA-C - Last Filed: 01/24/24 18:51> Differential Diagnosis Differential diagnosis: Likely other (Nausea of , 1st trimester) Medical Records Attestation: I reviewed the patient's medical records. Lab Data Attestation: I reviewed the patient's lab results. Labs: Lab Results 01/24/24 Range/Units 17:45 Urine RBC None seen (0-5/HPF) Urine WBC 0-1/hpf (0-5/HPF) Ur Squamous Epith Cells 5-10 /hpf H (0-5/HPF) Urine Bacteria Moderate (10-30) H (None) Ur Culture Indicated? Cult not indicated Vol Urine Centrifuged 10ml (spun) Point of Care Testing Test Results Positive Urine Dip Bedside Urine Glucose Negative Bedside Urine Bilirubin - Negative Bedside Urine Ketone - Negative Urine Specific [place] 1.030 Bedside Urine Occult Blood - Negative Bedside Urine pH 6.0 Bedside Urine Protein + 30 Bedside Urine Urobilinogen - Negative Bedside Urine Nitrite - Negative Bedside Urine Leukocytes - Negative Esterase MDM Narrative Medical decision making narrative: This is a obese 33-year-old woman presenting with concern for wanting a urine test and medication for nausea. LMP was 27 days ago. Positive home test. Patient has a positive urine test today. She has no pelvic pain cramping bleeding or other concerning symptoms and a hCG blood draw is not obtained today. Prescription for pyridoxine and Zofran to be used if pyridoxine is not effective. Patient is advised to follow up closely with her primary care provider and work with them on getting her scheduled for Ob appointment/reach out for OB scheduling independently. Return precautions provided, follow-up plan discussed, all questions answered. <Lalo Jeff DO - Last Filed: 01/24/24 19:31> Lab Data Labs: Lab Results 01/24/24 Range/Units 17:45 Urine RBC None seen (0-5/HPF) Urine WBC 0-1/hpf (0-5/HPF) Ur Squamous Epith Cells 5-10 /hpf H (0-5/HPF) Urine Bacteria Moderate (10-30) H (None) Ur Culture Indicated? Cult not indicated Vol Urine Centrifuged 10ml (spun) Point of Care Testing Test Results Positive Urine Dip Bedside Urine Glucose Negative Bedside Urine Bilirubin - Negative Bedside Urine Ketone - Negative Urine Specific [place] 1.030 Bedside Urine Occult Blood - Negative Bedside Urine pH 6.0 Bedside Urine Protein + 30 Bedside Urine Urobilinogen - Negative Bedside Urine Nitrite - Negative Bedside Urine Leukocytes - Negative Esterase Discharge Plan Departure Patient Disposition: Home Clinical Impression: Nausea/vomiting in Activity Restrictions/Additional Instructions: *You have been diagnosed with [nausea ] *What to do: *Please continue to take your regular medications as directed. [2 ] New medication prescriptions sent to your pharmacy: [Pyridoxine and Zofran] [ ] New medication written as a paper prescription [ ] No new medications given *Please follow up with your primary care provider in 2-3 days, call for an appointment. Let them know you were seen in the Emergency Department and that we ask that you be seen in follow up. We will electronically transmit a record of today's note if your PCP is in our system. You came in today wanting to confirm the positive test he had it home, you did have a positive urine test here today as well. You also wanted some options to help with nausea. The safest and best option for nausea and is pyridoxine or vitamin B6 I did prescribe this for you although you may need to get it [id number]. I also prescribed some Zofran which is another medication that can be used safely in although it has best not to use this superintendent terminal you can use it when needed if you are nausea is acting up or if the pyridoxine is not helping. Please reach out to your primary care provider and let them know that you are and you can make a plan for a visit and ask them for a referral to OB. Likely OB will want to get you in to be seen somewhere between week 8 and 12. In the meantime try to stay hydrated eat healthy make sure you are getting plenty of rest and avoid alcohol or recreational drugs. *If you do not have a primary care provider please contact the [facility] Resource line at [phone]. They will ask some questions about your medical history and help get you set up with a doctor in the community. *Return to Emergency Department if you should have any new, worsening or concerning symptoms, such as [fever greater than 101 F, shaking chills, worsening pain, persistent vomiting or other bothersome symptoms] Prescriptions: New pyridoxine (vitamin B6) 10 mg tablet 10 mg PO TID PRN (Reason: nausea and vomiting) 20 Days Qty: 60 0RF ondansetron 4 mg tablet,disintegrating 4 mg PO Q8H PRN (Reason: nausea and vomiting) 10 Days Qty: 30 0RF No Action sertraline 100 mg tablet 50 mg PO DAILY Qty: 90 3RF (DME) inhaler,assist devices,access .Route ibuprofen 600 mg tablet 600 mg PO Q8H PRN (Reason: pain) Qty: 20 0RF Referrals: Simone Sneed DO [Primary Care Provider] - Stand Alone Forms: Patient Portal/API ED Sign-out <Lalo Jeff DO - Last Filed: 01/24/24 19:31> Cosign ED Attending Cosignature Attestation: Dr Jeff Co-Sign Statement: I was available for consultation during this patient's emergency department visit. This chart is signed by myself for administrative purposes only. I did not have direct contact with this patient during this visit. They were seen independently by the APC.
[2024-01-24 18:50] LABS: Urine Volume 10mL (spun)
[2024-01-24 18:51] LABS: Bacteria Urine Moderate (10-30); Culture Indicated Urine Cult Not Indicated; RBC Urine None Seen (0-5/HPF); Squamous Epithelial Cell Urine 5-10 /HPF (0-5/HPF); WBC Urine 0-1/HPF (0-5/HPF)
== END 2024-01-24 18:48 | disposition home or self-care (01) ==
PROVIDERS: Emergency Provider Student in an Organized Health Care Education/Training Program; PCP Family Medicine
DX: O21.9 Vomiting of pregnancy, unspecified (principal)
CPT/HCPCS: 81003; 81015; 81025; 99283

== ENCOUNTER → 2024-02-19 09:49 | Outpatient (CLI) | payer OTHER, SELFPAY ==
--- NOTE | 2024-02-19 09:50 | DI.US.S_ITS ---
PROCEDURE: US OB <= 14 WEEKS FETUS INDICATIONS: dating viability OUTSIDE/PRIOR DATING DATA: Last menstrual period (LMP): 12/28/2023. LMP-based estimated date of delivery (ZEV): 10/03/2024. First dating scan (date and location): 02/19/2024. Estimated date of delivery (ZEV) from first dating scan: 10/07/2024. TECHNIQUE: Real-time scanning was performed of the fetus and maternal pelvic organs, with image documentation. Endovaginal scanning was also performed to better visualize the fetus and maternal ovaries. COMPARISON: None. FINDINGS: Embryo: Single live intrauterine is present with crown-rump length measuring 0.98 cm corresponding to 7 weeks 0 days. Heart rate: 165 beats per minute Miscellaneous: Subchorionic hemorrhage is present measuring 1.1 x 1.7 x 1.3 cm. Maternal organs: Ovaries demonstrate right corpus luteal cyst.. IMPRESSION: Single live intrauterine with gestational age of 7 weeks 0 days. Mild subchorionic hemorrhage. We strive to produce accurate, complete, and clear reports of imaging services. To assist us in improving patient care, this report was composed using standard report templates and voice recognition software. Therefore, it may contain abnormal punctuation, insertions and/or omissions. Occasional wrong-word or sound-alike substitutions may occur. Though we review the report and make efforts to correct it, we do recommend that the report be read carefully in proper context to recognize any text inaccuracies. Dictated by: Chelle Law M.D. on 02/19/2024 at 16:03 Approved by: Chelle Law M.D. on 02/19/2024 at 16:04
== END ==
LOC: US 09:50
PROVIDERS: PCP Family Medicine; Referring Provider Family Medicine; Visit Provider Family Medicine
DX: O34.81 Maternal care for other abnormalities of pelvic organs, first trimester; O46.8X1 Other antepartum hemorrhage, first trimester; N83.11 Corpus luteum cyst of right ovary; Z3A.01 Less than 8 weeks gestation of pregnancy
CPT/HCPCS: 76801

== ENCOUNTER → 2024-05-16 07:49 | Outpatient (CLI) | payer OTHER, MEDICAID, SELFPAY ==
--- NOTE | 2024-05-16 07:51 | DI.US.S_ITS ---
PROCEDURE: US OB >= 14 WEEKS FETUS INDICATIONS: ANATOMY SCAN OUTSIDE/PRIOR DATING DATA: Last menstrual period (LMP): 12/28/2023 LMP-based estimated date of delivery (ZEV): 10/03/2024 First dating scan (date and location): 02/19/2024 Estimated date of delivery (ZEV) from first dating scan: 10/07/2024. The calculations are made using the working ZEV of 10/03/2024. TECHNIQUE: Real-time scanning was performed of the fetus, with image documentation and biometric measurements. Endovaginal scanning: Not performed COMPARISON: 02/19/2024. FINDINGS: General: A single living intrauterine gestation is present. Presentation: Vertex. Placenta: Placental position is anterior, without previa. Amniotic fluid index: 16.1 cm, normal range is 5-24 cm. Single deepest vertical pocket is 5.1 cm. heart rate: 139 beats per minute. Maternal cervical canal: Closed and measures 5.6 cm long. Normal lower limit is 2.5 cm. biometrics: Biparietal diameter: 5.0 cm, 21 weeks, 1 day. Head circumference: 17.7 cm, 20 weeks, 1 day. Abdominal circumference: 16.6 cm, 21 weeks, 4 days. Femur length: 3.5 cm, 21 weeks, 1 day. Clinically estimated gestational age: 20 weeks, 0 day. Composite gestational age from present scan: 21 weeks, 0 day. Estimated weight and percentile: 412 g, 97% Anatomic survey: Neuro: Ventricles are non-dilated at less than 10 mm. Cisterna magna is normal at 3-11 mm. Cerebellum is normal in size and morphology. Nuchal skin fold: Normal at less than 6 mm between 14-21 weeks gestational age. Face: Nose and lips, facial profile are normal. Spine: Thoracic spine is not well seen due to position. Heart: 4-chambered heart is present, with normal ventricular outflow tracts. Diaphragm: Diaphragm is intact. Stomach: Left-sided stomach is present. Kidneys: No hydronephrosis. Normal is less than 5 mm in 2nd trimester, less than 7 mm in 3rd trimester. Cord: 3-vessel cord has orthotopic insertion. Bladder: Normal in size. Extremities: All 4 extremities identified. IMPRESSION: 1. Single live intrauterine gestation with fetus in vertex presentation. heart rate is 139 beats per minute. Normal SARAH at 16.1 cm. Normal growth. Estimated weight is at 97%. 2. thoracic spine is not well seen due to position. Rest of the anatomic survey is normal. We strive to produce accurate, complete, and clear reports of imaging services. To assist us in improving patient care, this report was composed using standard report templates and voice recognition software. Therefore, it may contain abnormal punctuation, insertions and/or omissions. Occasional wrong-word or sound-alike substitutions may occur. Though we review the report and make efforts to correct it, we do recommend that the report be read carefully in proper context to recognize any text inaccuracies. Dictated by: Jet Carias M.D. on 05/16/2024 at 15:40 Approved by: Jet Carias M.D. on 05/16/2024 at 15:43
== END ==
PROVIDERS: PCP Family Medicine; Referring Provider Nurse Practitioner Obstetrics & Gynecology; Visit Provider Nurse Practitioner Obstetrics & Gynecology
DX: Z34.92 Encounter for supervision of normal pregnancy, unspecified, second trimester (principal); Z3A.21 21 weeks gestation of pregnancy
CPT/HCPCS: 76811

== ENCOUNTER → 2024-08-18 14:27 | Outpatient (CLI) | payer OTHER, SELFPAY ==
--- NOTE | 2024-08-18 14:28 | DI.US.S_ITS ---
PROCEDURE: US OB FOLLOW UP INDICATIONS: re-evaluate growth and fluid OUTSIDE/PRIOR DATING DATA: Last menstrual period (LMP): 12/28/2023 LMP-based estimated date of delivery (ZEV): 10/03/2024 First dating scan (date and location): 02/19/2024 Estimated date of delivery (ZEV) from first dating scan: 10/07/2024 The calculations are made using the clinical ZEV of 10/03/2024 TECHNIQUE: Real-time scanning was performed of the fetus, with image documentation and biometric measurements. Endovaginal scanning: Not performed. COMPARISON: [facility], OB >= 14 WEEKS FETUS, 05/16/2024, 8:15. FINDINGS: General: A single living intrauterine gestation is present. Presentation: Vertex Placenta: Placental position is anterior, without previa. Amniotic fluid index: 23.1 cm, normal range is 5-24 cm. Single deepest vertical pocket is 7.7 cm. heart rate: 139 beats per minute. Maternal cervical canal: 5.1 cm long. Normal lower limit is 2.5 cm. biometrics: Biparietal diameter: 9.2 cm, 37 weeks 2 days Head circumference: 33.5 cm, 38 weeks 3 days Abdominal circumference: 32.8 cm, 36 weeks 5 days Femur length: 7.1 cm, 36 weeks 2 days Clinically estimated gestational age: 33 weeks 3 days Composite gestational age from present scan: 37 weeks 2 days Estimated weight and percentile: 3058 g, greater than 99th percentile Other: Not applicable. IMPRESSION: 1. Single live intrauterine . 2. Estimated weight is greater than the 99th percentile for gestational age. Recommend correlation follow-up for possible developing macrosomia. 3. Amniotic fluid index is at the upper limits of normal at 23.1 cm. Approved by: Sen Michael M.D. on 08/19/2024 at 8:31
== END ==
PROVIDERS: PCP Family Medicine; Referring Provider Student in an Organized Health Care Education/Training Program; Visit Provider Student in an Organized Health Care Education/Training Program
DX: O26.843 Uterine size-date discrepancy, third trimester (principal); O99.213 Obesity complicating pregnancy, third trimester; Z3A.37 37 weeks gestation of pregnancy
CPT/HCPCS: 76816

== ENCOUNTER → 2024-09-30 09:24 | Outpatient (CLI) | payer OTHER, SELFPAY ==
[2024-09-30 10:11] LABS: Influenza A - CEPHEID Flu A NEGATIVE (NEGATIVE); Influenza B - CEPHEID Flu B NEGATIVE (NEGATIVE); Respiratory Syncytial Virus Negative (Negative)
[2024-09-30 10:13] LABS: COVID-19 CEPHEID 4-PLEX PCR Negative (Negative)
== END ==
PROVIDERS: PCP Family Medicine; Visit Provider Physician Assistant Surgical
DX: R05.9 Cough, unspecified (principal)
CPT/HCPCS: 0241U

== ENCOUNTER 2024-09-30 09:53 | Outpatient (CLI) | payer OTHER, SELFPAY ==
--- NOTE | 2024-09-30 21:49 | P.TNLD_ITS ---
Visit Information Visit Information Date of evaluation: 09/30/24 Primary OB Provider: Marifer Osborne On-call OB Provider: Marifer Osborne Reason for Evaluation: Yes other Comments/Additional reasons for admission: Follow up after elevated BP in walk in clinic. Vital Signs Vital Signs: VS: 133/69, 129/73. 136/73, 129/75 HR: 94 bpm Temp: 36.8 C [facility] Medical History (Updated 09/30/24 @ 21:58 by Marifer Osborne, CNM, DIRECTOR OF PARKS AND RECREATION) COVID-19 virus infection Ulnar nerve entrapment at elbow Sciatica COVID-19 Chronic back pain (2007) Chronic headaches (2009) Depression (2008) PTSD (post-traumatic stress disorder) (2015) Hayfever (~1998) Asthma (2006) Personality disorder (2015) Anxiety (2008) Surgical History (Updated 01/30/24 @ 10:38 by Meera Solis RN) H/O right knee surgery Anesthesia History of placement of ear tubes (~1993) Status post delivery (09/14/15) Status post appendectomy (05/25/12) Family History (Updated 01/30/24 @ 10:42 by Meera Solis RN) Brother Age: 23 ADD (attention deficit disorder) Autism Morbidly obese Developmental disability Grandmother Age: 80 Seizures Hypertension Mother Age: 56 Anxiety Depression PTSD (post-traumatic stress disorder) Sister Age: 34 Anxiety Sister Age: 27 Anxiety Depression PTSD (post-traumatic stress disorder) Father Anxiety Anger Grandfather No problems noted. 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 seatbelt use: always water heater temp set < 120 deg: Yes working smoke detector in home: No fire extinguisher in home: No carbon monox detector in home: No firearms in home: No do you feel safe at home: Yes Smoking Status: Never smoker second hand exposure: Yes (s/o smokes MJ) substance use type: marijuana (sometimes vapes MJ, not while /) during the past year weight has: remained stable well-balanced diet: about half the time daily servings fruits/ve-4 caffeine: Yes (minimal, stopped energy drinks while ) Type(s) of exercise: walking additional social history: in process of signing up for [place] Evaluation Evaluation Baseline heart rate: 135 Variability: Moderate (11-25) monitor accelerations: Present Monitor Decelerations: Absent Contraction Frequency (minutes): 4 Uterine Contraction Intensity: Mild Category of Tracing: Reactive Diagnosis, Plan/Disposition Final Diagnosis (1) Supervision of high-risk : Status: Acute (2) Uterine scar from previous delivery affecting : Status: Acute (3) High blood pressure affecting in third trimester, antepartum: Status: Acute Problem details: Normotensive in triage (4) NST (non-stress test) reactive: Status: Acute Plan/Disposition Plan: Serial blood pressures. NST Discharge home.
== END 2024-09-30 10:37 | disposition home or self-care (01) ==
LOC: LABOR 10:15 → OB 10-01 09:34
PROVIDERS: PCP Family Medicine; Referring Provider Student in an Organized Health Care Education/Training Program; Visit Provider Student in an Organized Health Care Education/Training Program
DX: O26.893 Other specified pregnancy related conditions, third trimester (principal); R03.0 Elevated blood-pressure reading, without diagnosis of hypertension; O34.211 Maternal care for low transverse scar from previous cesarean delivery; Z3A.39 39 weeks gestation of pregnancy; R05.9 Cough, unspecified
CPT/HCPCS: 0241U; 59025; G0378; G0379

== ENCOUNTER 2024-10-02 05:40 | Inpatient (IN) | payer OTHER, SELFPAY ==
[2024-10-02] VITALS (8 sets, daily range): BP systolic 120–141; BP diastolic 71–86; PULSE 95–100; RESP 17–22; TEMP 36.4–37.3; O2SAT 97–99
[2024-10-02 06:50] LABS: Add Manual Diff / Slide Review NO; Basophils Absolute Auto 100 /uL (0-100); Basophils Percent Auto 0.4 % (0-2); Eosinophils Absolute Auto 100 /uL (0-450); Eosinophils Percent Auto 0.7 % (2-4); Hematocrit 31.2 % (36-46); Hemoglobin 10.2 g/dL (12.0-16.0); Lymphocytes Absolute Auto 1800 /uL (1100-4500); Lymphocytes Percent Auto 11.8 % (25-40); Mean Corpuscular HGB Conc 32.7 % (30-36); Mean Corpuscular Hemoglobin 26.8 PG (26-34); Monocytes Absolute Auto 1000 /uL (0-900); Monocytes Percent Auto 6.7 % (3-14); Neutrophils Absolute Auto 12400 /uL (1500-7000); Neutrophils Percent Auto 80.4 % (50-75); Platelet Count 266 X10^3/uL (150-400); Red Cell Distribution Width 15.1 % (11.6-14.8); White Blood Cell Count 15.4 X10^3/uL (4.5-11.0)
[2024-10-02 07:03] LABS: Adenovirus Not Detected (Not Detect); B. parapertussis Not Detected (Not Detecte); Bordetella pertussis Not Detected (Not Detect); Chlamydophila pneumoniae Not Detected (Not Detect); Coronavirus 229E Not Detected (Not Detect); Coronavirus HKU1 Not Detected (Not Detect); Coronavirus NL 63 Not Detected (Not Detect); Coronavirus OC43 Not Detected (Not Detect); Human Metapneumovirus Not Detected (Not Detect); Human Rhinovirus/Enterovirus Not Detected (Not Detect); Influenza A Not Detected (Not Detect); Influenza B Not Detected (Not Detect); Mycoplasma pneumoniae Not Detected (Not Detect); Parainfluenza Virus 1 Not Detected (Not Detect); Parainfluenza Virus 2 Not Detected (Not Detect); Parainfluenza Virus 3 Not Detected (Not Detect); Parainfluenza Virus 4 Not Detected (Not Detect); Respiratory Syncytial Virus Not Detected (Not Detect); SARS- CoV-2 Not Detected (Not Detecte)
[2024-10-02] MEDS: LACTATED RINGERS 1,000 ML 999 ML IV (07:23)
[2024-10-02] MEDS: CITRIC ACID/SODIUM CITRATE 15 ML SOLUTION 30 ML PO (07:23)
[2024-10-02] MEDS: ALBUTEROL 2.5 MG/3 ML NEB (ADULT) INH (07:32)
--- NOTE | 2024-10-02 07:34 | P.HPOB_ITS ---
OB HPI Date/Time Date of admission: 10/02/24 Date Patient Seen: 10/02/24 Time Patient Seen: 07:34 History of Present Condition Chief complaint: INPT ZEV Calculator 2 Estimated Delivery Date Method Current WG Current Estimate 10/03/24 LMP (Certain) 39w 6d : 3 Para: 1 Narrative: 34yo at 39+6wks presenting today for repeat . She has had a URI for the last week, and tested negative for flu/covid earlier this week. Has been afebrile, with a lingering cough. Otherwise denies leaking fluid or vaginal bleeding. care: good care Dating criteria OB: LMP confirmed by 1st trimester US Ultrasounds: normal mid trimester US Abnormal ultrasound findings: EFW 99%ile Narrative: Hx of in 2016--> [x ] op report- reviewed, PLTCS at 38wks after PROM; [ x] schedule repeat c/s 39wks-- scheduled for 10/02/24 at 39+6wks Size>dates--> [x ] follow-up growth (see above US from 08/2024) Obesity (pre- BMI 42)--> [x ] recommend 34wk weekly NSTs (being completed with [facility]) S/O [facility] Indications Operative indications ( section): previous uterine surgery Preadmission Labs Last OB Lab Results: 2 Blood Type A Positive 10/02/24 06:40 Antibody Screen Negative 10/02/24 06:40 Hct 31.2 % (36-46) L 10/02/24 06:40 Hgb 10.2 g/dL (12.0-16.0) L 10/02/24 06:40 Hemoglobin A1c 5.0 % (4.0-6.0) 05/17/23 08:24 Glucose Tolerance Testin hr (negative) -: Chlamydia screen: negative, Gonorrhea screen: negative and Urine: negative Genetic Screens: Cell-free DNA: Normal External Labs -: Urine: negative Prior (ies) Past Pregnancies Del. Date GA/Weeks Labor Lgth Wt Sex Route Outcome Anesthesia Place Delv Breastfeed Preg Comp Name 09/14/15 38 40 6 lb 1 oz Male live - full term spin al N/A none [facility] 03/06/21 4-6 spontaneous Delivery Date: 03/06/21 Last Updated by: Meera Solis RN passed spontaneously, no complications Evaluation Evaluation Baseline heart rate: 140 Variability: Moderate (11-25) monitor accelerations: Present Monitor Decelerations: Absent Category of Tracing: Reactive [facility] Medical History (Updated 09/30/24 @ 21:58 by Marifer Osborne, TONY, [employer] ENGINEER) COVID-19 virus infection Ulnar nerve entrapment at elbow Sciatica COVID-19 Chronic back pain (2007) Chronic headaches (2009) Depression (2009) PTSD (post-traumatic stress disorder) (2015) Hayfever (~1998) Asthma (2006) Personality disorder (2015) Anxiety (2008) Surgical History (Updated 01/30/24 @ 10:38 by Meera Solis RN) H/O right knee surgery Anesthesia History of placement of ear tubes (~1993) Status post delivery (09/14/15) Status post appendectomy (05/25/12) Family History (Updated 01/30/24 @ 10:42 by Meera Slois RN) Brother Age: 23 ADD (attention deficit disorder) Autism Morbidly obese Developmental disability Grandmother Age: 80 Seizures Hypertension Mother Age: 56 Anxiety Depression PTSD (post-traumatic stress disorder) Sister Age: 34 Anxiety Sister Age: 27 Anxiety Depression PTSD (post-traumatic stress disorder) Father Anxiety Anger Grandfather No problems noted. 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 seatbelt use: always water heater temp set < 120 deg: Yes working smoke detector in home: No fire extinguisher in home: No carbon monox detector in home: No firearms in home: No do you feel safe at home: Yes Smoking Status: Never smoker second hand exposure: Yes (s/o smokes MJ) substance use type: marijuana (sometimes vapes MJ, not while /) during the past year weight has: remained stable well-balanced diet: about half the time daily servings fruits/ve-4 caffeine: Yes (minimal, stopped energy drinks while ) Type(s) of exercise: walking additional social history: in process of signing up for [facility] Meds Home Medications and Allergies Home Medications Medication Instructions Recorded Confirmed Type inhaler,assist devices,access 05/15/23 09/30/24 History Allergies Allergy/AdvReac Type Severity Reaction Status Date / Time paroxetine [From PAXIL] AdvReac Intermediate PALPITATIONS, Verified 09/30/24 09:22 LIGHTHEADED fluoxetine AdvReac Headache Verified 09/30/24 09:22 Review of Systems Review of Systems ROS: Yes All systems reviewed with the patient and are negative except as otherwise documented OB Exam Vital signs Blood Pressure: 129/71 Pulse Rate: 100 Respiratory Rate: 20 Temperature: 99.1 F Resp Effort & Inspection: normal respiratory effort, able to speak in complete sentences, cough, not labored and no nasal flaring Extremities Lower extremity: Yes normal to inspection Objective Labs 10/02/24 06:40 Labs: Laboratory Results - last 24 hr 10/02/24 10/02/24 06:08 06:40 WBC 15.4 H RBC 3.80 L Hgb 10.2 L Hct 31.2 L MCV 82.0 MCH 26.8 MCHC 32.7 RDW 15.1 H Plt Count 266 Neut % (Auto) 80.4 H Lymph % (Auto) 11.8 L [place] % (Auto) 6.7 Eos % (Auto) 0.7 L Baso % (Auto) 0.4 Neut # (Auto) 75949 H Lymph # (Auto) 1800 [place] # (Auto) 1000 H Eos # (Auto) 100 Baso # (Auto) 100 Chlamy pneumoniae PCR Not detected Adenovirus (PCR) Not detected B. pertussis DNA (PCR) Not detected B.parapertussis DNA PCR Not detected Coronavirus OC43 (PCR) Not detected Coronavirus HKU1 (PCR) Not detected Coronavirus 229E (PCR) Not detected SARS-CoV-2 (PCR) Not detected Coronavirus NL63 (PCR) Not detected Human Metapneumovir PCR Not detected Influenza Type A (PCR) Not detected Influenza Type B (PCR) Not detected M. pneumoniae (PCR) Not detected Parainfluenza 1 (PCR) Not detected Parainfluenza 2 (PCR) Not detected Parainfluenza 3 (PCR) Not detected Parainfluenza 4 (PCR) Not detected RSV (PCR) Not detected Entero/Rhino (PCR) Not detected Blood Type A Positive Antibody Screen Negative Assessment and Plan Assessment and Plan Assessment and Plan narrative: 34yo at 39+6wks presenting for repeat , with recent URI this week. Surgery consent was previously reviewed with the patient and signed in the office. She has no new questions or concerns today regarding her surgery. -plan for proceeding with delivery, with plan for chest xray in the PACU to r/o pneumonia -3g Ancef for ppx -CBC, T&S on admission -plan for neuraxial anesthesia -proceed to OR for delivery once all teams ready Time-Based Coding :: [30min] spent with patient and on the chart (including review of chart, obtaining history, exam, reviewing outside data, placing orders, documenting exam and treatment plan, and counseling patient) on [10/02/24].
--- NOTE | 2024-10-02 08:01 | PM.PROC.1 ---
Procedures Date/Time Date of procedure: 10/02/24 Time of procedure: 08:00 General Procedure description: Behavioral Therapist Documentation I assisted the OB behavioral interventionist in the section for this patient. My responsibilities included retracting and suctioning, providing fundal pressure during delivery and following with suture during closure. Please see the OB's note for details of the surgery.
[2024-10-02] MEDS: CEFAZOLIN VIAL 3 GM in SODIUM CHLORIDE 0.9% 100 ML IV (08:10)
[2024-10-02] MEDS: ACETAMINOPHEN IV 1,000 MG/100 ML VIAL 400 MG IV (08:25)
--- NOTE | 2024-10-02 08:40 | SUR.OPER ---
Supine on padded OR bed, head on pillow, arms secured on padded arm boards at <90 degrees abduction, legs uncrossed, safety belt at thigh, tape over blanket over lower legs.
--- NOTE | 2024-10-02 09:12 | SUR.OPER ---
FHR 145 prior to incision, viable baby boy born at 0850, placenta delivered at 0853, 5/6 per labor and delivery nurse. Cord blood and placenta handed off to OB RN.
--- NOTE | 2024-10-02 09:51 | P.OP_ITS ---
Operative Date/Time/Diagnoses Date of procedure: 10/02/24 Time of procedure: 08:30 Pre-op diagnosis: 1. [place] intrauterine gestation at 39+6 weeks 2. History of prior low transverse section 3. Obesity in 4. Anemia of Post-op diagnosis: same Procedure & Clinicians Procedure: Repeat low transverse section Same procedure as scheduled: Yes Indications: 34yo at 39+6 weeks EGA admitted for planned repeat section due to history of prior delivery. Surgeon: Seema Parker Click Yes if Unassisted: No Direct Response Consultant: Marifer Osborne Reason for Direct Response Consultant: Direct Response Consultant was necessary for timely, efficient, and safe completion of the procedure. Anesthesia Type: Spinal Operative Notes Findings: Normal-appearing uterus and bilateral fallopian tubes and ovaries. Thick meconium-stained fluid noted with AROM. Delivery productive of a viable male in cephalic presentation with APGARs 5/6/8 and weighing 3934g. Closure Type: primary Specimen(s): cord blood Intraoperative meds administered: Duramorph, Ketorolac and Pitocin Applied: Catheter Estimated Blood Loss (mL): 800 Blood products transfused: none Procedure in detail: The risks, benefits, indications and alternatives of the procedure were reviewed with the patient and informed consent was obtained. The patient was taken to the operating room where spinal anesthesia was obtained without difficulty and was found to be adequate. Sequential compression devices were placed bilaterally for VTE prophylaxis. She was then prepped and draped in the normal, sterile fashion in the dorsal supine position with a leftward tilt. She received 3g Ancef for surgical prophylaxis. A Pfannenstiel skin incision was then made with the scalpel and carried through to the underlying layer of fascia. The fascia was incised in the midline and the incision extended laterally with the Bovie. The inferior aspect of the fascial incision was grasped with Renetta clamps, elevated, and the underlying rectus muscles were dissected off bluntly and sharply, aided with the knife. Attention was then turned to the superior aspect of the incision, which, in a similar fashion, was grasped, tented up with Renetta clamps and the rectus muscles were dissected off bluntly and sharply, aided with the knife. The rectus muscles were then at the midline. The peritoneum was identified, and entered digitally. The peritoneal incision was then extended horizontally, superiorly and inferiorly, with good visualization of the bladder. The Guy retractor was then inserted. The lower uterine segment was incised in a transverse fashion with the scalpel. The uterine incision was then extended manually in a cephalad/caudad direction. The amniotic sac was artificially ruptured, productive of thick meconium-stained fluid. The infant?s head delivered atraumatically through the hysterotomy without difficulty, with a nuchal cord x1 easily reduced, followed by the body.? The cord was doubly clamped and cut after a 60sec delay with the infant handed o ff to the waiting pediatrics team. The placenta was then removed spontaneously with gentle traction on the umbilical cord. The uterus was then left in-situ and cleared of all clots and debris. The uterine incision was repaired with 0-vicryl in a running, locked fashion with excellent hemostasis achieved. The paracolic gutters were cleared of all clot and debris. Bilateral fallopian tubes and ovaries were inspected and found to be normal. The Guy retractor was then removed. The fascia was reapproximated with 0-PDS in a running fashion. The subcutaneous layer was closed with 3-0 vicryl in simple, interrupted sutures. The skin was closed with 4-0 monocryl in a subcuticular fashion. The incision was then dressed with an Aquacel dressing. At the completion of the case, a Crede maneuver was performed with good uterine tone and minimal vaginal bleeding noted.? The patient tolerated the procedure well. Sponge, lap and needle counts were correct x3. The patient was taken to the recovery room in stable condition. Complications: none [place] Baby 1: Delivery Date: 10/02/24 Delivery Time: 08:50 Infant Gender: Male Presentation: vertex Placental Delivery Description: Spontaneous Cord Vessel Description: 3 Vessels Post-operative Condition: stable Disposition: PACU Aftercare: routine postop
[2024-10-02] MEDS: diphenhydrAMINE 50 MG/ML VIAL 25 MG IV (11:01)
[2024-10-02] MEDS: KETOROLAC 30 MG/ML VIAL IV ×2 (15:11→21:21)
[2024-10-02] MEDS: LACTATED RINGERS 1,000 ML 100 ML IV (17:39)
[2024-10-02] MEDS: ACETAMINOPHEN 325 MG TABLET 650 MG PO (18:07)
[2024-10-03] MEDS: ACETAMINOPHEN 325 MG TABLET 650 MG PO ×3 (01:15→17:09)
[2024-10-03] MEDS: KETOROLAC 30 MG/ML VIAL IV (03:08)
[2024-10-03 06:35] LABS: Add Manual Diff / Slide Review NO; Basophils Absolute Auto 0 /uL (0-100); Basophils Percent Auto 0.4 % (0-2); Eosinophils Absolute Auto 200 /uL (0-450); Eosinophils Percent Auto 1.2 % (2-4); Hematocrit 25.2 % (36-46); Hemoglobin 8.4 g/dL (12.0-16.0); Lymphocytes Absolute Auto 2600 /uL (1100-4500); Lymphocytes Percent Auto 19.7 % (25-40); Mean Corpuscular HGB Conc 33.3 % (30-36); Mean Corpuscular Hemoglobin 27.2 PG (26-34); Mean Corpuscular Volume 81.6 fL (80-100); Monocytes Absolute Auto 1200 /uL (0-900); Monocytes Percent Auto 9.4 % (3-14); Neutrophils Absolute Auto 9200 /uL (1500-7000); Neutrophils Percent Auto 69.3 % (50-75); Platelet Count 223 X10^3/uL (150-400); Red Blood Cell Count 3.09 X10^6/uL (4.0-5.2); Red Cell Distribution Width 15.2 % (11.6-14.8); White Blood Cell Count 13.2 X10^3/uL (4.5-11.0)
[2024-10-03 07:35] VITALS: TEMP 36.9
[2024-10-03] MEDS: LANOLIN OINT 7 GM 1 APPLIC TOP (07:35)
[2024-10-03] MEDS: IBUPROFEN 600 MG TABLET PO ×2 (09:23→17:10)
[2024-10-03] MEDS: DOCUSATE 100 MG CAPSULE PO (09:24)
[2024-10-03] MEDS: PRENATAL VIT,CALC/IRON/FOLIC 1 TABLET 1 TAB PO (09:24)
[2024-10-03] MEDS: NIFEdipine 30 MG TAB ER PO (09:27)
[2024-10-03] MEDS: BENZONATATE 100 MG CAPSULE PO (09:30)
[2024-10-03 09:35] LABS: Alanine Aminotransferase 24 IU/L (<35); Albumin 2.9 g/dL (3.5-5.0); Albumin Globulin Ratio 0.9 (1.0-2.8); Alkaline Phosphatase 126 U/L (38-126); Aspartate Aminotransferase 41 IU/L (14-36); BUN Creatinine Ratio 18.5 (6-22); Bilirubin Total 0.2 mg/dL (0.2-1.3); Blood Urea Nitrogen 17 mg/dL (7-17); Calcium 8.8 mg/dL (8.4-10.2); Carbon Dioxide 20 mmol/L (22-32); Chloride 106 mmol/L (98-107); Estimated Glomerular Filt Rate > 60 mL/min (>60); Globulin 3.3 g/dL (1.7-4.1); Glucose 110 mg/dL (70-100); HEMOLYSIS < 15 (0-50); Potassium 4.4 mmol/L (3.4-5.1); Sodium 132 mmol/L (137-145); Total Protein 6.2 g/dL (6.3-8.2)
--- NOTE | 2024-10-03 09:39 | P.PNOB_ITS ---
Subjective - OB Subjective Patient comments: pain well controlled [place] baby status: NICU feeding status: pumping and storing Narrative: Doing well, pain controlled, has ambulated and met due to void. Still coughing, but feels some better today than yesterday. Reports appropriate lochia. Date Patient Seen: 10/03/24 Time Patient Seen: 09:00 Exam Vital Signs (past 8 hours): - 10/03/24 07:35 Temperature 98.4 F Fraction of Inspired Oxygen 21 SaO2/FiO2 Ratio 466 Oxygen Delivery Method Room Air Oxygen Flow Rate 0 vitals reviewed in OBIX; several mild range blood pressures overnight; afebrile, pulse ox 97-99%, RR 16-20 Const General: comfortable and No acute distress Resp Effort & Inspection: able to speak in complete sentences and cough GI Other: fundus firm and appropriately tender at U-2 Skin Other: incision covered with Aquacel with minimal strikethrough Neuro Cognition: normal cognition Speech: speech normal Extrem General: normal to inspection and no calf tenderness Psych Mood: congruent mood Affect: normal affect Objective Labs 10/03/24 05:35 10/03/24 09:19 Labs: Laboratory Results - last 24 hr 10/03/24 10/03/24 05:35 09:19 WBC 13.2 H RBC 3.09 L Hgb 8.4 L Hct 25.2 L MCV 81.6 MCH 27.2 MCHC 33.3 RDW 15.2 H Plt Count 223 Neut % (Auto) 69.3 Lymph % (Auto) 19.7 L [place] % (Auto) 9.4 Eos % (Auto) 1.2 L Baso % (Auto) 0.4 Neut # (Auto) 9200 H Lymph # (Auto) 2600 [place] # (Auto) 1200 H Eos # (Auto) 200 Baso # (Auto) 0 Sodium 132 L Potassium 4.4 Chloride 106 Carbon Dioxide 20 L BUN 17 Creatinine 0.92 Estimated GFR > 60 BUN/Creatinine Ratio 18.5 Glucose 110 H Calcium 8.8 Total Bilirubin 0.2 AST 41 H ALT 24 Alkaline Phosphatase 126 Total Protein 6.2 L Albumin 2.9 L Globulin 3.3 Albumin/Globulin Ratio 0.9 L Assessment & Plan Assessment and Plan (1) hypertension: Status: Acute (2) Previous delivery, delivered: Status: Acute (3) Delivery outcome of liveborn : Status: Acute (4) Acute postoperative anemia due to expected blood loss: Status: Acute (5) Obesity affecting : Status: Acute (6) 39 weeks gestation of : Status: Acute Plan day: 1 plan OB: routine postop care Comments: -will start nifedipine 30mg daily -check CMP; normal CBC this morning -if patient does well and blood pressures well controlled with nifedipine, plan for discharge this afternoon to allow mom to go be with baby in [place] Time-Based Coding :: [20min] spent with patient and on the chart (including review of chart, obtaining history, exam, reviewing outside data, placing orders, documenting exam and treatment plan, and counseling patient) on [10/03/24].
[2024-10-03] MEDS: OXYCODONE IR 5 MG TABLET PO (12:21)
--- NOTE | 2024-10-03 15:32 | P.DS_ITS ---
Discharge Providers Provider Date of admission: 10/02/24 05:40 Discharge Date: 10/03/24 Primary care physician: Simone Sneed DO Consults: 10/02/24 10:09 Consult to Associate Sales Manager Routine Comment: Discharge provider: Seema Parker DO Summary Hospital Course Diagnoses: Term gestation at 39+6wks History of delivery Obesity in Acute postoperative anemia Hospital Course: 34yo [id number] admitted at 39+6wks for repeat delivery. Her delivery was uncomplicated, and productive of a viable male infant. Her course was notable for persistent mild range blood pressures, thus she was started on nifedipine 30 mg PO on postop day #1. On post-op day #1, she was ambulating, tolerating regular diet, voiding spontaneously with minimal lochia. Her pain was well controlled with oral medications, thus she was discharged to home on post-op day #1 with close interval follow up with her midwives. Peripartum Data Delivery Method: Section Procedures: External monitoring delivery Neuraxial anesthesia complications: none 1: Gender: Male Disposition of : NICU Discharge Diagnosis (1) hypertension: Status: Acute (2) Previous delivery, delivered: Status: Acute (3) Delivery outcome of liveborn : Status: Acute (4) Acute postoperative anemia due to expected blood loss: Status: Acute (5) Obesity affecting : Status: Acute (6) 39 weeks gestation of : Status: Acute Status at Discharge Cognitive/behavioral status at discharge: oriented Functional status at discharge: independent ambulation Overall status at discharge: patient is progressing back to baseline Time Spent with Patient Time attestation: Total time spent providing and/or coordinating discharge services: Time spent: Less than 30 minutes Objective Labs 10/03/24 05:35 10/03/24 09:19 Labs: Laboratory Results - last 24 hr 10/03/24 10/03/24 05:35 09:19 WBC 13.2 H RBC 3.09 L Hgb 8.4 L Hct 25.2 L MCV 81.6 MCH 27.2 MCHC 33.3 RDW 15.2 H Plt Count 223 Neut % (Auto) 69.3 Lymph % (Auto) 19.7 L [place] % (Auto) 9.4 Eos % (Auto) 1.2 L Baso % (Auto) 0.4 Neut # (Auto) 9200 H Lymph # (Auto) 2600 [place] # (Auto) 1200 H Eos # (Auto) 200 Baso # (Auto) 0 Sodium 132 L Potassium 4.4 Chloride 106 Carbon Dioxide 20 L BUN 17 Creatinine 0.92 Estimated GFR > 60 BUN/Creatinine Ratio 18.5 Glucose 110 H Calcium 8.8 Total Bilirubin 0.2 AST 41 H ALT 24 Alkaline Phosphatase 126 Total Protein 6.2 L Albumin 2.9 L Globulin 3.3 Albumin/Globulin Ratio 0.9 L Exam Vital Signs (past 8 hours): - 10/03/24 07:35 Temperature 98.4 F Fraction of Inspired Oxygen 21 SaO2/FiO2 Ratio 466 Oxygen Delivery Method Room Air Oxygen Flow Rate 0 Normotensive since starting nifedipine today Const General: cooperative, healthy appearing, comfortable and No acute distress Resp Effort & Inspection: normal respiratory effort GI Inspection: normal to inspection Other: fundus firm and nontender at U-2 Skin General: no rashes or lesions noted Neuro General: patient alert and patient awake Extrem General: normal to inspection and no calf tenderness Psych Mood: congruent mood Affect: normal affect Discharge Plan Discharge Plan Patient Disposition: Home Provider Discharge Comment: Take ibuprofen 600mg every 6 hours and acetaminophen 650 mg every 6 hours for pain. Use oxycodone 5 mg every 4 hours as needed for breakthrough pain. Avoid lifting greater than 20 lb for at least 6 weeks. Avoid placing anything in the vagina for 6 weeks. Continue nifedipine 30 mg daily until follow up with your primary obstetric provider. Discharge orders & Medications Prescriptions: New benzonatate 100 mg Capsule 100 mg PO TID PRN (Reason: Cough) Qty: 14 1RF oxycodone 5 mg Tablet 5 mg PO Q4H PRN (Reason: Pain, Moderate (4-6)) Qty: 14 0RF nifedipine 30 mg tablet extended release 30 mg PO DAILY Qty: 30 1RF No Action (DME) inhaler,assist devices,access .Route Follow up/Referrals: Marifer Osborne, TONY, RECREATION ESTABLISHMENT MANAGER [Advanced Care Analyst] - (Follow-up with [facility] as scheduled.) Diet/Activity/Treatments Diet: Diet as Tolerated Activity: As tolerated. Skin/Wound/Dressing Care Skin care: You may shower normally with Aquacel dressing in place. Report to your healthcare provider any signs of infection, such as:: chills, fever, increased pain, unusual drainage and unusual redness Visit Report/Discharge Packet Instructions: DI for Hemorrhage, DI for Depression, DI for Pre-eclampsia, DI for Prescription Opioid Use Stand Alone Forms: Discharge: Care, Patient Portal/API, Stroke Signs & Symptoms Discharge Data Primary Care Provider: Simone Sneed
== END 2024-10-03 18:50 | disposition home or self-care (01) | DRG 788 ==
PROVIDERS: Admitting Provider Student in an Organized Health Care Education/Training Program; PCP Family Medicine; Referring Provider Student in an Organized Health Care Education/Training Program; Visit Provider Student in an Organized Health Care Education/Training Program
PROC: 10D00Z1 Extraction of Products of Conception, Low, Open Approach (ICD-10-PCS; CPT 59514; principal; 2024-10-02 07:45)
DX: O99.214 Obesity complicating childbirth (principal); O34.211 Maternal care for low transverse scar from previous cesarean delivery; O16.5 Unspecified maternal hypertension, complicating the puerperium; Z3A.39 39 weeks gestation of pregnancy; Z37.0 Single live birth; Z11.52 Encounter for screening for COVID-19
CPT/HCPCS: 0241U; 36415; 59025; 59050; 80053; 85025; 86850; 86900; 86901; 87633; 94640; J0134; J0690; J1100; J1200; J1885; J2274; J2405; J2704; J7613

== ENCOUNTER 2025-01-06 17:48 | Emergency (ER) | payer OTHER, SELFPAY ==
[2025-01-06 18:02] VITALS: BP 145/80; PULSE 105; RESP 16; TEMP 37.1; O2SAT 99; BMI 44.7
[2025-01-06 20:01] LABS: Bacteria Urine Many (>30); RBC Urine 0-1/HPF (0-5/HPF); Squamous Epithelial Cell Urine 1-5 /HPF (0-5/HPF); Urine Volume 10mL (spun); WBC Urine 5-10/HPF (0-5/HPF)
--- NOTE | 2025-01-06 22:29 | ED_ITS ---
HPI - Headache General Chief Complaint: Headache Stated Complaint: pain behind eyes, lightheaded, dizzy prior Time Seen by Provider: 01/06/25 22:29 Mode of arrival: Ambulatory History of Present Illness HPI Narrative: 34-year-old female no significant past medical history presenting from home for evaluation of multiple complaints. States that she has been having a headache with associated dizziness secondary to this. Also stating that she has been having a mild cough Also stating that she feels like she might have a broken tooth that could be contributing to the symptoms. She states that she is wondering if this could also be due to the fact that she has had less sleep secondary to having a recent 3-month-old. She denies any visual disturbances chest pain shortness breath fever chills or any other GI/ symptoms time. Related Data Home Medications Medication Instructions Recorded Confirmed inhaler,assist devices,access 05/15/23 09/30/24 Previous Rx's Medication Instructions Recorded benzonatate 100 mg capsule 100 mg PO TID PRN Cough #14 caps 10/03/24 nifedipine 30 mg tablet,extended 30 mg PO DAILY #30 tabs 10/03/24 release oxycodone 5 mg tablet 5 mg PO Q4H PRN Pain, Moderate 10/03/24 (4-6) #14 tabs cephalexin 500 mg capsule 500 mg PO Q8H 7 days #21 caps 01/07/25 Allergies Allergy/AdvReac Type Severity Reaction Status Date / Time paroxetine [From PAXIL] AdvReac Intermediate PALPITATIONS, Verified 09/30/24 09:22 LIGHTHEADED fluoxetine AdvReac Headache Verified 09/30/24 09:22 Review of Systems Review of Systems Narrative: General: Denies fever, chills, weight loss HEENT: Headache, denies eye drainage, eye irritation, head trauma, sore throat, voice change Cardiovascular: Denies any chest pain, palpitations, tachycardia Respiratory: Positive cough, Denies any shortness of breath, wheeze, stridor GI/: Denies any abdominal pain, nausea, vomiting, diarrhea, bright red blood per rectum, melanotic stools, urinary frequency, urinary retention, dysuria, hematuria MSK: Denies any joint pain, muscle pains, swelling Skin: Denies any rashes, lesions, discoloration Neuro: Denies any headache, lightheadedness, dizziness, fainting, weakness Psych: Denies SI/HI Patient History Medical History (Updated 01/07/25 @ 00:32 by Jossue Shields DO) COVID-19 virus infection Ulnar nerve entrapment at elbow Sciatica COVID-19 Chronic back pain (2008) Chronic headaches (2009) Depression (2009) PTSD (post-traumatic stress disorder) (2016) Hayfever (~1998) Asthma (2006) Personality disorder (2016) Anxiety (2008) Surgical History (Updated 10/03/24 @ 09:45 by Seema Parker DO) H/O right knee surgery Anesthesia History of placement of ear tubes (~1993) Status post delivery (09/14/15) Status post appendectomy (05/25/12) Family History (Updated 01/30/24 @ 10:42 by Meera Solis RN) Brother Age: 23 ADD (attention deficit disorder) Autism Morbidly obese Developmental disability Grandmother Age: 80 Seizures Hypertension Mother Age: 56 Anxiety Depression PTSD (post-traumatic stress disorder) Sister Age: 34 Anxiety Sister Age: 27 Anxiety Depression PTSD (post-traumatic stress disorder) Father Anxiety Anger Grandfather No problems noted. 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 seatbelt use: always water heater temp set < 120 deg: Yes working smoke detector in home: No fire extinguisher in home: No carbon monox detector in home: No firearms in home: No do you feel safe at home: Yes Smoking Status: Never smoker second hand exposure: Yes (s/o smokes MJ) substance use type: marijuana (sometimes vapes MJ, not while /) during the past year weight has: remained stable well-balanced diet: about half the time daily servings fruits/ve-4 caffeine: Yes (minimal, stopped energy drinks while ) Type(s) of exercise: walking additional social history: in process of signing up for [facility] Smoking Status: Never smoker alcohol intake frequency: holidays/special occasions only Exam Narrative Exam Narrative: General: Cooperative, well-developed, not in acute distress HEENT: Normocephalic, atraumatic, PERRLA, normal sclera, eyelids normal, multiple dental caries noted Neck: Active full range of motion, atraumatic Chest: Normal to inspection, negative crepitus, no overlying erythema ecchymosis Respiratory: Normal respiratory effort, not in acute respiratory distress, clear to auscultation bilaterally negative cough, wheeze, tachypnea, rhonchi, rales Cardiology: Regular rate rhythm negative gallop, murmur, rubs GI/: No tenderness to palpation, soft, non rigid, normal to inspection, exam deferred MSK: Full active range of motion in all 4 extremities, atraumatic, no tenderness to palpation of any bony prominences Skin: No rashes or lesions noted Neuro: NIH of 0, Alert awake oriented x3, moves all 4 extremities spontaneously, cranial nerves intact, able to answer all questions appropriately follows commands appropriately Psych: Cooperative, negative suicidal or homicidal ideations Initial Vital Signs Initial Vital Signs: Vital Signs Temperature 98.7 F 01/06/25 18:02 Pulse Rate 105 H 01/06/25 18:02 Respiratory Rate 16 01/06/25 18:02 Blood Pressure 145/80 H 01/06/25 18:02 Pulse Oximetry 99 01/06/25 18:02 Oxygen Delivery Method Room Air 01/06/25 18:02 Course Orders Ordered: ED Orders 01/06/25 18:00 Urine Culture Stat Urine Microscopic Stat 01/06/25 22:42 CXR [XR chest 1V] Stat EKG-12 Lead Stat 01/06/25 22:55 CBC Auto Diff [Complete Blood Count AUTO DIFF] Stat CMP [Comprehensive Metabolic Panel] Stat Lipase Stat MAG [Magnesium] Stat Troponin & CK Cardiac Panel Stat Discontinued Medications Cephalexin HCl (Cephalexin 250 Mg Capsule) 500 mg PO NOW ONE Stop: 01/06/25 22:44 Last Admin: 01/06/25 23:07 Dose: 500 mg Documented By: DIANE Diphenhydramine HCl (Diphenhydramine 50 Mg/Ml Vial) 25 mg IV NOW ONE Stop: 01/06/25 22:42 Last Admin: 01/06/25 23:07 Dose: 25 mg Documented By: DIANE Sodium Chloride (Normal Saline 0.9%) 1,000 mls @ 1,000 mls/hr IV BOLUS ONE Stop: 01/06/25 23:40 Last Infusion: 01/07/25 00:20 Dose: Infused Documented By: Admin: 01/06/25 23:07 Dose: 1,000 mls/hr Documented By: DIANE Metoclopramide HCl (Metoclopramide 10 Mg/2 Ml Inj) 10 mg IV NOW ONE Stop: 01/06/25 22:42 Last Admin: 01/06/25 23:07 Dose: 10 mg Documented By: DIANE Vital Signs Vital signs: Vital Signs - 8 hr 01/06/25 18:02 01/06/25 22:50 Temperature 98.7 F Pulse Rate 105 H 81 Respiratory Rate 16 17 Blood Pressure 145/80 H 144/68 H Pulse Oximetry 99 100 Oxygen Delivery Method Room Air Room Air MDM - Headache Differential Diagnosis Differential diagnosis: Likely migraine, tension headache, headache and other (Urinary tract infection, electrolyte abnormality, ACS, pneumonia) Lab Data 01/06/25 22:55 01/06/25 22:55 Labs: Lab Results 01/06/25 01/06/25 Range/Units 18:00 22:55 WBC 12.0 H (4.5-11.0) X10^3/uL RBC 4.67 (4.0-5.2) X10^6/uL Hgb 11.4 L (12.0-16.0) g/dL Hct 35.1 L (36-46) % MCV 75.1 L (80-100) fL MCH 24.3 L (26-34) PG MCHC 32.4 (30-36) % RDW 14.7 (11.6-14.8) % Plt Count 300 (150-400) X10^3/uL Neut % (Auto) 60.7 (50-75) % Lymph % (Auto) 30.2 (25-40) % [place] % (Auto) 6.4 (3-14) % Eos % (Auto) 2.0 (2-4) % Baso % (Auto) 0.7 (0-2) % Neut # (Auto) 7300 H (2445-2770) /uL Lymph # (Auto) 3600 (5471-3402) /uL [place] # (Auto) 800 (0-900) /uL Eos # (Auto) 200 (0-450) /uL Baso # (Auto) 100 (0-100) /uL Sodium 140 (137-145) mmol/L Potassium 4.0 (3.4-5.1) mmol/L Chloride 105 (98-107) mmol/L Carbon Dioxide 27 (22-32) mmol/L BUN 20 H (7-17) mg/dL Creatinine 0.92 (0.52-1.04) mg/dL Estimated GFR > 60 (>60) mL/min BUN/Creatinine Ratio 21.7 (6-22) Glucose 101 H (70-99) mg/dL Calcium 9.4 (8.4-10.2) mg/dL Magnesium 2.1 (1.6-2.3) mg/dL Total Bilirubin 0.3 (0.2-1.3) mg/dL AST 25 (14-36) IU/L ALT 27 (<35) IU/L Alkaline Phosphatase 100 (38-126) U/L Total Creatine Kinase 63 (30-135) U/L Troponin I < 0.012 (0.01-0.034) ng/mL Total Protein 7.7 (6.3-8.2) g/dL Albumin 4.4 (3.5-5.0) g/dL Globulin 3.3 (1.7-4.1) g/dL Albumin/Globulin Ratio 1.3 (1.0-2.8) Lipase 106 (23-300) U/L Urine RBC 0-1/hpf (0-5/HPF) Urine WBC 5-10/hpf H (0-5/HPF) Ur Squamous Epith Cells 1-5 /hpf (0-5/HPF) Urine Bacteria Many (>30) H (None) Urine Yeast 0-1/hpf (None) Vol Urine Centrifuged 10ml (spun) Point of Care Testing Test Results Negative Urine Dip Bedside Urine Glucose Negative Bedside Urine Bilirubin - Negative Bedside Urine Ketone - Negative Urine Specific [place] 1.015 Bedside Urine Occult Blood - Negative Bedside Urine pH 7.0 Bedside Urine Protein - Negative Bedside Urine Urobilinogen - Negative Bedside Urine Nitrite - Negative Bedside Urine Leukocytes +++ 500 Esterase Imaging Data Chest x-ray: Radiologist's Impression: [place] [id number] [place] [id number] XRay Report Signed Patient: Natalie Slade MR#: [id number] : 1990 Acct:[id number] Age/Sex: 34 / F Date of Service: 01/06/25 Loc: ED Accession Number: [id number] Procedure: XR chest 1V Ordering Provider: Jossue Shields D.O. PROCEDURE: XR CHEST 1V INDICATIONS: Cough TECHNIQUE: One view of the chest was acquired. COMPARISON: [facility], CR, XR CHEST 1V, 01/16/2023, 19:09. [facility], CR, XR CHEST 2V, 07/08/2022, 20:57. [facility], CR, XR CHEST 2V, 02/04/2022, 20:48. FINDINGS: Surgical changes and devices: None. Lungs and pleura: Lungs are clear. No pleural effusions or pneumothorax. Mediastinum: Mediastinal contours appear normal. Heart size is normal. Bones and chest wall: No suspicious bony lesions. Overlying soft tissues appear unremarkable. IMPRESSION: No acute cardiothoracic process. ECG Data Interpretation: EKG interpreted ED physician sinus 77 beats per minute QTC [address] changes no STEMI MDM Narrative Medical decision making narrative: 34-year-old female without any significant past medical history presenting for multiple complaints. She states that she has been having cough headache intermittent dizziness/lightheadedness secondary to these symptoms ongoing persistent for the past several days, she is also complaining of possible fracture tooth but denies any difficulty swallowing breathing. Patient at time of evaluation NIH of 0 no focal deficits, patient did have lab work imaging EKG performed here in the emergency department. EKG nonischemic in nature, chest x- ray without any acute cardiopulmonary abnormality, lab work unremarkable,Urinalysis performed here showing consistency with acute urinary tract infection, we will treat with oral antibiotics patient was given migraine cocktail with improvement in his symptoms patient instructed to follow up with the primary care in outpatient setting she verbalized understanding of this and agrees to being discharged home with outpatient follow up Discharge Plan Departure Patient Disposition: Home Clinical Impression: UTI (urinary tract infection) Instructions: DI for Urinary Tract Infection (UTI) Activity Restrictions/Additional Instructions: Please follow up with the primary care doctor Please read the discharge instructions sheet carefully and bring all papers to all doctor follow-up visits, as it may contain information that your doctor may want to see. Disease processes change and evolve, if your symptoms worsen or if you develop any new symptoms that are concerning to you please return for evaluation. Your evaluation today does not show any evidence of any life- threatening/serious illnesses requiring admission to the hospital or surgery. Please follow-up with your doctor for re-evaluation in approximately 1 day. Seek immediate medical attention for any worrisome symptoms. *If you do not have a primary care provider please contact the [facility] Resource line at [phone]. They will ask some questions about your medical history and help get you set up with a doctor in the community. Prescriptions: New cephalexin 500 mg capsule 500 mg PO Q8H 7 Days Qty: 21 0RF No Action (DME) inhaler,assist devices,access .Route benzonatate 100 mg Capsule 100 mg PO TID PRN (Reason: Cough) Qty: 14 1RF oxycodone 5 mg Tablet 5 mg PO Q4H PRN (Reason: Pain, Moderate (4-6)) Qty: 14 0RF nifedipine 30 mg tablet extended release 30 mg PO DAILY Qty: 30 1RF Referrals: Simone Sneed, [Primary Care Provider] - Stand Alone Forms: Patient Portal/API/Survey
--- NOTE | 2025-01-06 22:42 | DI.RAD.S_ITS ---
PROCEDURE: XR CHEST 1V INDICATIONS: Cough TECHNIQUE: One view of the chest was acquired. COMPARISON: [facility], CR, XR CHEST 1V, 01/16/2023, 19:09. [facility], CR, XR CHEST 2V, 07/08/2022, 20:57. [facility], CR, XR CHEST 2V, 02/04/2022, 20:48. FINDINGS: Surgical changes and devices: None. Lungs and pleura: Lungs are clear. No pleural effusions or pneumothorax. Mediastinum: Mediastinal contours appear normal. Heart size is normal. Bones and chest wall: No suspicious bony lesions. Overlying soft tissues appear unremarkable. IMPRESSION: No acute cardiothoracic process. Dictated by: Meño Ortiz M.D. on 01/06/2025 at 23:08 Approved by: Meño Ortiz M.D. on 01/06/2025 at 23:08
[2025-01-06 22:50] VITALS: BP 144/68; PULSE 81; RESP 17; O2SAT 100
--- NOTE | 2025-01-06 23:01 | EKG_ITS ---
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
[2025-01-06] MEDS: METOCLOPRAMIDE 10 MG/2 ML INJ IV (23:07)
[2025-01-06] MEDS: SODIUM CHLORIDE 0.9% 1,000 ML 1000 ML IV (23:07)
[2025-01-06] MEDS: cephALEXin 250 MG CAPSULE 500 MG PO (23:07)
[2025-01-06] MEDS: diphenhydrAMINE 50 MG/ML VIAL 25 MG IV (23:07)
[2025-01-06 23:08] LABS: Add Manual Diff / Slide Review NO; Basophils Absolute Auto 100 /uL (0-100); Basophils Percent Auto 0.7 % (0-2); Eosinophils Absolute Auto 200 /uL (0-450); Hematocrit 35.1 % (36-46); Hemoglobin 11.4 g/dL (12.0-16.0); Lymphocytes Absolute Auto 3600 /uL (1100-4500); Lymphocytes Percent Auto 30.2 % (25-40); Mean Corpuscular HGB Conc 32.4 % (30-36); Mean Corpuscular Hemoglobin 24.3 PG (26-34); Mean Corpuscular Volume 75.1 fL (80-100); Monocytes Absolute Auto 800 /uL (0-900); Monocytes Percent Auto 6.4 % (3-14); Neutrophils Absolute Auto 7300 /uL (1500-7000); Neutrophils Percent Auto 60.7 % (50-75); Platelet Count 300 X10^3/uL (150-400); Red Blood Cell Count 4.67 X10^6/uL (4.0-5.2); Red Cell Distribution Width 14.7 % (11.6-14.8)
[2025-01-06 23:33] LABS: Alanine Aminotransferase 27 IU/L (<35); Albumin 4.4 g/dL (3.5-5.0); Albumin Globulin Ratio 1.3 (1.0-2.8); Alkaline Phosphatase 100 U/L (38-126); Aspartate Aminotransferase 25 IU/L (14-36); BUN Creatinine Ratio 21.7 (6-22); Bilirubin Total 0.3 mg/dL (0.2-1.3); Blood Urea Nitrogen 20 mg/dL (7-17); Calcium 9.4 mg/dL (8.4-10.2); Carbon Dioxide 27 mmol/L (22-32); Chloride 105 mmol/L (98-107); Creatine Kinase 63 U/L (30-135); Estimated Glomerular Filt Rate > 60 mL/min (>60); Globulin 3.3 g/dL (1.7-4.1); Glucose 101 mg/dL (70-99); HEMOLYSIS < 15 (0-50); Lipase 106 U/L (23-300); Magnesium 2.1 mg/dL (1.6-2.3); Sodium 140 mmol/L (137-145); Total Protein 7.7 g/dL (6.3-8.2)
[2025-01-06 23:45] LABS: Troponin I < 0.012 ng/mL (0.01-0.034)
[2025-01-07 00:35] VITALS: PULSE 83; O2SAT 98
[2025-01-07 00:36] VITALS: BP 134/74; PULSE 81; RESP 17; O2SAT 97
== END 2025-01-07 00:40 | disposition home or self-care (01) ==
PROVIDERS: Emergency Provider Student in an Organized Health Care Education/Training Program; PCP Family Medicine
DX: N39.0 Urinary tract infection, site not specified (principal); R42 Dizziness and giddiness; R51.9 Headache, unspecified
CPT/HCPCS: 36415; 71045; 80053; 81003; 81015; 81025; 82550; 83690; 83735; 84484; 85025; 87086; 93005; 93010; 96361; 96374; 96375; 99284; J1200; J2765

== ENCOUNTER → 2025-01-13 10:40 | Outpatient (CLI) | payer OTHER, SELFPAY ==
[2025-01-13 11:57] LABS: Add Manual Diff / Slide Review NO; Basophils Absolute Auto 0 /uL (0-100); Basophils Percent Auto 0.3 % (0-2); Eosinophils Absolute Auto 100 /uL (0-450); Eosinophils Percent Auto 1.4 % (2-4); Hematocrit 35.1 % (36-46); Hemoglobin 11.6 g/dL (12.0-16.0); Lymphocytes Absolute Auto 2700 /uL (1100-4500); Lymphocytes Percent Auto 25.7 % (25-40); Mean Corpuscular HGB Conc 33.1 % (30-36); Mean Corpuscular Hemoglobin 24.7 PG (26-34); Mean Corpuscular Volume 74.6 fL (80-100); Monocytes Absolute Auto 600 /uL (0-900); Monocytes Percent Auto 5.4 % (3-14); Neutrophils Absolute Auto 7000 /uL (1500-7000); Neutrophils Percent Auto 67.2 % (50-75); Platelet Count 322 X10^3/uL (150-400); Red Cell Distribution Width 15.3 % (11.6-14.8); White Blood Cell Count 10.4 X10^3/uL (4.5-11.0)
[2025-01-13 12:21] LABS: HEMOLYSIS < 15 (0-50); Iron 52 ug/dL (37-170)
[2025-01-13 12:24] LABS: Alanine Aminotransferase 30 IU/L (<35); Albumin 4.5 g/dL (3.5-5.0); Albumin Globulin Ratio 1.6 (1.0-2.8); Alkaline Phosphatase 107 U/L (38-126); Aspartate Aminotransferase 25 IU/L (14-36); BUN Creatinine Ratio 17.4 (6-22); Bilirubin Total 0.5 mg/dL (0.2-1.3); Blood Urea Nitrogen 16 mg/dL (7-17); Calcium 9.4 mg/dL (8.4-10.2); Carbon Dioxide 21 mmol/L (22-32); Chloride 106 mmol/L (98-107); Estimated Glomerular Filt Rate > 60 mL/min (>60); Globulin 2.9 g/dL (1.7-4.1); Glucose 106 mg/dL (70-99); HEMOLYSIS < 15 (0-50); Potassium 4.3 mmol/L (3.4-5.1); Sodium 140 mmol/L (137-145); Total Protein 7.4 g/dL (6.3-8.2)
[2025-01-13 12:32] LABS: Percent Iron Saturation 18 % (15-50); Total Iron Binding Capacity 292 ug/dL (265-497); Transferrin 247 mg/dL (206-381)
[2025-01-13 12:47] LABS: TSH w/ Reflex to FT4 1.33 uIU/mL (0.47-4.68)
[2025-01-13 12:53] LABS: Ferritin 21 ng/mL (6-137)
== END ==
PROVIDERS: PCP Family Medicine; Referring Provider Family Medicine; Visit Provider Family Medicine
DX: E61.1 Iron deficiency (principal); I10 Essential (primary) hypertension; R53.83 Other fatigue
CPT/HCPCS: 36415; 80053; 82728; 83540; 83550; 84443; 85025

== ENCOUNTER 2025-03-18 16:28 | Emergency (ER) | payer OTHER, SELFPAY ==
[2025-03-18 16:40] VITALS: BP 148/74; PULSE 99; RESP 20; TEMP 37; O2SAT 98; BMI 42.4
--- NOTE | 2025-03-18 21:27 | ED_ITS ---
HPI - General Adult General Chief complaint: Recheck/Abnormal Lab/Rx Stated complaint: Foreign Object stuck in throat Time Seen by Provider: 03/18/25 16:40 Source: patient Mode of arrival: Ambulatory History of Present Illness HPI narrative: Pleasant 34-year-old woman who is on clindamycin for a dental infection comes to the ER because of foreign body sensation in the throat. She reports that yesterday morning about 36 hours ago she vomited shortly after taking her clindamycin. Shortly after that she took a nap and awoke with a foreign body sensation in his throat. Since that time her foreign body sensation has not resolved. Which is what prompted her to come to the ER today for evaluation. She has been eating, drinking, and breathing without any difficulty. She states however it is mildly uncomfortable when she eats. She denies any choking, difficulty breathing, nausea, abdominal pain, fevers and has no other concerns or complaints at this time. Related Data Allergies Allergy/AdvReac Type Severity Reaction Status Date / Time paroxetine (From PAXIL) AdvReac Intermediate PALPITATIONS, Verified 03/18/25 16:40 LIGHTHEADED fluoxetine AdvReac Headache Verified 03/18/25 16:40 Patient History Medical History (Updated 03/18/25 @ 21:26 by Jhonny Herbert MD) COVID-19 virus infection Ulnar nerve entrapment at elbow Sciatica COVID-19 Chronic back pain (2007) Chronic headaches (2009) Depression (2009) PTSD (post-traumatic stress disorder) (2015) Hayfever (~1998) Asthma (2006) Personality disorder (2015) Anxiety (2008) Surgical History (Updated 10/03/24 @ 09:45 by Seema Parker DO) H/O right knee surgery Anesthesia History of placement of ear tubes (~1993) Status post delivery (09/14/15) Status post appendectomy (05/25/12) Family History (Updated 01/30/24 @ 10:42 by Meera Solis RN) Brother Age: 23 ADD (attention deficit disorder) Autism Morbidly obese Developmental disability Grandmother Age: 80 Seizures Hypertension Mother Age: 56 Anxiety Depression PTSD (post-traumatic stress disorder) Sister Age: 34 Anxiety Sister Age: 27 Anxiety Depression PTSD (post-traumatic stress disorder) Father Anxiety Anger Grandfather No problems noted. 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 seatbelt use: always water heater temp set < 120 deg: Yes working smoke detector in home: No fire extinguisher in home: No carbon monox detector in home: No firearms in home: No do you feel safe at home: Yes Smoking Status: Former smoker second hand exposure: Yes (s/o smokes MJ) substance use type: marijuana (sometimes vapes MJ, not while /) during the past year weight has: remained stable well-balanced diet: about half the time daily servings fruits/ve-4 caffeine: Yes (minimal, stopped energy drinks while ) Type(s) of exercise: walking additional social history: in process of signing up for [employer] Smoking Status: Former smoker alcohol intake frequency: holidays/special occasions only Exam Initial Vital Signs Initial Vital Signs: Vital Signs Temperature 98.6 F 03/18/25 16:40 Pulse Rate 99 H 03/18/25 16:40 Respiratory Rate 20 03/18/25 16:40 Blood Pressure 148/74 H 03/18/25 16:40 Pulse Oximetry 98 03/18/25 16:40 Oxygen Delivery Method Room Air 03/18/25 16:40 Const General: comfortable, No acute distress and No ill appearing HENMT Head: normal to inspection, normocephalic and atraumatic Mouth: oral mucosae normal, tongue normal, oropharynx normal, No audible dysphonia, No drooling, No malodorous breath, No muffled voice, oral mucosa abnormal and No tongue abnormal Neck Neck: trachea midline, supple and No tender Resp Effort & Inspection: normal respiratory effort and no respiratory distress Auscultation: clear to auscultation bilaterally Cardio Rate: regular rate Rhythm: regular rhythm Heart Sounds: S1 normal and S2 normal Neuro General: patient alert, patient awake and patient oriented x3 Cranial Nerves: CN's II-XI intact bilaterally Course Course Course Narrative: Patient seen and examined by myself when she was roomed in the ER. She likely just has a esophageal irritation or abrasion from her vomiting yesterday. There is a very small chance that she does have a foreign body in the esophagus but it is not causing any concerning symptoms that she is eating drinking and breathing completely normally. I advised her that if her symptom does not self resolve in the next few days to 1 week then she should seek ENT referral. Vital Signs Vital signs: Vital Signs - 8 hr 03/18/25 16:40 Temperature 98.6 F Pulse Rate 99 H Respiratory Rate 20 Blood Pressure 148/74 H Pulse Oximetry 98 Oxygen Delivery Method Room Air Medical Decision Making Differential Diagnosis Differential Diagnosis: esophageal abrasion, foreign body, vomiting, food impaction Discharge Plan Departure Patient Disposition: Home Clinical Impression: Esophageal abrasion Qualifiers: Encounter type: initial encounter Qualified Code(s): S27.818A - Other injury of esophagus (thoracic part), initial encounter Activity Restrictions/Additional Instructions: If there is any change or worsening in your condition, especially if you have difficulty drinking water or breathing or if you have any other concerns then please feel free to call 911 or come to the ER again for further evaluation. Otherwise, your condition should self resolve and if it does not you need to follow up with your PCP to seek ENT referral so that they can look with the camera. In any case, please see your PCP as soon as possible for re-evaluation. Call them tomorrow for an appointment. Referrals: Machelle Geller MD [Primary Care Provider, [facility]] - As soon as possible Stand Alone Forms: Patient Portal/API
[2025-03-18 21:35] VITALS: BP 136/65; PULSE 72; RESP 17; O2SAT 97
== END 2025-03-18 21:37 | disposition home or self-care (01) ==
PROVIDERS: Emergency Provider Emergency Medicine; PCP Family Medicine
DX: S27.818A Other injury of esophagus (thoracic part), initial encounter (principal); R11.10 Vomiting, unspecified; X58.XXXA Exposure to other specified factors, initial encounter
CPT/HCPCS: 99281

== ENCOUNTER → 2025-08-15 12:17 | Outpatient (CLI) | payer OTHER, SELFPAY ==
--- NOTE | 2025-08-15 12:18 | DI.RAD.S_ITS ---
PROCEDURE: XR FOOT LT MIN 3V INDICATIONS: Left foot pain TECHNIQUE: 3 views of the foot were acquired. COMPARISON: [facility], CR, XR FOOT RT MIN 3V, 02/09/2023, 11:12. FINDINGS: Bones: No fractures or dislocations. No suspicious bony lesions. Small plantar calcaneal spur. Soft tissues: No tibiotalar joint effusion. Achilles tendon appears normal. IMPRESSION: No acute bony abnormality. Dictated by: Amos Alegria M.D. on 08/15/2025 at 12:00 Approved by: Amos Alegria M.D. on 08/15/2025 at 12:00
== END ==
PROVIDERS: PCP Family Medicine; Referring Provider Registered Nurse; Visit Provider Registered Nurse
DX: M79.672 Pain in left foot (principal)
CPT/HCPCS: 73630

== ENCOUNTER → 2025-08-23 10:52 | Outpatient (CLI) | payer OTHER, SELFPAY ==
--- NOTE | 2025-08-23 10:53 | DI.MRI.S_ITS ---
PROCEDURE: MR KNEE RT WO CON INDICATIONS: Acute Right knee pain TECHNIQUE: Noncontrast sagittal PD fast spin echo and T2 fast spin echo with fat saturation, sagittal 3-D FLASH with fat saturation; coronal T1 spin echo and PD fast spin echo with fat saturation, and axial PD fast spin echo with fat saturation through the knee. COMPARISON: [facility], MR, MR KNEE RT WO CON, 09/15/2020, 11:47. FINDINGS: Image quality: Limited evaluation given patient motion. Menisci: In the medial meniscus, the posterior horn is irregular, favoring postprocedural. Otherwise no tear of the medial meniscus. Mild extrusion of the medial meniscus body. The lateral meniscus is unremarkable. Cruciate ligaments: The anterior and posterior cruciate ligaments appear intact. Medial structures: The medial collateral ligament appears intact. The posterior oblique ligament, semimembranosus tendon insertions, oblique popliteal ligament, and meniscocapsular junction appear intact. Visualized portions of the pes anserinus tendons appear normal. No abnormal bursal fluid. Lateral structures: The lateral collateral ligament, long and short heads of the biceps femoris tendon appear intact. The popliteus tendon appears normal; the popliteofibular ligament appears intact. The posterosuperior and anteroinferior popliteomeniscal fascicles appear intact. The arcuate and fabellofibular ligaments appear intact, on either side of the lateral inferior geniculate artery. Iliotibial band appears normal. Anterior structures: The quadriceps tendon is intact. The patellar tendon is mildly redundant. Patellar alignment is normal. No femoral trochlear dysplasia or ventral trochlear prominence. No edema in the infrapatellar fat pad. Bones and cartilage: Cartilage of the medial compartment is grossly well maintained. There is mild marrow edema of the peripheral aspect of the medial femoral condyle, and of the medial tibial plateau, nonspecific and may be reactive versus mild marrow contusion. Cartilage of the lateral compartment is well maintained. Mild marrow edema of the superior pole of the patella, nonspecific . Mild chondrosis of the patellofemoral compartment. Limited evaluation given patient motion. No acute fracture. Joint space: Small knee effusion. No popliteal cyst. Popliteal vasculature is unremarkable. IMPRESSION: 1. The posterior horn of the medial meniscus is irregular, favoring postprocedural, unchanged from prior exam. 2. No tear of the medial and lateral meniscus. 3. Mild marrow edema of the peripheral aspect of the medial femoral condyle , the medial tibial plateau, and the superior pole of the patella, nonspecific and may be reactive versus marrow contusion. 4. Mild chondrosis of the patellofemoral compartment. Dictated by: Elli Guzmán M.D. on 08/24/2025 at 12:57 Approved by: Elli Guzmán M.D. on 08/24/2025 at 13:07
== END ==
LOC: MRI 10:53
PROVIDERS: PCP Family Medicine; Referring Provider Family Medicine; Visit Provider Family Medicine
DX: M25.561 Pain in right knee (principal); M22.41 Chondromalacia patellae, right knee
CPT/HCPCS: 73721